=== PATIENT | female | born 1945 | race Caucasian/White ===

== ENCOUNTER → 2017-01-07 | Outpatient (CLI) | payer MEDICARE ==
[2017-01-07 14:35] LABS: CH 31.9; CHCM 32.1; HDW 2.76; HGB 14.3 gm/dL (11.4-16.0); MCH 32.5 pg (25.0-35.0); MCHC 32.5 g/dL (31.0-37.0); Macrocytosis Slight; RDW 14.8 % (11.5-15.5); WBC 11.4 k/uL (3.8-10.6)
[2017-01-07 14:43] LABS: Anion Gap 16 mmol/L; Blood Urea Nitrogen 11 mg/dL (7-17); Carbon Dioxide 22 mmol/L (22-30); Chloride 103 mmol/L (98-107); Glucose 106 mg/dL (74-99); Non-African American GFR(MDRD) 58 (>60 ml/min/1.73 sqM); Potassium 4.6 mmol/L (3.5-5.1); Sodium 141 mmol/L (137-145)
== END | disposition home or self-care (01) ==
LOC: LABWHC1 13:44
PROVIDERS: ATTEND Internal Medicine Interventional Cardiology
DX: I25.10 Atherosclerotic heart disease of native coronary artery without angina pectoris (principal); I10 Essential (primary) hypertension
CPT/HCPCS: 36415; 80048; 85027

== ENCOUNTER → 2017-01-07 | Outpatient (CLI) | payer MEDICARE ==
--- NOTE | 2017-01-07 14:18 | BD ---
EXAMINATION TYPE: MG DEXA axial skeleton. DATE OF EXAM: 01/07/2017 1:42 PM COMPARISON: Prior DEXA bone scan September 14, 2014. CLINICAL HISTORY: Postmenopausal female Height: 5'7 Weight: 182 FRAX RISK QUESTIONS: Alcohol (3 or more units per day): no Family History (Parent hip fracture): no Glucocorticoids (More than 3mos): yes (Ex: prednisone, prednisolone, methylprednisolone, dexamethasone, and hydrocortisone). History of Fracture in Adulthood: no Secondary Osteoporosis: 1. Type 1 Diabetes: no 2. Hyperthyroidism: no 3. Menopause before 45: no 4. Malnutrition: no 5. Chronic liver disease: no Rheumatoid Arthritis: no Current Tobacco Use: no RISK FACTORS HISTORY OF: History of Wrist Fracture: left When: 1962 Active: Diet low in dairy products/other sources of calcium: Postmenopausal woman: MEDICATIONS: Prednisone or other steroids: How Lon year Osteoporosis Medications: Which medication: Fosamax How Lon year Additional Medications: heart, see list Additional History: breast cancer [facility] 2016 EXAM MEASUREMENTS: Bone mineral densitometry was performed using the [employer] System. Bone mineral density as measured about the Lumbar spine is: ----- L1-L4(G/cm2): 1.277 T Score Values are as follows: ----- L2: 0.1 ----- L3: 1.1 ----- L4: 0.7 ----- L1-L4:0.5 Bone mineral density has: Increased 3.3% since study of: 09/14/2014 Bone mineral density about the R hip (g/cm2): 0.842 Bone mineral density about the L hip (g/cm2): 0.814 T Score values are as follows: -----R Neck: -1.4 -----L Neck: -1.6 -----R Intertrochanter: -0.7 -----L Intertrochanter: -0.7 Bone mineral density has: Increased 4.1% since study of: 09/14/2014 IMPRESSION: Osteopenia (T Score between -2.5 and -1 as noted by T score values: Persistent bilateral hips though bone density is increased from prior. There remains slightly increased risk of fracture and the patie nt may be considered for treatment. Re-Screen 1-2 years. NOTE: T-SCORE=SD OF THE YOUNG ADULT MEAN.
== END | disposition home or self-care (01) ==
LOC: RADBDWWP 13:07
PROVIDERS: ATTEND Internal Medicine Hematology & Oncology
DX: M85.852 Other specified disorders of bone density and structure, left thigh (principal); M85.851 Other specified disorders of bone density and structure, right thigh; C50.919 Malignant neoplasm of unspecified site of unspecified female breast; N95.1 Menopausal and female climacteric states; Z79.890 Hormone replacement therapy
CPT/HCPCS: 77080

== ENCOUNTER 2017-04-03 11:30 | Emergency (ER) | payer MEDICARE ==
[2017-04-03 12:05] VITALS: RESP 18
[2017-04-03] MEDS ORDERED: MORPHINE SULFATE 4 MG/ML SYRINGE IV STA (12:18)
[2017-04-03] MEDS ORDERED: SODIUM CHLORIDE 0.9% 500 ML IV STA (12:18)
[2017-04-03] MEDS ORDERED: SODIUM CHLORIDE 0.9% 1,000 ML IV STA (12:18)
[2017-04-03] MEDS ORDERED: ONDANSETRON 4 MG/2 ML VIAL IVP STA ×2 (12:18→14:21)
[2017-04-03] MEDS ORDERED: FAMOTIDINE 20 MG/2 ML VIAL IV STA (12:19)
--- NOTE | 2017-04-03 12:21 | ED ---
General Adult HPI - General Chief complaint: Nausea/Vomiting/Diarrhea Stated complaint: NAUSEA, VOMITING Time Seen by Provider: 04/03/17 12:02 Source: patient, RN notes reviewed Mode of arrival: ambulatory Limitations: no limitations - History of Present Illness Initial comments: Patient is a pleasant 71-year-old female presenting to the emergency department with nausea vomiting. Patient has had recurrent problems similar to this for years. Patient has been hospitalized a few times the past for this. Patient has epigastric discomfort. Patient has nausea with several episodes of vomiting. Patient has a known hiatal hernia. Patient states she usually gets Zofran and pain medicine for this and does request this. Patient did try Compazine tablet at home however vomited. - Related Data Home Medications Medication Instructions Recorded Confirmed Acetaminophen Tab [Tylenol] 500 mg PO HS 10/04/14 04/03/17 DULoxetine HCL [Cymbalta] 60 mg PO DAILY 10/04/14 04/03/17 Fluticasone Propionate [Flovent 1 puff INHALATION RT-QID 10/04/14 04/03/17 Hfa 110mcg] Gabapentin [Neurontin] 600 mg PO BID 10/04/14 04/03/17 Ipratropium/Albuterol Sulfate 1 puff INHALATION RT-QID 10/04/14 04/03/17 [Combivent Respimat Inhaler] Multivitamins, Thera [Multivitamin] 1 tab PO DAILY@1200 10/04/14 04/03/17 OLANZapine [ZyPREXA] 5 mg PO HS 10/04/14 04/03/17 traZODone HCL [Desyrel] 150 mg PO HS 10/04/14 04/03/17 Aspirin 81 mg PO DAILY@1200 10/31/15 04/03/17 Carvedilol [Coreg] 6.25 mg PO BID 10/31/15 04/03/17 Cholecalciferol [Vitamin D3] 1,000 unit PO BID@1200,2100 10/31/15 04/03/17 Furosemide [Lasix] 40 mg PO DAILY 10/31/15 04/03/17 Lansoprazole [Prevacid] 30 mg PO DAILY 10/31/15 04/03/17 Latanoprost Ophth [Xalatan 0.005%] 1 drops BOTH EYES HS 10/31/15 04/03/17 Lisinopril [Zestril] 2.5 mg PO DAILY@1200 10/31/15 04/03/17 Risedronate Sodium [Risedronate 35 mg PO MARS 10/31/15 04/03/[address]] Spironolactone [Aldactone] 12.5 mg PO DAILY@1200 10/31/15 04/03/17 metFORMIN HCL [Glucophage] 500 mg PO DAILY 10/31/15 04/03/17 Atorvastatin Calcium [Lipitor] 40 mg PO HS 04/03/17 04/03/17 clonazePAM [KlonoPIN] 2.5 mg PO TID 04/03/17 04/03/17 Previous Rx's Medication Instructions Recorded Ondansetron Odt [Zofran Odt] 4 mg PO Q8HR PRN #10 tab 04/03/17 Allergies Allergy/AdvReac Type Severity Reaction Status Date / Time bupropion HCl Allergy Unknown Verified 04/03/17 13:31 [From Wellbutrin] codeine Allergy Unknown Verified 04/03/17 13:31 erythromycin base Allergy Unknown Verified 04/03/17 13:31 [Erythromycin Base] Penicillins Allergy Unknown Verified 04/03/17 13:31 sertraline HCl [From Zoloft] Allergy Unknown Verified 04/03/17 13:31 Review of Systems ROS Statement: Those systems with pertinent positive or pertinent negative responses have been documented in the HPI. ROS Other: All systems not noted in ROS Statement are negative. Constitutional: Denies: fever Eyes: Denies: eye pain ENT: Denies: ear pain Respiratory: Denies: cough, dyspnea Cardiovascular: Denies: chest pain Endocrine: Denies: fatigue Gastrointestinal: Reports: abdominal pain, nausea, vomiting. Denies: diarrhea, constipation Genitourinary: Denies: dysuria Musculoskeletal: Denies: back pain Skin: Denies: rash Neurological: Denies: weakness Past Medical History Past Medical History: Asthma, Coronary Artery Disease (CAD), COPD, Diabetes Mellitus, Hyperlipidemia, Hypertension, Myocardial Infarction (LA) Additional Past Medical History / Comment(s): bipolar disorder, emphysema, incont of urine wears a pad, hiatal hernia, uti Last Myocardial Infarction Date:: 10-04-14 History of Any Multi-Drug Resistant Organisms: None Reported Past Surgical History: Cholecystectomy, Heart Catheterization With Stent, Orthopedic Surgery, Tonsillectomy Past Anesthesia/Blood Transfusion Reactions: No Reported Reaction Date of Last Stent Placement:: 10/04/14 Past Psychological History: Bipolar Smoking Status: Former smoker Past Alcohol Use History: None Reported Additional Past Alcohol Use History / Comment(s): quit smoked 3/4 ppd since she was a teenager. Past Drug Use History: None Reported - Past Family History Father Family Medical History: Cancer Additional Family Medical History / Comment(s): non hodgkins lymphoma Sister(s) Family Medical History: Cancer Additional Family Medical History / Comment(s): bipolar Mother Additional Family Medical History / Comment(s): alzheimers, bipolar, dementia General Exam Limitations: no limitations General appearance: alert, in no apparent distress Head exam: Present: atraumatic Eye exam: Present: normal appearance, PERRL ENT exam: Present: normal oropharynx Neck exam: Present: normal inspection Respiratory exam: Present: normal lung sounds bilaterally Cardiovascular Exam: Present: regular rate, normal rhythm Expanded Peripheral pulses: 2+: Dorsalis Pedis (R), Dorsalis Pedis (L) GI/Abdominal exam: Present: soft, tenderness (Mild epigastric), normal bowel sounds. Absent: distended, guarding, rebound, rigid, pulsatile mass Extremities exam: Present: normal inspection. Absent: pedal edema, calf tenderness Neurological exam: Present: alert Psychiatric exam: Present: normal affect, normal mood Skin exam: Absent: rash Course Vital Signs 04/03/17 04/03/17 04/03/17 11:34 12:03 13:53 Temperature 98.7 F 98.4 F 98.1 F Pulse Rate 87 77 96 Respiratory 22 18 18 Rate Blood Pressure 180/93 164/86 168/97 O2 Sat by Pulse 95 96 95 Oximetry Medical Decision Making - Medical Decision Making Patient reevaluated and improved. Patient still has some nausea and is receptive to repeat Zofran. Abdomen is soft and nontender. Patient requests discharge. Patient updated on results and need for follow-up. - Lab Data Result diagrams: 04/03/17 13:05 04/03/17 13:05 Lab Results 04/03/17 04/03/17 04/03/17 Range/Units 13:05 13:05 13:35 WBC 16.8 H (3.8-10.6) k/uL RBC 4.68 (3.80-5.40) m/uL Hgb 14.9 (11.4-16.0) gm/dL Hct 44.2 (34.0-46.0) % MCV 94.5 (80.0-100.0) fL MCH 31.8 (25.0-35.0) pg MCHC 33.6 (31.0-37.0) g/dL RDW 14.9 (11.5-15.5) % Plt Count 335 (150-450) k/uL Neutrophils % 84 % Lymphocytes % 13 % Monocytes % 2 % Eosinophils % 1 % Basophils % 0 % Neutrophils # 14.1 H (1.3-7.7) k/uL Lymphocytes # 2.2 (1.0-4.8) k/uL Monocytes # 0.3 (0-1.0) k/uL Eosinophils # 0.1 (0-0.7) k/uL Basophils # 0.0 (0-0.2) k/uL Sodium 141 (137-145) mmol/L Potassium 4.3 (3.5-5.1) mmol/L Chloride 103 (98-107) mmol/L Carbon Dioxide 22 (22-30) mmol/L Anion Gap 16 mmol/L BUN 10 (7-17) mg/dL Creatinine 0.77 (0.52-1.04) mg/dL Est GFR (MDRD) Af Amer >60 (>60 ml/min/1.73 sqM) Est GFR (MDRD) Non-Af >60 (>60 ml/min/1.73 sqM) Glucose 143 H (74-99) mg/dL Calcium 10.3 H (8.4-10.2) mg/dL Total Bilirubin 1.1 (0.2-1.3) mg/dL AST 24 (14-36) U/L ALT 27 (9-52) U/L Alkaline Phosphatase 135 H (38-126) U/L Total Protein 9.0 H (6.3-8.2) g/dL Albumin 5.0 (3.5-5.0) g/dL Amylase 62 (30-110) U/L Lipase 82 (23-300) U/L Urine Color Yellow Urine Appearance Clear (Clear) Urine pH 8.0 (5.0-8.0) Ur Specific [place] 1.018 (1.001-1.035) Urine Protein 1+ H (Negative) Urine Glucose (UA) Negative (Negative) Urine Ketones Negative (Negative) Urine Blood Negative (Negative) Urine Nitrite Negative (Negative) Urine Bilirubin Negative (Negative) Urine Urobilinogen <2.0 (<2.0) mg/dL Ur Leukocyte Esterase Small H (Negative) Urine RBC 1 (0-5) /hpf Urine WBC 9 H (0-5) /hpf Ur Squamous Epith Cells <1 (0-4) /hpf Urine Mucus Rare H (None) /hpf - Radiology Data Radiology results: image reviewed (Abdominal x-ray shows no acute process) Disposition Clinical Impression: Vomiting Disposition: HOME SELF-CARE Condition: Stable Instructions: Acute Nausea and Vomiting (ED) Additional Instructions: Please follow-up with your doctor in the next day or 2 for recheck. Return for abdominal pain, fevers, not tolerating fluids, worsening symptoms or other concerns. Prescriptions: Ondansetron Odt [Zofran Odt] 4 mg PO Q8HR PRN #10 tab PRN Reason: Nausea Referrals: James Sesay MD [Primary Care Provider] - 1-2 days
[2017-04-03 13:16] LABS: Basophils % (A) 0 %; CH 32.3; CHCM 34.3; Eosinophils # (A) 0.1 k/uL (0-0.7); Eosinophils % (A) 1 %; HCT 44.2 % (34.0-46.0); HDW 2.67; HGB 14.9 gm/dL (11.4-16.0); Luc # (Auto) 0.08; Luc % (Auto) 1; Lymphocytes # (A) 2.2 k/uL (1.0-4.8); Lymphocytes % (A) 13 %; MCH 31.8 pg (25.0-35.0); MCHC 33.6 g/dL (31.0-37.0); MCV 94.5 fL (80.0-100.0); Mean Platelet Volume 8.2; Monocytes # (A) 0.3 k/uL (0-1.0); Monocytes % (A) 2 %; Neutrophils # (A) 14.1 k/uL (1.3-7.7); Neutrophils % (A) 84 %; RBC 4.68 m/uL (3.80-5.40); RDW 14.9 % (11.5-15.5); WBC 16.8 k/uL (3.8-10.6); WBC (Perox) 17.03
[2017-04-03 13:26] LABS: ALT 27 U/L (9-52); AST 24 U/L (14-36); Alkaline Phosphatase 135 U/L (38-126); Amylase 62 U/L (30-110); Anion Gap 16 mmol/L; Blood Urea Nitrogen 10 mg/dL (7-17); Calcium 10.3 mg/dL (8.4-10.2); Carbon Dioxide 22 mmol/L (22-30); Chloride 103 mmol/L (98-107); Glucose 143 mg/dL (74-99); Non-African American GFR(MDRD) >60 (>60 ml/min/1.73 sqM); Potassium 4.3 mmol/L (3.5-5.1); Sodium 141 mmol/L (137-145); Total Bilirubin 1.1 mg/dL (0.2-1.3)
--- NOTE | 2017-04-03 14:09 | XR ---
EXAMINATION TYPE: XR KUB DATE OF EXAM: 04/03/2017 2:04 PM COMPARISON: NONE HISTORY: Pain TECHNIQUE: Single supine KUB image of the abdomen is obtained FINDINGS: Small bowel demonstrates no evidence for dilatation or air fluid levels. Gas and fecal material is seen in non-distended colon. No convincing evidence for pneumoperitoneum. No unusual calcifications. The lung bases are clear. Cholecystectomy clips. Degenerative changes lumbar spine. The osseous structures are intact. IMPRESSION: 1. Overall nonobstructive bowel gas pattern.
[2017-04-03 14:11] LABS: Appearance,Urine Clear (Clear); Bilirubin,Urine Negative (Negative); Glucose,Urine (UA) Negative (Negative); Ketones,Urine Negative (Negative); Leukocyte Esterase,Urine Small (Negative); Mucus,Urine Rare /hpf; Nitrite,Urine Negative (Negative); Particle Count 3206; Protein,Urine 1+ (Negative); RBC,Urine 1 /hpf (0-5); Specific Gravity,Urine 1.018 (1.001-1.035); Squamous Epithelial Cell,Urine <1 /hpf (0-4); UA Billing (MACRO vs. MICRO) MICRO; Urobilinogen,Urine <2.0 mg/dL (<2.0); WBC,Urine 9 /hpf (0-5)
[2017-04-03 15:09] VITALS: BP 142/67; PULSE 92; TEMP 98.5
== END 2017-04-03 15:29 | disposition home or self-care (01) ==
LOC: EC 11:30
DX: R11.2 Nausea with vomiting, unspecified (principal); E11.9 Type 2 diabetes mellitus without complications; E78.5 Hyperlipidemia, unspecified; I10 Essential (primary) hypertension; I25.10 Atherosclerotic heart disease of native coronary artery without angina pectoris; J45.909 Unspecified asthma, uncomplicated; J44.9 Chronic obstructive pulmonary disease, unspecified; F31.9 Bipolar disorder, unspecified; I25.2 Old myocardial infarction; Z87.891 Personal history of nicotine dependence; Z79.51 Long term (current) use of inhaled steroids; Z79.82 Long term (current) use of aspirin; Z79.84 Long term (current) use of oral hypoglycemic drugs; Z79.899 Other long term (current) drug therapy; Z88.0 Allergy status to penicillin; Z88.1 Allergy status to other antibiotic agents; Z88.5 Allergy status to narcotic agent; Z88.8 Allergy status to other drugs, medicaments and biological substances
CPT/HCPCS: 36415; 80053; 82150; 83690; 85025; 81001; 74000; 99284; 96374; 96375 ×2; 96376; 96361 ×2; J2270; J2405

== ENCOUNTER → 2017-04-09 | Outpatient (CLI) | payer MEDICARE ==
--- NOTE | 2017-04-09 17:38 | US ---
EXAMINATION TYPE: US abdomen complete DATE OF EXAM: 04/09/2017 4:05 PM COMPARISON: Prior CT abdomen pelvis 12 June 2016, prior abdomen ultrasound December CLINICAL HISTORY: R94.5 Abn Liver Function Test, R11.2 Nausea/Vomiti. N/V, history of cholecystectomy EXAM MEASUREMENTS: Liver Length: 13.1 cm Gallbladder Wall: surgically absent CBD: 0.5 cm Spleen: 11.1 cm Right Kidney: 9.3 x 5.0 x 5.4 cm Left Kidney: 10.1 x 5.4 x 4.6 cm Pancreas: visualized portions wnl, tail limited by overlying midline bowel gas Liver: slightly heterogeneous without any definite lesions seen at this time Gallbladder: surgically absent Evidence for sonographic Nunez's sign: no CBD: visualized portions wnl, limited by overlying bowel gas Spleen: wnl Right Kidney: visualized portions wnl, limited by rib shadowing Left Kidney: visualized portions wnl, limited by rib shadowing Upper IVC: wnl Abd Aorta: visualized portions wnl, limited by overlying midline bowel gas There is no ascites. Kidneys are morphologically normal without hydronephrosis or evident mass, calci fication.. IMPRESSION: Somewhat limited exam. Status post cholecystectomy. Possible degree of fatty infiltration of the liver.
== END | disposition home or self-care (01) ==
LOC: RADUSWWP 15:37
PROVIDERS: ATTEND Internal Medicine
DX: R94.5 Abnormal results of liver function studies (principal); R11.2 Nausea with vomiting, unspecified; Z90.49 Acquired absence of other specified parts of digestive tract
CPT/HCPCS: 76700

== ENCOUNTER 2017-04-25 09:23 | Day surgery (SDC) | payer MEDICARE ==
[2017-04-23 16:24] VITALS: BMI 27.1
[~2017-04-25 09:23] MED LIST: LACTATED RINGERS 1,000 ML IV SCH
[2017-04-25 10:12] VITALS: PULSE 66; TEMP 98.1
[2017-04-25] MEDS ORDERED: LIDOCAINE 1% 20 ML VIAL (10MG/ML) FOR IV START INTRADERMA ONE (10:18)
[2017-04-25 10:24] LABS: Glucose,Whole Blood 107 mg/dL (75-99)
[2017-04-25] MEDS ORDERED: PROPOFOL 10 MG/ML 20 ML VIAL IV ONE (10:36)
--- NOTE | 2017-04-25 10:58 | P.PCN ---
Date of Procedure: 04/25/17 Preoperative Diagnosis: Postoperative Diagnosis: Procedure(s) Performed: BRIEF HISTORY: Patient is a 71-year-old, pleasant, white female, scheduled for an upper endoscopy as a part of evaluation of from intermittent nausea vomiting for the last 10 years duration. She is having these episodes once every 2-3 months and sometimes the last for few days. She has been on Prevacid 30 mg daily for 2 years now still remains symptomatic. She was diagnosed with GERD in the past. Presently takes Zofran as needed. PROCEDURE PERFORMED: Esophagogastroduodenoscopy with biopsy. PREOPERATIVE DIAGNOSIS: Intermittent nausea and vomiting of 10 years duration. IV sedation per anesthesia. PROCEDURE: After informed consent was obtained, the patient was brought into the endoscopy unit. IV sedation was administered by Anesthesia under continuous monitoring. Initially the Olympus GIF-140 video endoscope was inserted into the mouth. Esophagus intubated without any difficulty. It was gradually advanced into the stomach and duodenum and carefully examined. The bulb and the second part of the duodenum appeared normal. Biopsies were done from this area to rule out celiac disease. The scope at this time was withdrawn to the stomach, adequately insufflated with air, and upon careful examination, mucosa of the antrum had mild mottling of the mucosa and biopsies were done from this area. The body, cardia and the fundus appeared normal. The scope was then withdrawn into the esophagus. The GE junction was located at 39 cm from the incisors. The esophagus appeared normal. There were no erosions or ulcerations seen and the patient tolerated the procedure well. IMPRESSION: 1. Mild antral gastritis. 2. No evidence of esophagitis or peptic ulcer disease. RECOMMENDATIONS: The findings of this examination were discussed with the patient as well as her family. She was advised to follow with the biopsy results. She will continue with Zofran as needed for the nausea and continue with Prevacid for reflux symptoms. She'll be seen in the office in 3-4 weeks. Implants: Indications for Procedure: Operative Findings: Description of Procedure:
[2017-04-25 11:03] VITALS: RESP 18
[2017-04-25 11:23] VITALS: BP 110/68
== END 2017-04-25 11:33 | disposition home or self-care (01) ==
LOC: ORWHC2ENDO 09:23
PROVIDERS: ATTEND Internal Medicine Gastroenterology
DX: K29.50 Unspecified chronic gastritis without bleeding (principal); K21.0 Gastro-esophageal reflux disease with esophagitis; J44.9 Chronic obstructive pulmonary disease, unspecified; J45.909 Unspecified asthma, uncomplicated; I25.10 Atherosclerotic heart disease of native coronary artery without angina pectoris; I10 Essential (primary) hypertension; E78.5 Hyperlipidemia, unspecified; E11.9 Type 2 diabetes mellitus without complications; Z95.5 Presence of coronary angioplasty implant and graft; I25.2 Old myocardial infarction; Z87.891 Personal history of nicotine dependence; Z79.82 Long term (current) use of aspirin; Z79.51 Long term (current) use of inhaled steroids; Z79.899 Other long term (current) drug therapy; Z88.1 Allergy status to other antibiotic agents; Z88.0 Allergy status to penicillin; Z88.8 Allergy status to other drugs, medicaments and biological substances
CPT/HCPCS: 88305; 88342; 43239; J2704

== ENCOUNTER → 2017-10-07 | Outpatient (CLI) | payer MEDICARE ==
[2017-10-07 14:10] LABS: CH 32.3; CHCM 32.7; HCT 44.1 % (34.0-46.0); HDW 2.57; HGB 14.1 gm/dL (11.4-16.0); MCH 31.8 pg (25.0-35.0); MCV 99.6 fL (80.0-100.0); Macrocytosis Slight; Mean Platelet Volume 9.3; RBC 4.43 m/uL (3.80-5.40); RDW 14.8 % (11.5-15.5); WBC 13.1 k/uL (3.8-10.6)
[2017-10-07 14:30] LABS: ALT 25 U/L (9-52); AST 17 U/L (14-36); Alkaline Phosphatase 115 U/L (38-126); Anion Gap 11 mmol/L; Blood Urea Nitrogen 11 mg/dL (7-17); Calcium 9.8 mg/dL (8.4-10.2); Carbon Dioxide 24 mmol/L (22-30); Chloride 104 mmol/L (98-107); Cholesterol 166 mg/dL (<200); Glucose 96 mg/dL (74-99); HDL Cholesterol 36 mg/dL (40-60); Non-African American GFR(MDRD) >60 (>60 ml/min/1.73 sqM); Potassium 4.6 mmol/L (3.5-5.1); Sodium 139 mmol/L (137-145); Total Bilirubin 0.9 mg/dL (0.2-1.3); Total Protein 7.4 g/dL (6.3-8.2)
== END | disposition home or self-care (01) ==
LOC: LABWHC1 12:26
PROVIDERS: ATTEND Internal Medicine
DX: I11.9 Hypertensive heart disease without heart failure (principal); E78.2 Mixed hyperlipidemia; M19.90 Unspecified osteoarthritis, unspecified site; M81.8 Other osteoporosis without current pathological fracture
CPT/HCPCS: 36415; 80053; 80061; 82306; 84439; 84443; 85027

== ENCOUNTER → 2017-10-15 | Outpatient (CLI) | payer MEDICARE ==
--- NOTE | 2017-10-15 15:29 | XR ---
EXAMINATION TYPE: XR chest 2V DATE OF EXAM: 10/15/2017 COMPARISON: Chest x-ray May 02, 2016 HISTORY: COPD with cough. TECHNIQUE: Frontal and lateral views of the chest are obtained. FINDINGS: There is no focal air space opacity, pleural effusion, or pneumothorax seen. The cardiac silhouette size is within normal limits. Underlying mild emphysematous change is felt present. The o sseous structures are demineralized. There is degenerative change right glenohumeral joint seen. Curv ilinear calcification at this level is noted. On lateral view there are anterior surgical clips not c learly seen on frontal view IMPRESSION: Mild chronic emphysematous change without suspicious acute pulmonary process. Right shou lder is partially imaged with suspicious new findings. Advise dedicated right shoulder x-ray based on clinical correlation. Healing fracture is in differential at this level.
== END | disposition home or self-care (01) ==
LOC: RADXRMAIN 15:05
PROVIDERS: ATTEND Internal Medicine
DX: J43.9 Emphysema, unspecified (principal)
CPT/HCPCS: 71020

== ENCOUNTER → 2017-12-05 | Outpatient (CLI) | payer MEDICARE ==
--- NOTE | 2017-12-05 14:47 | MM ---
Reason for exam: additional evaluation requested from prior study. Last mammogram was performed 1 year and 2 months ago. History: Patient is postmenopausal and has history of breast cancer at age 71. Family history of premenopausal breast cancer in sister at age 45. Lumpectomy of the left breast, 2017. Taking estrogen for 2 months. Taking antineoplastic beginning at age 71. Physical Findings: Nurse did not find any significant physical abnormalities on exam. MG 3D Diag Mammo W/Cad TIERNEY Bilateral CC and MLO view(s) were taken. Prior study comparison: September 25, 2016, left breast MG 3d work up w/cad LT. September 16, 2016, bilateral MG screening mammo w CAD. The breast tissue is heterogeneously dense. This may lower the sensitivity of mammography. No suspicious calcifications are seen. Stable post operative changes in the left breast. These results were verbally communicated with the patient and result sheet given to the patient on 12/05/17. ASSESSMENT: Benign, BI-RAD 2 RECOMMENDATION: Follow-up diagnostic mammogram of both breasts in 1 year.
== END | disposition home or self-care (01) ==
LOC: RADMAMWWP 13:44
PROVIDERS: ATTEND Internal Medicine Hematology & Oncology
DX: Z08 Encounter for follow-up examination after completed treatment for malignant neoplasm (principal); Z85.3 Personal history of malignant neoplasm of breast
CPT/HCPCS: 77066; G0279

== ENCOUNTER → 2018-01-13 | Outpatient (CLI) | payer MEDICARE ==
--- NOTE | 2018-01-13 14:49 | US ---
EXAMINATION TYPE: US pelvis complete transvag DATE OF EXAM: 01/13/2018 COMPARISON: Pelvic ultrasound September 14, 2014 CLINICAL HISTORY: N93.9 Abnormal Vaginal Bleeding. No bleeding now, episode recently and 1 year ago, patient also did UA that was clean of hematuria TECHNIQUE: TA and TV Date of LMP: 20 yrs. ago EXAM MEASUREMENTS: Uterus: 6.2 x 4.1 x 2.6 cm Endometrial Stripe: 0.4 cm Right Ovary: not seen Left Ovary: not seen 1. Uterus: Anteverted atrophic but appears wnl 2. Endometrium: wnl 3. Right Ovary: not seen due to atrophy and bowel gas 4. Left Ovary: not seen due to atrophy and bowel gas 5. Bilateral Adnexa: wnl 6. Posterior cul-de-sac: wnl No suspicious thickening of endometrium identified. No free fluid in pelvic cul-de-sac. Neither ovary is seen. No suspicious adnexal masses are noted. IMPRESSION: No suspicious endometrial thickening. Unremarkable study for postmenopausal female.
== END | disposition home or self-care (01) ==
LOC: RADUSWWP 12:54
PROVIDERS: ATTEND Obstetrics & Gynecology Gynecology
DX: N93.9 Abnormal uterine and vaginal bleeding, unspecified (principal); Z78.0 Asymptomatic menopausal state
CPT/HCPCS: 76830; 76856

== ENCOUNTER 2018-07-09 17:23 | Emergency (ER) | payer MEDICARE ==
[2018-07-09] MEDS ORDERED: MORPHINE SULFATE 4 MG/ML SYRINGE IV STA (19:47)
[2018-07-09] MEDS ORDERED: SODIUM CHLORIDE 0.9% 1,000 ML IV STA (19:47)
[2018-07-09] MEDS ORDERED: FAMOTIDINE 20 MG/2 ML VIAL IV STA (19:47)
[2018-07-09] MEDS ORDERED: ONDANSETRON 4 MG/2 ML VIAL IVP STA (19:47)
--- NOTE | 2018-07-09 20:06 | ED ---
Nausea/Vomiting/Diarrhea HPI - General Chief complaint: Nausea/Vomiting/Diarrhea Stated complaint: VOMITING, ABDOOMINAL PAIN Time Seen by Provider: 07/09/18 19:21 Source: patient Mode of arrival: ambulatory Limitations: no limitations - History of Present Illness Initial comments: 73-year-old female patient presents to the emergency department today for complaints of nausea and vomiting. Patient states that symptoms started at 1 PM this afternoon. States that she has vomited 22 times since onset of symptoms. States that she has been chilled with this. States that she is having midepigastric burning with this. Patient states that she has had symptoms similar to this in the past and she sees a GI specialist for this. Patient states that for the last couple of weeks she has also been experiencing chest pain that radiates into her back. She reports she is also experiencing left flank pain in her kidney area. States that she has been having some shortness of breath as well. Patient states she does have emphysema but her shortness breath has been worse. Denies any cough or congestion. Denies any fever. Patient denies any recent rash, abdominal pain, numbness, tingling, dizziness, weakness, hematuria, dysuria, urinary urgency, urinary frequency, headache, visual changes, or any other complaints. - Related Data Home Medications Medication Instructions Recorded Confirmed Acetaminophen Tab [Tylenol] 500 mg PO HS 10/04/14 07/09/18 DULoxetine HCL [Cymbalta] 60 mg PO DAILY 10/04/14 07/09/18 Fluticasone Propionate [Flovent 1 puff INHALATION RT-QID 10/04/14 07/09/18 Hfa 110mcg] Gabapentin [Neurontin] 600 mg PO BID 10/04/14 07/09/18 Ipratropium/Albuterol Sulfate 1 puff INHALATION RT-QID 10/04/14 07/09/18 [Combivent Respimat Inhaler] Multivitamins, Thera [Multivitamin] 1 tab PO DAILY@1200 10/04/14 07/09/18 OLANZapine [ZyPREXA] 5 mg PO HS 10/04/14 07/09/18 traZODone HCL [Desyrel] 150 mg PO HS 10/04/14 07/09/18 Aspirin 81 mg PO DAILY@1200 10/31/15 07/09/18 Carvedilol [Coreg] 6.25 mg PO BID 10/31/15 07/09/18 Cholecalciferol [Vitamin D3] 1,000 unit PO BID@1200,2100 10/31/15 07/09/18 Furosemide [Lasix] 40 mg PO DAILY 10/31/15 07/09/18 Lansoprazole [Prevacid] 30 mg PO DAILY 10/31/15 07/09/18 Latanoprost Ophth [Xalatan 0.005%] 1 drops BOTH EYES HS 10/31/15 07/09/18 Lisinopril [Zestril] 2.5 mg PO DAILY@1200 10/31/15 07/09/18 Risedronate Sodium [Risedronate 35 mg PO MARS 10/31/15 07/09/[address]] Spironolactone [Aldactone] 12.5 mg PO DAILY@1200 10/31/15 07/09/18 metFORMIN HCL [Glucophage] 500 mg PO DAILY 10/31/15 07/09/18 Atorvastatin Calcium [Lipitor] 40 mg PO HS 04/03/17 07/09/18 clonazePAM [KlonoPIN] 3 mg PO BID 04/03/17 07/09/18 Charcoal Caps 2 cap PO ONCE PRN 07/09/18 07/09/18 Magnesium/Potassium/Bromelain 1 tab PO DAILY@1200 07/09/18 07/09/18 Previous Rx's Medication Instructions Recorded Metoclopramide [Reglan] 10 mg PO Q8H PRN #10 tab 07/09/18 Allergies Allergy/AdvReac Type Severity Reaction Status Date / Time bupropion HCl Allergy Rash/Hives Verified 07/09/18 19:26 [From Wellbutrin] erythromycin base Allergy SWELLING Verified 07/09/18 19:26 [Erythromycin Base] OF TONGUE Penicillins Allergy SWELLING Verified 07/09/18 19:26 OF TONGUE sertraline HCl [From Zoloft] Allergy Diarrhea Verified 07/09/18 19:26 Review of Systems ROS Statement: Those systems with pertinent positive or pertinent negative responses have been documented in the HPI. ROS Other: All systems not noted in ROS Statement are negative. Past Medical History Past Medical History: Asthma, Cancer, COPD, Diabetes Mellitus, GERD/Reflux, Hyperlipidemia, Hypertension, Myocardial Infarction (NH), Osteoarthritis (OA) Additional Past Medical History / Comment(s): BREAST CANCER Last Myocardial Infarction Date:: 10-04-14 History of Any Multi-Drug Resistant Organisms: None Reported Past Surgical History: Breast Surgery, Cholecystectomy, Heart Catheterization With Stent, Orthopedic Surgery, Tonsillectomy Additional Past Surgical History / Comment(s): CYST REMOVED FROM CYST , COLONOSCOPY AND EGD, LEFT BREAST Past Anesthesia/Blood Transfusion Reactions: No Reported Reaction Date of Last Stent Placement:: 10/04/14 Past Psychological History: Bipolar Smoking Status: Former smoker - Past Family History Father Family Medical History: Cancer Additional Family Medical History / Comment(s): non hodgkins lymphoma Sister(s) Family Medical History: Cancer Additional Family Medical History / Comment(s): bipolar Mother Family Medical History: No Reported History Additional Family Medical History / Comment(s): alzheimers, bipolar, dementia General Exam Limitations: no limitations General appearance: alert, in no apparent distress, other (This is a well- developed, well-nourished elderly female patient in no acute distress. Vital signs upon presentation are temperature 97.9F, pulse 66, respirations 18, blood pressure 155/84, pulse ox 97% on room air.) Eye exam: Present: normal appearance, PERRL, EOMI. Absent: scleral icterus, conjunctival injection, periorbital swelling ENT exam: Present: normal exam, normal oropharynx, mucous membranes moist Respiratory exam: Present: normal lung sounds bilaterally. Absent: respiratory distress, wheezes, rales, rhonchi, stridor, chest wall tenderness Cardiovascular Exam: Present: regular rate, normal rhythm, normal heart sounds. Absent: systolic murmur, diastolic murmur, rubs, gallop, clicks GI/Abdominal exam: Present: soft, normal bowel sounds. Absent: distended, tenderness, guarding, rebound, rigid Neurological exam: Present: alert, oriented X3, CN II-XII intact Psychiatric exam: Present: normal affect, normal mood Skin exam: Present: warm, dry, intact, normal color. Absent: rash Course Vital Signs 07/09/18 07/09/18 07/09/18 17:51 20:13 21:23 Temperature 97.9 F Pulse Rate 66 87 72 Respiratory 18 18 18 Rate Blood Pressure 155/84 180/67 171/79 O2 Sat by Pulse 97 96 95 Oximetry 07/09/18 07/09/18 22:20 23:07 Temperature 97.8 F Pulse Rate 87 85 Respiratory 18 17 Rate Blood Pressure 129/60 131/60 O2 Sat by Pulse 93 L 93 L Oximetry Medical Decision Making - Medical Decision Making 73-year-old female patient presents the emergency department today for complaints of midepigastric burning and vomiting. Physical examination did reveal some mild midepigastric tenderness. Labs reviewed and showed an elevated white blood cell count at 13.7 which is felt to be reactive from vomiting. Urinalysis was negative for any acute abnormalities. Patient did receive medications here in the emergency department. She is feeling better. She did tolerate by mouth challenge. Patient does have control being discharged home to follow-up with her primary care physician and her digital account manager. She'll be given a prescription for Reglan. Return parameters discussed in detail. She verbalizes understanding and agrees with this plan. - Lab Data Result diagrams: 07/09/18 19:56 07/09/18 19:56 Lab Results 07/09/18 07/09/18 07/09/18 Range/Units 19:56 19:56 19:56 WBC 13.7 H (3.8-10.6) k/uL RBC 4.55 (3.80-5.40) m/uL Hgb 14.7 (11.4-16.0) gm/dL Hct 42.8 (34.0-46.0) % MCV 94.0 (80.0-100.0) fL MCH 32.2 (25.0-35.0) pg MCHC 34.3 (31.0-37.0) g/dL RDW 13.4 (11.5-15.5) % Plt Count 299 (150-450) k/uL Neutrophils % 82 % Lymphocytes % 13 % Monocytes % 2 % Eosinophils % 1 % Basophils % 1 % Neutrophils # 11.3 H (1.3-7.7) k/uL Lymphocytes # 1.8 (1.0-4.8) k/uL Monocytes # 0.3 (0-1.0) k/uL Eosinophils # 0.1 (0-0.7) k/uL Basophils # 0.1 (0-0.2) k/uL PT (9.0-12.0) sec INR (<1.2) APTT (22.0-30.0) sec D-Dimer (<0.60) mg/L FEU Sodium 139 (137-145) mmol/L Potassium 4.3 (3.5-5.1) mmol/L Chloride 106 (98-107) mmol/L Carbon Dioxide 21 L (22-30) mmol/L Anion Gap 12 mmol/L BUN 14 (7-17) mg/dL Creatinine 0.83 (0.52-1.04) mg/dL Est GFR (CKD-EPI)AfAm 83 (>60 ml/min/1.73 sqM) Est GFR (CKD-EPI)NonAf 72 (>60 ml/min/1.73 sqM) Glucose 140 H (74-99) mg/dL Calcium 10.0 (8.4-10.2) mg/dL Total Bilirubin 1.2 (0.2-1.3) mg/dL AST 29 (14-36) U/L ALT 30 (9-52) U/L Alkaline Phosphatase 112 (38-126) U/L Total Creatine Kinase 122 (30-135) U/L CK-MB (CK-2) 1.0 (0.0-2.4) ng/mL CK-MB (CK-2) Rel Index 0.8 Troponin I <0.012 (0.000-0.034) ng/mL Total Protein 7.9 (6.3-8.2) g/dL Albumin 4.8 (3.5-5.0) g/dL Amylase 60 (30-110) U/L Lipase 65 (23-300) U/L Urine Color Urine Appearance (Clear) Urine pH (5.0-8.0) Ur Specific [place] (1.001-1.035) Urine Protein (Negative) Urine Glucose (UA) (Negative) Urine Ketones (Negative) Urine Blood (Negative) Urine Nitrite (Negative) Urine Bilirubin (Negative) Urine Urobilinogen (<2.0) mg/dL Ur Leukocyte Esterase (Negative) Urine RBC (0-5) /hpf Urine WBC (0-5) /hpf Ur Squamous Epith Cells (0-4) /hpf Urine Mucus (None) /hpf 07/09/18 07/09/18 Range/Units 19:56 Unknown WBC (3.8-10.6) k/uL RBC (3.80-5.40) m/uL Hgb (11.4-16.0) gm/dL Hct (34.0-46.0) % MCV (80.0-100.0) fL MCH (25.0-35.0) pg MCHC (31.0-37.0) g/dL RDW (11.5-15.5) % Plt Count (150-450) k/uL Neutrophils % % Lymphocytes % % Monocytes % % Eosinophils % % Basophils % % Neutrophils # (1.3-7.7) k/uL Lymphocytes # (1.0-4.8) k/uL Monocytes # (0-1.0) k/uL Eosinophils # (0-0.7) k/uL Basophils # (0-0.2) k/uL PT 10.2 (9.0-12.0) sec INR 1.0 (<1.2) APTT 22.0 (22.0-30.0) sec D-Dimer 0.25 (<0.60) mg/L FEU Sodium (137-145) mmol/L Potassium (3.5-5.1) mmol/L Chloride (98-107) mmol/L Carbon Dioxide (22-30) mmol/L Anion Gap mmol/L BUN (7-17) mg/dL Creatinine (0.52-1.04) mg/dL Est GFR (CKD-EPI)AfAm (>60 ml/min/1.73 sqM) Est GFR (CKD-EPI)NonAf (>60 ml/min/1.73 sqM) Glucose (74-99) mg/dL Calcium (8.4-10.2) mg/dL Total Bilirubin (0.2-1.3) mg/dL AST (14-36) U/L ALT (9-52) U/L Alkaline Phosphatase (38-126) U/L Total Creatine Kinase (30-135) U/L CK-MB (CK-2) (0.0-2.4) ng/mL CK-MB (CK-2) Rel Index Troponin I (0.000-0.034) ng/mL Total Protein (6.3-8.2) g/dL Albumin (3.5-5.0) g/dL Amylase (30-110) U/L Lipase (23-300) U/L Urine Color Yellow Urine Appearance Cloudy H (Clear) Urine pH 8.5 H (5.0-8.0) Ur Specific [place] 1.016 (1.001-1.035) Urine Protein 1+ H (Negative) Urine Glucose (UA) Negative (Negative) Urine Ketones 2+ H (Negative) Urine Blood Negative (Negative) Urine Nitrite Negative (Negative) Urine Bilirubin Negative (Negative) Urine Urobilinogen <2.0 (<2.0) mg/dL Ur Leukocyte Esterase Negative (Negative) Urine RBC 1 (0-5) /hpf Urine WBC 2 (0-5) /hpf Ur Squamous Epith Cells <1 (0-4) /hpf Urine Mucus Rare H (None) /hpf - EKG Data -: EKG Interpreted by Me EKG Comments: EKG obtained at 2014 shows sinus rhythm with premature supraventricular complexes. Ventricular rate is 82, KS interval 140, QR scientologist 84, QT 422, QTc 493. No evidence of ST elevation or depression. - Radiology Data Radiology results: report reviewed, image reviewed Two-view x-ray of the chest is obtained. Heart mediastinum are normal. Lungs are clear consolidation. Costophrenic angles are clear. There are chest leads. Impression by Dr. Boyer shows no active cardiopulmonary disease. No change. Disposition Clinical Impression: Gastritis, Nausea & vomiting Disposition: HOME SELF-CARE Condition: Good Instructions: Gastritis (ED), Acute Nausea and Vomiting (ED) Additional Instructions: Take medications as directed. Start with clear liquid diet and advance as tolerated. Follow-up with your primary care physician as well as her digital account manager for recheck as soon as possible. Return here immediately for any new, worsening, or concerning symptoms. Prescriptions: Metoclopramide [Reglan] 10 mg PO Q8H PRN #10 tab PRN Reason: Vomiting Is patient prescribed a controlled substance at d/c from ED?: No Referrals: James Sesay MD [Primary Care Provider] - 1-2 days Pamela Jesus MD [STAFF PHYSICIAN] - 1-2 days Time of Disposition: 23:29
[2018-07-09 20:10] LABS: Basophils # (A) 0.1 k/uL (0-0.2); Basophils % (A) 1 %; Eosinophils # (A) 0.1 k/uL (0-0.7); Eosinophils % (A) 1 %; HCT 42.8 % (34.0-46.0); HGB 14.7 gm/dL (11.4-16.0); Lymphocytes # (A) 1.8 k/uL (1.0-4.8); Lymphocytes % (A) 13 %; MCH 32.2 pg (25.0-35.0); MCHC 34.3 g/dL (31.0-37.0); Mean Platelet Volume 8.7; Monocytes # (A) 0.3 k/uL (0-1.0); Monocytes % (A) 2 %; Neutrophils # (A) 11.3 k/uL (1.3-7.7); Neutrophils % (A) 82 %; Platelet Count 299 k/uL (150-450); RBC 4.55 m/uL (3.80-5.40); RDW 13.4 % (11.5-15.5); WBC 13.7 k/uL (3.8-10.6)
[2018-07-09 20:20] LABS: Albumin 4.8 g/dL (3.5-5.0); Potassium 4.3 mmol/L (3.5-5.1); Total Bilirubin 1.2 mg/dL (0.2-1.3); Total Protein 7.9 g/dL (6.3-8.2)
[2018-07-09 20:23] LABS: Creatine Kinase 122 U/L (30-135)
[2018-07-09 20:30] LABS: D-Dimer 0.25 mg/L FEU (<0.60); Prothrombin Time 10.2 sec (9.0-12.0)
[2018-07-09 20:36] LABS: Troponin I <0.012 ng/mL (0.000-0.034)
--- NOTE | 2018-07-09 20:53 | XR ---
EXAMINATION TYPE: XR chest 2V DATE OF EXAM: 07/09/2018 COMPARISON: 10/15/2017 HISTORY: Nausea and vomiting TECHNIQUE: Frontal and lateral views of the chest are obtained. FINDINGS: Heart and mediastinum are normal. Lungs are clear of consolidation. Costophrenic angles ar e clear. There are chest leads. IMPRESSION: No active cardiopulmonary disease. No change.
[2018-07-09] MEDS ORDERED: MORPHINE SULFATE 2 MG/ML SYRINGE IVP STA (21:09)
[2018-07-09] MEDS ORDERED: diphenhydrAMINE 50 MG/ML 1 ML VIAL IVP STA (21:09)
[2018-07-09] MEDS ORDERED: METOCLOPRAMIDE 5 MG/ML 2 ML VIAL IVP STA (21:09)
[2018-07-09 21:52] LABS: Appearance,Urine Cloudy (Clear); Bilirubin,Urine Negative (Negative); Blood,Urine Negative (Negative); Color,Urine Yellow; Glucose,Urine (UA) Negative (Negative); Ketones,Urine 2+ (Negative); Leukocyte Esterase,Urine Negative (Negative); Mucus,Urine Rare /hpf; Nitrite,Urine Negative (Negative); PH, Urine 8.5 (5.0-8.0); Protein,Urine 1+ (Negative); RBC,Urine 1 /hpf (0-5); Specific Gravity,Urine 1.016 (1.001-1.035); Squamous Epithelial Cell,Urine <1 /hpf (0-4); Urobilinogen,Urine <2.0 mg/dL (<2.0); WBC,Urine 2 /hpf (0-5)
[2018-07-09 23:09] VITALS: BP 131/60; PULSE 85; RESP 17; TEMP 97.8
== END 2018-07-09 23:44 | disposition home or self-care (01) ==
LOC: EC 17:23
DX: K29.70 Gastritis, unspecified, without bleeding (principal); D72.829 Elevated white blood cell count, unspecified; R06.02 Shortness of breath; J44.9 Chronic obstructive pulmonary disease, unspecified; K21.9 Gastro-esophageal reflux disease without esophagitis; E78.5 Hyperlipidemia, unspecified; I10 Essential (primary) hypertension; I25.2 Old myocardial infarction; E11.9 Type 2 diabetes mellitus without complications; M19.90 Unspecified osteoarthritis, unspecified site; F31.9 Bipolar disorder, unspecified; Z85.3 Personal history of malignant neoplasm of breast; Z87.891 Personal history of nicotine dependence; Z79.51 Long term (current) use of inhaled steroids; Z79.82 Long term (current) use of aspirin; Z79.84 Long term (current) use of oral hypoglycemic drugs; Z79.899 Other long term (current) drug therapy; Z88.1 Allergy status to other antibiotic agents; Z88.0 Allergy status to penicillin; Z88.8 Allergy status to other drugs, medicaments and biological substances; Z95.5 Presence of coronary angioplasty implant and graft
CPT/HCPCS: 36415; 93005; 85379; 80053; 82150; 82550; 82553; 83690; 84484; 85025; 85610; 85730; 81001; 71046; 99284; 96374; 96375 ×4; 96376; 96361; J2270 ×2; J1200; J2765; J2405

== ENCOUNTER 2018-09-16 08:20 | Day surgery (SDC) | payer MEDICARE ==
[2018-09-15 09:44] VITALS: BMI 28.0
[~2018-09-16 08:20] MED LIST changes: +LIDOCAINE 1% 20 ML VIAL (10MG/ML) FOR IV START INTRADERMA PRN
[2018-09-16 09:05] VITALS: TEMP 98.1
[2018-09-16 09:09] LABS: Glucose,Whole Blood 112 mg/dL (75-99)
[2018-09-16] MEDS ORDERED: PROPOFOL 10 MG/ML 20 ML VIAL IV ONE (09:21)
[2018-09-16] MEDS ORDERED: LIDOCAINE 1% INJ 10MG/ML (20 ML MDV) ONE (09:21)
--- NOTE | 2018-09-16 09:46 | P.PCN ---
Date of Procedure: 09/16/18 Procedure(s) Performed: BRIEF HISTORY: Patient is a 73-year-old pleasant white female scheduled for an elective colonoscopy as a part of screening for colon neoplasia. PROCEDURE PERFORMED: Colonoscopy with snare polypectomy. PREOPERATIVE DIAGNOSIS: Screening for colon cancer. IV sedation per Anesthesia. PROCEDURE: After informed consent was obtained, the patient, was brought into the endoscopy unit. IV sedation was administered by Anesthesia under continuous monitoring. Digital rectal examination was normal. Initially the Olympus CF- 160 flexible video colonoscope was then inserted in the rectum, gradually advanced into the cecum without any difficulty. Careful examination was performed as the scope was gradually being withdrawn. Ileocecal valve and the appendiceal orifice were visualized and appeared normal. Prep was excellent. Mucosa of the cecum, ascending colon, transverse colon, descending colon, sigmoid colon, and rectum appeared normal. In the rectal sigmoid colon at 20 cm from the anal verge there was a 1 cm pedunculated polyp removed by snare polypectomy. Scattered sigmoid diverticulosis seen. Retroflexion was performed in the rectum and no lesions were seen. The patient tolerated the procedure well. IMPRESSION: 1 cm rectosigmoid polyp status post polypectomy Scattered sigmoid diverticulosis RECOMMENDATIONS: Findings of this examination were discussed with the patient as well as a family.. She was advised to follow with the biopsy results. If the biopsy shows adenoma, she can have a repeat colonoscopy in 3 years.
[2018-09-16 10:07] VITALS: BP 127/66; PULSE 59; RESP 16
== END 2018-09-16 10:26 | disposition home or self-care (01) ==
LOC: ORWHC2ENDO 08:20
PROVIDERS: ATTEND Internal Medicine Gastroenterology
DX: Z12.11 Encounter for screening for malignant neoplasm of colon (principal); D12.7 Benign neoplasm of rectosigmoid junction; K57.30 Diverticulosis of large intestine without perforation or abscess without bleeding; E11.9 Type 2 diabetes mellitus without complications; Z79.84 Long term (current) use of oral hypoglycemic drugs; I10 Essential (primary) hypertension; E78.5 Hyperlipidemia, unspecified; I25.2 Old myocardial infarction; J44.9 Chronic obstructive pulmonary disease, unspecified; Z87.891 Personal history of nicotine dependence; Z85.3 Personal history of malignant neoplasm of breast; F31.9 Bipolar disorder, unspecified; Z95.5 Presence of coronary angioplasty implant and graft; Z79.82 Long term (current) use of aspirin; Z79.890 Hormone replacement therapy; Z79.899 Other long term (current) drug therapy; Z79.51 Long term (current) use of inhaled steroids; Z88.1 Allergy status to other antibiotic agents; Z88.0 Allergy status to penicillin; Z88.8 Allergy status to other drugs, medicaments and biological substances
CPT/HCPCS: 88305; 45385; J2001; J2704

== ENCOUNTER → 2018-12-14 | Outpatient (CLI) | payer MEDICARE ==
--- NOTE | 2018-12-18 13:23 | MM ---
Reason for exam: additional evaluation requested from prior study. Last mammogram was performed 1 year ago. History: Patient is postmenopausal, has history of breast cancer at age 71, and history of other cancer. Family history of premenopausal breast cancer in sister at age 45. Lumpectomy of the left breast, 2017. Took estrogen for 2 months. Taking antineoplastic beginning at age 71. Physical Findings: Nurse did not find any significant physical abnormalities on exam. MG 3D Diag Mammo W/Cad TIERNEY Bilateral CC and MLO view(s) were taken. Prior study comparison: December 05, 2017, bilateral MG 3d diag mammo w/cad TIERNEY. September 25, 2016, left breast MG 3d work up w/cad LT. The breast tissue is heterogeneously dense. This may lower the sensitivity of mammography. There are benign-appearing bilateral breast calcifications. No suspicious abnormality. Left breast lumpectomy and post therapy changes. These results were verbally communicated with the patient and result sheet given to the patient on 12/14/18. ASSESSMENT: Benign, BI-RAD 2 RECOMMENDATION: Follow-up diagnostic mammogram of both breasts in 1 year.
== END ==
LOC: RADMAMWWP 14:20
PROVIDERS: ATTEND Internal Medicine Hematology & Oncology
DX: Z12.31 Encounter for screening mammogram for malignant neoplasm of breast (principal); Z85.3 Personal history of malignant neoplasm of breast
CPT/HCPCS: 77066; G0279; 77062

== ENCOUNTER → 2019-01-11 | Outpatient (CLI) | payer MEDICARE ==
--- NOTE | 2019-01-11 16:08 | BD ---
EXAMINATION TYPE: Axial Bone Density DATE OF EXAM: 01/11/2019 COMPARISON: 2017 CLINICAL HISTORY: disorder of bone Height: 5'6 02/01 Weight: 177 FRAX RISK QUESTIONS: History of Fracture in Adulthood: y Secondary Osteoporosis: RISK FACTORS HISTORY OF: Surgery to Wrist (left): left When: 1966 Active: no Postmenopausal woman: y MEDICATIONS: Osteoporosis Medications: Which medication: fosamax How Lon-5 years Additional Medications: femora breast cancer, 2016 ,heart, bipolar , inhaler emphysema Additional History: no radiation, or chemo EXAM MEASUREMENTS: Bone mineral densitometry was performed using the Ellevation System. Bone mineral density as measured about the Lumbar spine is: ----- L1-L4(G/cm2): 1.280 T Score Values are as follows: ----- L2: 0.1 ----- L3: 2.2 ----- L4: 1.0 ----- L1-L4: 0.8 Bone mineral density has: increased 4.3% since study of: 01/07/2017 Bone mineral density about the R hip (g/cm2): 0.909 Bone mineral density about the L hip (g/cm2): 0.848 T Score values are as follows: -----R Neck: -0.9 -----L Neck: -1.4 -----R Total: -0.4 -----L Total: -0.4 Bone mineral density has: increased 0.8% since study of: 01/07/2017 IMPRESSION: Osteopenia (T Score between -2.5 and -1). There is slightly increased risk of fracture and the patient may be considered for treatment. Re-Screen 2-5 years. NOTE: T-SCORE=SD OF THE YOUNG ADULT MEAN.
== END | disposition home or self-care (01) ==
LOC: RADBDWWP 14:18
PROVIDERS: ATTEND Internal Medicine Hematology & Oncology
DX: M85.80 Other specified disorders of bone density and structure, unspecified site (principal); C50.511 Malignant neoplasm of lower-outer quadrant of right female breast
CPT/HCPCS: 77080

== ENCOUNTER → 2019-02-05 | Outpatient (CLI) | payer MEDICARE ==
[2019-02-05 13:27] LABS: HCT 42.9 % (34.0-46.0); HGB 13.7 gm/dL (11.4-16.0); MCH 31.6 pg (25.0-35.0); MCHC 31.8 g/dL (31.0-37.0); MCV 99.3 fL (80.0-100.0); Mean Platelet Volume 8.6; Platelet Count 261 k/uL (150-450); RBC 4.32 m/uL (3.80-5.40); RDW 13.9 % (11.5-15.5); WBC 10.1 k/uL (3.8-10.6)
[2019-02-05 13:48] LABS: Appearance,Urine Clear (Clear); Bilirubin,Urine Negative (Negative); Blood,Urine Negative (Negative); Color,Urine Yellow; Glucose,Urine (UA) Negative (Negative); Ketones,Urine Negative (Negative); Leukocyte Esterase,Urine Small (Negative); Mucus,Urine Rare /hpf; Nitrite,Urine Negative (Negative); PH, Urine 7.5 (5.0-8.0); Protein,Urine Trace (Negative); Specific Gravity,Urine 1.015 (1.001-1.035); Squamous Epithelial Cell,Urine <1 /hpf (0-4); WBC,Urine 8 /hpf (0-5)
[2019-02-05 20:24] LABS: Albumin 4.2 g/dL (3.80-4.90); Albumin/Globulin Ratio 1.91 (1.60-3.17); Anion Gap 10.5 mmol/L (4.00-12.00); Calcium 9.4 mg/dL (8.7-10.3); Carbon Dioxide 26.5 mmol/L (21.6-31.8); Globulin 2.2 g/dL (1.6-3.3); LDL Cholesterol,Calculated 77.4 mg/dL (0.0-131.0); Potassium 4.5 mmol/L (3.5-5.5); Total Bilirubin 0.7 mg/dL (0.2-1.2); Total Protein 6.4 g/dL (6.2-8.2); VLDL Calculation 35.6 mg/dL (5.00-40.00)
[2019-02-05 20:33] LABS: T4, Free (Free Thyroxine) 0.9 ng/dL (0.80-1.80)
[2019-02-05 23:34] LABS: Hemoglobin A1C 6.4 % (4.0-6.0)
== END | disposition home or self-care (01) ==
LOC: LABWHC1 12:04
PROVIDERS: ATTEND Internal Medicine
DX: Z00.00 Encounter for general adult medical examination without abnormal findings (principal); E11.9 Type 2 diabetes mellitus without complications; E78.2 Mixed hyperlipidemia; I25.10 Atherosclerotic heart disease of native coronary artery without angina pectoris; C50.912 Malignant neoplasm of unspecified site of left female breast
CPT/HCPCS: 36415; 80053; 80061; 81001; 82043; 82570; 83036; 84439; 84443; 85027

== ENCOUNTER → 2019-07-28 | Outpatient (CLI) | payer MEDICARE ==
[2019-07-28 12:48] LABS: Basophils # (A) 0.1 k/uL (0-0.2); Basophils % (A) 1 %; Eosinophils # (A) 0.1 k/uL (0-0.7); Eosinophils % (A) 1 %; HCT 42.7 % (34.0-46.0); HGB 13.8 gm/dL (11.4-16.0); Lymphocytes # (A) 2.2 k/uL (1.0-4.8); Lymphocytes % (A) 16 %; MCHC 32.4 g/dL (31.0-37.0); Mean Platelet Volume 8.4; Monocytes # (A) 0.7 k/uL (0-1.0); Monocytes % (A) 5 %; Neutrophils # (A) 10.7 k/uL (1.3-7.7); Neutrophils % (A) 76 %; Platelet Count 296 k/uL (150-450); RBC 4.31 m/uL (3.80-5.40); RDW 14.1 % (11.5-15.5); WBC 14.1 k/uL (3.8-10.6)
[2019-07-28 18:44] LABS: Albumin 4.5 g/dL (3.80-4.90); Albumin/Globulin Ratio 1.96 (1.60-3.17); BUN/Creat Ratio 8.89 Ratio (12.00-20.00); Calcium 9.5 mg/dL (8.7-10.3); Chol/HDL Ratio 3.78; Globulin 2.3 g/dL (1.6-3.3); LDL Cholesterol,Calculated 86.8 mg/dL (0.0-131.0); Potassium 4.7 mmol/L (3.5-5.5); Total Bilirubin 0.8 mg/dL (0.2-1.2); Total Protein 6.8 g/dL (6.2-8.2); VLDL Calculation 38.2 mg/dL (5.00-40.00)
[2019-07-28 18:54] LABS: T4, Free (Free Thyroxine) 0.9 ng/dL (0.80-1.80)
[2019-07-28 20:15] LABS: Hemoglobin A1C 6.4 % (4.0-6.0)
== END | disposition home or self-care (01) ==
LOC: LABWHC1 11:52
PROVIDERS: ATTEND Internal Medicine Geriatric Medicine
DX: I25.10 Atherosclerotic heart disease of native coronary artery without angina pectoris (principal); E11.42 Type 2 diabetes mellitus with diabetic polyneuropathy
CPT/HCPCS: 36415; 80053; 80061; 83036; 84439; 84443; 85025

== ENCOUNTER → 2019-08-11 | Outpatient (CLI) | payer MEDICARE ==
--- NOTE | 2019-08-12 09:44 | CT ---
EXAMINATION TYPE: CT chest wo con DATE OF EXAM: 08/11/2019 COMPARISON: Radiographs 07/09/2018 HISTORY: 74-year-old female moderate persistent asthma with acute exacerbation TECHNIQUE: Contiguous axial scanning of the chest without IV contrast. Coronal and sagittal reconstru ctions performed. CT DLP: 418.6 mGycm Automated exposure control for dose reduction was used. FINDINGS: There is some focal skin thickening with underlying fat stranding of the subcutaneous adipose layer a long the medial aspect of the anterior right upper chest, refer to axial image 9. Heart normal size without pericardial effusion. Scattered coronary vessel calcifications are present. Aorta normal caliber with mild atherosclerotic arch calcifications and conventional arch vessel branc lashon anatomy. No thoracic lymphadenopathy by CT size criteria. 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 Evaluation of the lungs shows scattered mild to moderate centrilobular emphysema. There is some stran dy scarring or atelectasis in the inferior lingula with a more nodular 1.8 cm density which warrants follow-up. No consolidation or pleural effusion. Visualized upper abdomen shows an indeterminate nodule above the left kidney measuring 2.2 cm, suspec jeff to arise from the lateral limb of the adrenal gland. Attenuation is 23 Hounsfield units. Cholecys tectomy clips. Bones: Moderate degenerative disc disease lower thoracic spine. No osseous destructive process. IMPRESSION: 1. COPD WITH SCATTERED [id number] EMPHYSEMA. 2. FOCAL ATELECTASIS OR SCARRING IN THE INFERIOR LINGULA BUT WITH A MORE NODULAR 1.8 CM DENSITY. NODU LAR ATELECTASIS VERSUS NEOPLASM ARE IN THE DIFFERENTIAL. 3 MONTH FOLLOW-UP EXAM RECOMMENDED. IF HIGH CLINICAL SUSPICION FOR NEOPLASM, PET/CT CAN BE CONSIDERED AN ALTERNATIVE. 3. 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 ADRENAL MASS PROTOCOL CT CAN BE PERFORMED IN 3-6 MONTHS. 4. FOCAL SKIN THICKENING WITH UNDERLYING FAT STRANDING ALONG THE MEDIAL ANTERIOR RIGHT UPPER CHEST. C ORRELATE WITH DIRECT INSPECTION, POSSIBLE CELLULITIS.
== END | disposition home or self-care (01) ==
LOC: RADCTMAIN 14:11
PROVIDERS: ATTEND Internal Medicine Pulmonary Disease
DX: J43.9 Emphysema, unspecified (principal); R91.1 Solitary pulmonary nodule; L98.9 Disorder of the skin and subcutaneous tissue, unspecified; I25.10 Atherosclerotic heart disease of native coronary artery without angina pectoris; R07.9 Chest pain, unspecified
CPT/HCPCS: 71250

== ENCOUNTER 2019-08-28 05:18 | Observation (INO) | payer MEDICARE ==
[2019-08-28] MEDS ORDERED: ACETAMINOPHEN TAB 325 MG TAB PO STA (05:59)
[2019-08-28] MEDS ORDERED: ASPIRIN 81 MG PO STA (06:00)
--- NOTE | 2019-08-28 06:20 | XR ---
EXAMINATION TYPE: XR chest 2V DATE OF EXAM: 08/28/2019 COMPARISON: 07/09/2018 HISTORY: Chest pain TECHNIQUE: Frontal and lateral views of the chest are obtained. FINDINGS: Heart is normal. Lungs are clear. Costophrenic angles are clear. Bony thorax is intact. Th ere are chest leads. IMPRESSION: No active cardiopulmonary disease. Normal heart. No change.
[2019-08-28 06:24] LABS: Basophils # (A) 0.1 k/uL (0-0.2); Basophils % (A) 1 %; Eosinophils # (A) 0.2 k/uL (0-0.7); Eosinophils % (A) 3 %; Lymphocytes # (A) 2.6 k/uL (1.0-4.8); Lymphocytes % (A) 27 %; MCH 32.2 pg (25.0-35.0); MCHC 34.2 g/dL (31.0-37.0); MCV 94.2 fL (80.0-100.0); Mean Platelet Volume 8.4; Monocytes # (A) 0.5 k/uL (0-1.0); Monocytes % (A) 5 %; Neutrophils # (A) 6.2 k/uL (1.3-7.7); Neutrophils % (A) 63 %; Platelet Count 251 k/uL (150-450); RBC 4.03 m/uL (3.80-5.40); RDW 14.1 % (11.5-15.5); WBC 9.8 k/uL (3.8-10.6)
[2019-08-28 06:31] LABS: INR 0.9 (<1.2); Partial Thromboplastin Time 24.3 sec (22.0-30.0); Prothrombin Time 9.8 sec (9.0-12.0)
[2019-08-28 06:37] LABS: Albumin 3.8 g/dL (3.5-5.0); Calcium 9.4 mg/dL (8.4-10.2); Magnesium 2.2 mg/dL (1.6-2.3); Potassium 4.3 mmol/L (3.5-5.1); Total Bilirubin 0.6 mg/dL (0.2-1.3); Total Protein 6.8 g/dL (6.3-8.2)
--- NOTE | 2019-08-28 07:42 | ED ---
Chest Pain HPI - General Chief Complaint: Chest Pain Stated Complaint: chest pain Time Seen by Provider: 08/28/19 05:36 Source: patient Mode of arrival: ambulatory Limitations: no limitations - History of Present Illness Initial Comments: This patient is a 74-year-old woman with history of coronary disease status post a stent placement approximate 5 years ago. The patient states for the past few months she has been having some intermittent chest pains. Tonight she had onset of one of these episodes around 3 AM. Patient is not sure if this woke her from sleep or it developed when she went to use the bathroom. Patient states she also is having a little bit of dyspnea. She describes an aching or heavy feeling substernal that did radiate towards her back. She took 2 nitroglycerin tablets which did nearly resolve the pain. She states that it is now just mild. She had not noted other worsening or relieving factors. MD Complaint: chest pain Onset/Timin -: hour(s) Onset: during rest Pain Location: substernal Pain Radiation: back Severity: severe Quality: aching, heaviness Consistency: now resolved (Partially) Improves With: nitroglycerin Worsens With: nothing Treatments Prior to Arrival: nitroglycerin - Related Data Home Medications Medication Instructions Recorded Confirmed Acetaminophen Tab [Tylenol] 500 mg PO HS 10/04/14 09/16/18 DULoxetine HCL [Cymbalta] 60 mg PO DAILY 10/04/14 09/16/18 Fluticasone Propionate [Flovent 1 puff INHALATION RT-QID 10/04/14 09/16/18 Hfa 110mcg] Gabapentin [Neurontin] 600 mg PO BID 10/04/14 09/16/18 Ipratropium/Albuterol Sulfate 1 puff INHALATION RT-QID 10/04/14 09/16/18 [Combivent Respimat Inhaler] Multivitamins, Thera [Multivitamin] 1 tab PO DAILY@1200 10/04/14 09/16/18 OLANZapine [ZyPREXA] 5 mg PO HS 10/04/14 09/16/18 traZODone HCL [Desyrel] 150 mg PO HS 10/04/14 09/16/18 Aspirin 81 mg PO DAILY@1200 10/31/15 09/16/18 Carvedilol [Coreg] 6.25 mg PO BID 10/31/15 09/16/18 Cholecalciferol [Vitamin D3] 1,000 unit PO BID@1200,2100 10/31/15 09/16/18 Furosemide [Lasix] 40 mg PO DAILY 10/31/15 09/16/18 Lansoprazole [Prevacid] 30 mg PO DAILY 10/31/15 09/16/18 Latanoprost Ophth [Xalatan 0.005%] 1 drops BOTH EYES HS 10/31/15 09/16/18 Lisinopril [Zestril] 2.5 mg PO DAILY@1200 10/31/15 09/16/18 Spironolactone [Aldactone] 12.5 mg PO DAILY@1200 10/31/15 09/16/18 metFORMIN HCL [Glucophage] 500 mg PO DAILY 10/31/15 09/16/18 Atorvastatin Calcium [Lipitor] 40 mg PO HS 04/03/17 09/16/18 clonazePAM [KlonoPIN] 3 mg PO BID 04/03/17 09/16/18 Magnesium/Potassium/Bromelain 1 tab PO DAILY@1200 07/09/18 09/16/18 Alendronate Sodium [Fosamax] 10 mg PO DAILY 09/15/18 09/16/18 Letrozole [Femara] 2.5 mg PO DAILY 09/15/18 09/16/18 Previous Rx's Medication Instructions Recorded Metoclopramide [Reglan] 10 mg PO Q8H PRN #10 tab 07/09/18 Allergies Allergy/AdvReac Type Severity Reaction Status Date / Time bupropion HCl Allergy Rash/Hives Verified 08/28/19 05:26 [From Wellbutrin] erythromycin base Allergy SWELLING Verified 08/28/19 05:26 [Erythromycin Base] OF TONGUE Penicillins Allergy SWELLING Verified 08/28/19 05:26 OF TONGUE sertraline HCl [From Zoloft] Allergy Diarrhea Verified 08/28/19 05:26 Review of Systems ROS Statement: Those systems with pertinent positive or pertinent negative responses have been documented in the HPI. ROS Other: All systems not noted in ROS Statement are negative. Constitutional: Denies: fever, chills Respiratory: Reports: dyspnea. Denies: cough Cardiovascular: Reports: as per HPI, chest pain. Denies: palpitations, orthopnea, edema, syncope Gastrointestinal: Denies: abdominal pain, nausea, vomiting Genitourinary: Denies: dysuria Musculoskeletal: Denies: back pain Skin: Denies: rash Neurological: Denies: headache, weakness, numbness Hematological/Lymphatic: Denies: easy bleeding EKG Findings - EKG Results: EKG: interpreted by CHARAND, sinus rhythm (With PAC, rate 63 bpm), normal axis, normal QRS, normal ST/T, no acute changes - TN, Pacemaker, Normal: Normal tracing: normal tracing Past Medical History Past Medical History: Asthma, Cancer, COPD, Diabetes Mellitus, GERD/Reflux, Hyperlipidemia, Hypertension, Myocardial Infarction ([place]), Osteoarthritis (OA) Additional Past Medical History / Comment(s): BREAST CANCER Last Myocardial Infarction Date:: 10-04-14 History of Any Multi-Drug Resistant Organisms: None Reported Past Surgical History: Breast Surgery, Cholecystectomy, Heart Catheterization With Stent, Orthopedic Surgery, Tonsillectomy Additional Past Surgical History / Comment(s): GanglionCyst; COLONOSCOPY AND EGD, LEFT BREAST LUMPECTOMY Past Anesthesia/Blood Transfusion Reactions: No Reported Reaction Date of Last Stent Placement:: 10/04/14 Past Psychological History: Bipolar Smoking Status: Former smoker Past Alcohol Use History: None Reported Past Drug Use History: None Reported - Past Family History Father Family Medical History: Cancer Additional Family Medical History / Comment(s): non hodgkins lymphoma Sister(s) Family Medical History: Cancer Additional Family Medical History / Comment(s): bipolar Mother Family Medical History: No Reported History Additional Family Medical History / Comment(s): alzheimers, bipolar, dementia General Exam Limitations: no limitations General appearance: alert, in no apparent distress Head exam: Present: atraumatic, normocephalic Eye exam: Present: normal appearance. Absent: scleral icterus, conjunctival injection ENT exam: Present: normal oropharynx Neck exam: Present: normal inspection Respiratory exam: Present: normal lung sounds bilaterally. Absent: respiratory distress, wheezes, rales, rhonchi, stridor, chest wall tenderness Cardiovascular Exam: Present: regular rate, normal rhythm, normal heart sounds. Absent: systolic murmur, diastolic murmur, rubs, gallop GI/Abdominal exam: Present: soft. Absent: distended, tenderness, guarding, rebound, mass Extremities exam: Present: normal inspection, normal capillary refill. Absent: pedal edema, calf tenderness Back exam: Present: normal inspection. Absent: CVA tenderness (R), CVA tenderness (L) Neurological exam: Present: alert Skin exam: Present: warm, dry, intact, normal color. Absent: rash Course Vital Signs 08/28/19 08/28/19 08/28/19 05:22 06:26 07:29 Temperature 97.7 F 97.3 F L Pulse Rate 62 56 L 60 Respiratory 20 20 18 Rate Blood Pressure 131/72 127/70 120/64 O2 Sat by Pulse 94 L 97 95 Oximetry Disposition Clinical Impression: Chest pain Disposition: ADMITTED IP TO THIS HOSP Condition: Good Instructions (If sedation given, give patient instructions): Chest Pain (ED) Referrals: Lázaro Gagnon MD [Primary Care Provider] - 1-2 days
[2019-08-28] MEDS ORDERED: NITROGLYCERIN SL TABS 0.4 MG TAB SUBLINGUAL PRN (07:55)
[2019-08-28] MEDS ORDERED: HEPARIN SODIUM,PORCINE 5,000 UNIT/ML 1 ML VIAL IV ONE (07:55)
[2019-08-28] MEDS ORDERED: HEPARIN SOD,PORK IN 0.45% NACL 25,000 UNIT in 0.45% NACL 1 250ML.BAG IV SCH (08:00)
[2019-08-28] MEDS ORDERED: METOCLOPRAMIDE 10 MG TAB PO PRN (08:00)
[2019-08-28] MEDS ORDERED: clonazePAM 1 MG TAB PO SCH (09:00)
[2019-08-28] MEDS ORDERED: metFORMIN 500 MG TAB PO SCH (09:00)
[2019-08-28] MEDS: IPRATROPIUM-ALBUTEROL 3 ML NEB INHALATION SCH ×4 (09:10→18:41)
[2019-08-28] MEDS: DULoxetine HCL 60 MG CAPSULE.DR PO SCH (10:05)
[2019-08-28] MEDS: GABAPENTIN 300 MG CAP PO SCH ×2 (10:06→20:22)
[2019-08-28] MEDS: FUROSEMIDE 40 MG TAB PO SCH (10:06)
[2019-08-28] MEDS: PANTOPRAZOLE 40 MG TABLET PO SCH (10:06)
[2019-08-28] MEDS: CARVEDILOL 6.25 MG TAB PO SCH ×2 (10:07→17:20)
[2019-08-28 10:25] LABS: Glucose,Whole Blood 170 mg/dL (75-99)
[2019-08-28 11:59] LABS: Glucose,Whole Blood 111 mg/dL (75-99)
[2019-08-28] MEDS: FLUTICASONE 110 MCG INHALER INHALATION SCH ×2 (11:59→18:41)
[2019-08-28] MEDS: ISOSORBIDE MONONITRATE ER 30 MG TAB.ER.24H PO SCH (12:25)
[2019-08-28] MEDS: LISINOPRIL 2.5 MG TAB PO SCH (12:25)
[2019-08-28] MEDS: SPIRONOLACTONE 25 MG TAB PO SCH (12:25)
[2019-08-28] MEDS: LETROZOLE 2.5 MG TAB PO SCH (12:25)
--- NOTE | 2019-08-28 12:49 | P.HPIM ---
History of Present Illness H&P Date: 08/28/19 (This document was also service discharge summary) Mrs. Pollard is a 74 years old female with past medical history of coronary artery disease status post stenting in October 2014, history of COPD, asthma, diabetes, GERD, hyperlipidemia, hypertension, history of breast cancer in remission presents in with acute on chronic chest pain associated with shortness of breath that has been going on for more than [address] Wisdom pulmonary as outpatient and was noted to have a mass of 1.8 cm in the inferior lingula with mild to moderate emphysema and 2.2 cm adrenal adenoma. Yesterday patient started having significant shortness of breath on going up and down the stairs. She woke up from sleep with shortness of breath and heaviness in her chest. Patient took 2 nitroglycerin token tablet with improvement in pain. Patient denies any cough but does endorse pain when she takes a deep breath intermittently. Chest x-ray was negative for any acute abnormality. Review of Systems Constitutional: Denies chills, Denies fever, Denies lethargy, Denies malaise, Denies poor appetite, Denies weakness, Denies weight loss Eyes: denies decreased vision, denies diplopia, denies discharge, denies pain Ears: deny: decreased hearing Ears, nose, mouth and throat: Denies dental pain, Denies headache, Denies nasal discharge, Denies nose pain Cardiovascular: Endorses chest pain, endorses decreased exercise tolerance, Denies edema, Denies high blood pressure, Denies irregular heart beat, Denies palpitations, Denies paroxysmal nocturnal dyspnea, Denies rapid heart beat, endorses shortness of breath Respiratory: Denies congestion, Denies cough, Denies cough with sputum, endorses dyspnea, Denies home oxygen, Denies wheezing Gastrointestinal: Denies abdominal pain, Denies change in bowel habits, Denies coffee ground emesis, Denies early satiety, Denies excessive gas, Denies heartburn, Denies hematemesis, Denies hematochezia, Denies loss of appetite, Denies nausea, Denies vomiting Genitourinary: Denies dysuria, Denies flank pain, Denies kidney stones, Denies menorrhagia, Denies urgency, Denies urinary frequency Musculoskeletal: Denies gait dysfunction, Denies limitation of motion, Denies morning stiffness, Denies muscle cramps Integumentary: Denies rash, Denies wounds, Denies brittle nails, Denies change in hair/nails, Denies darkening of skin Neurological: Denies balance difficulties, Denies change in speech, Denies double vision, Denies gait dysfunction, Denies loss of vision, Denies motor disturbance, Denies numbness, Denies paralysis, Denies paresthesias, Denies seizures Psychiatric: Denies anxiety, Denies depression Endocrine: Denies excessive sweating, Denies excessive thirst, Denies high blood sugars, Denies palpitations Hematologic/Lymphatic: Denies easy bruising, Denies lymphadenopathy Past Medical History Past Medical History: Asthma, Cancer, COPD, Diabetes Mellitus, GERD/Reflux, Hyperlipidemia, Hypertension, Myocardial Infarction ([place]), Osteoarthritis (OA) Additional Past Medical History / Comment(s): BREAST CANCER Last Myocardial Infarction Date:: 10-04-14 History of Any Multi-Drug Resistant Organisms: None Reported Past Surgical History: Breast Surgery, Cholecystectomy, Heart Catheterization With Stent, Orthopedic Surgery, Tonsillectomy Additional Past Surgical History / Comment(s): GanglionCyst; COLONOSCOPY AND EGD, LEFT BREAST LUMPECTOMY. Plans for cataract removal first week of August this year Past Anesthesia/Blood Transfusion Reactions: No Reported Reaction Date of Last Stent Placement:: 10/04/14 Past Psychological History: Bipolar Smoking Status: Former smoker Past Alcohol Use History: None Reported Additional Past Alcohol Use History / Comment(s): quit smoked 3/4 ppd STARTED SMOKING AT AGE 17 Past Drug Use History: None Reported - Past Family History Father Family Medical History: Cancer Additional Family Medical History / Comment(s): non hodgkins lymphoma Sister(s) Family Medical History: Cancer Additional Family Medical History / Comment(s): bipolar Mother Family Medical History: No Reported History Additional Family Medical History / Comment(s): alzheimers, bipolar, dementia Medications and Allergies Home Medications Medication Instructions Recorded Confirmed Type Acetaminophen Tab [Tylenol] 500 mg PO HS 10/04/14 08/28/19 History DULoxetine HCL [Cymbalta] 60 mg PO DAILY 10/04/14 08/28/19 History Fluticasone Propionate [Flovent 2 puff INHALATION RT-BID 10/04/14 08/28/19 History Hfa 110mcg] Gabapentin [Neurontin] 600 mg PO BID 10/04/14 08/28/19 History Ipratropium/Albuterol Sulfate 1 puff INHALATION RT-QID 10/04/14 08/28/19 History [Combivent Respimat Inhaler] Multivitamins, Thera [Multivitamin] 1 tab PO DAILY@1200 10/04/14 08/28/19 History OLANZapine [ZyPREXA] 2.5 mg PO HS 10/04/14 08/28/19 History traZODone HCL [Desyrel] 150 mg PO HS 10/04/14 08/28/19 History Aspirin 81 mg PO DAILY@1200 10/31/15 08/28/19 History Carvedilol [Coreg] 6.25 mg PO BID 10/31/15 08/28/19 History Cholecalciferol [Vitamin D3] 1,000 unit PO BID@1200,2100 10/31/15 08/28/19 History Furosemide [Lasix] 40 mg PO DAILY 10/31/15 08/28/19 History Lansoprazole [Prevacid] 30 mg PO DAILY 10/31/15 08/28/19 History Latanoprost Ophth [Xalatan 0.005%] 1 drops BOTH EYES HS 10/31/15 08/28/19 History Lisinopril [Zestril] 2.5 mg PO DAILY@1200 10/31/15 08/28/19 History Spironolactone [Aldactone] 12.5 mg PO DAILY@1200 10/31/15 08/28/19 History metFORMIN HCL [Glucophage] 500 mg PO DAILY 10/31/15 08/28/19 History Atorvastatin Calcium [Lipitor] 40 mg PO HS 04/03/17 08/28/19 History clonazePAM [KlonoPIN] 2 mg PO HS 04/03/17 08/28/19 History Magnesium/Potassium/Bromelain 1 tab PO DAILY@1200 07/09/18 08/28/19 History Letrozole [Femara] 2.5 mg PO DAILY 09/15/18 08/28/19 History Montelukast Sodium [Singulair] 10 mg PO DAILY 08/28/19 08/28/19 History Nitroglycerin Sl Tabs [Nitrostat] 0.4 mg SUBLINGUAL Q5M PRN 08/28/19 08/28/19 History Allergies Allergy/AdvReac Type Severity Reaction Status Date / Time bupropion HCl Allergy Rash/Hives Verified 08/28/19 08:55 [From Wellbutrin] erythromycin base Allergy SWELLING Verified 08/28/19 08:55 [Erythromycin Base] OF TONGUE Penicillins Allergy SWELLING Verified 08/28/19 08:55 OF TONGUE sertraline HCl [From Zoloft] Allergy Diarrhea Verified 08/28/19 08:55 Physical Exam Vitals: Vital Signs Temp Pulse Pulse Resp BP BP Pulse Ox 08/28/19 12:03 72 08/28/19 11:56 67 08/28/19 11:55 67 16 105/56 97 08/28/19 09:30 97.8 F 70 16 143/52 96 08/28/19 09:22 80 08/28/19 09:14 80 08/28/19 08:42 58 L 18 130/71 95 08/28/19 07:29 97.3 F L 60 18 120/64 95 08/28/19 06:26 56 L 20 127/70 97 08/28/19 05:22 97.7 F 62 20 131/72 94 L Intake and Output 08/27/19 08/28/19 08/28/19 22:59 06:59 14:59 Other: Weight 81.647 kg - Constitutional General appearance: cooperative, no acute distress, obese - EENT Eyes: anicteric sclerae, PERRLA, normal appearance ENT: hearing grossly normal - Neck Neck: no lymphadenopathy, normal ROM, no other, no rigidity, no stridor, no thyromegaly - Respiratory Respiratory: bilateral: CTA, negative: diminished, dullness, rales, rhonchi - Cardiovascular Rhythm: regular Heart sounds: normal: S1, S2 Abnormal Heart Sounds: no systolic murmur, no diastolic murmur, no rub, no S3 Gallop, no S4 Gallop, no click, no other - Gastrointestinal General gastrointestinal: normal bowel sounds, soft - Integumentary Integumentary: no rash - Neurologic Neurologic: CNII-XII intact - Musculoskeletal Musculoskeletal: gait normal, strength equal bilaterally - Psychiatric Psychiatric: A&O x's 3, appropriate affect Results CBC & Chem 7: 08/28/19 05:53 08/28/19 05:53 Labs: Abnormal Lab Results - Last 24 Hours (Table) 08/28/19 08/28/19 08/28/19 Range/Units 05:53 10:04 11:58 Glucose 110 H (74-99) mg/dL POC Glucose (mg/dL) 170 H 111 H (75-99) mg/dL Thrombosis Risk Factor Assmnt - DVT/VTE Prophylaxis DVT/VTE Prophylaxis: Pharmacologic Prophylaxis ordered - Choose All That Apply Each Risk Factor Represents 2 Points: Age 61-74 years Thrombosis Risk Factor Assessment Total Risk Factor Score: 2 Thrombosis Risk Factor Assessment Level: Low Risk Assessment and Plan Plan: #1 chest pain with history of coronary artery disease. Cardiology consult troponin 1 negative EKG and his rhythm with PAC. Continue aspirin, Lipitor, Coreg. Initiated on imdur by mouth daily # COPD not in exacerbation. Lungs appear clear to auscultate. DuoNeb as needed for shortness of breath Flovent twice a day #3 history of asthmaCOPD continue Flovent twice a day #4 history of diabetes with neuropathy continue metformin continue gabapentin 600 twice a day #5 hypertension continue Coreg 6.25 mg twice a day Lasix 40 mg by mouth daily lisinopril 2.5 mg by mouth daily and Aldactone 12.5 mg by mouth daily #6 Breast cancer on letrozole #7 history of anxiety/depression continue olanzapine. Decrease Klonopin from 3 mg to 1 mg twice daily due to Cymbalta 60 mg by mouth daily #8 history of coronary artery disease status post stent in 2013. Patient of Dr. KENIA wisdom with recent stres caitlyn was neg #9 GERD with hiatal hernia continue pantoprazole 40 mg asymptomatic at breakfast #10 insomnia continue trazodone 150 daily at bedtime #11 disposition pending cardiology evalaution
[2019-08-28] MEDS ORDERED: MENTHOL (NICE) LOZENGE MUCOUS MEM PRN (15:47)
--- NOTE | 2019-08-28 15:56 | ECHOF ---
Referral Reason:CHF MEASUREMENTS -------- HEIGHT: 170.2 cm WEIGHT: 84.8 kg BP: RVIDd: 2.8 cm (< 3.3) IVSd: 1.4 cm (0.6 - 1.1) LVIDd: 3.7 cm (3.9 - 5.3) LVPWd: 1.5 cm (0.6 - 1.1) IVSs: 1.6 cm LVIDs: 3.0 cm LVPWs: 1.6 cm LA Diam: 3.0 cm (2.7 - 3.8) LAESV Index (A-L): 20.72 ml/m Ao Diam: 3.1 cm (2.0 - 3.7) LA Diam: 3.4 cm (2.7 - 3.8) MV EXCURSION: 16.226 mm (> 18.000) MV EF SLOPE: 72 mm/s (70 - 150) EPSS: 0.4 cm MV E Carson: 0.51 m/s MV DecT: 281 ms MV A Carson: 0.72 m/s MV E/A Ratio: 0.71 RAP: 5.00 mmHg RVSP: 14.41 mmHg FINDINGS -------- Sinus rhythm. This was a technically adequate study. The left ventricular size is normal. There is moderate concentric left ventricular hypertrophy. O verall left ventricular systolic function is normal with, an EF between 55 - 60 %. The diastolic fi lling pattern is normal for the age of the patient 9.17. The right ventricle is normal in size. Normal LA size by volume 22+/-6 ml/m2. The right atrial size is normal. The aortic valve is trileaflet, and appears structurally normal. No aortic stenosis or regurgitation. The mitral valve is normal. Mild mitral regurgitation is present. There is mild pulmonary hypertension. The right ventricular systolic pressure, as measured by Doppl er, is 14.41mmHg. There is no pulmonic regurgitation present. The aortic root size is normal. There is no pericardial effusion. CONCLUSIONS -------- 1. Sinus rhythm. 2. This was a technically adequate study. 3. The left ventricular size is normal. 4. There is moderate concentric left ventricular hypertrophy. 5. Overall left ventricular systolic function is normal with, an EF between 55 - 60 %. 6. The diastolic filling pattern is normal for the age of the patient 9.17 7. Normal LA size by volume 22+/-6 ml/m2. 8. The aortic valve is trileaflet, and appears structurally normal. No aortic stenosis or regurgitati on. 9. The mitral valve is normal. 10. Mild mitral regurgitation is present. 11. There is mild pulmonary hypertension. 12. The right ventricular systolic pressure, as measured by Doppler, is 14.41mmHg. 13. There is no pulmonic regurgitation present. 14. The aortic root size is normal. 15. There is no pericardial effusion. BINGO CASHIER: Tania Fltecher RDCS
[2019-08-28 16:36] LABS: Glucose,Whole Blood 118 mg/dL (75-99)
--- NOTE | 2019-08-28 16:52 | CONS ---
CONSULTATION Mrs. Pollard is a 74-year-old female who is followed by Dr. Bere Pereira. She presented with symptoms of chest discomfort. The patient has a known history of coronary artery disease and underwent cardiac catheterization and subsequent stenting of her right coronary artery in October 2014 following an acute inferior wall myocardial infarction. At that time she had moderate disease in the obtuse marginal branch and 80% stenosis in the ostium of diagonal branch. She was seen subsequently in March of 2015 at the [facility] and underwent repeat cardiac catheterization and had no progression of disease, according to her. She underwent stress test in October of last year that showed no evidence of ischemia. The patient has chronic dyspnea on exertion and has is being followed by Dr. Olivia Pereira and underwent a CT scan of the chest recently that showed a 1.8 nodular density noted and workup was in progress. She presented with symptoms of chest discomfort. She has been having the discomfort on and off for a while, but she feels the discomfort is more frequent. The discomfort in the chest radiates to the back. She is not quite sure if it is cardiac-related or lung- related. The discomfort is not activity-related and not associated with any other symptoms. She has a history of chronic dyspnea on exertion. She has no dizziness or palpitation. She has no syncope. She has some peripheral edema. Her coronary risk factors are positive for prior history of smoking, which she stopped in 2013. She has history of hypertension, diabetes and hyperlipidemia. MEDICATIONS: Her medications include: 1. Singulair 10 mg daily. 2. Femara. 3. Xalatan. 4. Lasix 40 mg daily. 5. Vitamin D. 6. Spironolactone 12.5 mg daily. 7. Zestril 2.5 mg daily. 8. Coreg 6.25 mg twice a day. 9. Lipitor 40 mg daily. 10.Aspirin. 11.Trazodone. 12.Metformin 500 mg daily. 13.Klonopin. 14.Zyprexa. 15.Prevacid. 16.Neurontin. 17.Cymbalta. 18.Tylenol. REVIEW OF SYSTEMS: RESPIRATORY SYSTEM: She has dyspnea on exertion. She has cough. No recent wheezing. No fever. GI SYSTEM: No recent GI bleeding. No peptic ulcer disease. SYSTEM: No dysuria or hematuria. NERVOUS SYSTEM: No history of stroke or seizure. PHYSICAL EXAMINATION: She is a 74-year-old female, alert, oriented, in no apparent distress. Blood pressure 143/50 with a heart rate in the 70s. HEAD: Normocephalic. Eyes: Sclerae anicteric. NECK: Good carotid upstroke. No bruit. No jugular venous distention. LUNGS: Clear to auscultation. HEART: Regular rate and rhythm. S1, S2. No S3, with systolic murmur heard at the base. No diastolic murmur. No rub. ABDOMEN: Soft, nontender. Positive bowel sounds. No organomegaly. EXTREMITIES: Trace edema. LAB DATA/IMAGING: BUN and creatinine of 8 and 0.86. Potassium 4.3. Hemoglobin of 13. Troponin less than 0.012 for one sample. EKG revealed a sinus mechanism, normal axis and intervals, rare PACs. Her chest x-ray shows no acute changes. IMPRESSION: 1. Chest discomfort of unclear etiology, probably noncardiac in etiology in a patient with known history of coronary artery disease. 2. History of stenting of the right coronary artery in 2013. 3. History of chronic obstructive lung disease with a history of lung nodule. 4. Hypertension. 5. Hyperlipidemia. 6. Diabetes mellitus. RECOMMENDATIONS: Will obtain serial enzymes. If there is no evidence of inducible ischemia, then I will stop the heparin. I will obtain echocardiogram with Doppler. I will review the results of her Lexiscan that was obtained recently. I will add isosorbide mononitrate to her regimen, increase her level of activity. If she has no further symptoms, then no further cardiac workup will be needed at this time. Otherwise, if she has recurrent pain, then she will undergo repeat coronary angiography. Those findings and recommendation were discussed with the patient, and she is in full understanding and agreement. Thank you for this consult. Will follow with you. MMODL / IJN: [id number] /
[2019-08-28] MEDS: clonazePAM 1 MG TAB PO SCH (20:21)
[2019-08-28 20:50] LABS: Glucose,Whole Blood 135 mg/dL (75-99)
[2019-08-28] MEDS ORDERED: ATORVASTATIN 80 MG TAB PO SCH (21:00)
[2019-08-28] MEDS ORDERED: OLANZapine 5 MG TAB PO SCH (21:00)
[2019-08-28] MEDS ORDERED: traZODone HCL 50 MG TAB PO SCH (21:00)
[2019-08-28] MEDS ORDERED: LATANOPROST 0.005% OPHTH DROPS 2.5 ML BTL BOTH EYES SCH (21:00)
[2019-08-28 21:03] LABS: Hemoglobin A1C 6.5 % (4.0-6.0)
[2019-08-29] MEDS ORDERED: ACETAMINOPHEN TAB 500 MG TAB PO PRN (06:34)
[2019-08-29] MEDS: CARVEDILOL 6.25 MG TAB PO SCH (06:35)
[2019-08-29] MEDS: PANTOPRAZOLE 40 MG TABLET PO SCH (06:35)
[2019-08-29 06:44] LABS: Glucose,Whole Blood 106 mg/dL (75-99)
[2019-08-29] MEDS: FLUTICASONE 110 MCG INHALER INHALATION SCH (07:41)
[2019-08-29] MEDS: IPRATROPIUM-ALBUTEROL 3 ML NEB INHALATION SCH ×3 (07:41→15:37)
[2019-08-29] MEDS: DULoxetine HCL 60 MG CAPSULE.DR PO SCH (08:11)
[2019-08-29] MEDS: FUROSEMIDE 40 MG TAB PO SCH (08:11)
[2019-08-29] MEDS: ISOSORBIDE MONONITRATE ER 30 MG TAB.ER.24H PO SCH (08:11)
[2019-08-29] MEDS: LETROZOLE 2.5 MG TAB PO SCH (08:11)
[2019-08-29] MEDS: clonazePAM 1 MG TAB PO SCH (08:11)
[2019-08-29] MEDS: GABAPENTIN 300 MG CAP PO SCH (08:11)
[2019-08-29 08:16] VITALS: TEMP 97.7
[2019-08-29] MEDS ORDERED: ASPIRIN 325 MG TAB PO SCH (09:00)
[2019-08-29] MEDS: LISINOPRIL 2.5 MG TAB PO SCH (11:24)
[2019-08-29] MEDS: SPIRONOLACTONE 25 MG TAB PO SCH (11:24)
[2019-08-29 11:31] VITALS: BP 93/55; PULSE 62; RESP 18
[2019-08-29 11:47] LABS: Glucose,Whole Blood 108 mg/dL (75-99)
[2019-08-29] MEDS ORDERED: ASPIRIN 81 MG PO SCH (12:00)
[2019-08-29] MEDS ORDERED: KETOROLAC 30 MG/ML 1 ML VIAL IVP SCH (12:00)
--- NOTE | 2019-08-29 12:17 | PN ---
PROGRESS NOTE Mrs. Pollard is a 74-year-old female with a history of coronary artery disease who presented with symptoms of chest discomfort. She has no further symptoms of discomfort at this time. She is complaining of a headache. She denies any dizziness. No palpitation. She has been ambulating. She had an echocardiogram yesterday that revealed a preserved left ventricular size and systolic function with mild mitral regurgitation. She continues to be on aspirin 81 mg daily, Lipitor 40 mg daily, Coreg 6.25 mg twice a day, Duloxetine, furosemide 40 mg daily, isosorbide mononitrate 30 mg daily, lisinopril 2.5 mg daily, spironolactone 12.5 mg daily. PHYSICAL EXAMINATION: Blood pressure in the 130-140s with a heart rate in 60s. LUNGS: Clear. HEART: Regular rate and rhythm S1, S2. No S3. No rub. Systolic murmur. ABDOMEN: Soft, nontender. EXTREMITIES: No edema. IMPRESSION: 1. Symptoms of chest discomfort with no evidence of acute coronary syndrome. 2. History of coronary artery disease, stable. 3. Hyperlipidemia. RECOMMENDATION: From the cardiac standpoint, the patient should be able to be discharged home today. Follow up as an outpatient with Dr. Pereira. MMODL / IJN: [id number] /
--- NOTE | 2019-08-29 13:07 | P.DS ---
Providers Date of admission: 08/28/19 07:55 Attending physician: Yessi Porter MD Consults: 08/28/19 07:55 Consult Physician Routine Consulting Provider: Augie Pereira Consult Reason/Comments: chest pain Do you want consulting provider notified?: Yes Primary care physician: [place] Hospital Course: Mrs. Pollard is a 74 years old female with past medical history of coronary artery disease status post stenting in October 2014, history of COPD, asthma, diabetes, GERD, hyperlipidemia, hypertension, history of breast cancer in remission presents in with acute on chronic chest pain associated with shortness of breath that has been going on for more than [address] Pereira pulmonary as outpatient and was noted to have a mass of 1.8 cm in the inferior lingula with mild to moderate emphysema and 2.2 cm adrenal adenoma. Yesterday patient started having significant shortness of breath on going up and down the stairs. She woke up from sleep with shortness of breath and heaviness in her chest. Patient took 2 nitroglycerin token tablet with improvement in pain. Patient denies any cough but does endorse pain when she takes a deep breath intermittently. Chest x-ray was negative for any acute abnormality. 08/29 patient examined bedside complaining of no chest pain did have one episode of headache, that occurred after patient took a dose of Imdur improved with Toradol. Patient will be discharged on a prescription of Imdur if not able to tolerate can discontinue and follow with Dr. Pereira as outpatient Discharge diagnoses #1 atypical chest pain #3 history of asthmaCOPD #4 history of diabetes with neuropathy #5 hypertension #6 Breast cancer on letrozole #7 history of anxiety/depression #8 history of coronary artery disease status post stent in 2013. #9 GERD with hiatal hernia #10 insomnia #11 inferior lingula mass of 1.8 cm follow up with Dr. Pereira Home with self-care Patient Condition at Discharge: Good Plan - Discharge Summary Discharge Rx Participant: No New Discharge Prescriptions: New Isosorbide Mononitrate ER [Imdur] 30 mg PO DAILY #30 tab.er.24h Continue Fluticasone Propionate [Flovent Hfa 110 mcg] 2 puff INHALATION RT-BID Ipratropium/Albuterol Sulfate [Combivent Respimat Inhaler] 1 puff INHALATION RT-QID DULoxetine HCL [Cymbalta] 60 mg PO DAILY Acetaminophen Tab [Tylenol] 500 mg PO HS traZODone HCL [Desyrel] 150 mg PO HS OLANZapine [ZyPREXA] 2.5 mg PO HS Gabapentin [Neurontin] 600 mg PO BID Multivitamins, Thera [Multivitamin (formulary)] 1 tab PO DAILY@1200 metFORMIN HCL [Glucophage] 500 mg PO DAILY Aspirin 81 mg PO DAILY@1200 Lisinopril [Zestril] 2.5 mg PO DAILY@1200 Furosemide [Lasix] 40 mg PO DAILY Carvedilol [Coreg] 6.25 mg PO BID Spironolactone [Aldactone] 12.5 mg PO DAILY@1200 Lansoprazole [Prevacid] 30 mg PO DAILY Latanoprost Ophth [Xalatan 0.005%] 1 drops BOTH EYES HS Cholecalciferol [Vitamin D3 (25 Mcg = 1000 Iu)] 1,000 unit PO BID@1200,2100 clonazePAM [KlonoPIN] 2 mg PO HS Atorvastatin Calcium [Lipitor] 40 mg PO HS Magnesium/Potassium/Bromelain 1 tab PO DAILY@1200 Letrozole [Femara] 2.5 mg PO DAILY Nitroglycerin Sl Tabs [Nitrostat] 0.4 mg SUBLINGUAL Q5M PRN PRN Reason: Chest Pain Montelukast Sodium [Singulair] 10 mg PO DAILY Discharge Medication List Acetaminophen Tab [Tylenol] 500 mg PO HS 10/04/14 [History] DULoxetine HCL [Cymbalta] 60 mg PO DAILY 10/04/14 [History] Fluticasone Propionate [Flovent Hfa 110 mcg] 2 puff INHALATION RT-BID 10/04/14 [History] Gabapentin [Neurontin] 600 mg PO BID 10/04/14 [History] Ipratropium/Albuterol Sulfate [Combivent Respimat Inhaler] 1 puff INHALATION RT- QID 10/04/14 [History] Multivitamins, Thera [Multivitamin (formulary)] 1 tab PO DAILY@1200 10/04/14 [History] OLANZapine [ZyPREXA] 2.5 mg PO HS 10/04/14 [History] traZODone HCL [Desyrel] 150 mg PO HS 10/04/14 [History] Aspirin 81 mg PO DAILY@1200 10/31/15 [History] Carvedilol [Coreg] 6.25 mg PO BID 10/31/15 [History] Cholecalciferol [Vitamin D3 (25 Mcg = 1000 Iu)] 1,000 unit PO BID@1200,2100 10/31/15 [History] Furosemide [Lasix] 40 mg PO DAILY 10/31/15 [History] Lansoprazole [Prevacid] 30 mg PO DAILY 10/31/15 [History] Latanoprost Ophth [Xalatan 0.005%] 1 drops BOTH EYES HS 10/31/15 [History] Lisinopril [Zestril] 2.5 mg PO DAILY@1200 10/31/15 [History] Spironolactone [Aldactone] 12.5 mg PO DAILY@1200 10/31/15 [History] metFORMIN HCL [Glucophage] 500 mg PO DAILY 10/31/15 [History] Atorvastatin Calcium [Lipitor] 40 mg PO HS 04/03/17 [History] clonazePAM [KlonoPIN] 2 mg PO HS 04/03/17 [History] Magnesium/Potassium/Bromelain 1 tab PO DAILY@1200 07/09/18 [History] Letrozole [Femara] 2.5 mg PO DAILY 09/15/18 [History] Montelukast Sodium [Singulair] 10 mg PO DAILY 08/28/19 [History] Nitroglycerin Sl Tabs [Nitrostat] 0.4 mg SUBLINGUAL Q5M PRN 08/28/19 [History] Isosorbide Mononitrate ER [Imdur] 30 mg PO DAILY #30 tab.er.24h 08/29/19 [Rx] Follow up Appointment(s)/Referral(s): Lázaro Gagnon MD [Primary Care Provider] - 1-2 days Patient Instructions/Handouts: Chest Pain (ED) Discharge Disposition: HOME SELF-CARE
== END 2019-08-29 15:44 | disposition home or self-care (01) ==
LOC: EC 05:18 → 3SCARD 07:55
PROVIDERS: ADMIT Internal Medicine; ATTEND Internal Medicine
DX: R07.89 Other chest pain (principal); R51 Headache; J43.9 Emphysema, unspecified; E11.40 Type 2 diabetes mellitus with diabetic neuropathy, unspecified; R91.8 Other nonspecific abnormal finding of lung field; I25.10 Atherosclerotic heart disease of native coronary artery without angina pectoris; I34.0 Nonrheumatic mitral (valve) insufficiency; E78.5 Hyperlipidemia, unspecified; K21.9 Gastro-esophageal reflux disease without esophagitis; K44.9 Diaphragmatic hernia without obstruction or gangrene; I10 Essential (primary) hypertension; F41.9 Anxiety disorder, unspecified; F31.9 Bipolar disorder, unspecified; I25.2 Old myocardial infarction; R60.0 Localized edema; R91.1 Solitary pulmonary nodule; C50.919 Malignant neoplasm of unspecified site of unspecified female breast; M19.90 Unspecified osteoarthritis, unspecified site; G89.29 Other chronic pain; G47.00 Insomnia, unspecified; E66.9 Obesity, unspecified; Z68.30 Body mass index [BMI] 30.0-30.9, adult; D35.00 Benign neoplasm of unspecified adrenal gland; Z95.5 Presence of coronary angioplasty implant and graft; Z88.8 Allergy status to other drugs, medicaments and biological substances; Z88.0 Allergy status to penicillin; Z88.1 Allergy status to other antibiotic agents; Z79.811 Long term (current) use of aromatase inhibitors; Z79.82 Long term (current) use of aspirin; Z79.51 Long term (current) use of inhaled steroids; Z79.84 Long term (current) use of oral hypoglycemic drugs; Z79.83 Long term (current) use of bisphosphonates; Z79.899 Other long term (current) drug therapy; Z90.49 Acquired absence of other specified parts of digestive tract; Z87.891 Personal history of nicotine dependence; Z80.7 Family history of other malignant neoplasms of lymphoid, hematopoietic and related tissues; Z82.0 Family history of epilepsy and other diseases of the nervous system; Z81.8 Family history of other mental and behavioral disorders
CPT/HCPCS: 96374; 96375; 99285; 36415; 94640 ×4; 94760; 93005; 93306; 80053; 83735; 84484; 85025; 85610; 85730; 83036; 71046; G0378 ×2; J1644 ×2; J1885

== ENCOUNTER 2019-11-28 16:01 | Emergency (ER) | payer MEDICARE ==
[2019-11-28] MEDS ORDERED: ONDANSETRON 4 MG/2 ML VIAL IVP STA ×2 (16:48→19:00)
[2019-11-28] MEDS ORDERED: DIAZEPAM 5 MG/ML 2 ML INJ IVP STA (16:48)
[2019-11-28] MEDS ORDERED: SODIUM CHLORIDE 0.9% 1,000 ML IV STA ×2 (16:48)
[2019-11-28] MEDS ORDERED: MORPHINE SULFATE 4 MG/ML SYRINGE IV STA (16:48)
[2019-11-28] MEDS ORDERED: PANTOPRAZOLE 40 MG/10 ML VIAL IVP STA (16:48)
[2019-11-28] MEDS ORDERED: SODIUM CHLORIDE 0.9% 500 ML 500 ML IV STA (16:48)
[2019-11-28 17:37] LABS: Amorphous Sediment,Urine Rare /hpf; Appearance,Urine Turbid (Clear); Bilirubin,Urine Negative (Negative); Blood,Urine Negative (Negative); Color,Urine Yellow; Glucose,Urine (UA) Negative (Negative); Ketones,Urine Negative (Negative); Leukocyte Esterase,Urine Negative (Negative); Nitrite,Urine Negative (Negative); PH, Urine 8.5 (5.0-8.0); Protein,Urine Trace (Negative); RBC,Urine 1 /hpf (0-5); Specific Gravity,Urine 1.019 (1.001-1.035); Squamous Epithelial Cell,Urine <1 /hpf (0-4); Urobilinogen,Urine <2.0 mg/dL (<2.0); WBC,Urine 4 /hpf (0-5)
[2019-11-28 17:38] LABS: Basophils # (A) 0.1 k/uL (0-0.2); Basophils % (A) 0 %; Eosinophils # (A) 0.2 k/uL (0-0.7); Eosinophils % (A) 1 %; HCT 43.1 % (34.0-46.0); HGB 14.9 gm/dL (11.4-16.0); Lymphocytes # (A) 2.3 k/uL (1.0-4.8); Lymphocytes % (A) 11 %; MCHC 34.5 g/dL (31.0-37.0); MCV 95.6 fL (80.0-100.0); Mean Platelet Volume 9.3; Monocytes # (A) 0.5 k/uL (0-1.0); Monocytes % (A) 3 %; Neutrophils # (A) 16.6 k/uL (1.3-7.7); Neutrophils % (A) 84 %; Platelet Count 330 k/uL (150-450); RBC 4.51 m/uL (3.80-5.40); RDW 14.1 % (11.5-15.5); WBC 19.8 k/uL (3.8-10.6)
--- NOTE | 2019-11-28 17:40 | ED ---
Nausea/Vomiting/Diarrhea HPI - General Chief complaint: Nausea/Vomiting/Diarrhea Stated complaint: vomiting Time Seen by Provider: 11/28/19 16:47 Source: patient, RN notes reviewed, old records reviewed Mode of arrival: wheelchair Limitations: no limitations - History of Present Illness Initial comments: This is a 74-year-old female DF for evaluation persistent nausea and vomited. Patient suffered from recurrent episodes of gastritis she states which has allowed her to follow-up with GI for upper GI as lower GI which have been inconclusive. She bleeds all symptoms started after her gallbladder removed about 10 years ago. In the symptoms are pretty consistent with her normal nausea vomiting episodes. Patient doesn't multiple ER visits for this complaint. No fevers no current abdominal pain except maybe some pain from the retching MD complaint: nausea, vomiting -: days(s) Description of Vomiting: food contents Associated Abdominal Pain: No Radiation: none Severity: severe Severity scale (1-10): 9 (Patient currently dry heaving in the ER) Consistency: constant Improves with: none Worsens with: eating, vomiting Context: history of abdominal surgery Associated Symptoms: myalgias, loss of appetite, malaise, nausea/vomiting, weakness - Related Data Home Medications Medication Instructions Recorded Confirmed Acetaminophen Tab [Tylenol] 500 mg PO HS 10/04/14 08/28/19 DULoxetine HCL [Cymbalta] 60 mg PO DAILY 10/04/14 08/28/19 Fluticasone Propionate [Flovent 2 puff INHALATION RT-BID 10/04/14 08/28/19 Hfa 110 mcg] Gabapentin [Neurontin] 600 mg PO BID 10/04/14 08/28/19 Ipratropium/Albuterol Sulfate 1 puff INHALATION RT-QID 10/04/14 08/28/19 [Combivent Respimat Inhaler] Multivitamins, Thera [Multivitamin 1 tab PO DAILY@1200 10/04/14 08/28/19 (formulary)] OLANZapine [ZyPREXA] 2.5 mg PO HS 10/04/14 08/28/19 traZODone HCL [Desyrel] 150 mg PO HS 10/04/14 08/28/19 Aspirin 81 mg PO DAILY@1200 10/31/15 08/28/19 Carvedilol [Coreg] 6.25 mg PO BID 10/31/15 08/28/19 Cholecalciferol [Vitamin D3 (25 1,000 unit PO BID@1200,2100 10/31/15 08/28/19 Mcg = 1000 Iu)] Furosemide [Lasix] 40 mg PO DAILY 10/31/15 08/28/19 Lansoprazole [Prevacid] 30 mg PO DAILY 10/31/15 08/28/19 Latanoprost Ophth [Xalatan 0.005%] 1 drops BOTH EYES HS 10/31/15 08/28/19 Lisinopril [Zestril] 2.5 mg PO DAILY@1200 10/31/15 08/28/19 Spironolactone [Aldactone] 12.5 mg PO DAILY@1200 10/31/15 08/28/19 metFORMIN HCL [Glucophage] 500 mg PO DAILY 10/31/15 08/28/19 Atorvastatin Calcium [Lipitor] 40 mg PO HS 04/03/17 08/28/19 clonazePAM [KlonoPIN] 2 mg PO HS 04/03/17 08/28/19 Magnesium/Potassium/Bromelain 1 tab PO DAILY@1200 07/09/18 08/28/19 Letrozole [Femara] 2.5 mg PO DAILY 09/15/18 08/28/19 Montelukast Sodium [Singulair] 10 mg PO DAILY 08/28/19 08/28/19 Nitroglycerin Sl Tabs [Nitrostat] 0.4 mg SUBLINGUAL Q5M PRN 08/28/19 08/28/19 Previous Rx's Medication Instructions Recorded Isosorbide Mononitrate ER [Imdur] 30 mg PO DAILY #30 tab.er.24h 08/29/19 Allergies Allergy/AdvReac Type Severity Reaction Status Date / Time bupropion HCl Allergy Rash/Hives Verified 11/28/19 16:34 [From Wellbutrin] erythromycin base Allergy SWELLING Verified 11/28/19 16:34 [Erythromycin Base] OF TONGUE Penicillins Allergy SWELLING Verified 11/28/19 16:34 OF TONGUE sertraline HCl [From Zoloft] Allergy Diarrhea Verified 11/28/19 16:34 Review of Systems ROS Statement: Those systems with pertinent positive or pertinent negative responses have been documented in the HPI. ROS Other: All systems not noted in ROS Statement are negative. Past Medical History Past Medical History: Asthma, Cancer, COPD, Diabetes Mellitus, GERD/Reflux, Hyperlipidemia, Hypertension, Myocardial Infarction ([place]), Osteoarthritis ([place]) Additional Past Medical History / Comment(s): BREAST CANCER Last Myocardial Infarction Date:: 10-04-14 History of Any Multi-Drug Resistant Organisms: None Reported Past Surgical History: Breast Surgery, Cholecystectomy, Heart Catheterization With Stent, Orthopedic Surgery, Tonsillectomy Additional Past Surgical History / Comment(s): GanglionCyst; COLONOSCOPY AND EGD, LEFT BREAST LUMPECTOMY. Plans for cataract removal first week of August this year Past Anesthesia/Blood Transfusion Reactions: No Reported Reaction Date of Last Stent Placement:: 10/04/14 Past Psychological History: Bipolar Smoking Status: Former smoker Past Alcohol Use History: None Reported Past Drug Use History: None Reported - Past Family History Father Family Medical History: Cancer Additional Family Medical History / Comment(s): non hodgkins lymphoma Sister(s) Family Medical History: Cancer Additional Family Medical History / Comment(s): bipolar Mother Family Medical History: No Reported History Additional Family Medical History / Comment(s): alzheimers, bipolar, dementia General Exam Limitations: no limitations General appearance: alert, in no apparent distress Head exam: Present: atraumatic, normocephalic, normal inspection Eye exam: Present: normal appearance, PERRL, EOMI. Absent: scleral icterus, conjunctival injection, periorbital swelling ENT exam: Present: normal exam, mucous membranes moist Neck exam: Present: normal inspection. Absent: tenderness, meningismus, lymphadenopathy Respiratory exam: Present: normal lung sounds bilaterally. Absent: respiratory distress, wheezes, rales, rhonchi, stridor Cardiovascular Exam: Present: regular rate, normal rhythm, normal heart sounds. Absent: systolic murmur, diastolic murmur, rubs, gallop, clicks GI/Abdominal exam: Present: soft, normal bowel sounds. Absent: distended, tenderness, guarding, rebound, rigid Extremities exam: Present: normal inspection, full ROM, normal capillary refill. Absent: tenderness, pedal edema, joint swelling, calf tenderness Back exam: Present: normal inspection Neurological exam: Present: alert, oriented X3, CN II-XII intact Psychiatric exam: Present: normal affect, normal mood Skin exam: Present: warm, dry, intact, normal color. Absent: rash Course Vital Signs 11/28/19 11/28/19 16:31 19:23 Temperature 97.4 F L 98.4 F Pulse Rate 69 77 Respiratory 20 16 Rate Blood Pressure 155/103 147/88 O2 Sat by Pulse 95 95 Oximetry - Reevaluation(s) Reevaluation #1: 11/28/19 18:33 Medical record is reviewed Reevaluation #2: 11/28/19 18:33 Patient still complaining of persistent nausea vomiting despite treatment here in the ER Medical Decision Making - Medical Decision Making 74 female to the ER for episodes of nausea and vomiting symptoms are much improved here in the ER patient will be discharged home - Lab Data Result diagrams: 11/28/19 17:15 11/28/19 17:15 Lab Results 11/28/19 11/28/19 11/28/19 Range/Units 17:15 17:15 17:15 WBC 19.8 H (3.8-10.6) k/uL RBC 4.51 (3.80-5.40) m/uL Hgb 14.9 (11.4-16.0) gm/dL Hct 43.1 (34.0-46.0) % MCV 95.6 (80.0-100.0) fL MCH 33.0 (25.0-35.0) pg MCHC 34.5 (31.0-37.0) g/dL RDW 14.1 (11.5-15.5) % Plt Count 330 (150-450) k/uL Neutrophils % 84 % Lymphocytes % 11 % Monocytes % 3 % Eosinophils % 1 % Basophils % 0 % Neutrophils # 16.6 H (1.3-7.7) k/uL Lymphocytes # 2.3 (1.0-4.8) k/uL Monocytes # 0.5 (0-1.0) k/uL Eosinophils # 0.2 (0-0.7) k/uL Basophils # 0.1 (0-0.2) k/uL Sodium 138 (137-145) mmol/L Potassium 4.3 (3.5-5.1) mmol/L Chloride 100 (98-107) mmol/L Carbon Dioxide 23 (22-30) mmol/L Anion Gap 15 mmol/L BUN 11 (7-17) mg/dL Creatinine 0.90 (0.52-1.04) mg/dL Est GFR (CKD-EPI)AfAm 74 (>60 ml/min/1.73 sqM) Est GFR (CKD-EPI)NonAf 64 (>60 ml/min/1.73 sqM) Glucose 138 H (74-99) mg/dL Lactic Ac Sepsis Rflx Plasma Lactic Acid Henri 3.1 H* (0.7-2.0) mmol/L Calcium 10.3 H (8.4-10.2) mg/dL Phosphorus 2.8 (2.5-4.5) mg/dL Magnesium 2.3 (1.6-2.3) mg/dL Total Bilirubin 1.1 (0.2-1.3) mg/dL AST 29 (14-36) U/L ALT 21 (4-34) U/L Alkaline Phosphatase 141 H (38-126) U/L Troponin I (0.000-0.034) ng/mL Total Protein 8.0 (6.3-8.2) g/dL Albumin 4.8 (3.5-5.0) g/dL Urine Color Urine Appearance (Clear) Urine pH (5.0-8.0) Ur Specific [place] (1.001-1.035) Urine Protein (Negative) Urine Glucose (UA) (Negative) Urine Ketones (Negative) Urine Blood (Negative) Urine Nitrite (Negative) Urine Bilirubin (Negative) Urine Urobilinogen (<2.0) mg/dL Ur Leukocyte Esterase (Negative) Urine RBC (0-5) /hpf Urine WBC (0-5) /hpf Ur Squamous Epith Cells (0-4) /hpf Amorphous Sediment (None) /hpf 11/28/19 11/28/19 11/28/19 Range/Units 17:15 17:15 17:57 WBC (3.8-10.6) k/uL RBC (3.80-5.40) m/uL Hgb (11.4-16.0) gm/dL Hct (34.0-46.0) % MCV (80.0-100.0) fL MCH (25.0-35.0) pg MCHC (31.0-37.0) g/dL RDW (11.5-15.5) % Plt Count (150-450) k/uL Neutrophils % % Lymphocytes % % Monocytes % % Eosinophils % % Basophils % % Neutrophils # (1.3-7.7) k/uL Lymphocytes # (1.0-4.8) k/uL Monocytes # (0-1.0) k/uL Eosinophils # (0-0.7) k/uL Basophils # (0-0.2) k/uL Sodium (137-145) mmol/L Potassium (3.5-5.1) mmol/L Chloride (98-107) mmol/L Carbon Dioxide (22-30) mmol/L Anion Gap mmol/L BUN (7-17) mg/dL Creatinine (0.52-1.04) mg/dL Est GFR (CKD-EPI)AfAm (>60 ml/min/1.73 sqM) Est GFR (CKD-EPI)NonAf (>60 ml/min/1.73 sqM) Glucose (74-99) mg/dL Lactic Ac Sepsis Rflx Y Plasma Lactic Acid Henri (0.7-2.0) mmol/L Calcium (8.4-10.2) mg/dL Phosphorus (2.5-4.5) mg/dL Magnesium (1.6-2.3) mg/dL Total Bilirubin (0.2-1.3) mg/dL AST (14-36) U/L ALT (4-34) U/L Alkaline Phosphatase (38-126) U/L Troponin I <0.012 (0.000-0.034) ng/mL Total Protein (6.3-8.2) g/dL Albumin (3.5-5.0) g/dL Urine Color Yellow Urine Appearance Turbid H (Clear) Urine pH 8.5 H (5.0-8.0) Ur Specific [place] 1.019 (1.001-1.035) Urine Protein Trace H (Negative) Urine Glucose (UA) Negative (Negative) Urine Ketones Negative (Negative) Urine Blood Negative (Negative) Urine Nitrite Negative (Negative) Urine Bilirubin Negative (Negative) Urine Urobilinogen <2.0 (<2.0) mg/dL Ur Leukocyte Esterase Negative (Negative) Urine RBC 1 (0-5) /hpf Urine WBC 4 (0-5) /hpf Ur Squamous Epith Cells <1 (0-4) /hpf Amorphous Sediment Rare H (None) /hpf - EKG Data -: EKG Interpreted by Me (EKG shows sinus rhythm of 60, NE 134,QRS 86, QTC 446) - Radiology Data Radiology results: report reviewed (X-ray abdominal series and chest shows poss ible ileus type reaction no significant obstruction), image reviewed Disposition Clinical Impression: Dehydration, Gastroenteritis, Ileus Disposition: HOME SELF-CARE Condition: Fair Instructions (If sedation given, give patient instructions): Acute Nausea and Vomiting (ED), Ileus (ED) Is patient prescribed a controlled substance at d/c from ED?: No Referrals: Lázaro Gagnon MD [Primary Care Provider] - 1-2 days
[2019-11-28 17:54] LABS: Albumin 4.8 g/dL (3.5-5.0); Calcium 10.3 mg/dL (8.4-10.2); Magnesium 2.3 mg/dL (1.6-2.3); Phosphorus 2.8 mg/dL (2.5-4.5); Potassium 4.3 mmol/L (3.5-5.1); Total Bilirubin 1.1 mg/dL (0.2-1.3)
[2019-11-28] MEDS ORDERED: MORPHINE SULFATE 4 MG/ML SYRINGE IVP STA (19:00)
--- NOTE | 2019-11-28 20:51 | XR ---
EXAMINATION TYPE: XR abdomen acute w cxr DATE OF EXAM: 11/28/2019 COMPARISON: Chest x-ray 08/28/2019 HISTORY: Abdominal pain. Vomiting. TECHNIQUE: 4 views FINDINGS: There is some mild linear density at the lung bases. There are some air-filled loops of sm all bowel in the mid abdomen. There are clips from cholecystectomy. There is no sign of a mass. IMPRESSION: Distended small bowel could relate to ileus or partial mechanical obstruction. Mild atele ctasis at the lung bases. No heart failure. Atelectasis is new compared to old exam. Distended small bowel is new compared to 04/03/2017 exam.
[2019-11-28] MEDS ORDERED: ACET/COD 300 MG/30 MG STARTER PACK 6 TAB BTL PO STA (21:25)
[2019-11-28] MEDS ORDERED: ONDANSETRON 4 MG ODT STARTER PACK 2 TAB BTL PO STA (21:25)
[2019-11-28 21:41] VITALS: BP 120/57; PULSE 82; RESP 18; TEMP 99.8
== END 2019-11-28 21:40 | disposition home or self-care (01) ==
LOC: EC 16:01
DX: K56.7 Ileus, unspecified (principal); K52.9 Noninfective gastroenteritis and colitis, unspecified; E86.0 Dehydration; J44.9 Chronic obstructive pulmonary disease, unspecified; E11.9 Type 2 diabetes mellitus without complications; K21.9 Gastro-esophageal reflux disease without esophagitis; E78.5 Hyperlipidemia, unspecified; I10 Essential (primary) hypertension; I25.2 Old myocardial infarction; M19.90 Unspecified osteoarthritis, unspecified site; F31.9 Bipolar disorder, unspecified; Z87.891 Personal history of nicotine dependence; Z88.0 Allergy status to penicillin; Z88.1 Allergy status to other antibiotic agents; Z88.8 Allergy status to other drugs, medicaments and biological substances; Z79.51 Long term (current) use of inhaled steroids; Z79.82 Long term (current) use of aspirin; Z79.84 Long term (current) use of oral hypoglycemic drugs; Z79.891 Long term (current) use of opiate analgesic; Z79.899 Other long term (current) drug therapy; Z92.21 Personal history of antineoplastic chemotherapy; Z85.3 Personal history of malignant neoplasm of breast; Z90.49 Acquired absence of other specified parts of digestive tract; Z95.5 Presence of coronary angioplasty implant and graft; Z98.890 Other specified postprocedural states
CPT/HCPCS: 36415; 93005; 80053; 83605; 83735; 84100; 84484; 85025; 81001; 74022; 99285; 96374; 96375 ×3; 96376 ×2; 96361 ×4; J2270; J3360; J2405; S0119; C9113

== ENCOUNTER → 2019-12-09 | Outpatient (CLI) | payer MEDICARE ==
--- NOTE | 2019-12-10 10:46 | CT ---
EXAMINATION TYPE: CT abdomen wo/w con DATE OF EXAM: 12/09/2019 HISTORY: ABDOMINAL PAIN, POSSIBLE ILEUS CT DLP: 1665mGycm Automated Exposure Control for Dose Reduction was Utilized. CONTRAST: CT scan of the abdomen is performed with oral and without and with IV Contrast, patient injected with 100 mL of Isovue 300. COMPARISON: CT abdomen and pelvis June 12, [address] 2010 FINDINGS: LUNG BASES: Partial visualization of coronary artery calcification and/or stent in the RCA distributi on similar to prior with trace anterior inferior right pericardial effusion. Asymmetric visualization of right breast and central fibroglandular tissue. Patchy bibasilar linear scarring and/or atelectas is redemonstrated. LIVER/GB: Cholecystectomy clips are redemonstrated. PANCREAS: No significant abnormality is seen. SPLEEN: No significant abnormality is seen. ADRENALS: Persistent left adrenal mass measuring 1.8 x 1.4 cm axial image 23 is not enlarged from 201 0 study and thus presumed benign. KIDNEYS: Cortical thinning in both kidneys. No renal calculi bilaterally. Postcontrast images show sy mmetric uptake and excretion without concerning solid or cystic renal mass or hydronephrosis seen kandy aterally. BOWEL: Normal-appearing appendix from cecum in the right lower quadrant is identified. And contrast d oes not reach colonic level making evaluation slightly suboptimal. No small or large bowel dilatation . LYMPH NODES: No greater than 1cm abdominal lymph nodes are appreciated. OSSEOUS STRUCTURES: Mild to moderate multilevel spurring in the visualized thoracolumbar spine. There is disc desiccation with moderate disc space narrowing at L5-S1 level. Facet arthropathy lower lumba r spine. There is additional disc desiccation in the lower thoracic spine. OTHER: Mild/moderate calcified plaque of the aorta extends into branch vessels. IMPRESSION: Overall nonobstructive bowel gas pattern. Source of abdominal pain not identified. No sig nificant new or acute findings present.
== END | disposition home or self-care (01) ==
LOC: RADCTMAIN 14:50
PROVIDERS: ATTEND Internal Medicine Geriatric Medicine
DX: R10.9 Unspecified abdominal pain (principal)
CPT/HCPCS: 74170; Q9967

== ENCOUNTER → 2019-12-15 | Outpatient (CLI) | payer MEDICARE ==
--- NOTE | 2019-12-16 11:29 | MM ---
Reason for exam: additional evaluation requested from prior study. Last mammogram was performed 1 year ago. History: Patient is postmenopausal, has history of breast cancer at age 71, and history of other cancer. Family history of premenopausal breast cancer in sister at age 45. Lumpectomy of the left breast, 2017. Took estrogen for 2 months. Taking antineoplastic for 2 years beginning at age 71. Physical Findings: Nurse did not find any significant physical abnormalities on exam. MG 3D Diag Mammo W/Cad TIERNEY Bilateral CC and MLO view(s) were taken. Prior study comparison: December 14, 2018, bilateral MG 3d diag mammo w/cad TIERNEY. December 05, 2017, bilateral MG 3d diag mammo w/cad TIERNEY. The breast tissue is heterogeneously dense. This may lower the sensitivity of mammography. Finding #1: There is stable architectural distortion in the slight lower outer quadrant, posterior position of the left breast consistent with known excision changes. Finding #2: There are typically benign round, linear calcifications in both breasts. There is no discrete abnormality. Left axillary clips redemonstrated. These results were verbally communicated with the patient and result sheet given to the patient on 12/15/19. ASSESSMENT: Benign, BI-RAD 2 RECOMMENDATION: Follow-up diagnostic mammogram of both breasts in 1 year.
== END | disposition home or self-care (01) ==
LOC: RADMAMWWP 15:09
PROVIDERS: ATTEND Internal Medicine Hematology & Oncology
DX: Z08 Encounter for follow-up examination after completed treatment for malignant neoplasm (principal); Z85.3 Personal history of malignant neoplasm of breast
CPT/HCPCS: 77066; G0279; 77062

== ENCOUNTER → 2019-12-16 | Outpatient (CLI) | payer MEDICARE ==
--- NOTE | 2019-12-17 11:27 | CT ---
EXAMINATION TYPE: CT chest wo con DATE OF EXAM: 12/16/2019 COMPARISON: 08/11/[address] abdomen and pelvis 11/20/2010 HISTORY: 74-year-old female Lung nodule. TECHNIQUE: Contiguous axial scanning of the chest without IV contrast. Coronal and sagittal reconstru ctions performed. CT DLP: 446.9 mGycm Automated exposure control for dose reduction was used. FINDINGS: Previous focal skin thickening along the right. Median anterior upper chest has resolved in the inter grace. Heart normal size without pericardial effusion. Three-vessel coronary artery calcifications are prese nt. Mild atherosclerotic arch calcifications with conventional arch vessel branching anatomy. 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 No thoracic lymphadenopathy by CT size criteria. Subcarinal lymph node measures 9 mm. Redemonstrated scattered mild to moderate centrilobular emphysema. Stable subsegmental atelectasis me dial right middle lobe. There is some residual atelectasis at the inferior lingula but resolution of the previous nodular perry earance. No consolidation or pleural effusion. Small hiatal hernia. Visualized upper abdomen otherwise shows stable 2.2 cm indeterminate nodule abov e the left kidney. Again, suspected to arise from the lateral limb of the left adrenal gland. This is unchanged for 4 months. Cholecystectomy clips. Bones: Moderate degenerative disc disease redemonstrated lower thoracic spine. No osseous destructive process. Degenerative changes at the right shoulder. IMPRESSION: 1. COPD WITH MILD TO MODERATE EMPHYSEMA. 2. THE PREVIOUS NODULAR OPACITY AT THE INFERIOR LINGULA HAS RESOLVED. SOME AREAS OF SUBSEGMENTAL ATEL ECTASIS REMAIN AT THE MEDIAL RIGHT MIDDLE LOBE AND INFERIOR LINGULA. NO SUSPICIOUS PULMONARY NODULES. 3. STABLE AND BENIGN 2.2 CM LEFT ADRENAL NODULE, PROBABLE ADRENAL ADENOMA. 4. 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
== END | disposition home or self-care (01) ==
LOC: RADCTMAIN 13:41
PROVIDERS: ATTEND Thoracic Surgery (Cardiothoracic Vascular Surgery)
DX: J43.9 Emphysema, unspecified (principal); J98.11 Atelectasis
CPT/HCPCS: 71250

== ENCOUNTER 2020-05-12 19:22 | Observation (INO) | payer MEDICARE ==
[2020-05-12] MEDS ORDERED: SODIUM CHLORIDE 0.9% 500 ML 500 ML IV ONE (20:51)
[2020-05-12 21:11] LABS: Basophils # (A) 0.1 k/uL (0-0.2); Basophils % (A) 0 %; Eosinophils # (A) 0.2 k/uL (0-0.7); Eosinophils % (A) 2 %; HCT 39.5 % (34.0-46.0); HGB 13.3 gm/dL (11.4-16.0); Lymphocytes # (A) 2.8 k/uL (1.0-4.8); Lymphocytes % (A) 21 %; MCH 32.5 pg (25.0-35.0); MCHC 33.8 g/dL (31.0-37.0); MCV 96.3 fL (80.0-100.0); Mean Platelet Volume 9.3; Monocytes # (A) 0.6 k/uL (0-1.0); Monocytes % (A) 4 %; Neutrophils # (A) 9.7 k/uL (1.3-7.7); Neutrophils % (A) 72 %; Platelet Count 234 k/uL (150-450); RDW 13.8 % (11.5-15.5); WBC 13.5 k/uL (3.8-10.6)
[2020-05-12 21:13] LABS: Calcium 9.6 mg/dL (8.4-10.2); Magnesium 2.3 mg/dL (1.6-2.3); Phosphorus 3.7 mg/dL (2.5-4.5); Potassium 4.2 mmol/L (3.5-5.1); Total Bilirubin 0.4 mg/dL (0.2-1.3); Total Protein 7.1 g/dL (6.3-8.2)
--- NOTE | 2020-05-12 21:48 | CT ---
EXAMINATION TYPE: CT angio thor/abd pel aorta DATE OF EXAM: 05/12/2020 COMPARISON: None HISTORY: Chest pain CT DLP: 1503.3 mGycm Automated exposure control for dose reduction was used. CONTRAST: Performed with IV Contrast, patient injected with 100 mL of Isovue 370. There are 3-D post processed images. Thoracic aorta is intact. There is no aneurysm or dissection. I see no filling defects in the pulmona ry arteries. There is no pericardial effusion. There is normal branching pattern of the great vessels on the aortic arch. There is mild scarring and subsegmental atelectasis at the lung bases. There is no pleural effusion. There is no pericardial effusion. There is no mediastinal adenopathy. Liver spleen stomach pancreas appear normal. Bile ducts are not dilated. Gallbladder is absent. There are clips from cholecystectomy. There is normal contrast opacification of the kidneys. There is some cortical thinning lateral left kidney. There is no hydronephrosis. There is no retroperitoneal adeno yeny. Bladder distends smoothly. There is no inguinal hernia. There are sigmoid diverticula. There i s no evidence of diverticulitis. There is normal contrast opacification of the celiac artery and superior mesenteric artery. There is bilateral patency of the renal arteries. There is plaque formation in the lower abdominal aorta with stenosis at the 25%. There is bilateral arterial flow in the iliac and femoral arteries. IMPRESSION: Atherosclerotic plaque in the lower abdominal aorta with narrowing up to 25%. No evidence of thoracic or abdominal aortic aneurysm or dissection. No evidence of pulmonary embolism.
[2020-05-12 21:55] LABS: Appearance,Urine Clear (Clear); Bilirubin,Urine Negative (Negative); Blood,Urine Negative (Negative); Color,Urine Light Yellow; Glucose,Urine (UA) Negative (Negative); Ketones,Urine Negative (Negative); Leukocyte Esterase,Urine Negative (Negative); Nitrite,Urine Negative (Negative); PH, Urine 7.5 (5.0-8.0); Protein,Urine Negative (Negative); Specific Gravity,Urine 1.017 (1.001-1.035); Urobilinogen,Urine <2.0 mg/dL (<2.0)
[2020-05-12] MEDS ORDERED: HEPARIN SOD,PORK IN 0.45% NACL 25,000 UNIT in 0.45% NACL 1 250ML.BAG IV SCH (22:45)
[2020-05-12] MEDS ORDERED: HEPARIN SODIUM,PORCINE 5,000 UNIT/ML 1 ML VIAL IV PRN (22:45)
[2020-05-12] MEDS ORDERED: HEPARIN SODIUM,PORCINE 5,000 UNIT/ML 1 ML VIAL IV ONE (22:45)
[2020-05-12] MEDS ORDERED: NITROGLYCERIN SL TABS 0.4 MG TAB SUBLINGUAL PRN (22:49)
--- NOTE | 2020-05-12 22:52 | ED ---
General Adult HPI - General Source: patient, RN notes reviewed, old records reviewed Mode of arrival: ambulatory Limitations: no limitations <Eloy Santoyo - Last Filed: 05/12/20 23:00> <Kai Singh - Last Filed: 05/12/20 23:29> - General Chief complaint: Chest Pain Stated complaint: Chest Pain, Dizziness Time Seen by Provider: 05/12/20 20:21 - History of Present Illness Initial comments: 75-year-old female patient past medical history significant for COPD, diabetes, coronary artery disease with stent placement presents to ED for chief complaint of chest pain. Patient reports that approximately 4 PM she was sitting when she began to have substernal chest pain which radiates to the back. Patient also r eports that she felt nauseous at that time. Patient states that she took 3 nitros and those relieved her pain. Patient reports that she has some minimal discomfort at this time but it is significantly improved. Patient did take a 325 mg aspirin prior to arrival to Hospital. Systemic: Pt denies fatigue, fever/chills, rash. Pt denies weakness, night sweats, weight loss. Neuro: Pt denies headache, visual disturbances, syncope or pre-syncope. HEENT: Pt denies ocular discharge or irritation, otalgia, rhinorrhea, pharyngitis or notable lymphadenopathy. Cardiopulmonary: Pt denies SOB, heart palpitations, dyspnea on exertion. Abdominal/GI: Pt denies abdominal pain, n/v/d. : Pt denies dysuria, burning w/ urination, frequency/urgency. Denies new onset urinary or bowel incontinence. MSK: Pt denies myalgia, loss of strength or function in extremities. Neuro: Pt denies new onset weakness, paresthesias. (Eloy Santoyo) - Related Data Home Medications Medication Instructions Recorded Confirmed Acetaminophen Tab [Tylenol] 500 mg PO HS 10/04/14 08/28/19 DULoxetine HCL [Cymbalta] 60 mg PO DAILY 10/04/14 08/28/19 Fluticasone Propionate [Flovent 2 puff INHALATION RT-BID 10/04/14 08/28/19 Hfa 110 mcg] Gabapentin [Neurontin] 600 mg PO BID 10/04/14 08/28/19 Ipratropium/Albuterol Sulfate 1 puff INHALATION RT-QID 10/04/14 08/28/19 [Combivent Respimat Inhaler] Multivitamins, Thera [Multivitamin 1 tab PO DAILY@1200 10/04/14 08/28/19 (formulary)] OLANZapine [ZyPREXA] 2.5 mg PO HS 10/04/14 08/28/19 traZODone HCL [Desyrel] 150 mg PO HS 10/04/14 08/28/19 Aspirin 81 mg PO DAILY@1200 10/31/15 08/28/19 Carvedilol [Coreg] 6.25 mg PO BID 10/31/15 08/28/19 Cholecalciferol [Vitamin D3 (25 1,000 unit PO BID@1200,2100 10/31/15 08/28/19 Mcg = 1000 Iu)] Furosemide [Lasix] 40 mg PO DAILY 10/31/15 08/28/19 Lansoprazole [Prevacid] 30 mg PO DAILY 10/31/15 08/28/19 Latanoprost Ophth [Xalatan 0.005%] 1 drops BOTH EYES HS 10/31/15 08/28/19 Lisinopril [Zestril] 2.5 mg PO DAILY@1200 10/31/15 08/28/19 Spironolactone [Aldactone] 12.5 mg PO DAILY@1200 10/31/15 08/28/19 metFORMIN HCL [Glucophage] 500 mg PO DAILY 10/31/15 08/28/19 Atorvastatin Calcium [Lipitor] 40 mg PO HS 04/03/17 08/28/19 clonazePAM [KlonoPIN] 2 mg PO HS 04/03/17 08/28/19 Magnesium/Potassium/Bromelain 1 tab PO DAILY@1200 07/09/18 08/28/19 Letrozole [Femara] 2.5 mg PO DAILY 09/15/18 08/28/19 Montelukast Sodium [Singulair] 10 mg PO DAILY 08/28/19 08/28/19 Nitroglycerin Sl Tabs [Nitrostat] 0.4 mg SUBLINGUAL Q5M PRN 08/28/19 08/28/19 Previous Rx's Medication Instructions Recorded Isosorbide Mononitrate ER [Imdur] 30 mg PO DAILY #30 tab.er.24h 08/29/19 Allergies Allergy/AdvReac Type Severity Reaction Status Date / Time bupropion HCl Allergy Rash/Hives Verified 05/12/20 19:29 [From Wellbutrin] erythromycin base Allergy SWELLING Verified 05/12/20 19:29 [Erythromycin Base] OF TONGUE Penicillins Allergy SWELLING Verified 05/12/20 19:29 OF TONGUE sertraline HCl [From Zoloft] Allergy Diarrhea Verified 05/12/20 19:29 Review of Systems ROS Other: All systems not noted in ROS Statement are negative. <Eloy Santoyo - Last Filed: 05/12/20 23:00> ROS Other: All systems not noted in ROS Statement are negative. <Kai Singh - Last Filed: 05/12/20 23:29> ROS Statement: Those systems with pertinent positive or pertinent negative responses have been documented in the HPI. Past Medical History Past Medical History: Asthma, Cancer, COPD, Diabetes Mellitus, GERD/Reflux, Hyperlipidemia, Hypertension, Myocardial Infarction (CT), Osteoarthritis (OA) Additional Past Medical History / Comment(s): BREAST CANCER Last Myocardial Infarction Date:: 10-04-14 History of Any Multi-Drug Resistant Organisms: None Reported Past Surgical History: Breast Surgery, Cholecystectomy, Heart Catheterization With Stent, Orthopedic Surgery, Tonsillectomy Additional Past Surgical History / Comment(s): GanglionCyst; COLONOSCOPY AND EGD, LEFT BREAST LUMPECTOMY Past Anesthesia/Blood Transfusion Reactions: No Reported Reaction Date of Last Stent Placement:: 10/04/14 Past Psychological History: Bipolar Smoking Status: Former smoker Past Alcohol Use History: None Reported Past Drug Use History: None Reported - Past Family History Father Family Medical History: Cancer Additional Family Medical History / Comment(s): non hodgkins lymphoma Sister(s) Family Medical History: Cancer Additional Family Medical History / Comment(s): bipolar Mother Family Medical History: No Reported History Additional Family Medical History / Comment(s): alzheimers, bipolar, dementia <Eloy Santoyo - Last Filed: 05/12/20 23:00> General Exam Limitations: no limitations <Eloy Santoyo - Last Filed: 05/12/20 23:00> - General Exam Comments Initial Comments: Constitutional: NAD, AOX3, Pt has pleasant affect. HEENT: NC/AT, trachea midline. External ears appear normal, without discharge. Mucous membranes moist. EOM intact. There is no scleral icterus. No pallor noted. Cardiopulmonary: RRR, no murmurs, rubs or gallops, no JVD noted. Lungs CTAB in anterior and posterior jolley. No peripheral edema. Abdominal exam: Abdomen soft and non-distended. Abdomen non-tender to palpation in all 4 quadrants. Bowel sounds active in LLQ. No hepatosplenomegaly. No ecchymosis Neuro: CN II-XII grossly intact. No nuchal rigidity. No raccon eyes, no laird sign, no hemotympanum. No cervical spinal tenderness. MSK: No posterior calf tenderness bilaterally, homans sign negative bilaterally. Posterior tibialis and radial pulse +2 bilaterally. Full active ROM in upper and lower extremities, 5/5 stregnth. (Eloy Santoyo) Course <Kai Singh - Last Filed: 05/12/20 23:29> Vital Signs 05/12/20 05/12/20 05/12/20 19:24 21:00 22:00 Temperature 98.2 F Pulse Rate 60 54 L Respiratory 18 16 16 Rate Blood Pressure 115/59 129/61 135/67 O2 Sat by Pulse 95 98 98 Oximetry 05/12/20 23:00 Temperature Pulse Rate 62 Respiratory 16 Rate Blood Pressure 134/59 O2 Sat by Pulse 95 Oximetry - Reevaluation(s) Reevaluation #1: 05/12/20 23:28 PA supervision: I personally evaluate this case patient present with complaints chest pain. Initial workup shows no acute processes however the presentation is consistent with coronary syndrome. Patient will be admitted case was discussed with Dr. Porter (Kai Singh) Medical Decision Making - Lab Data Result diagrams: 05/12/20 20:20 05/12/20 20:20 - EKG Data -: EKG Interpreted by Me (and Dr. Singh ) <Eloy Santoyo - Last Filed: 05/12/20 23:00> - Lab Data Result diagrams: 05/12/20 20:20 05/12/20 20:20 <Kai Singh - Last Filed: 05/12/20 23:29> - Medical Decision Making 75-year-old female patient past medical history significant for COPD, diabetes, coronary artery disease with stent placement presents to ED for chief complaint of chest pain. Patient reports that approximately 4 PM she was sitting when she began to have substernal chest pain which radiates to the back. Patient also reports that she felt nauseous at that time. Patient states that she took 3 nitros and those relieved her pain. Patient reports that she has some minimal discomfort at this time but it is significantly improved. Patient did take a 325 mg aspirin prior to arrival to Hospital. Patient notes under stable, afebrile. Physical exam did not display acute pathology. Laboratory investigations are obtained, troponin is negative. BNP is within normal limits. CT of aorta was obtained. This displayed atherosclerotic plaque in the lower abdominal aortic narrowing up to 25%, no evidence of thoracic abdominal aortic aneurysm or dissection. No evidence of pulmonary embolism. Initial EKG repeat EKG did not display any significant signs for ischemia. Patient is pain free. Discussed case with Dr. Porter who recommends heparinization. Patient denies any contraindications to heparinization. Patient be admitted for she'll troponins and cardiac evaluation. Case discussed with Dr. Singh. (Eloy Santoyo) - Lab Data Lab Results 05/12/20 05/12/20 05/12/20 Range/Units 20:20 20:20 20:20 WBC 13.5 H (3.8-10.6) k/uL RBC 4.10 (3.80-5.40) m/uL Hgb 13.3 (11.4-16.0) gm/dL Hct 39.5 (34.0-46.0) % MCV 96.3 (80.0-100.0) fL MCH 32.5 (25.0-35.0) pg MCHC 33.8 (31.0-37.0) g/dL RDW 13.8 (11.5-15.5) % Plt Count 234 (150-450) k/uL Neutrophils % 72 % Lymphocytes % 21 % Monocytes % 4 % Eosinophils % 2 % Basophils % 0 % Neutrophils # 9.7 H (1.3-7.7) k/uL Lymphocytes # 2.8 (1.0-4.8) k/uL Monocytes # 0.6 (0-1.0) k/uL Eosinophils # 0.2 (0-0.7) k/uL Basophils # 0.1 (0-0.2) k/uL PT (9.0-12.0) sec INR (<1.2) APTT (22.0-30.0) sec Sodium 136 L (137-145) mmol/L Potassium 4.2 (3.5-5.1) mmol/L Chloride 102 (98-107) mmol/L Carbon Dioxide 27 (22-30) mmol/L Anion Gap 7 mmol/L BUN 11 (7-17) mg/dL Creatinine 0.84 (0.52-1.04) mg/dL Est GFR (CKD-EPI)AfAm 80 (>60 ml/min/1.73 sqM) Est GFR (CKD-EPI)NonAf 69 (>60 ml/min/1.73 sqM) Glucose 96 (74-99) mg/dL Calcium 9.6 (8.4-10.2) mg/dL Phosphorus 3.7 (2.5-4.5) mg/dL Magnesium 2.3 (1.6-2.3) mg/dL Total Bilirubin 0.4 (0.2-1.3) mg/dL AST 20 (14-36) U/L ALT 17 (4-34) U/L Alkaline Phosphatase 121 (38-126) U/L Troponin I <0.012 (0.000-0.034) ng/mL NT-Pro-B Natriuret Pep pg/mL Total Protein 7.1 (6.3-8.2) g/dL Albumin 4.0 (3.5-5.0) g/dL Urine Color Urine Appearance (Clear) Urine pH (5.0-8.0) Ur Specific [place] (1.001-1.035) Urine Protein (Negative) Urine Glucose (UA) (Negative) Urine Ketones (Negative) Urine Blood (Negative) Urine Nitrite (Negative) Urine Bilirubin (Negative) Urine Urobilinogen (<2.0) mg/dL Ur Leukocyte Esterase (Negative) 05/12/20 05/12/20 05/12/20 Range/Units 20:20 20:20 21:37 WBC (3.8-10.6) k/uL RBC (3.80-5.40) m/uL Hgb (11.4-16.0) gm/dL Hct (34.0-46.0) % MCV (80.0-100.0) fL MCH (25.0-35.0) pg MCHC (31.0-37.0) g/dL RDW (11.5-15.5) % Plt Count (150-450) k/uL Neutrophils % % Lymphocytes % % Monocytes % % Eosinophils % % Basophils % % Neutrophils # (1.3-7.7) k/uL Lymphocytes # (1.0-4.8) k/uL Monocytes # (0-1.0) k/uL Eosinophils # (0-0.7) k/uL Basophils # (0-0.2) k/uL PT 9.6 (9.0-12.0) sec INR 0.9 (<1.2) APTT 24.6 (22.0-30.0) sec Sodium (137-145) mmol/L Potassium (3.5-5.1) mmol/L Chloride (98-107) mmol/L Carbon Dioxide (22-30) mmol/L Anion Gap mmol/L BUN (7-17) mg/dL Creatinine (0.52-1.04) mg/dL Est GFR (CKD-EPI)AfAm (>60 ml/min/1.73 sqM) Est GFR (CKD-EPI)NonAf (>60 ml/min/1.73 sqM) Glucose (74-99) mg/dL Calcium (8.4-10.2) mg/dL Phosphorus (2.5-4.5) mg/dL Magnesium (1.6-2.3) mg/dL Total Bilirubin (0.2-1.3) mg/dL AST (14-36) U/L ALT (4-34) U/L Alkaline Phosphatase (38-126) U/L Troponin I (0.000-0.034) ng/mL NT-Pro-B Natriuret Pep 68 pg/mL Total Protein (6.3-8.2) g/dL Albumin (3.5-5.0) g/dL Urine Color Light Yellow Urine Appearance Clear (Clear) Urine pH 7.5 (5.0-8.0) Ur Specific [place] 1.017 (1.001-1.035) Urine Protein Negative (Negative) Urine Glucose (UA) Negative (Negative) Urine Ketones Negative (Negative) Urine Blood Negative (Negative) Urine Nitrite Negative (Negative) Urine Bilirubin Negative (Negative) Urine Urobilinogen <2.0 (<2.0) mg/dL Ur Leukocyte Esterase Negative (Negative) - EKG Data EKG Comments: 1) ventricular rate 62, NE interval 142, QRS 78, QT/QTc 426/432. Normal sensation, normal EKG. No concern for acute ischemia at this time. 2) ventricular rate 55, when necessary for 144, QRS 76, QT/QTc 436 is 417. Sinus bradycardia. No significant change from prior. No concern for acute ischemia at this time. (Eloy Santoyo) Disposition Is patient prescribed a controlled substance at d/c from ED?: No <Eloy Santoyo - Last Filed: 05/12/20 23:00> <Kai Singh - Last Filed: 05/12/20 23:29> Clinical Impression: Chest pain Disposition: ADMITTED IP TO THIS HOSP Condition: Serious Referrals: Lázaro Gagnon MD [Primary Care Provider] - 1-2 days
[2020-05-12 23:11] LABS: INR 0.9 (<1.2); Partial Thromboplastin Time 24.6 sec (22.0-30.0); Prothrombin Time 9.6 sec (9.0-12.0)
[2020-05-13 00:36] LABS: Basophils # (A) 0.1 k/uL (0-0.2); Basophils % (A) 1 %; Eosinophils # (A) 0.2 k/uL (0-0.7); Eosinophils % (A) 1 %; HCT 40.6 % (34.0-46.0); Lymphocytes # (A) 3.5 k/uL (1.0-4.8); Lymphocytes % (A) 25 %; MCH 31.1 pg (25.0-35.0); MCV 96.9 fL (80.0-100.0); Monocytes # (A) 0.6 k/uL (0-1.0); Monocytes % (A) 4 %; Neutrophils # (A) 9.7 k/uL (1.3-7.7); Neutrophils % (A) 68 %; Platelet Count 234 k/uL (150-450); RBC 4.19 m/uL (3.80-5.40); RDW 13.9 % (11.5-15.5); WBC 14.2 k/uL (3.8-10.6)
[2020-05-13] MEDS ORDERED: ACETAMINOPHEN TAB 500 MG TAB PO PRN (02:22)
[2020-05-13] MEDS ORDERED: clonazePAM 1 MG TAB PO PRN (02:23)
[2020-05-13] MEDS ORDERED: FLUTICASONE 110 MCG INHALER INHALATION SCH (02:25)
[2020-05-13] MEDS ORDERED: GABAPENTIN 300 MG CAP PO SCH ×2 (02:25→09:00)
[2020-05-13] MEDS ORDERED: OLANZapine 2.5 MG TAB PO SCH (02:27)
[2020-05-13] MEDS ORDERED: traZODone HCL 50 MG TAB PO SCH (02:28)
[2020-05-13 06:11] LABS: Basophils # (A) 0.1 k/uL (0-0.2); Basophils % (A) 1 %; Eosinophils # (A) 0.2 k/uL (0-0.7); Eosinophils % (A) 2 %; HCT 39.5 % (34.0-46.0); HGB 12.6 gm/dL (11.4-16.0); Lymphocytes # (A) 3.5 k/uL (1.0-4.8); Lymphocytes % (A) 29 %; MCHC 31.8 g/dL (31.0-37.0); MCV 97.3 fL (80.0-100.0); Mean Platelet Volume 9.1; Monocytes # (A) 0.5 k/uL (0-1.0); Monocytes % (A) 4 %; Neutrophils # (A) 7.6 k/uL (1.3-7.7); Neutrophils % (A) 63 %; Platelet Count 219 k/uL (150-450); RBC 4.06 m/uL (3.80-5.40); RDW 13.8 % (11.5-15.5); WBC 12.1 k/uL (3.8-10.6)
[2020-05-13 06:42] LABS: Cholesterol 154 mg/dL (<200); HDL Cholesterol 43 mg/dL (40-60); Triglycerides 425 mg/dL (<150)
[2020-05-13] MEDS ORDERED: CARVEDILOL 3.125 MG TAB PO SCH (07:30)
[2020-05-13] MEDS ORDERED: PANTOPRAZOLE 40 MG TABLET PO SCH (07:30)
[2020-05-13 07:48] VITALS: BP 128/79; PULSE 63; RESP 16; TEMP 97.9
[2020-05-13] MEDS ORDERED: IPRATROPIUM-ALBUTEROL 3 ML NEB INHALATION SCH (08:00)
[2020-05-13] MEDS ORDERED: FLUTICASONE PROPIONATE 110 MCG INHALATION SCH (08:00)
[2020-05-13] MEDS ORDERED: LETROZOLE 2.5 MG TAB PO SCH (09:00)
[2020-05-13] MEDS ORDERED: ASPIRIN 325 MG TAB PO SCH (09:00)
[2020-05-13] MEDS ORDERED: DULoxetine HCL 60 MG CAPSULE.DR PO SCH (09:00)
[2020-05-13] MEDS ORDERED: MONTELUKAST 10 MG TAB PO SCH (09:00)
[2020-05-13] MEDS ORDERED: FUROSEMIDE 40 MG TAB PO SCH (09:00)
[2020-05-13] MEDS ORDERED: clonazePAM 0.5 MG TAB PO PRN (09:08)
--- NOTE | 2020-05-13 09:36 | P.HPIM ---
History of Present Illness H&P Date: 05/13/20 75 years old female with past medical history of asthma/COPD, diabetes mellitus type 2, coronary artery disease with stent placement in October, hypertension and hypertensive cardiovascular disease, hyperlipidemia, history of breast cancer status post breast surgery 2014 comes in with the chest pain that started while patient was sitting after she had her lunch at 4 PM radiating to her back. Patient also felt nauseous associated with sweating with shortness of breath. Patient took 3 baby aspirin with nitro that relieved her pain. Patient states that the pain was similar to her previous cardiac chest pain. She saw Dr. Pereira in December and was planning to get either a Lexiscan which was postponed for some reason. Patient was also in [place] and just returned on April 07. She denies any similar episodes in the past. Patient was last seen in August 2019 for similar complaints and was initiated on Imdur. Patient could not tolerate Imdur and discontinued it after discussion with Dr. Pereira . Patient is currently chest pain-free. She got in a dose of 325 mg aspirin on arrival in the ER and was started on heparin drip this time patient's risk factor. I discussed this morning suggests a temp of 98.1 pulse 58 respiratory rate 17 the pressure 148/76 oxygen saturation 96% on 2 L. Lab assessment suggest a WBC count of 14.2, PT INR was 0.9 sodium 136 potassium 4.2 creatinine 0.84 view UN 11 normal LFTs magnesium and phosphorus . Triglyceride 425 LDL could not be calculated, UA was negative for infection. EKG suggested normal sinus rhythm . CT angiogram suggest atherosclerotic plaque in the lower abdominal area. Any 5% narrowing but no evidence of thoracic or aortic aneurysmal dissection no evidence of PE noted. Cardiology consult placed Review of Systems Constitutional: Denies chills, Denies fever, Denies lethargy, Denies malaise, Denies poor appetite, Denies weakness, Denies weight loss Eyes: denies decreased vision, denies diplopia, denies discharge, denies pain Ears: deny: decreased hearing Ears, nose, mouth and throat: Denies dental pain, Denies headache, Denies nasal discharge, Denies nose pain Cardiovascular: Positive for chest pain, Denies decreased exercise tolerance, Denies edema, Denies high blood pressure, Denies irregular heart beat, Denies palpitations, Denies paroxysmal nocturnal dyspnea, Denies rapid heart beat, Denies shortness of breath Respiratory: Denies congestion, Denies cough, Denies cough with sputum, Denies dyspnea, Denies home oxygen, Denies wheezing Gastrointestinal: Denies abdominal pain, Denies change in bowel habits, Denies coffee ground emesis, Denies early satiety, Denies excessive gas, Denies heartburn, Denies hematemesis, Denies hematochezia, Denies loss of appetite, Denies nausea, Denies vomiting Genitourinary: Denies dysuria, Denies flank pain, Denies kidney stones, Denies menorrhagia, Denies urgency, Denies urinary frequency Musculoskeletal: Denies gait dysfunction, Denies limitation of motion, Denies morning stiffness, Denies muscle cramps Integumentary: Denies rash, Denies wounds, Denies brittle nails, Denies change in hair/nails, Denies darkening of skin Neurological: Denies balance difficulties, Denies change in speech, Denies double vision, Denies gait dysfunction, Denies loss of vision, Denies motor disturbance, Denies numbness, Denies paralysis, Denies paresthesias, Denies seizures Psychiatric: Denies anxiety, Denies depression Endocrine: Denies excessive sweating, Denies excessive thirst, Denies high blood sugars, Denies palpitations Hematologic/Lymphatic: Denies easy bruising, Denies lymphadenopathy Past Medical History Past Medical History: Asthma, Cancer, COPD, Diabetes Mellitus, GERD/Reflux, Hyperlipidemia, Hypertension, Myocardial Infarction ([place]), Osteoarthritis (OA) Additional Past Medical History / Comment(s): BREAST CANCER Last Myocardial Infarction Date:: 10-04-14 History of Any Multi-Drug Resistant Organisms: None Reported Past Surgical History: Breast Surgery, Cholecystectomy, Heart Catheterization With Stent, Orthopedic Surgery, Tonsillectomy Additional Past Surgical History / Comment(s): GanglionCyst; COLONOSCOPY AND EGD, LEFT BREAST LUMPECTOMY ,skin CA removal right arm/left shoulder 2019 Past Anesthesia/Blood Transfusion Reactions: No Reported Reaction Date of Last Stent Placement:: 10/04/14 Past Psychological History: Bipolar Smoking Status: Former smoker Past Alcohol Use History: None Reported Additional Past Alcohol Use History / Comment(s): quit smoked 3/4 ppd STARTED SMOKING AT AGE 17 Past Drug Use History: None Reported - Past Family History Father Family Medical History: Cancer Additional Family Medical History / Comment(s): non hodgkins lymphoma Sister(s) Family Medical History: Cancer Additional Family Medical History / Comment(s): bipolar Mother Family Medical History: No Reported History Additional Family Medical History / Comment(s): alzheimers, bipolar, dementia Medications and Allergies Home Medications Medication Instructions Recorded Confirmed Type Acetaminophen Tab [Tylenol] 500 mg PO HS PRN 10/04/14 05/13/20 History DULoxetine HCL [Cymbalta] 60 mg PO DAILY 10/04/14 05/13/20 History Fluticasone Propionate [Flovent 2 puff INHALATION RT-BID 10/04/14 05/13/20 History Hfa 110 mcg] Gabapentin [Neurontin] 300 mg PO BID 10/04/14 05/13/20 History Ipratropium/Albuterol Sulfate 1 puff INHALATION RT-QID 10/04/14 05/13/20 History [Combivent Respimat Inhaler] Multivitamins, Thera [Multivitamin 1 tab PO DAILY@1200 10/04/14 05/13/20 History (formulary)] OLANZapine [ZyPREXA] 2.5 mg PO HS 10/04/14 05/13/20 History traZODone HCL [Desyrel] 150 mg PO HS 10/04/14 05/13/20 History Aspirin 81 mg PO DAILY@1200 10/31/15 05/13/20 History Carvedilol [Coreg] 3.125 mg PO BID 10/31/15 05/13/20 History Cholecalciferol [Vitamin D3 (25 1,000 unit PO BID@1200,2100 10/31/15 05/13/20 History Mcg = 1000 Iu)] Furosemide [Lasix] 40 mg PO DAILY 10/31/15 05/13/20 History Lansoprazole [Prevacid] 30 mg PO DAILY 10/31/15 05/13/20 History Latanoprost Ophth [Xalatan 0.005%] 1 drops BOTH EYES HS 10/31/15 05/13/20 History Lisinopril [Zestril] 2.5 mg PO DAILY@1200 10/31/15 05/13/20 History Spironolactone [Aldactone] 12.5 mg PO DAILY@1200 10/31/15 05/13/20 History metFORMIN HCL [Glucophage] 500 mg PO DAILY 10/31/15 05/13/20 History Atorvastatin Calcium [Lipitor] 40 mg PO HS 04/03/17 05/13/20 History clonazePAM [KlonoPIN] 1 mg PO BID 04/03/17 05/13/20 History Magnesium/Potassium/Bromelain 1 tab PO DAILY@1200 07/09/18 05/13/20 History Letrozole [Femara] 2.5 mg PO DAILY 09/15/18 05/13/20 History Montelukast Sodium [Singulair] 10 mg PO DAILY 08/28/19 05/13/20 History Nitroglycerin Sl Tabs [Nitrostat] 0.4 mg SUBLINGUAL Q5M PRN 08/28/19 05/13/20 History Fluticasone Propionate 110 Mcg 2 puff INHALATION RT-BID 05/13/20 05/13/20 His tory [Flovent 110 Mcg Inhaler (Mhu)] Allergies Allergy/AdvReac Type Severity Reaction Status Date / Time bupropion HCl Allergy Rash/Hives Verified 05/12/20 19:29 [From Wellbutrin] erythromycin base Allergy SWELLING Verified 05/12/20 19:29 [Erythromycin Base] OF TONGUE Penicillins Allergy SWELLING Verified 05/12/20 19:29 OF TONGUE sertraline HCl [From Zoloft] Allergy Diarrhea Verified 05/12/20 19:29 Physical Exam Vitals: Vital Signs Temp Pulse Pulse Resp BP BP Pulse Ox 05/13/20 04:00 98.1 F 58 L 17 148/76 96 05/13/20 02:00 58 L 18 05/12/20 23:47 97.7 F 17 116/70 96 05/12/20 23:40 97.2 F L 64 16 116/55 97 05/12/20 23:00 62 16 134/59 95 05/12/20 22:00 54 L 16 135/67 98 05/12/20 21:00 16 129/61 98 05/12/20 19:24 98.2 F 60 18 115/59 95 Intake and Output 05/12/20 05/13/20 05/13/20 22:59 06:59 14:59 Intake Total 500 Balance 500 Intake: Intake, IV Titration 500 Amount Sodium Chloride 0.9% 500 500 ml 500 ml @ 999 mls/hr IV .Q31M ONE Rx#:[id number] Other: # Voids 1 Weight 80.739 kg 85.5 kg - Constitutional General appearance: cooperative, no acute distress, obese - EENT Eyes: anicteric sclerae, PERRLA, normal appearance ENT: hearing grossly normal - Neck Neck: no lymphadenopathy, normal ROM, no other, no rigidity, no stridor, no thyromegaly - Respiratory Respiratory: bilateral: CTA, negative: diminished, dullness, rales, rhonchi - Cardiovascular Rhythm: regular Heart sounds: normal: S1, S2 Abnormal Heart Sounds: no systolic murmur, no diastolic murmur, no rub, no S3 Gallop, no S4 Gallop, no click - Gastrointestinal General gastrointestinal: normal bowel sounds, soft - Integumentary Integumentary: no rash. varicose veins in the extremities - Neurologic Neurologic: CNII-XII intact - Musculoskeletal Musculoskeletal: gait normal, strength equal bilaterally - Psychiatric Psychiatric: A&O x's 3, appropriate affect Results CBC & Chem 7: 05/13/20 05:27 05/12/20 20:20 Labs: Abnormal Lab Results - Last 24 Hours (Table) 05/12/20 05/12/20 05/12/20 Range/Units 20:20 20:20 23:55 WBC 13.5 H 14.2 H (3.8-10.6) k/uL Neutrophils # 9.7 H 9.7 H (1.3-7.7) k/uL APTT (22.0-30.0) sec Sodium 136 L (137-145) mmol/L Triglycerides (<150) mg/dL 05/13/20 05/13/20 05/13/20 Range/Units 05:27 05:27 05:27 WBC 12.1 H (3.8-10.6) k/uL Neutrophils # (1.3-7.7) k/uL APTT 52.1 H (22.0-30.0) sec Sodium (137-145) mmol/L Triglycerides 425 H (<150) mg/dL Thrombosis Risk Factor Assmnt - DVT/VTE Prophylaxis DVT/VTE Prophylaxis: Pharmacologic Prophylaxis ordered - Choose All That Apply Any of the Below Risk Factors Present?: Yes Each Factor Represents 1 point: Obesity (BMI >25) Other Risk Factors: Yes Each Risk Factor Represents 2 Points: Age 61-74 years Other congenital or acquired thrombophilia - If yes, enter type in comment: No Thrombosis Risk Factor Assessment Total Risk Factor Score: 3 Thrombosis Risk Factor Assessment Level: Moderate Risk Assessment and Plan Plan: #1 acute substernal chest pain. Patient does have risk factor includes age female hypertension, hyperlipidemia with previous history of coronary artery disease. EKG negative troponins 2 negative. Cardiology consult placed. Continuation on heparin drip. Continue daily aspirin and Lipitor 40 mg by mouth daily. Coreg 3.125 twice a day plan to perform intercardiac breath or stress test. #2 asthma/COPD not in COPD exacerbation continue DuoNeb as needed for shortness of breath fluticasone twice a day #3 breast cancer continue letrozole 2.5 mg by mouth daily #4diabetes with neuropathy hold metformin for possible This morning continue gabapentin at 600 twice a day #5Anxiety/depression continue olanzapine continue Cymbalta 60 mg by mouth daily. Klonopin continued 1 mg 3 times a day for anxiety #6coronary artery disease status post stenting in 2013 recent stress test was negative with Dr. Pereira #7 GERD with hiatal hernia continue pantoprazole 40 mg #8 insomnia continue trazodone at 150 at bedtime #9 hypertension continue Coreg 63.125 twice a day lisinopril and Aldactone #10 disposition pending cardiology workup #11 DVT prophylaxis is currently on heparin drip
--- NOTE | 2020-05-13 10:06 | P.CRDCN ---
History of Present Illness Consult date: 05/13/20 Requesting physician: Yessi Porter Reason for Consult (text): chest pain Chief complaint: Chest Pain History of present illness: This is a pleasant 75-year-old female patient who follows with Dr. KENIA Pereira in the office. She has a history of COPD, diabetes, hypertension, hyperlipidemia, CAD with prior acute IA in 2014 and PCI to the RCA, GERD, prior cholecystectomy and hiatal hernia. She presented to the emergency department after developing some chest pain at home. She was apparently resting at the time. Developed chest discomfort that radiated to her back, neck and under both arms as well as her left groin. She developed some sweating, nausea and belching. She took 3 nitroglycerin as well as four 81 mg aspirins with some relief. She continues to complain of some chest discomfort that seems to be worsened with breathing. She feels that some features of her symptoms this admission are somewhat similar to what she experienced in 2014 however some symptoms are very different. In 2014 she experienced chest discomfort that radiated to the back and under one arm but no nausea, sweating, belching or neck pain. EKG on admission showed sinus rhythm with no evidence of acute ischemia. Thoracic CTA showed atherosclerotic plaque in the lower abdominal aorta with narrowing up to 25%, no evidence of thoracic or abdominal aortic aneurysm or dissection, no evidence of PE. Vital signs have been stable. Laboratory values show white blood cell count of 13,500, 14,000 212,100 as well as potassium of 4.2, BUN 11, creatinine 0.84 and troponins negative 3 with a normal and T proBNP. Lipids showed total cholesterol 154, HDL 43, triglycerides 425, LDL not calculated due to elevated triglycerides. She does verbalize that she is noticed slight worsening in her breathing over the last several days. She was scheduled to undergo a Lexiscan Cardiolite as well as an echocardiogram in our office over the past week however was unable to make those appointments. She is apparently had conversations in the past with Dr. Pereira regarding possible cardiac catheterization but this was dependent on the results of the Lexiscan which was not done. She has been prescribed isosorbide in the past and could not tolerate this due to significant headaches. She also follows with Dr. LANI Pereira and underwent a computed tomography scan in December for follow-up of the nodule seen in August 2019. The computed tomography scan showed COPD with mild to moderate emphysema, previous nodular opacity at the inferior lingula has resolved, stable and benign 2.2 cm left adrenal nodule, probable adrenal adenoma and incidental stable mild fusiform aneurysm lower descending thoracic aorta at 3.1 cm and small hiatal hernia. Past Medical History Past Medical History: Asthma, Cancer, COPD, Diabetes Mellitus, GERD/Reflux, Hyperlipidemia, Hypertension, Myocardial Infarction (IA), Osteoarthritis (OA) Additional Past Medical History / Comment(s): BREAST CANCER Last Myocardial Infarction Date:: 10-04-14 History of Any Multi-Drug Resistant Organisms: None Reported Past Surgical History: Breast Surgery, Cholecystectomy, Heart Catheterization With Stent, Orthopedic Surgery, Tonsillectomy Additional Past Surgical History / Comment(s): GanglionCyst; COLONOSCOPY AND EGD, LEFT BREAST LUMPECTOMY ,skin CA removal right arm/left shoulder 2018 Past Anesthesia/Blood Transfusion Reactions: No Reported Reaction Date of Last Stent Placement:: 10/04/14 Past Psychological History: Bipolar Smoking Status: Former smoker Past Alcohol Use History: None Reported Additional Past Alcohol Use History / Comment(s): quit smoked 3/4 ppd STARTED SMOKING AT AGE 17 Past Drug Use History: None Reported - Past Family History Father Family Medical History: Cancer Additional Family Medical History / Comment(s): non hodgkins lymphoma Sister(s) Family Medical History: Cancer Additional Family Medical History / Comment(s): bipolar Mother Family Medical History: No Reported History Additional Family Medical History / Comment(s): alzheimers, bipolar, dementia Medications and Allergies Home Medications Medication Instructions Recorded Confirmed Type Acetaminophen Tab [Tylenol] 500 mg PO HS PRN 10/04/14 05/13/20 History DULoxetine HCL [Cymbalta] 60 mg PO DAILY 10/04/14 05/13/20 History Fluticasone Propionate [Flovent 2 puff INHALATION RT-BID 10/04/14 05/13/20 History Hfa 110 mcg] Gabapentin [Neurontin] 300 mg PO BID 10/04/14 05/13/20 History Ipratropium/Albuterol Sulfate 1 puff INHALATION RT-QID 10/04/14 05/13/20 History [Combivent Respimat Inhaler] Multivitamins, Thera [Multivitamin 1 tab PO DAILY@1200 10/04/14 05/13/20 History (formulary)] OLANZapine [ZyPREXA] 2.5 mg PO HS 10/04/14 05/13/20 History traZODone HCL [Desyrel] 150 mg PO HS 10/04/14 05/13/20 History Aspirin 81 mg PO DAILY@1200 10/31/15 05/13/20 History Carvedilol [Coreg] 3.125 mg PO BID 10/31/15 05/13/20 History Cholecalciferol [Vitamin D3 (25 1,000 unit PO BID@1200,2100 10/31/15 05/13/20 History Mcg = 1000 Iu)] Furosemide [Lasix] 40 mg PO DAILY 10/31/15 05/13/20 History Lansoprazole [Prevacid] 30 mg PO DAILY 10/31/15 05/13/20 History Latanoprost Ophth [Xalatan 0.005%] 1 drops BOTH EYES HS 10/31/15 05/13/20 History Lisinopril [Zestril] 2.5 mg PO DAILY@1200 10/31/15 05/13/20 History Spironolactone [Aldactone] 12.5 mg PO DAILY@1200 10/31/15 05/13/20 History metFORMIN HCL [Glucophage] 500 mg PO DAILY 10/31/15 05/13/20 History Atorvastatin Calcium [Lipitor] 40 mg PO HS 04/03/17 05/13/20 History clonazePAM [KlonoPIN] 1 mg PO BID 04/03/17 05/13/20 History Magnesium/Potassium/Bromelain 1 tab PO DAILY@1200 07/09/18 05/13/20 History Letrozole [Femara] 2.5 mg PO DAILY 09/15/18 05/13/20 History Montelukast Sodium [Singulair] 10 mg PO DAILY 08/28/19 05/13/20 History Nitroglycerin Sl Tabs [Nitrostat] 0.4 mg SUBLINGUAL Q5M PRN 08/28/19 05/13/20 History Fluticasone Propionate 110 Mcg 2 puff INHALATION RT-BID 05/13/20 05/13/20 History [Flovent 110 Mcg Inhaler (Mhu)] Allergies Allergy/AdvReac Type Severity Reaction Status Date / Time bupropion HCl Allergy Rash/Hives Verified 05/12/20 19:29 [From Wellbutrin] erythromycin base Allergy SWELLING Verified 05/12/20 19:29 [Erythromycin Base] OF TONGUE Penicillins Allergy SWELLING Verified 05/12/20 19:29 OF TONGUE sertraline HCl [From Zoloft] Allergy Diarrhea Verified 05/12/20 19:29 Physical Exam Vitals: Vital Signs Temp Pulse Pulse Resp BP BP Pulse Ox 05/13/20 07:47 97.9 F 63 16 128/79 94 L 05/13/20 04:00 98.1 F 58 L 17 148/76 96 05/13/20 02:00 58 L 18 05/12/20 23:47 97.7 F 17 116/70 96 05/12/20 23:40 97.2 F L 64 16 116/55 97 05/12/20 23:00 62 16 134/59 95 05/12/20 22:00 54 L 16 135/67 98 05/12/20 21:00 16 129/61 98 05/12/20 19:24 98.2 F 60 18 115/59 95 Intake and Output 05/12/20 05/13/20 05/13/20 22:59 06:59 14:59 Intake Total 500 Balance 500 Intake: Intake, IV Titration 500 Amount Sodium Chloride 0.9% 500 500 ml 500 ml @ 999 mls/hr IV .Q31M ONE Rx#:[id number] Other: # Voids 1 Weight 80.739 kg 85.5 kg PHYSICAL EXAMINATION: HEENT: Head is atraumatic, normocephalic. Pupils equal, round. Neck is supple. There is no elevated jugular venous pressure. No carotid bruit. HEART EXAMINATION: Heart sounds regular, S1 and S2 with a systolic murmur. CHEST EXAMINATION: Lungs reveal diminished air entry bilaterally with no rhonchi, wheezing or crackles. Patient verbalizes worsening chest symptoms with breathing. ABDOMEN: Soft, nontender. Bowel sounds are heard. No organomegaly noted. EXTREMITIES: 1+ lower extremity peripheral pulses, 2+ upper extremity pulses with no evidence of peripheral edema and no calf tenderness noted. NEUROLOGIC patient is awake, alert and oriented x3. . Results 05/13/20 05:27 05/12/20 20:20 Cardiac Enzymes 05/12/20 05/12/20 05/12/20 Range/Units 20:20 20:20 23:55 AST 20 (14-36) U/L Troponin I <0.012 <0.012 (0.000-0.034) ng/mL 05/13/20 Range/Units 05:27 AST (14-36) U/L Troponin I <0.012 (0.000-0.034) ng/mL Coagulation 05/12/20 05/13/20 Range/Units 20:20 05:27 PT 9.6 (9.0-12.0) sec APTT 24.6 52.1 H (22.0-30.0) sec Lipids 05/13/20 Range/Units 05:27 Triglycerides 425 H (<150) mg/dL Cholesterol 154 (<200) mg/dL HDL Cholesterol 43 (40-60) mg/dL CBC 05/12/20 05/12/20 05/13/20 Range/Units 20:20 23:55 05:27 WBC 13.5 H 14.2 H 12.1 H (3.8-10.6) k/uL RBC 4.10 4.19 4.06 (3.80-5.40) m/uL Hgb 13.3 13.0 12.6 (11.4-16.0) gm/dL Hct 39.5 40.6 39.5 (34.0-46.0) % Plt Count 234 234 219 (150-450) k/uL Comprehensive Metabolic Panel 05/12/20 Range/Units 20:20 Sodium 136 L (137-145) mmol/L Potassium 4.2 (3.5-5.1) mmol/L Chloride 102 (98-107) mmol/L Carbon Dioxide 27 (22-30) mmol/L BUN 11 (7-17) mg/dL Creatinine 0.84 (0.52-1.04) mg/dL Glucose 96 (74-99) mg/dL Calcium 9.6 (8.4-10.2) mg/dL AST 20 (14-36) U/L ALT 17 (4-34) U/L Alkaline Phosphatase 121 (38-126) U/L Total Protein 7.1 (6.3-8.2) g/dL Albumin 4.0 (3.5-5.0) g/dL Current Medications Generic Name Dose Route Start Last Admin Trade Name Freq PRN Reason Stop Dose Admin Acetaminophen 500 mg 05/13/20 02:22 Tylenol Tab PO HS PRN Pain Albuterol/Ipratropium 3 ml 05/13/20 08:00 Duoneb 0.5 Mg-3 Mg/3 Ml Soln INHALATION RT-QID [facility] Aspirin 325 mg 05/13/20 09:00 Aspirin PO DAILY [facility] Atorvastatin Calcium 40 mg 05/13/20 21:00 Lipitor PO HS [facility] Carvedilol 3.125 mg 05/13/20 07:30 Coreg PO BID-W/MEALS [facility] Cholecalciferol 1,000 unit 05/13/20 12:00 Vitamin D3 (25 Mcg = 1000 Iu) PO BID@1200,2100 [facility] Clonazepam 1 mg 05/13/20 02:23 Klonopin PO BID PRN Anxiety Duloxetine HCl 60 mg 05/13/20 09:00 Cymbalta PO DAILY [facility] Fluticasone Propionate 2 puff 05/13/20 02:25 Flovent 110 Mcg Inhaler INHALATION RT-BID [facility] Furosemide 40 mg 05/13/20 09:00 Lasix PO DAILY [facility] Gabapentin 300 mg 05/13/20 09:00 Neurontin PO BID [facility] Heparin Sodium (Porcine) 0 unit 05/12/20 22:45 Heparin IV PER PROTOCOL PRN Low PTT Protocol Heparin Sodium/Sodium Chloride 250 mls @ 9.689 mls/hr 05/12/20 22:45 05/12/20 23:53 25,000 unit/ Sodium Chloride IV 12 units/kg/hr .Q24H [facility] 9.689 mls/hr Administration Protocol 12 UNITS/KG/HR Latanoprost 1 drops 05/13/20 21:00 Xalatan 0.005% BOTH EYES HS [facility] Letrozole 2.5 mg 05/13/20 09:00 Femara PO DAILY [facility] Lisinopril 2.5 mg 05/13/20 12:00 Zestril PO DAILY@1200 [facility] Montelukast Sodium 10 mg 05/13/20 09:00 Singulair PO DAILY [facility] Multivitamins 1 each 05/13/20 12:00 Theragran PO DAILY@1200 [facility] Nitroglycerin 0.4 mg 05/12/20 22:49 Nitrostat SUBLINGUAL Q5M PRN Chest Pain Olanzapine 2.5 mg 05/13/20 02:27 05/13/20 03:12 Zyprexa PO 2.5 mg HS [facility] Administration Pantoprazole Sodium 40 mg 05/13/20 07:30 Protonix PO AC-BRKFST [facility] Spironolactone 12.5 mg 05/13/20 12:00 Aldactone PO DAILY@1200 [facility] Trazodone HCl 150 mg 05/13/20 02:28 05/13/20 03:11 Desyrel PO 150 mg HS [facility] Administration Intake and Output 05/12/20 05/13/20 05/13/20 22:59 06:59 14:59 Intake Total 500 Balance 500 Intake: Intake, IV Titration 500 Amount Sodium Chloride 0.9% 500 500 ml 500 ml @ 999 mls/hr IV .Q31M ONE Rx#:[id number] Other: # Voids 1 Weight 80.739 kg 85.5 kg 05/13/20 05:27 05/12/20 20:20 EKG Interpretations (text) Sinus rhythm Assessment and Plan Assessment: #1 symptoms of chest pain with some typical features as well as atypical features, troponins negative 3, no ischemia evident on EKG #2 history of CAD with prior IA and stenting of the RCA and known moderate disease in the obtuse marginal branch and the ostium of the diagonal branch #3 COPD #4 hypertension #5 hyperlipidemia with elevated triglycerides #6 diabetes mellitus Plan: From cardiology's perspective, we'll obtain a 2-D echo with Doppler. We will schedule to patient for Lexiscan MPI in the office next week and she will follow-up with Dr. KENIA dang. 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 Patient was seen and examined.
--- NOTE | 2020-05-13 10:14 | P.DS ---
Providers Date of admission: 05/12/20 23:25 Attending physician: Yessi Porter MD Consults: 05/12/20 22:49 Consult Physician Urgent Consulting Provider: Vasile Jesus Consult Reason/Comments: chest pain Do you want consulting provider notified?: Yes Primary care physician: [facility] Course: 75 years old female with past medical history of asthma/COPD, diabetes mellitus type 2, coronary artery disease with stent placement in October, hypertension and hypertensive cardiovascular disease, hyperlipidemia, history of breast cancer status post breast surgery 2013 comes in with the chest pain that started while patient was sitting after she had her lunch at 4 PM radiating to her back. Patient also felt nauseous associated with sweating with shortness of breath. Patient took 3 baby aspirin with nitro that relieved her pain. Patient states that the pain was similar to her previous cardiac chest pain. She saw Dr. Pereira in December and was planning to get either a Lexiscan which was postponed for some reason. Patient was also in [place] and just returned on April 07. She denies any similar episodes in the past. Patient was last seen in August 2019 for similar complaints and was initiated on Imdur. Patient could not tolerate Imdur and discontinued it after discussion with Dr. Pereira . Patient is currently chest pain-free. She got in a dose of 325 mg aspirin on arrival in the ER and was started on heparin drip this time patient's risk factor. I discussed this morning suggests a temp of 98.1 pulse 58 respiratory rate 17 the pressure 148/76 oxygen saturation 96% on 2 L. Lab assessment suggest a WBC count of 14.2, PT INR was 0.9 sodium 136 potassium 4.2 creatinine 0.84 view UN 11 normal LFTs magnesium and phosphorus . Triglyceride 425 LDL could not be ca lculated, UA was negative for infection. EKG suggested normal sinus rhythm . CT angiogram suggest atherosclerotic plaque in the lower abdominal area. Any 5% narrowing but no evidence of thoracic or aortic aneurysmal dissection no evidence of PE noted. Cardiology recommended echo with Lexscan as outpatient Discharge Diagnosis #1 acute substernal chest pain. #2 asthma/COPD #3 breast cancer #4diabetes with neuropathy #5Anxiety/depression #6coronary artery disease status post stenting in 2013 #7 GERD with hiatal hernia #8 insomnia #9 hypertension Disposition home Patient Condition at Discharge: Fair Plan - Discharge Summary Discharge Rx Participant: No New Discharge Prescriptions: Continue Fluticasone Propionate [Flovent Hfa 110 mcg] 2 puff INHALATION RT-BID Ipratropium/Albuterol Sulfate [Combivent Respimat Inhaler] 1 puff INHALATION RT-QID DULoxetine HCL [Cymbalta] 60 mg PO DAILY Acetaminophen Tab [Tylenol] 500 mg PO HS PRN PRN Reason: Pain traZODone HCL [Desyrel] 150 mg PO HS OLANZapine [ZyPREXA] 2.5 mg PO HS Gabapentin [Neurontin] 300 mg PO BID Multivitamins, Thera [Multivitamin (formulary)] 1 tab PO DAILY@1200 metFORMIN HCL [Glucophage] 500 mg PO DAILY Aspirin 81 mg PO DAILY@1200 Lisinopril [Zestril] 2.5 mg PO DAILY@1200 Furosemide [Lasix] 40 mg PO DAILY Carvedilol [Coreg] 3.125 mg PO BID Spironolactone [Aldactone] 12.5 mg PO DAILY@1200 Lansoprazole [Prevacid] 30 mg PO DAILY Latanoprost Ophth [Xalatan 0.005%] 1 drops BOTH EYES HS Cholecalciferol [Vitamin D3 (25 Mcg = 1000 Iu)] 1,000 unit PO BID@1200,2100 clonazePAM [KlonoPIN] 1 mg PO BID Atorvastatin Calcium [Lipitor] 40 mg PO HS Magnesium/Potassium/Bromelain 1 tab PO DAILY@1200 Letrozole [Femara] 2.5 mg PO DAILY Nitroglycerin Sl Tabs [Nitrostat] 0.4 mg SUBLINGUAL Q5M PRN PRN Reason: Chest Pain Montelukast Sodium [Singulair] 10 mg PO DAILY Fluticasone Propionate 110 Mcg [Flovent 110 Mcg Inhaler (Mhu)] 2 puff INHALATION RT-BID Discharge Medication List Acetaminophen Tab [Tylenol] 500 mg PO HS PRN 10/04/14 [History] DULoxetine HCL [Cymbalta] 60 mg PO DAILY 10/04/14 [History] Fluticasone Propionate [Flovent Hfa 110 mcg] 2 puff INHALATION RT-BID 10/04/14 [History] Gabapentin [Neurontin] 300 mg PO BID 10/04/14 [History] Ipratropium/Albuterol Sulfate [Combivent Respimat Inhaler] 1 puff INHALATION RT- QID 10/04/14 [History] Multivitamins, Thera [Multivitamin (formulary)] 1 tab PO DAILY@1200 10/04/14 [History] OLANZapine [ZyPREXA] 2.5 mg PO HS 10/04/14 [History] traZODone HCL [Desyrel] 150 mg PO HS 10/04/14 [History] Aspirin 81 mg PO DAILY@1200 10/31/15 [History] Carvedilol [Coreg] 3.125 mg PO BID 10/31/15 [History] Cholecalciferol [Vitamin D3 (25 Mcg = 1000 Iu)] 1,000 unit PO BID@1200,2100 10/31/15 [History] Furosemide [Lasix] 40 mg PO DAILY 10/31/15 [History] Lansoprazole [Prevacid] 30 mg PO DAILY 10/31/15 [History] Latanoprost Ophth [Xalatan 0.005%] 1 drops BOTH EYES HS 10/31/15 [History] Lisinopril [Zestril] 2.5 mg PO DAILY@1200 10/31/15 [History] Spironolactone [Aldactone] 12.5 mg PO DAILY@1200 10/31/15 [History] metFORMIN HCL [Glucophage] 500 mg PO DAILY 10/31/15 [History] Atorvastatin Calcium [Lipitor] 40 mg PO HS 04/03/17 [History] clonazePAM [KlonoPIN] 1 mg PO BID 04/03/17 [History] Magnesium/Potassium/Bromelain 1 tab PO DAILY@1200 07/09/18 [History] Letrozole [Femara] 2.5 mg PO DAILY 09/15/18 [History] Montelukast Sodium [Singulair] 10 mg PO DAILY 08/28/19 [History] Nitroglycerin Sl Tabs [Nitrostat] 0.4 mg SUBLINGUAL Q5M PRN 08/28/19 [History] Fluticasone Propionate 110 Mcg [Flovent 110 Mcg Inhaler (Mhu)] 2 puff INHALATION RT-BID 05/13/20 [History] Follow up Appointment(s)/Referral(s): Lázaro Gagnon MD [Primary Care Provider] - 1-2 days Discharge Disposition: HOME SELF-CARE
[2020-05-13] MEDS ORDERED: MAGNESIUM PO SCH (12:00)
[2020-05-13] MEDS ORDERED: POTASSIUM PO SCH (12:00)
[2020-05-13] MEDS ORDERED: SPIRONOLACTONE 25 MG TAB PO SCH (12:00)
[2020-05-13] MEDS ORDERED: MULTIVITAMINS, THERA 1 EACH TAB PO SCH (12:00)
[2020-05-13] MEDS ORDERED: BROMELAIN PO SCH (12:00)
[2020-05-13] MEDS ORDERED: CHOLECALCIFEROL 1,000 UNIT TAB PO SCH (12:00)
[2020-05-13] MEDS ORDERED: LISINOPRIL 2.5 MG TAB PO SCH (12:00)
--- NOTE | 2020-05-13 14:32 | ECHOF ---
Referral Reason:chest pain MEASUREMENTS -------- HEIGHT: 167.6 cm WEIGHT: 85.3 kg BP: 128/79 IVSd: 1.3 cm (0.6 - 1.1) LVIDd: 4.5 cm (3.9 - 5.3) LVPWd: 1.2 cm (0.6 - 1.1) IVSs: 1.7 cm LVIDs: 2.7 cm LVPWs: 1.9 cm RVIDd: 3.3 cm (< 3.3) LAESV Index (A-L): 17.75 ml/m Ao Diam: 2.6 cm (2.0 - 3.7) AV Cusp: 2.2 cm (1.5 - 2.6) EPSS: 0.4 cm MV E Carson: 0.93 m/s MV DecT: 190 ms MV A Carson: 0.80 m/s MV E/A Ratio: 1.17 RAP: 5.00 mmHg RVSP: 23.87 mmHg MV EF SLOPE: 38.75 mm/s (70 - 150) MV EXCURSION: 14.23 mm (> 18.000) FINDINGS -------- Sinus rhythm. This was a technically adequate study. The left ventricular size is normal. There is mild concentric left ventricular hypertrophy. Overa ll left ventricular systolic function is normal with, an EF between 55 - 60 %. The diastolic fillin g pattern is normal for the age of the patient 12.64. The right ventricle is mildly enlarged. Normal LA size by volume 22+/-6 ml/m2. The right atrial size is normal. Interatrial and interventricular septum intact. There is mild aortic valve sclerosis without stenosis. There is no evidence of aortic regurgitation . There is no evidence of aortic stenosis. Mild mitral annular calcification present. There is trace mitral regurgitation. Mild tricuspid regurgitation present. There is no evidence of pulmonary hypertension. The right v entricular systolic pressure, as measured by Doppler, is 23.87mmHg. There is no pulmonic regurgitation present. The aortic root size is normal. Normal inferior vena cava with normal inspiratory collapse consistent with estimated right atrial pre ssure of 5 mmHg. There is no pericardial effusion. CONCLUSIONS -------- 1. Sinus rhythm. 2. There is mild concentric left ventricular hypertrophy. 3. Overall left ventricular systolic function is normal with, an EF between 55 - 60 %. 4. The diastolic filling pattern is normal for the age of the patient 12.64 5. The right ventricle is mildly enlarged. 6. Normal LA size by volume 22+/-6 ml/m2. 7. There is mild aortic valve sclerosis without stenosis. 8. Mild mitral annular calcification present. 9. There is trace mitral regurgitation. 10. Mild tricuspid regurgitation present. 11. There is no pericardial effusion. DIMENSION WAREHOUSE SUPERVISOR: Precious Lopez RDCS
[2020-05-13] MEDS ORDERED: LATANOPROST 0.005% OPHTH DROPS 2.5 ML BTL BOTH EYES SCH (21:00)
[2020-05-13] MEDS ORDERED: ATORVASTATIN 40 MG TAB PO SCH (21:00)
== END 2020-05-13 13:18 | disposition home or self-care (01) ==
LOC: EC 19:22 → 1SOBS 23:25
PROVIDERS: ADMIT Internal Medicine; ATTEND Internal Medicine
DX: R07.89 Other chest pain (principal); J43.9 Emphysema, unspecified; C50.919 Malignant neoplasm of unspecified site of unspecified female breast; I70.0 Atherosclerosis of aorta; R00.1 Bradycardia, unspecified; E11.40 Type 2 diabetes mellitus with diabetic neuropathy, unspecified; F41.9 Anxiety disorder, unspecified; F31.9 Bipolar disorder, unspecified; I25.10 Atherosclerotic heart disease of native coronary artery without angina pectoris; K21.9 Gastro-esophageal reflux disease without esophagitis; K44.9 Diaphragmatic hernia without obstruction or gangrene; G47.00 Insomnia, unspecified; I11.9 Hypertensive heart disease without heart failure; E78.5 Hyperlipidemia, unspecified; I25.2 Old myocardial infarction; M19.90 Unspecified osteoarthritis, unspecified site; E27.9 Disorder of adrenal gland, unspecified; I71.2 Thoracic aortic aneurysm, without rupture; E78.1 Pure hyperglyceridemia; I08.1 Rheumatic disorders of both mitral and tricuspid valves; E66.9 Obesity, unspecified; Z68.30 Body mass index [BMI] 30.0-30.9, adult; Z03.818 Encounter for observation for suspected exposure to other biological agents ruled out; Z95.5 Presence of coronary angioplasty implant and graft; Z79.899 Other long term (current) drug therapy; Z79.51 Long term (current) use of inhaled steroids; Z79.82 Long term (current) use of aspirin; Z88.8 Allergy status to other drugs, medicaments and biological substances; Z88.1 Allergy status to other antibiotic agents; Z88.0 Allergy status to penicillin; Z98.890 Other specified postprocedural states; Z90.49 Acquired absence of other specified parts of digestive tract; Z90.89 Acquired absence of other organs; Z87.891 Personal history of nicotine dependence; Z85.828 Personal history of other malignant neoplasm of skin; Z80.7 Family history of other malignant neoplasms of lymphoid, hematopoietic and related tissues; Z80.9 Family history of malignant neoplasm, unspecified; Z81.8 Family history of other mental and behavioral disorders
CPT/HCPCS: 93005 ×2; 96374; 99285; 36415; 93306; 83880; 80061; 80053; 83735; 84100; 84484 ×2; 85025 ×2; 85610; 85730 ×2; 81003; 71275; 74174; G0378 ×2; U0003; J1644 ×2

== ENCOUNTER → 2020-05-31 | Outpatient (CLI) | payer MEDICARE ==
[2020-05-31 15:08] LABS: Basophils # (A) 0.1 k/uL (0-0.2); Basophils % (A) 1 %; Eosinophils # (A) 0.3 k/uL (0-0.7); Eosinophils % (A) 2 %; HCT 42.7 % (34.0-46.0); Lymphocytes # (A) 2.9 k/uL (1.0-4.8); Lymphocytes % (A) 21 %; MCHC 32.8 g/dL (31.0-37.0); MCV 97.5 fL (80.0-100.0); Mean Platelet Volume 8.9; Monocytes # (A) 0.7 k/uL (0-1.0); Monocytes % (A) 5 %; Neutrophils # (A) 9.6 k/uL (1.3-7.7); Neutrophils % (A) 69 %; Platelet Count 272 k/uL (150-450); RBC 4.38 m/uL (3.80-5.40); RDW 14.1 % (11.5-15.5); WBC 13.9 k/uL (3.8-10.6)
[2020-05-31 15:21] LABS: Magnesium 2.1 mg/dL (1.6-2.3); Potassium 4.3 mmol/L (3.5-5.1)
== END | disposition home or self-care (01) ==
LOC: LABPAT 14:24
PROVIDERS: ATTEND Internal Medicine Interventional Cardiology
DX: Z01.818 Encounter for other preprocedural examination (principal); I25.10 Atherosclerotic heart disease of native coronary artery without angina pectoris; E78.00 Pure hypercholesterolemia, unspecified
CPT/HCPCS: 36415; 80051; 82565; 82947; 83735; 84520; 85025

== ENCOUNTER 2020-06-12 09:24 | Day surgery (SDC) | payer MEDICARE ==
[2020-06-09 10:04] VITALS: BMI 28.9
[~2020-06-12 09:24] MED LIST changes: +ALPRAZolam 0.25 MG TAB PO PRN; +ALPRAZolam 0.5 MG TAB PO PRN; +ASPIRIN 325 MG TAB PO ONE; +ATORVASTATIN 80 MG TAB PO ONE; -LACTATED RINGERS 1,000 ML IV SCH; -LIDOCAINE 1% 20 ML VIAL (10MG/ML) FOR IV START INTRADERMA PRN; +NITROGLYCERIN SL TABS 0.4 MG TAB SUBLINGUAL PRN; +SODIUM CHLORIDE 0.9% 1,000 ML in EMPTY BAG 1 BAG IV ONE
[2020-06-12 10:03] VITALS: TEMP 98.1
[2020-06-12] MEDS ORDERED: SODIUM CHLORIDE 0.9% 1,000 ML IV ONE (10:05)
[2020-06-12 10:15] LABS: Basophils # (A) 0.1 k/uL (0-0.2); Basophils % (A) 1 %; Eosinophils # (A) 0.4 k/uL (0-0.7); Eosinophils % (A) 3 %; HCT 42.4 % (34.0-46.0); HGB 13.6 gm/dL (11.4-16.0); Lymphocytes # (A) 2.3 k/uL (1.0-4.8); Lymphocytes % (A) 18 %; MCH 30.8 pg (25.0-35.0); MCHC 32.2 g/dL (31.0-37.0); MCV 95.8 fL (80.0-100.0); Monocytes # (A) 0.6 k/uL (0-1.0); Monocytes % (A) 5 %; Neutrophils # (A) 9.4 k/uL (1.3-7.7); Neutrophils % (A) 72 %; Platelet Count 278 k/uL (150-450); RBC 4.43 m/uL (3.80-5.40); RDW 14.3 % (11.5-15.5)
[2020-06-12 10:18] LABS: Glucose,Whole Blood 136 mg/dL (75-99)
[2020-06-12] MEDS ORDERED: LIDOCAINE 1% INJ 10MG/ML (20 ML MDV) ONE (10:39)
[2020-06-12] MEDS ORDERED: VERAPAMIL 2.5 MG/ML 2 ML AMP ONE (10:39)
[2020-06-12] MEDS ORDERED: MIDAZOLAM 2 MG/2 ML VIAL IVP ONE (10:59)
[2020-06-12] MEDS ORDERED: LIDOCAINE 1% INJ 10MG/ML (20 ML MDV) SQ ONE (11:02)
[2020-06-12] MEDS: VERAPAMIL SYRINGE (5 MG/10 ML) INTRAARTER ONE ×2 (11:05→11:19)
[2020-06-12] MEDS ORDERED: HEPARIN SODIUM 1,000 UN/ML (10ML VL) IV ONE (11:06)
[2020-06-12] MEDS ORDERED: HEPARIN SODIUM 1,000 UN/ML (10ML VL) ONE (11:06)
[2020-06-12] MEDS ORDERED: IOPAMIDOL-370 100ML BTL INJ ONE (11:20)
--- NOTE | 2020-06-12 12:25 | CC ---
CARDIAC CATHETERIZATION REPORT DATE OF SERVICE: 06/12/2020 PROCEDURE: Left heart catheterization and coronary angiography. PERFORMED BY: Dr. Bere Pereira. CLINICAL INFORMATION: Mrs. Maame Pollard is a 75-year-old lady with a history of previous inferior MT with stenting of RCA performed in 2013, was recently hospitalized with chest pain, negative troponins, had recurrent chest pain and therefore she was advised cardiac cath. She had a 60% also circumflex lesion at that time in 2013. Risks, benefits, options, rationale were explained. PROCEDURE NOTE: Under local anesthesia and strict aseptic precautions, a 6-Azerbaijani introducer was placed in the right radial artery. Using a Glidewire, I was able to get all the way up to the ascending aorta. A 3.5 left and a 4.0 right Dominic catheters were used to perform coronary angiography and the same right catheter was used to check LV pressures. LV gram was not performed. The sheath was taken out and TR band applied as per protocol. The saturation the fingers of the right hand are more than 93%. Patient tolerated the procedure well without complication. Results were discussed with the patient and her son. CARDIAC CATH FINDINGS: The left end-diastolic pressure was about 8 mmHg without any gradient across the aortic valve. CORONARY ANGIOGRAPHY FINDINGS: RIGHT CORONARY ARTERY: Large dominant vessel had a for 30% to 40% proximal lesion distally where the vessel was totally occluded. The vessel is widely patent with good flow. It bifurcates into PDA and PLV has minor irregularities, no significant disease. RCA which was stented before is widely patent. LEFT MAIN CORONARY ARTERY: Short, patent vessel, free of significant disease. Bifurcates into LAD and circumflex. LEFT ANTERIOR DESCENDING CORONARY ARTERY: Good caliber vessel extends along the anterior wall, gives off septal and diagonal branches. The diagonal branch gives off a decent sized diagonal branch, but the origin of the diagonal branch has what seems to be a 40% lesion which is unchanged from before and the flow in the diagonal and LAD is excellent. LAD has minor irregularities. It runs all the way to the apex supplying a sizable amount of myocardium. LEFT POSTERIOR CIRCUMFLEX CORONARY: This vessel had probably some spasm during the last angiogram in 2013, now the vessel is nondominant of fairly decent caliber, gives off a good-sized obtuse marginal that is no more than 30% to 40% narrowing and a groove branch which is also free of significant disease and left atrial circumflex branch that also has minor irregularities. FINAL IMPRESSION: This patient has a right dominant system. Widely patent RCA that was stented in 2013. The LAD has minor irregularities. Diagonal has a 40% to 50% ostial disease as it comes off from the LAD. Circumflex has no significant disease. Filling pressures are normal. There was no gradient across the aortic valve. RECOMMENDATIONS: I am recommending continued medical therapy with risk factor modification. Results were discussed with the patient and son and I expect that she will be discharged later on today and I will see her in the office in one week. MMODL / IJN: [id number] /
[2020-06-12] MEDS ORDERED: SODIUM CHLORIDE 0.9% 1,000 ML IV SCH (16:15)
[2020-06-12] MEDS ORDERED: ACETAMINOPHEN TAB 325 MG TAB ONE (17:03)
[2020-06-12 18:38] VITALS: RESP 16
[2020-06-12 18:44] VITALS: BP 105/63; PULSE 67
== END 2020-06-12 18:17 | disposition home or self-care (01) ==
LOC: CATHCVL 09:24
PROVIDERS: ATTEND Internal Medicine Interventional Cardiology
DX: I25.110 Atherosclerotic heart disease of native coronary artery with unstable angina pectoris (principal); R61 Generalized hyperhidrosis; R11.0 Nausea; R53.83 Other fatigue; R06.02 Shortness of breath; I25.2 Old myocardial infarction; J44.9 Chronic obstructive pulmonary disease, unspecified; E11.9 Type 2 diabetes mellitus without complications; I10 Essential (primary) hypertension; E78.5 Hyperlipidemia, unspecified; E78.00 Pure hypercholesterolemia, unspecified; I47.2 Ventricular tachycardia; M19.90 Unspecified osteoarthritis, unspecified site; E66.3 Overweight; Z68.28 Body mass index [BMI] 28.0-28.9, adult; Z95.5 Presence of coronary angioplasty implant and graft; Z87.891 Personal history of nicotine dependence; Z79.899 Other long term (current) drug therapy; Z79.82 Long term (current) use of aspirin; Z79.84 Long term (current) use of oral hypoglycemic drugs; Z79.51 Long term (current) use of inhaled steroids; Z79.811 Long term (current) use of aromatase inhibitors; Z88.1 Allergy status to other antibiotic agents; Z88.0 Allergy status to penicillin; Z85.3 Personal history of malignant neoplasm of breast
CPT/HCPCS: 93458; 85025; C1769 ×2; C1894; J2250; J2001; J1644; Q9967

== ENCOUNTER 2021-02-25 22:41 | Inpatient (IN) | payer MEDICARE ==
--- NOTE | 2021-02-25 23:20 | ED ---
Altered Mental Status HPI - General Chief Complaint: Altered Mental Status Stated Complaint: Altered Mental Status Time Seen by Provider: 02/25/21 22:50 Source: patient, RN notes reviewed, old records reviewed Mode of arrival: wheelchair Limitations: no limitations - History of Present Illness Initial Comments: This is a 75-year-old female DF for evaluation. Patient is shortness of breath, weakness fatigue. Patient is COPD heart disease and diabetes. Patient has been sick for 3 weeks symptoms, ago would've significantly gotten worse and as of lat e. Patient unable to catch her breath currently. No known coronavirus contacts. No travel history MD Complaint: altered mental status, decreased responsiveness, weakness -: unknown Severity: severe Consistency of Symptoms: waxing and waning, getting worse Context: history of similar presentation, recent fever Associated Symptoms: cough, fever/chills, shortness of breath, weakness - Related Data Home Medications Medication Instructions Recorded Confirmed DULoxetine HCL [Cymbalta] 60 mg PO DAILY 10/04/14 02/26/21 Gabapentin [Neurontin] 300 mg PO BID 10/04/14 02/26/21 Ipratropium/Albuterol Sulfate 1 puff INHALATION RT-QID 10/04/14 02/26/21 [Combivent Respimat Inhaler] Furosemide [Lasix] 40 mg PO DAILY 10/31/15 02/26/21 Lansoprazole [Prevacid] 30 mg PO DAILY 10/31/15 02/26/21 Latanoprost Ophth [Xalatan 0.005%] 1 drops BOTH EYES HS 10/31/15 02/26/21 Spironolactone [Aldactone] 12.5 mg PO DAILY 10/31/15 02/26/21 carvediloL [Coreg] 3.125 mg PO BID 10/31/15 02/26/21 lisinopriL [Zestril] 2.5 mg PO DAILY 10/31/15 02/26/21 metFORMIN HCL [Glucophage] 500 mg PO DAILY 10/31/15 02/26/21 Atorvastatin Calcium [Lipitor] 40 mg PO HS 04/03/17 02/26/21 clonazePAM [KlonoPIN] 1 mg PO BID PRN 04/03/17 02/26/21 Letrozole [Femara] 2.5 mg PO DAILY 09/15/18 02/26/21 Montelukast Sodium [Singulair] 10 mg PO HS 08/28/19 02/26/21 Nitroglycerin Sl Tabs [Nitrostat] 0.4 mg SUBLINGUAL Q5M PRN 08/28/19 02/26/21 Fluticasone Propionate 110 Mcg 1 puff INHALATION RT-QID 06/08/20 02/26/21 [Flovent 110 Mcg Inhaler (Mhu)] OLANZapine [ZyPREXA] 2.5 mg PO HS 02/26/21 02/26/21 Ofloxacin 0.3% Otic Soln [Floxin 1 drop OPHTHALMIC QID 02/26/21 02/26/21 0.3% Otic Soln] prednisoLONE ACETATE 1% OPHTH 1 drop OPHTHALMIC QID 02/26/21 02/26/21 [Pred Forte 1%] traZODone HCL 150 mg PO HS 02/26/21 02/26/21 Previous Rx's Medication Instructions Recorded Apixaban [Eliquis] 5 mg PO BID #60 tab 02/27/21 Allergies Allergy/AdvReac Type Severity Reaction Status Date / Time bupropion HCl Allergy Rash/Hives Verified 02/26/21 09:47 [From Wellbutrin] erythromycin base Allergy SWELLING Verified 02/26/21 09:47 [Erythromycin Base] OF TONGUE Penicillins Allergy SWELLING Verified 02/26/21 09:47 OF TONGUE sertraline HCl [From Zoloft] Allergy Diarrhea Verified 02/26/21 09:47 Review of Systems ROS Statement: Those systems with pertinent positive or pertinent negative responses have been documented in the HPI. ROS Other: All systems not noted in ROS Statement are negative. Past Medical History Past Medical History: Asthma, Cancer, COPD, Diabetes Mellitus, GERD/Reflux, Hyperlipidemia, Hypertension, Myocardial Infarction ([place]), Osteoarthritis (OA) Additional Past Medical History / Comment(s): BREAST CANCER, recent increase of shortness of breath Last Myocardial Infarction Date:: 10-04-14 History of Any Multi-Drug Resistant Organisms: None Reported Past Surgical History: Breast Surgery, Cholecystectomy, Heart Catheterization With Stent, Orthopedic Surgery, Tonsillectomy Additional Past Surgical History / Comment(s): Ganglion Cyst; COLONOSCOPY AND EGD, LEFT BREAST LUMPECTOMY ,skin CA removal right arm/left shoulder 2018 Past Anesthesia/Blood Transfusion Reactions: No Reported Reaction Date of Last Stent Placement:: 10/04/14 Past Psychological History: Bipolar Smoking Status: Former smoker Past Alcohol Use History: None Reported Past Drug Use History: None Reported - Past Family History Father Family Medical History: Cancer Additional Family Medical History / Comment(s): non hodgkins lymphoma Sister(s) Family Medical History: Cancer Additional Family Medical History / Comment(s): bipolar Mother Family Medical History: No Reported History Additional Family Medical History / Comment(s): alzheimers, bipolar, dementia General Exam Limitations: no limitations General appearance: alert, anxious, obtunded Head exam: Present: atraumatic, normocephalic, normal inspection Eye exam: Present: normal appearance, PERRL, EOMI. Absent: scleral icterus, conjunctival injection, periorbital swelling ENT exam: Present: normal exam, mucous membranes moist Neck exam: Present: normal inspection. Absent: tenderness, meningismus, lymphadenopathy Respiratory exam: Present: respiratory distress, wheezes, decreased breath sound s, prolonged expiratory. Absent: rales, rhonchi, stridor Cardiovascular Exam: Present: regular rate, normal rhythm, normal heart sounds. Absent: systolic murmur, diastolic murmur, rubs, gallop, clicks GI/Abdominal exam: Present: soft, normal bowel sounds. Absent: distended, tenderness, guarding, rebound, rigid Extremities exam: Present: normal inspection, full ROM, normal capillary refill. Absent: tenderness, pedal edema, joint swelling, calf tenderness Back exam: Present: normal inspection Neurological exam: Present: alert, oriented X3, CN II-XII intact Psychiatric exam: Present: normal affect, normal mood Skin exam: Present: warm, dry, intact, normal color. Absent: rash Course Vital Signs 02/25/21 02/25/21 02/25/21 22:43 23:11 23:39 Temperature 101.4 F H Pulse Rate 84 89 Respiratory 16 20 Rate Blood Pressure 130/73 112/60 O2 Sat by Pulse 92 L 88 L Oximetry 02/26/21 00:44 Temperature 98.4 F Pulse Rate 82 Respiratory 18 Rate Blood Pressure 110/67 O2 Sat by Pulse 92 L Oximetry - Reevaluation(s) Reevaluation #1: Medical record is reviewed Patient placed on nonrebreather on arrival to emergency department Patient symptoms and oxygen have improved but she still feels terrible Patient informed results and questions have been answered Patient will be admitted for continued supportive care Medical Decision Making - Medical Decision Making 75 female severe COVID, patient has coronavirus with hypoxia acting care currently on nonrebreather - Lab Data Result diagrams: 03/01/21 04:51 03/03/21 04:34 Lab Results 02/25/21 02/25/21 02/25/21 Range/Units 23:05 23:10 23:10 WBC 8.6 (3.8-10.6) k/uL RBC 4.21 (3.80-5.40) m/uL Hgb 13.7 (11.4-16.0) gm/dL Hct 38.8 (34.0-46.0) % MCV 92.1 (80.0-100.0) fL MCH 32.5 (25.0-35.0) pg MCHC 35.2 (31.0-37.0) g/dL RDW 14.1 (11.5-15.5) % Plt Count 198 (150-450) k/uL MPV 9.2 Neutrophils % 76 % Lymphocytes % 18 % Monocytes % 5 % Eosinophils % 1 % Basophils % 0 % Neutrophils # 6.5 (1.3-7.7) k/uL Lymphocytes # 1.5 (1.0-4.8) k/uL Monocytes # 0.4 (0-1.0) k/uL Eosinophils # 0.1 (0-0.7) k/uL Basophils # 0.0 (0-0.2) k/uL PT 10.1 (9.0-12.0) sec INR 0.9 (<1.2) APTT 26.3 (22.0-30.0) sec Sodium (137-145) mmol/L Potassium (3.5-5.1) mmol/L Chloride (98-107) mmol/L Carbon Dioxide (22-30) mmol/L Anion Gap mmol/L BUN (7-17) mg/dL Creatinine (0.52-1.04) mg/dL Est GFR (CKD-EPI)AfAm (>60 ml/min/1.73 sqM) Est GFR (CKD-EPI)NonAf (>60 ml/min/1.73 sqM) Glucose (74-99) mg/dL POC Glucose (mg/dL) (75-99) mg/dL POC Glu Carrot Grader Inspector ID Plasma Lactic Acid Henri (0.7-2.0) mmol/L Calcium (8.4-10.2) mg/dL Magnesium (1.6-2.3) mg/dL Total Bilirubin (0.2-1.3) mg/dL AST (14-36) U/L ALT (4-34) U/L Alkaline Phosphatase (38-126) U/L Lactate Dehydrogenase (313-618) U/L C-Reactive Protein (<10.0) mg/L Total Protein (6.3-8.2) g/dL Albumin (3.5-5.0) g/dL Coronavirus (PCR) Detected A (Not Detectd) 02/25/21 02/25/21 02/25/21 Range/Units 23:10 23:10 23:36 WBC (3.8-10.6) k/uL RBC (3.80-5.40) m/uL Hgb (11.4-16.0) gm/dL Hct (34.0-46.0) % MCV (80.0-100.0) fL MCH (25.0-35.0) pg MCHC (31.0-37.0) g/dL RDW (11.5-15.5) % Plt Count (150-450) k/uL MPV Neutrophils % % Lymphocytes % % Monocytes % % Eosinophils % % Basophils % % Neutrophils # (1.3-7.7) k/uL Lymphocytes # (1.0-4.8) k/uL Monocytes # (0-1.0) k/uL Eosinophils # (0-0.7) k/uL Basophils # (0-0.2) k/uL PT (9.0-12.0) sec INR (<1.2) APTT (22.0-30.0) sec Sodium 127 L (137-145) mmol/L Potassium 3.9 (3.5-5.1) mmol/L Chloride 89 L (98-107) mmol/L Carbon Dioxide 28 (22-30) mmol/L Anion Gap 10 mmol/L BUN 14 (7-17) mg/dL Creatinine 0.82 (0.52-1.04) mg/dL Est GFR (CKD-EPI)AfAm 82 (>60 ml/min/1.73 sqM) Est GFR (CKD-EPI)NonAf 71 (>60 ml/min/1.73 sqM) Glucose 107 H (74-99) mg/dL POC Glucose (mg/dL) 119 H (75-99) mg/dL POC Glu Carrot Grader Inspector ID Frannie Allen Plasma Lactic Acid Henri 2.0 (0.7-2.0) mmol/L Calcium 8.4 (8.4-10.2) mg/dL Magnesium 2.2 (1.6-2.3) mg/dL Total Bilirubin 0.8 (0.2-1.3) mg/dL AST 92 H (14-36) U/L ALT 37 H (4-34) U/L Alkaline Phosphatase 83 (38-126) U/L Lactate Dehydrogenase 970 H (313-618) U/L C-Reactive Protein 159.8 H (<10.0) mg/L Total Protein 6.9 (6.3-8.2) g/dL Albumin 3.8 (3.5-5.0) g/dL Coronavirus (PCR) (Not Detectd) - EKG Data -: EKG Interpreted by Me (EKG shows sinus 73 OH 1:30 QRS 80 QTC 4:30) - Radiology Data Radiology results: report reviewed (Chest x-rays positive for coronavirus pneumonia), image reviewed Critical Care Time Critical Care Time: Yes Total Critical Care Time: 31 Disposition Clinical Impression: Altered mental status, COPD (chronic obstructive pulmonary disease), Coronavirus infection, Pneumonia due to COVID-19 virus, Hypoxia Disposition: ADMITTED IP TO THIS HOSP Condition: Serious Is patient prescribed a controlled substance at d/c from ED?: No
[2021-02-25] MEDS ORDERED: SODIUM CHLORIDE 0.9% 1,000 ML IV STA (23:27)
[2021-02-25] MEDS ORDERED: SODIUM CHLORIDE 0.9% 500 ML 500 ML IV STA (23:27)
[2021-02-25] MEDS ORDERED: IBUPROFEN IV 800 MG in SODIUM CHLORIDE 0.9% 250 ML IV ONE (23:27)
[2021-02-25] MEDS ORDERED: ACETAMINOPHEN IV (For NPO) 1,000 MG in EMPTY BAG 1 BAG IVPB STA (23:27)
[2021-02-25 23:37] LABS: Basophils % (A) 0 %; Eosinophils # (A) 0.1 k/uL (0-0.7); Eosinophils % (A) 1 %; HCT 38.8 % (34.0-46.0); HGB 13.7 gm/dL (11.4-16.0); Lymphocytes # (A) 1.5 k/uL (1.0-4.8); Lymphocytes % (A) 18 %; MCH 32.5 pg (25.0-35.0); MCHC 35.2 g/dL (31.0-37.0); MCV 92.1 fL (80.0-100.0); Mean Platelet Volume 9.2; Monocytes # (A) 0.4 k/uL (0-1.0); Monocytes % (A) 5 %; Neutrophils # (A) 6.5 k/uL (1.3-7.7); Neutrophils % (A) 76 %; Platelet Count 198 k/uL (150-450); RBC 4.21 m/uL (3.80-5.40); RDW 14.1 % (11.5-15.5); WBC 8.6 k/uL (3.8-10.6)
--- NOTE | 2021-02-25 23:42 | XR ---
EXAMINATION TYPE: XR chest 1V portable DATE OF EXAM: 02/25/2021 COMPARISON: 11/28/2019 HISTORY: Short of breath. Pneumonia. TECHNIQUE: Single view FINDINGS: There is diffuse moderate pulmonary interstitial infiltrates. There is reduced inspiration. There are chest leads. Thoracic aorta shows mild atheromatous change. IMPRESSION: Moderate pulmonary interstitial pneumonia is new compared to old exam. I do not suspect h eart failure. No definite pleural effusion.
[2021-02-25 23:45] LABS: INR 0.9 (<1.2); Partial Thromboplastin Time 26.3 sec (22.0-30.0); Prothrombin Time 10.1 sec (9.0-12.0)
[2021-02-25 23:47] LABS: Glucose,Whole Blood 119 mg/dL (75-99)
[2021-02-26 00:18] LABS: Albumin 3.8 g/dL (3.5-5.0); Calcium 8.4 mg/dL (8.4-10.2); Magnesium 2.2 mg/dL (1.6-2.3); Potassium 3.9 mmol/L (3.5-5.1); Total Bilirubin 0.8 mg/dL (0.2-1.3); Total Protein 6.9 g/dL (6.3-8.2)
[2021-02-26] MEDS ORDERED: ONDANSETRON 4 MG/2 ML VIAL IVP PRN (00:24)
[2021-02-26] MEDS ORDERED: NALOXONE 0.4 MG/ML 1 ML VIAL IV PRN (00:24)
[2021-02-26] MEDS ORDERED: IBUPROFEN 400 MG TAB PO PRN (00:24)
[2021-02-26] MEDS ORDERED: MORPHINE SULFATE 4 MG/ML SYRINGE IV PRN (00:24)
[2021-02-26] MEDS ORDERED: ACETAMINOPHEN TAB 325 MG TAB PO PRN (00:24)
[2021-02-26] MEDS ORDERED: ALBUTEROL HFA INHALER INHALATION STA (00:26)
[2021-02-26 00:29] LABS: C Reactive Protein 159.8 mg/L (<10.0)
[2021-02-26] MEDS: SODIUM CHLORIDE 0.9% 1,000 ML IV SCH ×2 (07:09→21:01)
[2021-02-26] MEDS ORDERED: ENOXAPARIN 40 MG/0.4 ML SYRINGE SQ SCH (09:00)
[2021-02-26 10:23] LABS: Albumin 3.3 g/dL (3.5-5.0); Calcium 8.1 mg/dL (8.4-10.2); Potassium 3.7 mmol/L (3.5-5.1); Total Bilirubin 0.7 mg/dL (0.2-1.3); Total Protein 6.3 g/dL (6.3-8.2)
[2021-02-26] MEDS ORDERED: NITROGLYCERIN SL TABS 0.4 MG TAB SUBLINGUAL PRN (11:45)
--- NOTE | 2021-02-26 11:53 | P.HPIM ---
History of Present Illness H&P Date: 02/26/21 Chief Complaint: BOGDAN HISTORY OF PRESENT ILLNESS This is a 75-year-old female patient of Dr. Gagnon and Dr. KENIA Pereira with past medical history of COPD, diabetes mellitus type 2, hypertension and hypertensive cardiovascular disease, hyperlipidemia, coronary artery disease with prior IA in 2013 with PCI to the RCA, gastroesophageal reflux disease, hiatal hernia, left breast cancer status post lumpectomy, bipolar disorder, remote history of tobacco use. Echocardiogram in May 2020 revealed EF of 55- 60%, mild concentric left ventricular hypertrophy, trace mitral regurgitation, mild tricuspid regurgitation. She had a heart catheterization in May [address] Pereira which revealed widely patent RCA. LAD with minor irregularities. Tootie gonal is 40-50% ostial disease as it comes off the LAD. Circumflex with no significant disease. Recommendations at that time was for medical management. Patient has history of feeling sick for about 3 weeks with shortness of breath and cough. She does not have home oxygen. She apparently was brought into the emergency center due to altered mental status. She was found to be febrile with a temperature 101.4, heart rate 84, blood pressure 130/73 and pulse ox 88%. CBC was unremarkable. INR 0.9. Lactic acid 2.0. Blood sugar 119. Sodium 127, potassium 3.9, chloride 89, CO2 28, BUN 14 and creatinine 0.82. Magnesium 2.4. Total bilirubin 0.8, AST 92, ALT 37. C-reactive protein 970. ProBNP 752. Coronavirus PCR detected. EKG was a sinus rhythm with no acute changes with heart rate of 73. Chest x-ray revealed moderate pulmonary interstitial pneumonia new compared to old exam. No suspected heart failure. No definite pleural effusion. Patient is status post 1/2 L of IV fluid and admitted to the cardiac stepdown unit, pulmonary medicine and infectious disease consult in place REVIEW OF SYSTEMS Constitutional: No fever, no chills, no night sweats. No weight change. Reports weakness, Reports fatigue Reports lethargy. Reports daytime sleepiness. EENT: No headache. No blurred vision or double vision, no loss of vision. No loss of Hearing, no ringing in the ears, no dizziness. No nasal drainage or congestion. No epistaxis. No sore throat. Lungs: Reports shortness of breath, Reports cough, no sputum production. No wheezing. Cardiovascular: No chest pain, no lower extremity edema. No palpitations. No paroxysmal nocturnal dyspnea. No orthopnea. No lightheadedness or dizziness. No syncopal episodes. Abdominal: No abdominal pain. No nausea, vomiting. No diarrhea. No constipation. No bloody or tarry stools. . No loss of appetite. Genitourinary: No dysuria, increased frequency, urgency. No urinary retention. Musculoskeletal: No myalgias. Reports muscle weakness, Reports gait dysfunction, no frequent falls. No back pain. No neck pain. Integumentary: No wounds, no lesions. No rash or pruritus. Neurologic: No aphasia. No facial droop. No change in mentation. No head injury. No headache. No paralysis. No paresthesia. Psychiatric: No depression. No anxiety. Endocrine: No abnormal blood sugars. N SOCIAL HISTORY Patient was smoker three-quarter pack per day starting at age 17 and quit in 2 014. No alcohol use, no illicit drug use. Patient's son lives with her. She is normally very independent. FAMILY HISTORY Father had history of non-conscience lymphoma. Mother had history of bipolar disorder, Alzheimer's dementia. Patient has a sister with bipolar disorder. PHYSICAL EXAMINATION Gen: This is a 75-year-old female. She is resting in bed and appears comfortable at rest. HEENT: Head is atraumatic, normocephalic. Pupils equal, round. Sclerae is anicteric. NECK: Supple. No JVD. No lymphadenopathy. No thyromegaly. LUNGS: Diminished bilaterally. No intercostal retractions. HEART: Regular rate and rhythm. Systolic murmur. manager monitoring is sinus rhythm. ABDOMEN: Soft. Bowel sounds are present. No masses. No tenderness. EXTREMITIES: No pedal edema. No calf tenderness. Dorsalis pedis +2 bilaterally. NEUROLOGICAL: Patient is awake, alert and oriented x3. Cranial nerves 2 through 12 are grossly intact. ASSESSMENT AND PLAN 1. Metabolic encephalopathy secondary to sepsis and COVID19 pneumonia, hyponatremia. 2. Acute hypoxic respiratory failure secondary to combination of COPD exacerbation, Covid 19 pneumonia. Patient is currently on oxygen nonrebreather. Consult with pulmonary medicine and infectious disease. Patient started on Symbicort twice daily, albuterol inhaler 4 times daily as needed, Lovenox 40 mg subcu daily, Solu-Medrol 60 mg IV every 6 hours, zinc, vitamin C, vitamin D. 3. Diabetes mellitus type 2. Hold metformin. Patient started on NovoLog scale before meals and at bedtime. 4. Hyponatremia, improved. Patient is status post IV fluids, continue to monitor. Hold Lasix 40 mg daily. 5. Mild elevation in liver function tests, monitor. 6. Elevated inflammatory markers secondary to Covid. 7. Hypertension, hypertensive cardiovascular disease. Continue Coreg 3.125 mg twice daily. Hold lisinopril 2.5 mg daily and hold Aldactone 12.5 mg daily. 8. Hyperlipidemia. Continue atorvastatin 40 mg at bedtime. 9. Coronary artery disease. Continue Nitrostat, atorvastatin, Coreg. 10. Gastroesophageal reflux disease, GI prophylaxis. Continue Prevacid. 11. History of left breast cancer status post lumpectomy. Continue Femara 2.5 mg daily. 12. Bipolar disorder. Continue Cymbalta 60 mg daily, Neurontin 300 mg twice daily, Zyprexa 2.5 mg at bedtime, clonazepam 1 mg twice daily as needed. 13. DVT prophylaxis. Lovenox. Patient will be admitted to the hospital for a minimum of 2 night stay. DISCHARGE PLAN To be determined. PT and OT consults. Impression and plan of care have been directed as dictated by the signing physician. Teresa Rios nurse practitioner acting as scribe for signing physician. Past Medical History Past Medical History: Asthma, Cancer, COPD, Diabetes Mellitus, GERD/Reflux, Hyperlipidemia, Hypertension, Myocardial Infarction ([place]), Osteoarthritis (OA) Additional Past Medical History / Comment(s): BREAST CANCER, recent increase of shortness of breath Last Myocardial Infarction Date:: 10-04-14 History of Any Multi-Drug Resistant Organisms: None Reported Past Surgical History: Breast Surgery, Cholecystectomy, Heart Catheterization With Stent, Orthopedic Surgery, Tonsillectomy Additional Past Surgical History / Comment(s): Ganglion Cyst; COLONOSCOPY AND EGD, LEFT BREAST LUMPECTOMY ,skin CA removal right arm/left shoulder 2018 Past Anesthesia/Blood Transfusion Reactions: No Reported Reaction Date of Last Stent Placement:: 10/04/14 Past Psychological History: Bipolar Smoking Status: Former smoker Past Alcohol Use History: None Reported Additional Past Alcohol Use History / Comment(s): quit smoked 3/4 ppd STARTED SMOKING AT AGE 17 Past Drug Use History: None Reported - Past Family History Father Family Medical History: Cancer Additional Family Medical History / Comment(s): non hodgkins lymphoma Sister(s) Family Medical History: Cancer Additional Family Medical History / Comment(s): bipolar Mother Family Medical History: No Reported History Additional Family Medical History / Comment(s): alzheimers, bipolar, dementia Medications and Allergies Home Medications Medication Instructions Recorded Confirmed Type DULoxetine HCL [Cymbalta] 60 mg PO DAILY 10/04/14 02/26/21 History Gabapentin [Neurontin] 300 mg PO BID 10/04/14 02/26/21 History Ipratropium/Albuterol Sulfate 1 puff INHALATION RT-QID 10/04/14 02/26/21 History [Combivent Respimat Inhaler] Furosemide [Lasix] 40 mg PO DAILY 10/31/15 02/26/21 History Lansoprazole [Prevacid] 30 mg PO DAILY 10/31/15 02/26/21 History Latanoprost Ophth [Xalatan 0.005%] 1 drops BOTH EYES HS 10/31/15 02/26/21 Histo ry Spironolactone [Aldactone] 12.5 mg PO DAILY 10/31/15 02/26/21 History carvediloL [Coreg] 3.125 mg PO BID 10/31/15 02/26/21 History lisinopriL [Zestril] 2.5 mg PO DAILY 10/31/15 02/26/21 History metFORMIN HCL [Glucophage] 500 mg PO DAILY 10/31/15 02/26/21 History Atorvastatin Calcium [Lipitor] 40 mg PO HS 04/03/17 02/26/21 History clonazePAM [KlonoPIN] 1 mg PO BID PRN 04/03/17 02/26/21 History Letrozole [Femara] 2.5 mg PO DAILY 09/15/18 02/26/21 History Montelukast Sodium [Singulair] 10 mg PO HS 08/28/19 02/26/21 History Nitroglycerin Sl Tabs [Nitrostat] 0.4 mg SUBLINGUAL Q5M PRN 08/28/19 02/26/21 History Fluticasone Propionate 110 Mcg 1 puff INHALATION RT-QID 06/08/20 02/26/21 History [Flovent 110 Mcg Inhaler (Mhu)] OLANZapine [ZyPREXA] 2.5 mg PO HS 02/26/21 02/26/21 History Ofloxacin 0.3% Otic Soln [Floxin 1 drop OPHTHALMIC QID 02/26/21 02/26/21 History 0.3% Otic Soln] prednisoLONE ACETATE 1% OPHTH 1 drop OPHTHALMIC QID 02/26/21 02/26/21 History [Pred Forte 1%] traZODone HCL 150 mg PO HS 02/26/21 02/26/21 History Allergies Allergy/AdvReac Type Severity Reaction Status Date / Time bupropion HCl Allergy Rash/Hives Verified 02/26/21 09:47 [From Wellbutrin] erythromycin base Allergy SWELLING Verified 02/26/21 09:47 [Erythromycin Base] OF TONGUE Penicillins Allergy SWELLING Verified 02/26/21 09:47 OF TONGUE sertraline HCl [From Zoloft] Allergy Diarrhea Verified 02/26/21 09:47 Physical Exam Vitals: Vital Signs Temp Pulse Pulse Resp BP BP Pulse Ox 02/26/21 04:00 98.4 F 71 16 125/79 96 02/26/21 02:00 18 02/26/21 01:45 98.4 F 77 18 134/79 92 L 02/26/21 00:44 98.4 F 82 18 110/67 92 L 02/25/21 23:39 89 20 112/60 88 L 02/25/21 23:11 101.4 F H 02/25/21 22:43 84 16 130/73 92 L Intake and Output 02/25/21 02/26/21 02/26/21 22:59 06:59 14:59 Output Total 0 Balance 0 Output: Urine 0 Other: Voiding Method Bedpan Weight 83.915 kg 84.2 kg Results CBC & Chem 7: 02/25/21 23:10 02/26/21 09:35 Labs: Abnormal Lab Results - Last 24 Hours (Table) 02/25/21 02/25/21 02/25/21 Range/Units 23:05 23:10 23:36 Sodium 127 L (137-145) mmol/L Chloride 89 L (98-107) mmol/L Glucose 107 H (74-99) mg/dL POC Glucose (mg/dL) 119 H (75-99) mg/dL AST 92 H (14-36) U/L ALT 37 H (4-34) U/L Lactate Dehydrogenase 970 H (313-618) U/L C-Reactive Protein 159.8 H (<10.0) mg/L Coronavirus (PCR) Detected A (Not Detectd) Thrombosis Risk Factor Assmnt - Choose All That Apply Each Factor Represents 1 point: Medical pt on bed rest, Obesity (BMI >25) Each Risk Factor Represents 2 Points: Age 61-74 years Thrombosis Risk Factor Assessment Total Risk Factor Score: 4 Thrombosis Risk Factor Assessment Level: Moderate Risk
[2021-02-26 11:58] LABS: Glucose,Whole Blood 128 mg/dL (75-99)
[2021-02-26] MEDS: ALBUTEROL HFA INHALER INHALATION PRN ×3 (12:24→21:06)
[2021-02-26] MEDS: OFLOXACIN 0.3% OPHTH DROPS 5 ML BOTTLE BOTH EYES SCH ×3 (12:58→22:59)
[2021-02-26] MEDS: methylPREDNISolone SOD SUCCI 125 MG/2 ML VIAL IV SCH ×2 (12:59→19:59)
[2021-02-26] MEDS: DULoxetine HCL 60 MG CAPSULE.DR PO SCH (13:01)
[2021-02-26] MEDS: INSULIN ASPART (NovoLOG) 100 UNIT/ML VIAL SQ SCH ×3 (13:01→22:58)
[2021-02-26] MEDS: carvediloL 3.125 MG TAB PO SCH ×2 (13:01→22:16)
[2021-02-26] MEDS: ASCORBIC ACID 500 MG TAB PO SCH (13:01)
[2021-02-26] MEDS: clonazePAM 1 MG TAB PO PRN (13:06)
[2021-02-26] MEDS ORDERED: IPRATROPIUM 0.5 MG/2.5 ML NEBU INHALATION PRN (13:49)
[2021-02-26 16:52] LABS: Glucose,Whole Blood 170 mg/dL (75-99)
--- NOTE | 2021-02-26 17:00 | P.CNPUL ---
History of Present Illness Consult date: 02/26/21 Requesting physician: Lázaro Gagnon Reason for consult: pneumonia Chief complaint: Cough and shortness of breath History of present illness: This is a 75-year-old female with history of multiple medical problems including COPD, type 2 diabetes, hypertension, coronary artery disease and previous LA in 2013, previous stenting to RCA, history of left breast cancer and previous lumpectomy, bipolar disorder, patient presented to the ER with 3 weeks history of not feeling well. Patient stated that she felt sick for the last 3 weeks, complaining of generalized weakness, cough, cough is nonproductive, and shortness of breath. Patient was also having intermittent episodes of mental status change and confusion, in the ER she was noted to be febrile with a temp of 101.4, chest x-ray showed bilateral interstitial infiltrates, her sodium was noted to be a bit low at 127, her C-reactive protein was high, LDH was high, and her treating for granados virus/PCR was positive patient was admitted, placed on 15 L high flow via a nonrebreather mask, and I was asked to see her on consultation. Patient was seen on the regular medical floor, and she was noted to have extremely low saturations in the high 70s and low 80s hence I recommended placing the patient on BiPAP. Patient is out of the window for remdesivir, however considering her O2 requirement, we will likely recommend starting the patient on actemra, and on the coated 19 cocktail. If the patient does not improve with BiPAP, May have to seriously consider transfer the patient to the ICU. Review of Systems Constitutional: Weakness fatigue malaise and fever. EENT: Negative. Lungs: Shortness of breath and nonproductive cough. Cardiovascular: Negative. Abdominal: Negative. Except she had occasional diarrhea. Genitourinary: Negative. Musculoskeletal: Generalized aches and pains and weakness. Integumentary: Negative. Neurologic: Negative except for intermittent confusions on presentation. Psychiatric: Negative. Endocrine: Negative. Past Medical History Past Medical History: Asthma, Cancer, COPD, Diabetes Mellitus, GERD/Reflux, Hyperlipidemia, Hypertension, Myocardial Infarction (LA), Osteoarthritis (OA) Additional Past Medical History / Comment(s): BREAST CANCER, recent increase of shortness of breath Last Myocardial Infarction Date:: 10-04-14 History of Any Multi-Drug Resistant Organisms: None Reported Past Surgical History: Breast Surgery, Cholecystectomy, Heart Catheterization With Stent, Orthopedic Surgery, Tonsillectomy Additional Past Surgical History / Comment(s): Ganglion Cyst; COLONOSCOPY AND EGD, LEFT BREAST LUMPECTOMY ,skin CA removal right arm/left shoulder 2018 Past Anesthesia/Blood Transfusion Reactions: No Reported Reaction Date of Last Stent Placement:: 10/04/14 Past Psychological History: Bipolar Smoking Status: Former smoker Past Alcohol Use History: None Reported Additional Past Alcohol Use History / Comment(s): quit smoked 3/4 ppd STARTED SMOKING AT AGE 17 Past Drug Use History: None Reported - Past Family History Father Family Medical History: Cancer Additional Family Medical History / Comment(s): non hodgkins lymphoma Sister(s) Family Medical History: Cancer Additional Family Medical History / Comment(s): bipolar Mother Family Medical History: No Reported History Additional Family Medical History / Comment(s): alzheimers, bipolar, dementia Medications and Allergies Home Medications Medication Instructions Recorded Confirmed Type DULoxetine HCL [Cymbalta] 60 mg PO DAILY 10/04/14 02/26/21 History Gabapentin [Neurontin] 300 mg PO BID 10/04/14 02/26/21 History Ipratropium/Albuterol Sulfate 1 puff INHALATION RT-QID 10/04/14 02/26/21 History [Combivent Respimat Inhaler] Furosemide [Lasix] 40 mg PO DAILY 10/31/15 02/26/21 History Lansoprazole [Prevacid] 30 mg PO DAILY 10/31/15 02/26/21 History Latanoprost Ophth [Xalatan 0.005%] 1 drops BOTH EYES HS 10/31/15 02/26/21 History Spironolactone [Aldactone] 12.5 mg PO DAILY 10/31/15 02/26/21 History carvediloL [Coreg] 3.125 mg PO BID 10/31/15 02/26/21 History lisinopriL [Zestril] 2.5 mg PO DAILY 10/31/15 02/26/21 History metFORMIN HCL [Glucophage] 500 mg PO DAILY 10/31/15 02/26/21 History Atorvastatin Calcium [Lipitor] 40 mg PO HS 04/03/17 02/26/21 History clonazePAM [KlonoPIN] 1 mg PO BID PRN 04/03/17 02/26/21 History Letrozole [Femara] 2.5 mg PO DAILY 09/15/18 02/26/21 History Montelukast Sodium [Singulair] 10 mg PO HS 08/28/19 02/26/21 History Nitroglycerin Sl Tabs [Nitrostat] 0.4 mg SUBLINGUAL Q5M PRN 08/28/19 02/26/21 History Fluticasone Propionate 110 Mcg 1 puff INHALATION RT-QID 06/08/20 02/26/21 History [Flovent 110 Mcg Inhaler (Mhu)] OLANZapine [ZyPREXA] 2.5 mg PO HS 02/26/21 02/26/21 History Ofloxacin 0.3% Otic Soln [Floxin 1 drop OPHTHALMIC QID 02/26/21 02/26/21 History 0.3% Otic Soln] prednisoLONE ACETATE 1% OPHTH 1 drop OPHTHALMIC QID 02/26/21 02/26/21 History [Pred Forte 1%] traZODone HCL 150 mg PO HS 02/26/21 02/26/21 History Allergies Allergy/AdvReac Type Severity Reaction Status Date / Time bupropion HCl Allergy Rash/Hives Verified 02/26/21 09:47 [From Wellbutrin] erythromycin base Allergy SWELLING Verified 02/26/21 09:47 [Erythromycin Base] OF TONGUE Penicillins Allergy SWELLING Verified 02/26/21 09:47 OF TONGUE sertraline HCl [From Zoloft] Allergy Diarrhea Verified 02/26/21 09:47 Physical Exam Vitals: Vital Signs Temp Pulse Pulse Resp BP BP Pulse Ox 02/26/21 12:00 73 20 147/68 86 L 02/26/21 08:00 97.7 F 83 20 155/69 87 L 02/26/21 04:00 98.4 F 71 16 125/79 96 02/26/21 02:00 18 02/26/21 01:45 98.4 F 77 18 134/79 92 L 02/26/21 00:44 98.4 F 82 18 110/67 92 L 02/25/21 23:39 89 20 112/60 88 L 02/25/21 23:11 101.4 F H 02/25/21 22:43 84 16 130/73 92 L Intake and Output 02/26/21 02/26/21 02/26/21 06:59 14:59 22:59 Intake Total 240 Output Total 0 Balance 0 240 Intake: Oral 240 Output: Urine 0 Other: Voiding Method Bedpan # Voids 1 Weight 84.2 kg Gen: Revealed 74-year-old female on a nonrebreather mask, unable to finish one sentence without significant shortness of breath. Head: Atraumatic, normocephalic. HEENT: PERRLA, EOMI, nonicteric. Moist mucous membranes. NECK: No neck masses no JVD no stridor. LUNGS: Symmetrical chest expansion crackles at the bases bilaterally. HEART: Normal S1 and S2, no S3 gallop, no murmur. ABDOMEN: Soft nontender no megaly no rebound no guarding. EXTREMITIES: No clubbing edema or cyanosis. NEUROLOGICAL: Alert and oriented 3 focal neurologic deficits. Psychiatric: Normal mood, blunt affect, normal mental status examination. Skin: No rashes. Results - Laboratory Findings CBC and BMP: 02/25/21 23:10 02/26/21 09:35 PT/INR, D-dimer PT 10.1 sec (9.0-12.0) 02/25/21 23:10 INR 0.9 (<1.2) 02/25/21 23:10 D-Dimer 0.92 mg/L FEU (<0.60) H 02/26/21 15:38 Abnormal lab findings: Abnormal Labs 02/25/21 02/25/21 02/25/21 23:05 23:10 23:36 D-Dimer Sodium 127 L Chloride 89 L Glucose 107 H POC Glucose (mg/dL) 119 H Calcium AST 92 H ALT 37 H Lactate Dehydrogenase 970 H C-Reactive Protein 159.8 H Albumin Coronavirus (PCR) Detected A 02/26/21 02/26/21 02/26/21 09:35 11:56 15:38 D-Dimer 0.92 H Sodium 131 L Chloride 95 L Glucose 127 H POC Glucose (mg/dL) 128 H Calcium 8.1 L AST 101 H ALT 38 H Lactate Dehydrogenase C-Reactive Protein Albumin 3.3 L Coronavirus (PCR) - Diagnostic Findings Chest x-ray: image reviewed (As noted in HPI.) Assessment and Plan Assessment: Impression: Acute hypoxic respiratory failure secondary to acute covid 19 pneumonitis. History of underlying COPD, presently inactive. Hypovolemic hyponatremia with hydration. Elevated liver enzymes secondary to Covid 19 infection. Benign essential hypertension. History of underlying coronary artery disease. History of breast cancer and previous lumpectomy History of GERD. History of bipolar disorder. Recommendation: Placed patient on BiPAP. Continue bronchodilators. Covid 19 cocktail however the patient is out of the window for remdesivir, not to mention that the patient's O2 requirement is high and does not qualify for this. Start the patient on actimra Continue the Coreg 19 cocktail. Continue GI and DVT prophylaxis, patient is on Lovenox. Prognosis is extremely poor and guarded. Her chest x-ray and her FiO2 requirement is quite concerning to me, may even consider transferring the patient to the ICU if her oxygenation does not improve with BiPAP. We'll continue to follow. Time with Patient: Greater than 30
[2021-02-26] MEDS ORDERED: HEPARIN SODIUM,PORCINE 5,000 UNIT/ML 1 ML VIAL IV PRN (17:46)
[2021-02-26] MEDS ORDERED: HEPARIN SODIUM,PORCINE 5,000 UNIT/ML 1 ML VIAL IV ONE (17:46)
[2021-02-26] MEDS ORDERED: DILTIAZEM DRIP BOLUS FROM BAG 1 MG SOLN IV ONE (17:58)
[2021-02-26] MEDS ORDERED: HEPARIN SOD,PORK IN 0.45% NACL 25,000 UNIT in 0.45% NACL 1 250ML.BAG IV SCH (18:00)
[2021-02-26] MEDS: DILTIAZEM 125 MG in SODIUM CHLORIDE 0.9% 100 ML IV SCH (18:54)
[2021-02-26 19:00] LABS: Basophils % (A) 0 %; Eosinophils % (A) 0 %; HCT 41.2 % (34.0-46.0); HGB 14.7 gm/dL (11.4-16.0); Lymphocytes # (A) 0.5 k/uL (1.0-4.8); Lymphocytes % (A) 6 %; MCH 33.5 pg (25.0-35.0); MCHC 35.6 g/dL (31.0-37.0); MCV 94.1 fL (80.0-100.0); Mean Platelet Volume 9.5; Monocytes # (A) 0.2 k/uL (0-1.0); Monocytes % (A) 2 %; Neutrophils # (A) 8.5 k/uL (1.3-7.7); Neutrophils % (A) 92 %; Platelet Count 190 k/uL (150-450); RBC 4.38 m/uL (3.80-5.40); RDW 14.1 % (11.5-15.5); WBC 9.2 k/uL (3.8-10.6)
[2021-02-26 19:11] LABS: INR 0.9 (<1.2); Prothrombin Time 10.2 sec (9.0-12.0)
[2021-02-26] MEDS ORDERED: FUROSEMIDE 10 MG/ML 4 ML VIAL IV STA (19:44)
[2021-02-26] MEDS: TOCILIZUMAB 400 MG in SODIUM CHLORIDE 0.9% 80 ML IV SCH (20:04)
[2021-02-26 20:35] LABS: Glucose,Whole Blood 159 mg/dL (75-99)
[2021-02-26] MEDS ORDERED: DEXTROSE 5% IN WATER 100 ML with AMIODARONE 150 MG IV ONE (20:58)
[2021-02-26] MEDS ORDERED: AMIODARONE 360 MG in DEXTROSE 5% IN WATER 200 ML IV ONE ×2 (20:58)
[2021-02-26] MEDS: prednisoLONE ACETATE 1% OPHTH DROPS 5 ML BTL BOTH EYES SCH ×2 (21:01→22:59)
[2021-02-26] MEDS: SYMBICORT 160-4.5 MCG INHALER INHALATION SCH (21:06)
[2021-02-26 21:30] LABS: Allen Test Performed? Yes
[2021-02-26 21:32] LABS: ABG PCO2 35 mmHg (35-45); ABG PH 7.51 (7.35-7.45)
[2021-02-26 21:33] LABS: ABG Base Excess 4.7 mmol/L; ABG HCO3 28 mmol/L (21-25); ABG PO2 45 mmHg (83-108); ABG TCO2 29 mmol/L (19-24)
[2021-02-26] MEDS: traZODone HCL 50 MG TAB PO SCH (22:16)
[2021-02-26] MEDS: MONTELUKAST 10 MG TAB PO SCH (22:16)
[2021-02-26] MEDS: OLANZapine 2.5 MG TAB PO SCH (22:16)
[2021-02-26] MEDS: ATORVASTATIN 40 MG TAB PO SCH (22:16)
[2021-02-26] MEDS: GABAPENTIN 300 MG CAP PO SCH (22:16)
[2021-02-26] MEDS: MELATONIN 5 MG TABLET PO SCH (22:58)
[2021-02-26] MEDS: LATANOPROST 0.005% OPHTH DROPS 2.5 ML BTL BOTH EYES SCH (22:59)
[2021-02-27] MEDS: methylPREDNISolone SOD SUCCI 125 MG/2 ML VIAL IV SCH ×4 (01:17→19:06)
[2021-02-27] MEDS: SODIUM CHLORIDE 0.9% 1,000 ML IV SCH ×2 (02:18→19:08)
[2021-02-27] MEDS: DILTIAZEM 125 MG in SODIUM CHLORIDE 0.9% 100 ML IV SCH ×3 (04:00→18:59)
[2021-02-27 04:56] LABS: Basophils % (A) 0 %; Eosinophils % (A) 0 %; HCT 43.4 % (34.0-46.0); HGB 14.3 gm/dL (11.4-16.0); Lymphocytes # (A) 0.8 k/uL (1.0-4.8); Lymphocytes % (A) 14 %; MCH 31.4 pg (25.0-35.0); MCV 95.4 fL (80.0-100.0); Mean Platelet Volume 9.3; Monocytes # (A) 0.1 k/uL (0-1.0); Monocytes % (A) 2 %; Neutrophils # (A) 4.9 k/uL (1.3-7.7); Neutrophils % (A) 82 %; Platelet Count 202 k/uL (150-450); RBC 4.55 m/uL (3.80-5.40); RDW 14.7 % (11.5-15.5)
[2021-02-27 05:07] LABS: D-Dimer 1.11 mg/L FEU (<0.60)
[2021-02-27] MEDS: TOCILIZUMAB 400 MG in SODIUM CHLORIDE 0.9% 80 ML IV SCH (05:18)
[2021-02-27] MEDS: AMIODARONE 450 MG in DEXTROSE 5% IN WATER 250 ML IV SCH ×4 (05:18→18:50)
[2021-02-27 05:47] LABS: ALT 35 U/L (4-34); AST 95 U/L (14-36); African American GFR (CKD) >90 (>60 ml/min/1.73 sqM); Albumin 3.2 g/dL (3.5-5.0); Alkaline Phosphatase 83 U/L (38-126); Anion Gap 13 mmol/L; Blood Urea Nitrogen 16 mg/dL (7-17); Calcium 8.1 mg/dL (8.4-10.2); Carbon Dioxide 22 mmol/L (22-30); Chloride 94 mmol/L (98-107); Glucose 222 mg/dL (74-99); LDH 1426 U/L (313-618); Non-African American GFR(CKD) 88 (>60 ml/min/1.73 sqM); Potassium 3.9 mmol/L (3.5-5.1); Sodium 129 mmol/L (137-145); Total Bilirubin 0.7 mg/dL (0.2-1.3); Total Protein 6.3 g/dL (6.3-8.2)
[2021-02-27 06:02] LABS: C Reactive Protein 201.5 mg/L (<10.0)
[2021-02-27] MEDS: PANTOPRAZOLE 40 MG/10 ML VIAL IVP SCH (06:40)
[2021-02-27] MEDS: INSULIN ASPART (NovoLOG) 100 UNIT/ML VIAL SQ SCH ×3 (06:40→19:07)
--- NOTE | 2021-02-27 06:50 | CONS ---
CONSULTATION DATE OF SERVICE: 02/26/2021 REASON FOR CONSULTATION: COVID-19 pneumonia. HISTORY OF PRESENT ILLNESS: The patient is a 75-year-old female with multiple comorbidities including COPD, diabetes, hypertensive heart disease, arthritis, coronary artery disease in this patient who presented to the ER for evaluation of mental status changes in this patient whose symptoms have been going on for a day or two before presentation to the hospital. The patient denies having any headache or URI symptoms except some sore throat. The patient has been complaining of shortness of breath on minimal exertion. Also has a cough with moderate intensity with occasional sputum. The patient did mention it is hard to take a deep breath and did have some lower ribcage pain, chest pain. The patient did have nausea but no vomiting. No abdominal pain. She did have diarrhea. With these symptoms, the patient has been evaluated by the ER physician. On arrival to the ER, the patient did have fever of 101.4 degrees Fahrenheit. The patient was tachycardic and also hypoxic requiring a BiPAP. The patient did have a normal white count with lymphopenia. D-dimer was 0.92, creatinine was normal. Liver enzymes are elevated. CRP was 159. Procalcitonin mildly elevated. Charles PCR came back positive. The patient did have a chest x-ray with evidence of moderate pulmonary interstitial pneumonia on new compared to old exam. The patient was initially admitted to the floor. Subsequently transferred to the ICU. Infectious Disease was consulted for further management. REVIEW OF SYSTEMS: Positive points have been mentioned in HPI. Rest of systems are negative. PAST MEDICAL HISTORY: COPD, asthma, diabetes mellitus, gastroesophageal reflux disease, hyperlipidemia, hypertension, MD, osteoarthritis, breast cancer. PAST SURGICAL HISTORY: Cholecystectomy, PTCA with stent, tonsillectomy, colonoscopy, EGD. SOCIAL HISTORY: Remote history of smoking. No drinking or drug use. FAMILY HISTORY: Father with history of non-Hodgkin's lymphoma. Sister with history of bipolar. Mother with history of dementia. ALLERGIES: , ERYTHROMYCIN, PENICILLIN, . MEDICATIONS: The patient is currently on Tylenol, amiodarone, vitamin C, Lipitor, Coreg, Klonopin, Cymbalta, Neurontin, heparin per weight based protocol, NovoLog, Claritin, Solu-Medrol, Narcan, Zyprexa, Desyrel, mag sulfate. PHYSICAL EXAMINATION: VITAL SIGNS: Blood pressure 142/82 with a pulse of 173, temperature 98.6, T-max 101, she is 82% on BiPAP. GENERAL DESCRIPTION: Patient is an elderly female lying in bed in mild respiratory distress. HEENT: No pallor or scleral icterus. Oral mucous membrane is dry. NECK: Trachea central, no thyromegaly. LUNGS: Unlabored breathing, coarse breath sounds bilaterally. No wheeze. HEART: S1-S2, tachycardic. ABDOMEN: Soft, no tenderness. No guarding or rigidity. EXTREMITIES: No edema of the feet. SKIN: No rash or mass palpable. NEUROLOGICAL: Patient is awake, alert, oriented times two. Mood and affect normal. LABS: Hemoglobin is 14., white count 9.2. D-dimer was 0.92. BUN of 15, creatinine 0.78. Liver enzymes are elevated. Procalcitonin 0.15. Charles PCR is positive. DIAGNOSTIC IMPRESSION: Patient admitted to the hospital with acute respiratory failure secondary to acute COVID-19 pneumonia. No evidence of secondary bacterial pneumonia. Patient is in acute respiratory distress requiring high-flow oxygen and concern for possible . PLAN: 1. The patient was started on Actemra and to continue along with Solu-Medrol, heparin, zinc and ascorbic acid. 2. No need for systemic antibiotic therapy. 3. Droplet isolation and respiratory support. 4. We will follow on clinical condition and further adjust medication if needed. Thank you for this consultation. Will follow this patient along with you. MMODL / IJN: [id number] /
[2021-02-27] MEDS: SYMBICORT 160-4.5 MCG INHALER INHALATION SCH ×2 (07:18→20:25)
[2021-02-27] MEDS: ALBUTEROL HFA INHALER INHALATION PRN ×4 (07:18→20:26)
[2021-02-27] MEDS ORDERED: PANTOPRAZOLE 40 MG TABLET PO SCH (07:30)
--- NOTE | 2021-02-27 08:52 | XR ---
EXAMINATION TYPE: XR chest 1V portable DATE OF EXAM: 02/27/2021 Comparison: 02/25/2021 Clinical History: 75-year-old female COVID PNA Findings: Heart upper limits of normal in size. Diffuse interstitial density persists. Confluent airspace opaci ty throughout the right lung and periphery of the left mid and lower lung, slightly increased from pr ior exam. Impression: Slight worsening in bilateral airspace disease, right greater than left.
[2021-02-27] MEDS ORDERED: FUROSEMIDE 10 MG/ML 2 ML VIAL IV ONE (10:00)
[2021-02-27] MEDS: ZINC SULFATE 220 MG CAP PO SCH (10:15)
[2021-02-27] MEDS: ASCORBIC ACID 500 MG TAB PO SCH (10:15)
[2021-02-27] MEDS: CHOLECALCIFEROL 25 MCG (1000 IU) TABLET PO SCH (10:15)
[2021-02-27] MEDS: GABAPENTIN 300 MG CAP PO SCH ×2 (10:15→22:10)
[2021-02-27] MEDS: LETROZOLE 2.5 MG TAB PO SCH (10:16)
[2021-02-27] MEDS: DULoxetine HCL 60 MG CAPSULE.DR PO SCH (10:16)
[2021-02-27] MEDS: carvediloL 3.125 MG TAB PO SCH ×2 (10:17→22:10)
[2021-02-27] MEDS: clonazePAM 1 MG TAB PO PRN ×2 (10:21→22:12)
--- NOTE | 2021-02-27 10:47 | P.CRDCN ---
History of Present Illness Consult date: 02/27/21 History of present illness: CHIEF COMPLAINT: A. hipolito with RVR HISTORY OF PRESENT ILLNESS: This is a 75 year old female with a past medical history significant for COPD, hypertension, hyperlipidemia, diabetes mellitus, and coronary artery disease with previous PCI to the RCA in 2013. Patient follows in the office with Dr. Pereira. We have been asked to see the patient in consultation for Flavio. hipolito with RVR. The patient is currently admitted to the hospital with Covid. She is in the intensive care unit. She is on a BiPAP with oxygen saturations greater than 88%. Patient was started on IV amiodarone, IV Cardizem, and IV heparin. This morning the patient has converted to sinus mechanism on telemetry. DIAGNOSTICS: EKG reveals sinus mechanism without signs of acute ischemia Chest xray slight worsening bilateral airspace disease, right greater than left Laboratory data: WBC 6.0. Hemoglobin 14.3. Platelet count 202. D-dimer 1.11. Sodium 129. Potassium 3.9. BUN 16. Creatinine 0.66. BNP 752. Current home cardiac medications include lisinopril 2.5 mg daily, Coreg 3.125 mg twice a day, spironolactone 12.5 mg daily, Lasix 40 mg daily, and Lipitor 40 mg daily Echocardiogram completed in May 2020 reveal ejection fraction 55-60%, trace mitral regurgitation, and mild tricuspid regurgitation Patient underwent cardiac catheterization in May 2020 revealing a right dominant system. Widely patent RCA that was stented in 2013. LAD has minor irregularities. Diagonal has a 40-50% ostial disease as it comes off the LAD. Circumflex has no significant disease. REVIEW OF SYSTEMS: Thorough review of systems not completed secondary to limited evaluation/examination and due to Covid19 PHYSICAL EXAM: Thorough physical exam not completed secondary to limited evaluation/examination and due to Covid19 ASSESSMENT: Acute Covid 19 Acute hypoxic respiratory failure New-onset atrial fibrillation with RVR Coronary artery disease with. His PCI to RCA, 2013 Hypertension Hyperlipidemia COPD Diabetes mellitus PLAN: Obtain 2-D echo to assess cardiac structure and function Discontinue IV Cardizem Continue IV amiodarone per protocol Continue IV heparin Prescription sent to pharmacy for Eliquis. Case management consulted for co-pay coverage Further recommendations pending patient's course Nurse practitioner note has been reviewed by physician. Signing provider agrees with the documented findings, assessment, and plan of care. Past Medical History Past Medical History: Asthma, Cancer, COPD, Diabetes Mellitus, GERD/Reflux, Hyperlipidemia, Hypertension, Myocardial Infarction (VA), Osteoarthritis (OA) Additional Past Medical History / Comment(s): BREAST CANCER, recent increase of shortness of breath Last Myocardial Infarction Date:: 10-04-14 History of Any Multi-Drug Resistant Organisms: None Reported Past Surgical History: Breast Surgery, Cholecystectomy, Heart Catheterization With Stent, Orthopedic Surgery, Tonsillectomy Additional Past Surgical History / Comment(s): Ganglion Cyst; COLONOSCOPY AND E GD, LEFT BREAST LUMPECTOMY ,skin CA removal right arm/left shoulder 2018 Past Anesthesia/Blood Transfusion Reactions: No Reported Reaction Date of Last Stent Placement:: 10/04/14 Past Psychological History: Bipolar Smoking Status: Former smoker Past Alcohol Use History: None Reported Additional Past Alcohol Use History / Comment(s): quit smoked 3/4 ppd STARTED SMOKING AT AGE 17 Past Drug Use History: None Reported - Past Family History Father Family Medical History: Cancer Additional Family Medical History / Comment(s): non hodgkins lymphoma Sister(s) Family Medical History: Cancer Additional Family Medical History / Comment(s): bipolar Mother Family Medical History: No Reported History Additional Family Medical History / Comment(s): alzheimers, bipolar, dementia Medications and Allergies Home Medications Medication Instructions Recorded Confirmed Type DULoxetine HCL [Cymbalta] 60 mg PO DAILY 10/04/14 02/26/21 History Gabapentin [Neurontin] 300 mg PO BID 10/04/14 02/26/21 History Ipratropium/Albuterol Sulfate 1 puff INHALATION RT-QID 10/04/14 02/26/21 History [Combivent Respimat Inhaler] Furosemide [Lasix] 40 mg PO DAILY 10/31/15 02/26/21 History Lansoprazole [Prevacid] 30 mg PO DAILY 10/31/15 02/26/21 History Latanoprost Ophth [Xalatan 0.005%] 1 drops BOTH EYES HS 10/31/15 02/26/21 History Spironolactone [Aldactone] 12.5 mg PO DAILY 10/31/15 02/26/21 History carvediloL [Coreg] 3.125 mg PO BID 10/31/15 02/26/21 History lisinopriL [Zestril] 2.5 mg PO DAILY 10/31/15 02/26/21 History metFORMIN HCL [Glucophage] 500 mg PO DAILY 10/31/15 02/26/21 History Atorvastatin Calcium [Lipitor] 40 mg PO HS 04/03/17 02/26/21 History clonazePAM [KlonoPIN] 1 mg PO BID PRN 04/03/17 02/26/21 History Letrozole [Femara] 2.5 mg PO DAILY 09/15/18 02/26/21 History Montelukast Sodium [Singulair] 10 mg PO HS 08/28/19 02/26/21 History Nitroglycerin Sl Tabs [Nitrostat] 0.4 mg SUBLINGUAL Q5M PRN 08/28/19 02/26/21 History Fluticasone Propionate 110 Mcg 1 puff INHALATION RT-QID 06/08/20 02/26/21 History [Flovent 110 Mcg Inhaler (Mhu)] OLANZapine [ZyPREXA] 2.5 mg PO HS 02/26/21 02/26/21 History Ofloxacin 0.3% Otic Soln [Floxin 1 drop OPHTHALMIC QID 02/26/21 02/26/21 History 0.3% Otic Soln] prednisoLONE ACETATE 1% OPHTH 1 drop OPHTHALMIC QID 02/26/21 02/26/21 History [Pred Forte 1%] traZODone HCL 150 mg PO HS 02/26/21 02/26/21 History Apixaban [Eliquis] 5 mg PO BID #60 tab 02/27/21 Rx Allergies Allergy/AdvReac Type Severity Reaction Status Date / Time bupropion HCl Allergy Rash/Hives Verified 02/26/21 09:47 [From Wellbutrin] erythromycin base Allergy SWELLING Verified 02/26/21 09:47 [Erythromycin Base] OF TONGUE Penicillins Allergy SWELLING Verified 02/26/21 09:47 OF TONGUE sertraline HCl [From Zoloft] Allergy Diarrhea Verified 02/26/21 09:47 Physical Exam Vitals: Vital Signs Temp Pulse Pulse Resp BP BP Pulse Ox 02/27/21 09:00 64 20 111/65 88 L 02/27/21 08:00 97.7 F 64 20 119/62 89 L 02/27/21 07:00 97.0 F L 70 20 95/56 88 L 02/27/21 06:30 59 L 18 99/55 86 L 02/27/21 06:00 61 17 86/50 87 L 02/27/21 05:30 61 17 90/54 86 L 02/27/21 05:00 61 18 87/55 86 L 02/27/21 04:30 62 18 91/55 86 L 02/27/21 04:00 97.3 F L 62 125 H 18 108/68 85 L 02/27/21 03:30 65 18 87/54 87 L 02/27/21 03:00 66 17 83/51 86 L 02/27/21 02:30 67 20 82/47 86 L 02/27/21 02:00 71 22 90/55 88 L 02/27/21 01:30 72 20 99/60 86 L 02/27/21 01:10 75 23 96/59 87 L 02/27/21 01:09 88 L 02/27/21 01:00 78 21 94/65 87 L 02/27/21 00:50 77 28 H 94/65 85 L 02/27/21 00:40 78 24 91/48 86 L 02/27/21 00:30 76 23 85/70 85 L 02/27/21 00:20 80 21 85/70 87 L 02/27/21 00:10 82 23 92/56 88 L 02/27/21 00:00 80 125 H 24 109/64 86 L 02/26/21 23:50 83 26 H 109/64 86 L 02/26/21 23:40 83 23 110/72 85 L 02/26/21 23:30 82 23 124/89 83 L 02/26/21 23:20 147 H 21 124/89 81 L 02/26/21 23:10 113 H 27 H 84/61 83 L 02/26/21 23:00 163 H 28 H 114/61 84 L 02/26/21 22:50 123 H 29 H 114/61 84 L 02/26/21 22:40 128 H 27 H 111/84 83 L 02/26/21 22:30 163 H 29 H 119/75 83 L 02/26/21 22:20 163 H 29 H 119/75 83 L 02/26/21 22:10 161 H 18 105/57 85 L 02/26/21 22:00 163 H 26 H 105/57 85 L 02/26/21 21:50 176 H 29 H 120/77 84 L 02/26/21 21:40 174 H 29 H 105/79 84 L 02/26/21 21:30 174 H 34 H 115/63 84 L 02/26/21 21:20 176 H 25 H 115/63 83 L 02/26/21 21:10 125 H 30 H 107/69 83 L 02/26/21 21:00 140 H 33 H 115/92 83 L 02/26/21 20:50 147 H 36 H 115/92 83 L 02/26/21 20:40 176 H 37 H 106/79 85 L 02/26/21 20:30 100.4 F H 46 H 02/26/21 20:00 173 H 02/26/21 19:45 99.6 F 173 H 36 H 142/82 82 L 02/26/21 16:00 175 H 24 144/76 86 L 02/26/21 14:00 24 02/26/21 12:00 73 20 147/68 86 L Intake and Output 02/26/21 02/27/21 02/27/21 22:59 06:59 14:59 Intake Total 90 714.381 240 Output Total 1325 4250 200 Balance -1235 -3535.619 40 Intake: IV 40 520 240 Sodium Chloride 0.9% 1, 40 520 240 000 ml @ 80 mls/hr IV . [id number] [facility] Rx#:[id number] Intake, IV Titration 194.381 0 Amount Diltiazem 125 mg In 125 Sodium Chloride 0.9% 100 ml @ 15 MG/HR 15 mls/hr IV .Q8H20M [facility] Rx#: [id number] Heparin Sod,Pork in 0.45% 69.381 0 NaCl 25,000 unit In 0.45 % NaCl 1 250ml.bag @ 12 UNITS/KG/HR 10.104 mls/hr IV .Q24H [facility] Rx#: [id number] Oral 50 Output: Urine 1325 4250 200 Straight 1325 2650 Other: Voiding Method Indwelling Catheter # Voids 0 0 Weight 85.5 kg Results 02/27/21 03:34 02/27/21 03:34 Cardiac Enzymes 02/27/21 Range/Units 03:34 AST 95 H (14-36) U/L Lactate Dehydrogenase 1426 H (313-618) U/L Coagulation 02/26/21 02/26/21 02/27/21 Range/Units 18:17 23:52 03:34 PT 10.2 (9.0-12.0) sec APTT 28.0 94.0 H 80.0 H (22.0-30.0) sec CBC 02/26/21 02/27/21 Range/Units 18:17 03:34 WBC 9.2 6.0 (3.8-10.6) k/uL RBC 4.38 4.55 (3.80-5.40) m/uL Hgb 14.7 14.3 (11.4-16.0) gm/dL Hct 41.2 43.4 (34.0-46.0) % Plt Count 190 202 (150-450) k/uL Comprehensive Metabolic Panel 02/27/21 Range/Units 03:34 Sodium 129 L (137-145) mmol/L Potassium 3.9 (3.5-5.1) mmol/L Chloride 94 L (98-107) mmol/L Carbon Dioxide 22 (22-30) mmol/L BUN 16 (7-17) mg/dL Creatinine 0.66 (0.52-1.04) mg/dL Glucose 222 H (74-99) mg/dL Calcium 8.1 L (8.4-10.2) mg/dL AST 95 H (14-36) U/L ALT 35 H (4-34) U/L Alkaline Phosphatase 83 (38-126) U/L Total Protein 6.3 (6.3-8.2) g/dL Albumin 3.2 L (3.5-5.0) g/dL Current Medications Generic Name Dose Route Start Last Admin Trade Name Freq PRN Reason Stop Dose Admin Acetaminophen 650 mg 02/26/21 00:24 02/26/21 22:57 Acetaminophen Tab 325 Mg Tab PO 650 mg Q6HR PRN Administration Mild Pain or Fever > 100.5 Albuterol Sulfate 2 puff 02/26/21 00:26 02/27/21 07:18 Albuterol Hfa Inhaler INHALATION 2 puff RT-QID PRN Administration Shortness Of Breath Or Wheezing Ascorbic Acid 1,000 mg 02/26/21 09:30 02/27/21 10:15 Ascorbic Acid 500 Mg Tab PO 1,000 mg DAILY [facility] Administration Atorvastatin Calcium 40 mg 02/26/21 21:00 02/26/21 22:16 Atorvastatin 40 Mg Tab PO Not Given HS [facility] Budesonide/Formoterol Fumarate 2 puff 02/26/21 20:00 02/27/21 07:18 Symbicort 160-4.5 Mcg Inhaler INHALATION 2 puff RT-BID [facility] Administration Carvedilol 3.125 mg 02/26/21 11:45 02/27/21 10:17 Carvedilol 3.125 Mg Tab PO 3.125 mg BID [facility] Administration Cholecalciferol 50 mcg 02/27/21 09:00 02/27/21 10:15 Cholecalciferol 25 Mcg (1000 Iu) Tablet PO 50 mcg DAILY [facility] Administration Clonazepam 1 mg 02/26/21 11:45 02/27/21 10:21 Clonazepam 1 Mg Tab PO 1 mg BID PRN Administration Anxiety Duloxetine HCl 60 mg 02/26/21 12:00 02/27/21 10:16 Duloxetine Hcl 60 Mg Capsule.Dr PO 60 mg DAILY [facility] Administration Gabapentin 300 mg 02/26/21 21:00 02/27/21 10:15 Gabapentin 300 Mg Cap PO 300 mg BID [facility] Administration Heparin Sodium (Porcine) 0 unit 02/26/21 17:46 Heparin Sodium,Porcine 5,000 Unit/Ml 1 Ml Vial IV PER PROTOCOL PRN Low PTT Protocol Sodium Chloride 1,000 mls @ 20 mls/hr 02/26/21 00:30 02/27/21 02:18 Saline 0.9% IV Not Given .Q24H [facility] Heparin Sodium/Sodium Chloride 250 mls @ 10.104 mls/hr 02/26/21 18:00 02/27/21 07:16 25,000 unit/ Sodium Chloride IV 10 units/kg/hr .Q24H [facility] 8.42 mls/hr Titration Protocol 12 UNITS/KG/HR Diltiazem HCl 125 mg/ Sodium 125 mls @ 15 mls/hr 02/26/21 18:00 02/27/21 04:00 Chloride IV 15 mg/hr .Q8H20M [facility] 15 mls/hr Administration 15 MG/HR Amiodarone HCl 450 mg/ 250 mls @ 16.667 mls/hr 02/27/21 03:00 02/27/21 05:18 Dextrose/Water IV 02/27/21 20:59 0.5 mg/min .Q15H [facility] 16.667 mls/hr Administration Protocol 0.5 MG/MIN Ibuprofen 400 mg 02/26/21 00:24 Ibuprofen 400 Mg Tab PO Q6HR PRN Mild Pain or Fever > 100.5 Insulin Aspart 0 unit 02/27/21 06:00 02/27/21 06:40 Insulin Aspart (Novolog) 100 Unit/Ml Vial SQ 7 unit Q6HR [facility] Administration Protocol Insulin Detemir 10 unit 02/28/21 07:00 Insulin Detemir (Levemir) 100 Unit/Ml Syr SQ DAILY@0700 [facility] Latanoprost 1 drops 02/26/21 21:00 02/26/21 22:59 Latanoprost 0.005% Ophth Drops 2.5 Ml Btl BOTH EYES Not Given HS [facility] Letrozole 2.5 mg 02/27/21 09:00 02/27/21 10:16 Letrozole 2.5 Mg Tab PO 2.5 mg DAILY [facility] Administration Melatonin 5 mg 02/26/21 22:45 02/26/21 22:58 Melatonin 5 Mg Tablet PO 5 mg HS [facility] Administration Methylprednisolone Sodium Succinate 60 mg 02/26/21 12:00 02/27/21 06:41 Methylprednisolone Sod Succi 125 Mg/2 Ml Vial IV 60 mg Q6HR [facility] Administration Montelukast Sodium 10 mg 02/26/21 21:00 02/26/21 22:16 Montelukast 10 Mg Tab PO Not Given HS [facility] Morphine Sulfate 4 mg 02/26/21 00:24 Morphine Sulfate 4 Mg/Ml Syringe IV Q4HR PRN Severe Pain Naloxone HCl 0.2 mg 02/26/21 00:24 Naloxone 0.4 Mg/Ml 1 Ml Vial IV Q2M PRN Opioid Reversal Nitroglycerin 0.4 mg 02/26/21 11:45 Nitroglycerin Sl Tabs 0.4 Mg Tab SUBLINGUAL Q5M PRN Chest Pain Ofloxacin 1 drops 02/26/21 13:00 02/26/21 22:59 Ofloxacin 0.3% Ophth Drops 5 Ml Bottle BOTH EYES Not Given QID [facility] Olanzapine 2.5 mg 02/26/21 21:00 02/26/21 22:16 Olanzapine 2.5 Mg Tab PO Not Given HS [facility] Ondansetron HCl 4 mg 02/26/21 00:24 02/26/21 22:57 Ondansetron 4 Mg/2 Ml Vial IVP 4 mg Q8HR PRN Administration Nausea And Vomiting Pantoprazole Sodium 40 mg 02/27/21 07:30 02/27/21 06:40 Pantoprazole 40 Mg/10 Ml Vial IVP 40 mg DAILY@0730 [facility] Administration Prednisolone Acetate 1 drops 02/26/21 18:00 02/26/21 22:59 Prednisolone Acetate 1% Ophth Drops 5 Ml Btl BOTH EYES Not Given QID [facility] Trazodone HCl 150 mg 02/26/21 21:00 02/26/21 22:16 Trazodone Hcl 50 Mg Tab PO Not Given HS [facility] Zinc Sulfate 220 mg 02/27/21 09:00 02/27/21 10:15 Zinc Sulfate 220 Mg Cap PO 220 mg DAILY [facility] Administration Intake and Output 02/26/21 02/27/21 02/27/21 22:59 06:59 14:59 Intake Total 90 714.381 240 Output Total 1325 4250 200 Balance -1235 -3535.619 40 Intake: IV 40 520 240 Sodium Chloride 0.9% 1, 40 520 240 000 ml @ 80 mls/hr IV . [id number] [facility] Rx#:[id number] Intake, IV Titration 194.381 0 Amount Diltiazem 125 mg In 125 Sodium Chloride 0.9% 100 ml @ 15 MG/HR 15 mls/hr IV .Q8H20M [facility] Rx#: [id number] Heparin Sod,Pork in 0.45% 69.381 0 NaCl 25,000 unit In 0.45 % NaCl 1 250ml.bag @ 12 UNITS/KG/HR 10.104 mls/hr IV .Q24H [facility] Rx#: [id number] Oral 50 Output: Urine 1325 4250 200 Straight 1325 2650 Other: Voiding Method Indwelling Catheter # Voids 0 0 Weight 85.5 kg 02/27/21 03:34 02/27/21 03:34
[2021-02-27] MEDS: OFLOXACIN 0.3% OPHTH DROPS 5 ML BOTTLE BOTH EYES SCH ×4 (10:55→22:12)
--- NOTE | 2021-02-27 11:00 | ECHOF ---
Referral Reason:new a fib, converted to SR MEASUREMENTS -------- HEIGHT: 170.2 cm WEIGHT: 85.3 kg BP: 121/66 RVIDd: 2.7 cm (< 3.3) IVSd: 1.5 cm (0.6 - 1.1) LVIDd: 4.3 cm (3.9 - 5.3) LVPWd: 1.2 cm (0.6 - 1.1) IVSs: 1.7 cm LVIDs: 2.8 cm LVPWs: 1.7 cm LA Diam: 3.9 cm (2.7 - 3.8) LAESV Index (A-L): 25.08 ml/m Ao Diam: 3.7 cm (2.0 - 3.7) AV Cusp: 2.0 cm (1.5 - 2.6) MV EXCURSION: 15.119 mm (> 18.000) MV EF SLOPE: 71 mm/s (70 - 150) EPSS: 0.7 cm MV E Carson: 1.01 m/s MV DecT: 212 ms MV A Carson: 0.67 m/s MV E/A Ratio: 1.50 RAP: 5.00 mmHg RVSP: 25.57 mmHg FINDINGS -------- Sinus rhythm. This was a technically adequate study. The left ventricular size is normal. There is moderate concentric left ventricular hypertrophy. O verall left ventricular systolic function is normal with, an EF between 60 - 65 %. The right ventricle is normal in size. Normal LA size by volume 22+/-6 ml/m2. The right atrium is normal in size. Interatrial and interventricular septum intact. The aortic valve is trileaflet, and appears structurally normal. No aortic stenosis or regurgitation. The mitral valve is normal. Mild tricuspid regurgitation present. Right ventricular systolic pressure is normal at < 35 mmHg. Trace/mild (physiologic) pulmonic regurgitation. The aortic root size is normal. Normal inferior vena cava with normal inspiratory collapse consistent with estimated right atrial pre ssure of 5 mmHg. There is no pericardial effusion. CONCLUSIONS -------- 1. The left ventricular size is normal. 2. There is moderate concentric left ventricular hypertrophy. 3. Overall left ventricular systolic function is normal with, an EF between 60 - 65 %. 4. Mild tricuspid regurgitation present. 5. Trace/mild (physiologic) pulmonic regurgitation. 6. There is no pericardial effusion. RELIEF OPERATOR: Aspen Mclain RDCS
--- NOTE | 2021-02-27 11:00 | P.PN ---
Subjective Progress Note Date: 02/27/21 HISTORY OF PRESENT ILLNESS This is a 75-year-old female patient of Dr. Gagnon and Dr. KENIA Pereira with past medical history of COPD, diabetes mellitus type 2, hypertension and hypertensive cardiovascular disease, hyperlipidemia, coronary artery disease with prior [place] in 2013 with PCI to the RCA, gastroesophageal reflux disease, hiatal hernia, left breast cancer status post lumpectomy, bipolar disorder, remote history of tobacco use. Echocardiogram in May 2020 revealed EF of 55- 60%, mild concentric left ventricular hypertrophy, trace mitral regurgitation, mild tricuspid regurgitation. She had a heart catheterization in May [address] Pereira which revealed widely patent RCA. LAD with minor irregularities. Diagonal is 40-50% ostial disease as it comes off the LAD. Circumflex with no significant disease. Recommendations at that time was for medical management. Patient has history of feeling sick for about 3 weeks with shortness of breath and cough. She does not have home oxygen. She apparently was brought into the emergency center due to altered mental status. She was found to be febrile with a temperature 101.4, heart rate 84, blood pressure 130/73 and pulse ox 88%. CBC was unremarkable. INR 0.9. Lactic acid 2.0. Blood sugar 119. Sodium 127, potassium 3.9, chloride 89, CO2 28, BUN 14 and creatinine 0.82. Magnesium 2.4. Total bilirubin 0.8, AST 92, ALT 37. C-reactive protein 970. ProBNP 752. Coronavirus PCR detected. EKG was a sinus rhythm with no acute changes with heart rate of 73. Chest x-ray revealed moderate pulmonary interstitial pneumonia new compared to old exam. No suspected heart failure. No definite pleural effusion. Patient is status post 1/2 L of IV fluid and admitted to the cardiac stepdown unit, pulmonary medicine and infectious disease consult in place 02/27: Patient developed A. fib with RVR overnight and was started on heparin drip, Cardizem drip and amiodarone drip, cardiology consult and transferred to the intensive care unit. She is currently on BiPAP. Echocardiogram has been obtained and report is pending. She is now rhythm with controlled rate. Patient's CODE STATUS has been changed to full code with no intubation. The patient has been afebrile, heart rate 64, blood pressure 111/65, pulse ox is 88% on BiPAP. CBC is unremarkable except for leukocytosis at 0.8. INR is 1.11. Sodium 129, potassium 3.9, chloride 94, CO2 22, BUN 60 and creatinine 0.66. Blood sugar 222 Levemir 10 units daily has been added. Calcium is 8.1, total bilirubin 0.7, AST 95, ALT 35, phosphatase 83. LDH 1426. C-reactive protein 201.5. Blood cultures no growth at 24 hours. Chest x-ray reveals slight wor sening of bilateral airspace disease, right greater than left. Patient has been seen by cardiology and Cardizem drip has been discontinued. Continue amiodarone drip and IV heparin. Prescription has been sent to pharmacy for a request to check coverage. Patient has received 2 doses of Tocilizumab. She is status post IV Lasix 20 mg as morning. REVIEW OF SYSTEMS Constitutional: No fever, no chills, no night sweats. No weight change. Reports weakness, Reports fatigue Reports lethargy. Reports daytime sleepiness. EENT: No headache. No blurred vision or double vision, no loss of vision. No dizziness. No nasal drainage or congestion. No epistaxis. No sore throat. Lungs: Reports shortness of breath, Reports cough, no sputum production. No wheezing. Cardiovascular: No chest pain, no lower extremity edema. No palpitations. No paroxysmal nocturnal dyspnea. No orthopnea. No lightheadedness or dizziness. No syncopal episodes. Abdominal: No abdominal pain. No nausea, vomiting. No diarrhea. No constipation. No bloody or tarry stools. . No loss of appetite. Genitourinary: No dysuria, increased frequency, urgency. No urinary retention. Musculoskeletal: No myalgias. Reports muscle weakness, Reports gait dysfunction, no frequent falls. No back pain. No neck pain. Integumentary: No wounds, no lesions. No rash or pruritus. Neurologic: No aphasia. No facial droop. No change in mentation. No head injury. No headache. No paralysis. No paresthesia. Psychiatric: No depression. No anxiety. Endocrine: No abnormal blood sugars. N PHYSICAL EXAMINATION Gen: This is a 75-year-old female. She is resting in ICU bed and appears comfortable at rest while on nonrebreather. HEENT: Head is atraumatic, normocephalic. Pupils equal, round. Sclerae is anicteric. NECK: Supple. No JVD. No lymphadenopathy. No thyromegaly. LUNGS: Diminished bilaterally. No intercostal retractions. HEART: Regular rate and rhythm. Systolic murmur. cardiac monitor is sinus rhythm. ABDOMEN: Soft. Bowel sounds are present. No masses. No tenderness. EXTREMITIES: No pedal edema. No calf tenderness. Dorsalis pedis +2 bilateral ly. NEUROLOGICAL: Patient is awake, alert and oriented x3. Cranial nerves 2 through 12 are grossly intact. ASSESSMENT AND PLAN 1. Metabolic encephalopathy secondary to sepsis and COVID19 pneumonia, hyponatremia. 2. Acute hypoxic respiratory failure secondary to combination of COPD exacerbation, Covid 19 pneumonia. Patient is currently on oxygen nonrebreather. Consult with pulmonary medicine and infectious disease. Patient started on Symbicort twice daily, albuterol inhaler 4 times daily as needed, Lovenox 40 mg subcu daily, Solu-Medrol 60 mg IV every 6 hours, zinc, vitamin C, vitamin D. Patient is status post 2 doses of Tocilizumab and status post IV Lasix for fluid overload secondary to fluid resuscitation. 3. Diabetes mellitus type 2. Hold metformin. Patient started on NovoLog scale before meals and at bedtime. Levemir 10 units daily added. 4. Hyponatremia, improved. Patient is status post IV fluids, continue to monitor. Hold Lasix 40 mg daily. 5. Mild elevation in liver function tests, monitor. 6. Elevated inflammatory markers secondary to Covid. 7. Hypertension, hypertensive cardiovascular disease. Continue Coreg 3.125 mg twice daily. Hold lisinopril 2.5 mg daily and hold Aldactone 12.5 mg daily. 8. Hyperlipidemia. Continue atorvastatin 40 mg at bedtime. 9. Coronary artery disease. Continue Nitrostat, atorvastatin, Coreg. 10. Gastroesophageal reflux disease, GI prophylaxis. Continue Prevacid. 11. History of left breast cancer status post lumpectomy. Continue Femara 2.5 mg daily. 12. Bipolar disorder. Continue Cymbalta 60 mg daily, Neurontin 300 mg twice daily, Zyprexa 2.5 mg at bedtime, clonazepam 1 mg twice daily as needed. 13. DVT prophylaxis. Lovenox. DISCHARGE PLAN To be determined. PT and OT consults. Impression and plan of care have been directed as dictated by the signing physician. Teresa Rios nurse practitioner acting as scribe for signing physician. Objective - Vital Signs Vital signs: Vital Signs Temp 97.7 F 02/27/21 08:00 Pulse 64 02/27/21 09:00 Resp 20 02/27/21 09:00 BP 111/65 02/27/21 09:00 Pulse Ox 88 L 02/27/21 09:00 Intake & Output 02/26/21 02/27/21 02/27/21 18:59 06:59 18:59 Intake Total 240 804.381 240 Output Total 1325 4250 200 Balance -1085 -3445.619 40 Weight 85.5 kg Intake: IV 560 240 Sodium Chloride 0.9% 1, 560 240 000 ml @ 80 mls/hr IV . [id number] [facility] Rx#:[id number] Intake, IV Titration 194.381 0 Amount Diltiazem 125 mg In 125 Sodium Chloride 0.9% 100 ml @ 15 MG/HR 15 mls/hr IV .Q8H20M [facility] Rx#: [id number] Heparin Sod,Pork in 0.45% 69.381 0 NaCl 25,000 unit In 0.45 % NaCl 1 250ml.bag @ 12 UNITS/KG/HR 10.104 mls/hr IV .Q24H [facility] Rx#: [id number] Oral 240 50 Output: Urine 1325 4250 200 Straight 1325 2650 Other: Voiding Method Indwelling Catheter # Voids 1 0 - Labs CBC & Chem 7: 02/27/21 03:34 02/27/21 03:34 Labs: Abnormal Lab Results - Last 24 Hours (Table) 02/26/21 02/26/21 02/26/21 Range/Units 09:35 09:35 11:56 Neutrophils # (1.3-7.7) k/uL Lymphocytes # (1.0-4.8) k/uL APTT (22.0-30.0) sec D-Dimer (<0.60) mg/L FEU ABG pH (7.35-7.45) ABG pO2 (83-108) mmHg ABG HCO3 (21-25) mmol/L ABG Total CO2 (19-24) mmol/L ABG O2 Saturation (94-97) % Sodium 131 L (137-145) mmol/L Chloride 95 L (98-107) mmol/L Glucose 127 H (74-99) mg/dL POC Glucose (mg/dL) 128 H (75-99) mg/dL Calcium 8.1 L (8.4-10.2) mg/dL AST 101 H (14-36) U/L ALT 38 H (4-34) U/L Lactate Dehydrogenase (313-618) U/L C-Reactive Protein (<10.0) mg/L Albumin 3.3 L (3.5-5.0) g/dL Procalcitonin 0.15 H (0.02-0.09) ng/mL 02/26/21 02/26/21 02/26/21 Range/Units 15:38 16:44 18:17 Neutrophils # 8.5 H (1.3-7.7) k/uL Lymphocytes # 0.5 L (1.0-4.8) k/uL APTT (22.0-30.0) sec D-Dimer 0.92 H (<0.60) mg/L FEU ABG pH (7.35-7.45) ABG pO2 (83-108) mmHg ABG HCO3 (21-25) mmol/L ABG Total CO2 (19-24) mmol/L ABG O2 Saturation (94-97) % Sodium (137-145) mmol/L Chloride (98-107) mmol/L Glucose (74-99) mg/dL POC Glucose (mg/dL) 170 H (75-99) mg/dL Calcium (8.4-10.2) mg/dL AST (14-36) U/L ALT (4-34) U/L Lactate Dehydrogenase (313-618) U/L C-Reactive Protein (<10.0) mg/L Albumin (3.5-5.0) g/dL Procalcitonin (0.02-0.09) ng/mL 02/26/21 02/26/21 02/26/21 Range/Units 20:33 21:20 23:52 Neutrophils # (1.3-7.7) k/uL Lymphocytes # (1.0-4.8) k/uL APTT 94.0 H (22.0-30.0) sec D-Dimer (<0.60) mg/L FEU ABG pH 7.51 H (7.35-7.45) ABG pO2 45 L* (83-108) mmHg ABG HCO3 28 H (21-25) mmol/L ABG Total CO2 29 H (19-24) mmol/L ABG O2 Saturation 84.0 L (94-97) % Sodium (137-145) mmol/L Chloride (98-107) mmol/L Glucose (74-99) mg/dL POC Glucose (mg/dL) 159 H (75-99) mg/dL Calcium (8.4-10.2) mg/dL AST (14-36) U/L ALT (4-34) U/L Lactate Dehydrogenase (313-618) U/L C-Reactive Protein (<10.0) mg/L Albumin (3.5-5.0) g/dL Procalcitonin (0.02-0.09) ng/mL 02/27/21 02/27/21 02/27/21 Range/Units 03:34 03:34 03:34 Neutrophils # (1.3-7.7) k/uL Lymphocytes # 0.8 L (1.0-4.8) k/uL APTT 80.0 H (22.0-30.0) sec D-Dimer 1.11 H (<0.60) mg/L FEU ABG pH (7.35-7.45) ABG pO2 (83-108) mmHg ABG HCO3 (21-25) mmol/L ABG Total CO2 (19-24) mmol/L ABG O2 Saturation (94-97) % Sodium 129 L (137-145) mmol/L Chloride 94 L (98-107) mmol/L Glucose 222 H (74-99) mg/dL POC Glucose (mg/dL) (75-99) mg/dL Calcium 8.1 L (8.4-10.2) mg/dL AST 95 H (14-36) U/L ALT 35 H (4-34) U/L Lactate Dehydrogenase 1426 H (313-618) U/L C-Reactive Protein 201.5 H (<10.0) mg/L Albumin 3.2 L (3.5-5.0) g/dL Procalcitonin (0.02-0.09) ng/mL Microbiology - Last 24 Hours (Table) 02/25/21 23:10 Blood Culture - Preliminary Blood No Growth after 24 hours
[2021-02-27 11:32] LABS: Glucose,Whole Blood 243 mg/dL (75-99)
[2021-02-27] MEDS: APIXABAN 5 MG TAB PO SCH ×2 (11:48→22:10)
--- NOTE | 2021-02-27 11:49 | P.PN ---
Subjective Progress Note Date: 02/27/21 Principal diagnosis: CoVID 19 pneumonia This is a 75-year-old female with history of multiple medical problems including COPD, type 2 diabetes, hypertension, coronary artery disease and previous [place] in 2013, previous stenting to RCA, history of left breast cancer and previous lum pectomy, bipolar disorder, patient presented to the ER with 3 weeks history of not feeling well. Patient stated that she felt sick for the last 3 weeks, complaining of generalized weakness, cough, cough is nonproductive, and shortness of breath. Patient was also having intermittent episodes of mental status change and confusion, in the ER she was noted to be febrile with a temp of 101.4, chest x-ray showed bilateral interstitial infiltrates, her sodium was noted to be a bit low at 127, her C-reactive protein was high, LDH was high, and her treating for granados virus/PCR was positive patient was admitted, placed on 15 L high flow via a nonrebreather mask, and I was asked to see her on consul tation. Patient was seen on the regular medical floor, and she was noted to have extremely low saturations in the high 70s and low 80s hence I recommended placing the patient on BiPAP. Patient is out of the window for remdesivir, however considering her O2 requirement, we will likely recommend starting the patient on actemra, and on the coated 19 cocktail. If the patient does not improve with BiPAP, May have to seriously consider transfer the patient to the ICU. The patient is seen today 02/27/2021 in follow-up in the intensive care unit. She did undergo being transferred down here yesterday. Blood gases on 100% FiO2 had revealed a PaO2 of 45, pCO2 35, pH 7.51. Continue with low saturations. She is currently on BiPAP 14/7 and 100% FiO2. She had also developed atrial fibrillation with a rapid ventricular response. She is on amiodarone at 0.5 mg/m. Heparin drip. 0.9 normal saline at 80 MLS per hour. She did receive Actemra. White count 6.0. Hemoglobin 14.3. Lymphocytes 0.8. D-dimer 1.11. Sodium 129. Potassium 3.9. Creatinine 0.66. LDH 1426. C-reactive protein 201. He remains on Symbicort, albuterol, IV Solu-Medrol. Vitamin supplements. Objective - Vital Signs Vital signs: Vital Signs Temp 97.7 F 02/27/21 08:00 Pulse 69 02/27/21 11:00 Resp 21 02/27/21 11:00 BP 118/68 02/27/21 11:00 Pulse Ox 85 L 02/27/21 11:00 Intake & Output 02/26/21 02/27/21 02/27/21 18:59 06:59 18:59 Intake Total 240 804.381 320 Output Total 1325 4250 260 Balance -1085 -3445.619 60 Weight 85.5 kg Intake: IV 560 320 Sodium Chloride 0.9% 1, 560 320 000 ml @ 20 mls/hr IV . Q24H [facility] Rx#:[id number] Intake, IV Titration 194.381 0 Amount Diltiazem 125 mg In 125 Sodium Chloride 0.9% 100 ml @ 15 MG/HR 15 mls/hr IV .Q8H20M [facility] Rx#: [id number] Heparin Sod,Pork in 0.45% 69.381 0 NaCl 25,000 unit In 0.45 % NaCl 1 250ml.bag @ 12 UNITS/KG/HR 10.104 mls/hr IV .Q24H [facility] Rx#: [id number] Oral 240 50 Output: Urine 1325 4250 260 Straight 1325 2650 Other: Voiding Method Indwelling Catheter # Voids 1 0 - Exam GENERAL EXAM: Alert, pleasant 75-year-old female patient, on BiPAP 14/7 and 100% FiO2, and mild john distress. HEAD: Normocephalic. EYES: Normal reaction of pupils, equal size. NOSE: Clear with pink turbinates. THROAT: No erythema or exudates. NECK: No masses, no JVD. CHEST: No chest wall deformity. LUNGS: Equal air entry with crackles in the bilateral posterior bases. CVS: S1 and S2 normal with no audible murmur, regular rhythm. ABDOMEN: No hepatosplenomegaly, normal bowel sounds, no guarding or rigidity. SPINE: No scoliosis or deformity SKIN: No rashes CENTRAL NERVOUS SYSTEM: No focal deficits, tone is normal in all 4 extremities. EXTREMITIES: There is no peripheral edema. No clubbing, no cyanosis. Peripheral pulses are intact. - Labs CBC & Chem 7: 02/27/21 03:34 02/27/21 03:34 Labs: Abnormal Lab Results - Last 24 Hours (Table) 02/26/21 02/26/21 02/26/21 Range/Units 09:35 11:56 15:38 Neutrophils # (1.3-7.7) k/uL Lymphocytes # (1.0-4.8) k/uL APTT (22.0-30.0) sec D-Dimer 0.92 H (<0.60) mg/L FEU ABG pH (7.35-7.45) ABG pO2 (83-108) mmHg ABG HCO3 (21-25) mmol/L ABG Total CO2 (19-24) mmol/L ABG O2 Saturation (94-97) % Sodium (137-145) mmol/L Chloride (98-107) mmol/L Glucose (74-99) mg/dL POC Glucose (mg/dL) 128 H (75-99) mg/dL Calcium (8.4-10.2) mg/dL AST (14-36) U/L ALT (4-34) U/L Lactate Dehydrogenase (313-618) U/L C-Reactive Protein (<10.0) mg/L Albumin (3.5-5.0) g/dL Procalcitonin 0.15 H (0.02-0.09) ng/mL TSH (0.465-4.680) mIU/L 02/26/21 02/26/21 02/26/21 Range/Units 16:44 18:17 20:33 Neutrophils # 8.5 H (1.3-7.7) k/uL Lymphocytes # 0.5 L (1.0-4.8) k/uL APTT (22.0-30.0) sec D-Dimer (<0.60) mg/L FEU ABG pH (7.35-7.45) ABG pO2 (83-108) mmHg ABG HCO3 (21-25) mmol/L ABG Total CO2 (19-24) mmol/L ABG O2 Saturation (94-97) % Sodium (137-145) mmol/L Chloride (98-107) mmol/L Glucose (74-99) mg/dL POC Glucose (mg/dL) 170 H 159 H (75-99) mg/dL Calcium (8.4-10.2) mg/dL AST (14-36) U/L ALT (4-34) U/L Lactate Dehydrogenase (313-618) U/L C-Reactive Protein (<10.0) mg/L Albumin (3.5-5.0) g/dL Procalcitonin (0.02-0.09) ng/mL TSH (0.465-4.680) mIU/L 02/26/21 02/26/21 02/27/21 Range/Units 21:20 23:52 03:34 Neutrophils # (1.3-7.7) k/uL Lymphocytes # 0.8 L (1.0-4.8) k/uL APTT 94.0 H (22.0-30.0) sec D-Dimer (<0.60) mg/L FEU ABG pH 7.51 H (7.35-7.45) ABG pO2 45 L* (83-108) mmHg ABG HCO3 28 H (21-25) mmol/L ABG Total CO2 29 H (19-24) mmol/L ABG O2 Saturation 84.0 L (94-97) % Sodium (137-145) mmol/L Chloride (98-107) mmol/L Glucose (74-99) mg/dL POC Glucose (mg/dL) (75-99) mg/dL Calcium (8.4-10.2) mg/dL AST (14-36) U/L ALT (4-34) U/L Lactate Dehydrogenase (313-618) U/L C-Reactive Protein (<10.0) mg/L Albumin (3.5-5.0) g/dL Procalcitonin (0.02-0.09) ng/mL TSH (0.465-4.680) mIU/L 02/27/21 02/27/21 02/27/21 Range/Units 03:34 03:34 03:34 Neutrophils # (1.3-7.7) k/uL Lymphocytes # (1.0-4.8) k/uL APTT 80.0 H (22.0-30.0) sec D-Dimer 1.11 H (<0.60) mg/L FEU ABG pH (7.35-7.45) ABG pO2 (83-108) mmHg ABG HCO3 (21-25) mmol/L ABG Total CO2 (19-24) mmol/L ABG O2 Saturation (94-97) % Sodium 129 L (137-145) mmol/L Chloride 94 L (98-107) mmol/L Glucose 222 H (74-99) mg/dL POC Glucose (mg/dL) (75-99) mg/dL Calcium 8.1 L (8.4-10.2) mg/dL AST 95 H (14-36) U/L ALT 35 H (4-34) U/L Lactate Dehydrogenase 1426 H (313-618) U/L C-Reactive Protein 201.5 H (<10.0) mg/L Albumin 3.2 L (3.5-5.0) g/dL Procalcitonin (0.02-0.09) ng/mL TSH 0.160 L (0.465-4.680) mIU/L 02/27/21 Range/Units 11:31 Neutrophils # (1.3-7.7) k/uL Lymphocytes # (1.0-4.8) k/uL APTT (22.0-30.0) sec D-Dimer (<0.60) mg/L FEU ABG pH (7.35-7.45) ABG pO2 (83-108) mmHg ABG HCO3 (21-25) mmol/L ABG Total CO2 (19-24) mmol/L ABG O2 Saturation (94-97) % Sodium (137-145) mmol/L Chloride (98-107) mmol/L Glucose (74-99) mg/dL POC Glucose (mg/dL) 243 H (75-99) mg/dL Calcium (8.4-10.2) mg/dL AST (14-36) U/L ALT (4-34) U/L Lactate Dehydrogenase (313-618) U/L C-Reactive Protein (<10.0) mg/L Albumin (3.5-5.0) g/dL Procalcitonin (0.02-0.09) ng/mL TSH (0.465-4.680) mIU/L Microbiology - Last 24 Hours (Table) 02/25/21 23:10 Blood Culture - Preliminary Blood No Growth after 24 hours Assessment and Plan Assessment: 1 Acute hypoxic respiratory failure secondary to acute CoVID 19 pneumonitis. Received tocilizumab 2 Mild transaminitis secondary to CoVID 19 3 Elevated inflammatory markers secondary to above 4 Atrial fibrillation with rapid ventricular response. Currently on amiodarone and heparin drips. 5 History of COPD 6 Coronary artery disease 7 History of breast cancer with previous lumpectomy 8 Gastroesophageal reflux disease 9 History of bipolar disorder 10 History of hypertension Plan: The patient was seen and evaluated by Dr. Chiang She did receive tocilizumab Add convalescent plasma Decrease IV fluids to KVO Lasix 20 mg IVP 1 Continue Solu-Medrol, vitamin supplements On a heparin drip, to be transitioned to Eliquis We'll continue to follow and make further recommendations based on her clinical status I, the cosigning physician, performed a history & physical examination of the patient. Lungs sounds with crackles in the bilateral posterior bases. Maintaining good O2 saturations in the 90s on 100% FiO2 with BiPAP 14/7. I discussed the assessment and plan of care with my nurse practitioner, Kelsey Simon. I attest to the above note as dictated by her.
[2021-02-27 11:54] LABS: T4, Free (Free Thyroxine) 1.75 ng/dL (0.78-2.19)
[2021-02-27] MEDS: prednisoLONE ACETATE 1% OPHTH DROPS 5 ML BTL BOTH EYES SCH ×4 (12:35→22:12)
[2021-02-27 18:49] LABS: Glucose,Whole Blood 185 mg/dL (75-99)
[2021-02-27] MEDS: MONTELUKAST 10 MG TAB PO SCH (22:10)
[2021-02-27] MEDS: ATORVASTATIN 40 MG TAB PO SCH (22:10)
[2021-02-27] MEDS: OLANZapine 2.5 MG TAB PO SCH (22:10)
[2021-02-27] MEDS: AMIODARONE 200 MG TAB PO SCH (22:10)
[2021-02-27] MEDS: MELATONIN 5 MG TABLET PO SCH (22:10)
[2021-02-27] MEDS: LATANOPROST 0.005% OPHTH DROPS 2.5 ML BTL BOTH EYES SCH (22:11)
[2021-02-27] MEDS: traZODone HCL 50 MG TAB PO SCH (22:32)
[2021-02-28] MEDS ORDERED: LORazepam 2 MG/ML INJ IV PRN (00:16)
[2021-02-28 01:14] LABS: Glucose,Whole Blood 149 mg/dL (75-99)
[2021-02-28] MEDS: methylPREDNISolone SOD SUCCI 125 MG/2 ML VIAL IV SCH ×5 (01:16→23:08)
[2021-02-28] MEDS: INSULIN ASPART (NovoLOG) 100 UNIT/ML VIAL SQ SCH ×5 (01:17→23:05)
--- NOTE | 2021-02-28 01:31 | PN ---
PROGRESS NOTE DATE OF SERVICE: 02/27/2021 REASON FOR FOLLOWUP: COVID-19 pneumonia. INTERVAL HISTORY: Patient is currently afebrile in ICU. Currently on BiPAP. She is awake, alert. Denies any chest pain. Complaining of shortness of breath, cough, not bringing up sputum. No abdominal pain and diarrhea has been reported. PHYSICAL EXAMINATION: Her blood pressure is 107/61, pulse of 51, temperature 97.9. She is 85% on 100% BiPAP. GENERAL description is an elderly female lying in bed in no distress. Respiratory system: Unlabored breathing, decreased intensity in breath sounds. No wheeze. Heart S1, S2. Regular rate and rhythm. Abdomen soft, no tenderness. LAB: Hemoglobin 14.1, white count is 6.0, d. dimer 1.11, creatinine 0.66, LDH and CRP is elevated. DIAGNOSTIC IMPRESSION AND PLAN: Patient with acute respiratory failure which is multifactorial in this patient who did have COVID-19 pneumonia. The patient currently covered with Eliquis, Solu-Medrol and zinc and ascorbic acid. Might benefit from Actemra. Continue supportive care. MMODL / IJN: [id number] /
[2021-02-28] MEDS: DILTIAZEM 125 MG in SODIUM CHLORIDE 0.9% 100 ML IV SCH (03:55)
[2021-02-28 04:22] LABS: Basophils % (A) 0 %; Eosinophils % (A) 0 %; HCT 38.3 % (34.0-46.0); HGB 13.2 gm/dL (11.4-16.0); Lymphocytes % (A) 9 %; MCH 32.3 pg (25.0-35.0); MCHC 34.4 g/dL (31.0-37.0); MCV 94.1 fL (80.0-100.0); Mean Platelet Volume 9.1; Monocytes # (A) 0.5 k/uL (0-1.0); Monocytes % (A) 4 %; Neutrophils # (A) 9.5 k/uL (1.3-7.7); Neutrophils % (A) 86 %; Platelet Count 268 k/uL (150-450); RBC 4.07 m/uL (3.80-5.40); WBC 11.1 k/uL (3.8-10.6)
[2021-02-28 04:40] LABS: ALT 33 U/L (4-34); AST 70 U/L (14-36); African American GFR (CKD) >90 (>60 ml/min/1.73 sqM); Albumin 3.2 g/dL (3.5-5.0); Alkaline Phosphatase 78 U/L (38-126); Anion Gap 7 mmol/L; Blood Urea Nitrogen 23 mg/dL (7-17); C Reactive Protein 74.7 mg/L (<10.0); Calcium 8.7 mg/dL (8.4-10.2); Carbon Dioxide 30 mmol/L (22-30); Chloride 95 mmol/L (98-107); Glucose 150 mg/dL (74-99); Non-African American GFR(CKD) 81 (>60 ml/min/1.73 sqM); Potassium 3.8 mmol/L (3.5-5.1); Sodium 132 mmol/L (137-145); Total Bilirubin 0.8 mg/dL (0.2-1.3); Total Protein 6.1 g/dL (6.3-8.2)
[2021-02-28] MEDS: PANTOPRAZOLE 40 MG/10 ML VIAL IVP SCH (06:35)
[2021-02-28] MEDS: INSULIN DETEMIR (LEVEMIR) 100 UNIT/ML SYR SQ SCH (06:41)
[2021-02-28] MEDS: POTASSIUM CHLORIDE 10 MEQ in WATER FOR INJECTION 1 100ML.BAG IVPB SCH ×2 (07:00→08:53)
[2021-02-28] MEDS: ALBUTEROL HFA INHALER INHALATION PRN ×3 (07:31→15:39)
[2021-02-28] MEDS: SYMBICORT 160-4.5 MCG INHALER INHALATION SCH ×2 (07:31→19:50)
[2021-02-28] MEDS: CHOLECALCIFEROL 25 MCG (1000 IU) TABLET PO SCH (08:54)
[2021-02-28] MEDS: APIXABAN 5 MG TAB PO SCH ×2 (08:54→20:32)
[2021-02-28] MEDS: DULoxetine HCL 60 MG CAPSULE.DR PO SCH ×2 (08:54→20:33)
[2021-02-28] MEDS: ASCORBIC ACID 500 MG TAB PO SCH (08:55)
[2021-02-28] MEDS: ZINC SULFATE 220 MG CAP PO SCH (08:55)
[2021-02-28] MEDS: GABAPENTIN 300 MG CAP PO SCH ×2 (08:55→20:33)
[2021-02-28] MEDS: AMIODARONE 200 MG TAB PO SCH ×2 (08:55→20:33)
[2021-02-28] MEDS: LETROZOLE 2.5 MG TAB PO SCH (08:57)
--- NOTE | 2021-02-28 10:42 | XR ---
EXAMINATION TYPE: XR chest 1V portable DATE OF EXAM: 02/28/2021 COMPARISON: 02/27/2021 INDICATION: Covid TECHNIQUE: Single frontal view of the chest is obtained. FINDINGS: The heart size is normal. The pulmonary vasculature is prominent. Diffuse increased lung markings are within the mid to lower lung jolley bilaterally. Findings could b e compatible with atypical pneumonia. IMPRESSION: 1. Stable diffuse increased lung markings present predominantly within the mid to lower lung jolley b ilaterally can be compatible with atypical pneumonia.
--- NOTE | 2021-02-28 10:45 | P.PN ---
Subjective CHIEF COMPLAINT: A. fib with RVR HISTORY OF PRESENT ILLNESS: 02/27/2021 This is a 75 year old female with a past medical history significant for COPD, hypertension, hyperlipidemia, diabetes mellitus, and coronary artery disease with previous PCI to the RCA in 2013. Patient follows in the office with Dr. Pereira. We have been asked to see the patient in consultation for A. fib with RVR. The patient is currently admitted to the hospital with Covid. She is in the intensive care unit. She is on a BiPAP with oxygen saturations greater than 88%. Patient was started on IV amiodarone, IV Cardizem, and IV heparin. This morning the patient has converted to sinus mechanism on telemetry. EKG reveals sinus mechanism without signs of acute ischemia Chest xray slight worsening bilateral airspace disease, right greater than left Laboratory data: WBC 6.0. Hemoglobin 14.3. Platelet count 202. D-dimer 1.11. Sodium 129. Potassium 3.9. BUN 16. Creatinine 0.66. BNP 752. Current home cardiac medications include lisinopril 2.5 mg daily, Coreg 3.125 mg twice a day, spironolactone 12.5 mg daily, Lasix 40 mg daily, and Lipitor 40 mg daily Echocardiogram completed in May 2020 reveal ejection fraction 55-60%, trace mitral regurgitation, and mild tricuspid regurgitation Patient underwent cardiac catheterization in May 2020 revealing a right dominant system. Widely patent RCA that was stented in 2013. LAD has minor irregularities. Diagonal has a 40-50% ostial disease as it comes off the LAD. Circumflex has no significant disease. 02/28/2021 Patient remains in the intensive care unit. she is currently on BiPAP with oxygen saturations greater than 88%. Blood pressure this morning 130/79. She's maintaining sinus mechanism on telemetry. Heart rate currently in the 60s. Patient barely was bradycardic overnight with a heart rate in the 40s and 50s. Patient was started on Eliquis yesterday. Amiodarone drip was completed yesterday and patient was transitioned to oral amiodarone. echocardiogram completed revealing ejection fraction 60-65% with mild tricuspid regurgitation. PHYSICAL EXAM: Thorough physical exam not completed secondary to limited evaluation/examination and due to Covid19 ASSESSMENT: Acute Covid 19 Acute hypoxic respiratory failure New-onset paroxysmal atrial fibrillation with RVR, currently maintaining sinus mechanism Coronary artery disease with PCI to RCA, 2013 Hypertension Hyperlipidemia COPD Diabetes mellitus PLAN: Continue Eliquis Continue oral amiodarone Discontinue Coreg secondary to bradycardia Continue telemetry monitoring Further recommendations pending patient's course Nurse practitioner note has been reviewed by physician. Signing provider agrees with the documented findings, assessment, and plan of care. Objective - Vital Signs Vital signs: Vital Signs Temp 97.5 F L 02/28/21 08:00 Pulse 66 02/28/21 08:00 Resp 20 02/28/21 08:00 BP 130/79 02/28/21 08:00 Pulse Ox 88 L 02/28/21 08:00 Intake & Output 02/27/21 02/28/21 02/28/21 18:59 06:59 18:59 Intake Total 880 553 20 Output Total 1020 440 40 Balance -140 113 -20 Intake: IV 480 240 20 Sodium Chloride 0.9% 1, 480 240 20 000 ml @ 20 mls/hr IV . Q24H [facility] Rx#:[id number] Intake, IV Titration 0 Amount Heparin Sod,Pork in 0.45% 0 NaCl 25,000 unit In 0.45 % NaCl 1 250ml.bag @ 12 UNITS/KG/HR 10.104 mls/hr IV .Q24H [facility] Rx#: [id number] Oral 400 Blood Product 313 Ffp Convalescent Plasma 313 Cpd Unit [id number] Output: Urine 1020 440 40 Other: Voiding Method Indwelling Catheter Indwelling Catheter - Labs CBC & Chem 7: 02/28/21 03:17 02/28/21 03:17 Labs: Abnormal Lab Results - Last 24 Hours (Table) 02/27/21 02/27/21 02/27/21 Range/Units 03:34 03:34 11:31 WBC (3.8-10.6) k/uL Neutrophils # (1.3-7.7) k/uL APTT (22.0-30.0) sec D-Dimer (<0.60) mg/L FEU Sodium (137-145) mmol/L Chloride (98-107) mmol/L BUN (7-17) mg/dL Glucose (74-99) mg/dL POC Glucose (mg/dL) 243 H (75-99) mg/dL Hemoglobin A1c 7.0 H (4.0-6.0) % AST (14-36) U/L C-Reactive Protein (<10.0) mg/L Total Protein (6.3-8.2) g/dL Albumin (3.5-5.0) g/dL TSH 0.160 L (0.465-4.680) mIU/L 02/27/21 02/27/21 02/28/21 Range/Units 12:52 18:48 01:12 WBC (3.8-10.6) k/uL Neutrophils # (1.3-7.7) k/uL APTT 50.6 H (22.0-30.0) sec D-Dimer (<0.60) mg/L FEU Sodium (137-145) mmol/L Chloride (98-107) mmol/L BUN (7-17) mg/dL Glucose (74-99) mg/dL POC Glucose (mg/dL) 185 H 149 H (75-99) mg/dL Hemoglobin A1c (4.0-6.0) % AST (14-36) U/L C-Reactive Protein (<10.0) mg/L Total Protein (6.3-8.2) g/dL Albumin (3.5-5.0) g/dL TSH (0.465-4.680) mIU/L 02/28/21 02/28/21 02/28/21 Range/Units 03:17 03:17 03:17 WBC 11.1 H (3.8-10.6) k/uL Neutrophils # 9.5 H (1.3-7.7) k/uL APTT (22.0-30.0) sec D-Dimer 0.86 H (<0.60) mg/L FEU Sodium 132 L (137-145) mmol/L Chloride 95 L (98-107) mmol/L BUN 23 H (7-17) mg/dL Glucose 150 H (74-99) mg/dL POC Glucose (mg/dL) (75-99) mg/dL Hemoglobin A1c (4.0-6.0) % AST 70 H (14-36) U/L C-Reactive Protein 74.7 H (<10.0) mg/L Total Protein 6.1 L (6.3-8.2) g/dL Albumin 3.2 L (3.5-5.0) g/dL TSH 0.279 L (0.465-4.680) mIU/L Microbiology - Last 24 Hours (Table) 02/25/21 23:10 Blood Culture - Preliminary Blood No Growth after 48 hours
[2021-02-28] MEDS: clonazePAM 1 MG TAB PO PRN ×2 (11:04→20:33)
--- NOTE | 2021-02-28 11:27 | P.PN ---
Subjective Progress Note Date: 02/28/21 Principal diagnosis: CoVID 19 pneumonia This is a 75-year-old female with history of multiple medical problems including COPD, type 2 diabetes, hypertension, coronary artery disease and previous [place] in 2013, previous stenting to RCA, history of left breast cancer and previous lum pectomy, bipolar disorder, patient presented to the ER with 3 weeks history of not feeling well. Patient stated that she felt sick for the last 3 weeks, complaining of generalized weakness, cough, cough is nonproductive, and shortness of breath. Patient was also having intermittent episodes of mental status change and confusion, in the ER she was noted to be febrile with a temp of 101.4, chest x-ray showed bilateral interstitial infiltrates, her sodium was noted to be a bit low at 127, her C-reactive protein was high, LDH was high, and her treating for granados virus/PCR was positive patient was admitted, placed on 15 L high flow via a nonrebreather mask, and I was asked to see her on consul tation. Patient was seen on the regular medical floor, and she was noted to have extremely low saturations in the high 70s and low 80s hence I recommended placing the patient on BiPAP. Patient is out of the window for remdesivir, however considering her O2 requirement, we will likely recommend starting the patient on actemra, and on the coated 19 cocktail. If the patient does not improve with BiPAP, May have to seriously consider transfer the patient to the ICU. The patient is seen today 02/27/2021 in follow-up in the intensive care unit. She did undergo being transferred down here yesterday. Blood gases on 100% FiO2 had revealed a PaO2 of 45, pCO2 35, pH 7.51. Continue with low saturations. She is currently on BiPAP 14/7 and 100% FiO2. She had also developed atrial fibrillation with a rapid ventricular response. She is on amiodarone at 0.5 mg/m. Heparin drip. 0.9 normal saline at 80 MLS per hour. She did receive Actemra. White count 6.0. Hemoglobin 14.3. Lymphocytes 0.8. D-dimer 1.11. Sodium 129. Potassium 3.9. Creatinine 0.66. LDH 1426. C-reactive protein 201. He remains on Symbicort, albuterol, IV Solu-Medrol. Vitamin supplements. The patient is seen today 02/28/2021 in follow-up in the intensive care unit. She is currently resting comfortably in bed. She remains on BiPAP 14/7 and 100% FiO2 to maintain O2 saturations at 90%. Fluids are at KVO. She did receive tocilizumab, convalescent plasma. Chest x-ray continues to show diffuse bilateral airspace disease. White count 11.1. Hemoglobin 13.2. D-dimer 0.86. Sodium 132. Potassium 3.8. Creatinine 0.74. C-reactive protein 74.7. She remains on Solu-Medrol. Anticoagulated with Eliquis. She is continued on vitamin supplements, Symbicort, albuterol. Objective - Vital Signs Vital signs: Vital Signs Temp 97.5 F L 02/28/21 08:00 Pulse 66 02/28/21 11:00 Resp 19 02/28/21 11:00 BP 135/84 02/28/21 10:00 Pulse Ox 87 L 02/28/21 11:00 Intake & Output 02/27/21 02/28/21 02/28/21 18:59 06:59 18:59 Intake Total 880 553 20 Output Total 1020 440 40 Balance -140 113 -20 Intake: IV 480 240 20 Sodium Chloride 0.9% 1, 480 240 20 000 ml @ 20 mls/hr IV . Q24H [facility] Rx#:[id number] Intake, IV Titration 0 Amount Heparin Sod,Pork in 0.45% 0 NaCl 25,000 unit In 0.45 % NaCl 1 250ml.bag @ 12 UNITS/KG/HR 10.104 mls/hr IV .Q24H [facility] Rx#: [id number] Oral 400 Blood Product 313 Ffp Convalescent Plasma 313 Cpd Unit [id number] Output: Urine 1020 440 40 Other: Voiding Method Indwelling Catheter Indwelling Catheter - Exam GENERAL EXAM: Alert, pleasant 75-year-old female patient, on BiPAP 14/7 and 100% FiO2, and mild john distress. HEAD: Normocephalic. EYES: Normal reaction of pupils, equal size. NOSE: Clear with pink turbinates. THROAT: No erythema or exudates. NECK: No masses, no JVD. CHEST: No chest wall deformity. LUNGS: Equal air entry with crackles in the bilateral posterior bases. CVS: S1 and S2 normal with no audible murmur, regular rhythm. ABDOMEN: No hepatosplenomegaly, normal bowel sounds, no guarding or rigidity. SPINE: No scoliosis or deformity SKIN: No rashes CENTRAL NERVOUS SYSTEM: No focal deficits, tone is normal in all 4 extremities. EXTREMITIES: There is no peripheral edema. No clubbing, no cyanosis. Per ipheral pulses are intact. - Labs CBC & Chem 7: 02/28/21 03:17 02/28/21 03:17 Labs: Abnormal Lab Results - Last 24 Hours (Table) 02/27/21 02/27/21 02/27/21 Range/Units 03:34 03:34 11:31 WBC (3.8-10.6) k/uL Neutrophils # (1.3-7.7) k/uL APTT (22.0-30.0) sec D-Dimer (<0.60) mg/L FEU Sodium (137-145) mmol/L Chloride (98-107) mmol/L BUN (7-17) mg/dL Glucose (74-99) mg/dL POC Glucose (mg/dL) 243 H (75-99) mg/dL Hemoglobin A1c 7.0 H (4.0-6.0) % AST (14-36) U/L C-Reactive Protein (<10.0) mg/L Total Protein (6.3-8.2) g/dL Albumin (3.5-5.0) g/dL TSH 0.160 L (0.465-4.680) mIU/L 02/27/21 02/27/21 02/28/21 Range/Units 12:52 18:48 01:12 WBC (3.8-10.6) k/uL Neutrophils # (1.3-7.7) k/uL APTT 50.6 H (22.0-30.0) sec D-Dimer (<0.60) mg/L FEU Sodium (137-145) mmol/L Chloride (98-107) mmol/L BUN (7-17) mg/dL Glucose (74-99) mg/dL POC Glucose (mg/dL) 185 H 149 H (75-99) mg/dL Hemoglobin A1c (4.0-6.0) % AST (14-36) U/L C-Reactive Protein (<10.0) mg/L Total Protein (6.3-8.2) g/dL Albumin (3.5-5.0) g/dL TSH (0.465-4.680) mIU/L 02/28/21 02/28/21 02/28/21 Range/Units 03:17 03:17 03:17 WBC 11.1 H (3.8-10.6) k/uL Neutrophils # 9.5 H (1.3-7.7) k/uL APTT (22.0-30.0) sec D-Dimer 0.86 H (<0.60) mg/L FEU Sodium 132 L (137-145) mmol/L Chloride 95 L (98-107) mmol/L BUN 23 H (7-17) mg/dL Glucose 150 H (74-99) mg/dL POC Glucose (mg/dL) (75-99) mg/dL Hemoglobin A1c (4.0-6.0) % AST 70 H (14-36) U/L C-Reactive Protein 74.7 H (<10.0) mg/L Total Protein 6.1 L (6.3-8.2) g/dL Albumin 3.2 L (3.5-5.0) g/dL TSH 0.279 L (0.465-4.680) mIU/L Microbiology - Last 24 Hours (Table) 02/25/21 23:10 Blood Culture - Preliminary Blood No Growth after 48 hours Assessment and Plan Assessment: 1 Acute hypoxic respiratory failure secondary to acute CoVID 19 pneumonitis. Received tocilizumab, convalescent plasma 2 Mild transaminitis secondary to CoVID 19 3 Elevated inflammatory markers secondary to above 4 Atrial fibrillation with rapid ventricular response. Currently on amiodarone and Eliquis. 5 History of COPD 6 Coronary artery disease 7 History of breast cancer with previous lumpectomy 8 Gastroesophageal reflux disease 9 History of bipolar disorder 10 History of hypertension Plan: The patient was seen and evaluated by Dr. Chiang She did receive tocilizumab, convalescent plasma Continue Solu-Medrol, vitamin supplements Anticoagulated with Eliquis Titrate down the FiO2 as tolerated We'll continue to follow and make further recommendations based on her clinical status I, the cosigning physician, performed a history & physical examination of the patient. Lungs sounds with crackles in the bilateral posterior bases. Maintaining good O2 saturations in the 90s on 100% FiO2 with BiPAP 14/7. I discussed the assessment and plan of care with my nurse practitioner, Kelsey Simon. I attest to the above note as dictated by her.
[2021-02-28] MEDS: OFLOXACIN 0.3% OPHTH DROPS 5 ML BOTTLE BOTH EYES SCH ×4 (11:29→20:34)
[2021-02-28] MEDS: prednisoLONE ACETATE 1% OPHTH DROPS 5 ML BTL BOTH EYES SCH ×4 (11:29→20:34)
[2021-02-28 11:36] LABS: Glucose,Whole Blood 176 mg/dL (75-99)
--- NOTE | 2021-02-28 13:01 | P.PN ---
Subjective Progress Note Date: 02/28/21 HISTORY OF PRESENT ILLNESS This is a 75-year-old female patient of Dr. Gagnon and Dr. KENIA Pereira with past medical history of COPD, diabetes mellitus type 2, hypertension and hypertensive cardiovascular disease, hyperlipidemia, coronary artery disease with prior [place] in 2013 with PCI to the RCA, gastroesophageal reflux disease, hiatal hernia, left breast cancer status post lumpectomy, bipolar disorder, remote history of tobacco use. Echocardiogram in May 2020 revealed EF of 55- 60%, mild concentric left ventricular hypertrophy, trace mitral regurgitation, mild tricuspid regurgitation. She had a heart catheterization in May [address] Pereira which revealed widely patent RCA. LAD with minor irregularities. Diagonal is 40-50% ostial disease as it comes off the LAD. Circumflex with no significant disease. Recommendations at that time was for medical management. Patient has history of feeling sick for about 3 weeks with shortness of breath and cough. She does not have home oxygen. She apparently was brought into the emergency center due to altered mental status. She was found to be febrile with a temperature 101.4, heart rate 84, blood pressure 130/73 and pulse ox 88%. CBC was unremarkable. INR 0.9. Lactic acid 2.0. Blood sugar 119. Sodium 127, potassium 3.9, chloride 89, CO2 28, BUN 14 and creatinine 0.82. Magnesium 2.4. Total bilirubin 0.8, AST 92, ALT 37. C-reactive protein 970. ProBNP 752. Coronavirus PCR detected. EKG was a sinus rhythm with no acute changes with heart rate of 73. Chest x-ray revealed moderate pulmonary interstitial pneumonia new compared to old exam. No suspected heart failure. No definite pleural effusion. Patient is status post 1/2 L of IV fluid and admitted to the cardiac stepdown unit, pulmonary medicine and infectious disease consult in place 02/27: Patient developed A. fib with RVR overnight and was started on heparin drip, Cardizem drip and amiodarone drip, cardiology consult and transferred to the intensive care unit. She is currently on BiPAP. Echocardiogram has been obtained and report is pending. She is now rhythm with controlled rate. Patient's CODE STATUS has been changed to full code with no intubation. The patient has been afebrile, heart rate 64, blood pressure 111/65, pulse ox is 88% on BiPAP. CBC is unremarkable except for leukocytosis at 0.8. INR is 1.11. Sodium 129, potassium 3.9, chloride 94, CO2 22, BUN 60 and creatinine 0.66. Blood sugar 222 Levemir 10 units daily has been added. Calcium is 8.1, total bilirubin 0.7, AST 95, ALT 35, phosphatase 83. LDH 1426. C-reactive protein 201.5. Blood cultures no growth at 24 hours. Chest x-ray reveals slight wor sening of bilateral airspace disease, right greater than left. Patient has been seen by cardiology and Cardizem drip has been discontinued. Continue amiodarone drip and IV heparin. Prescription has been sent to pharmacy for a request to check coverage. Patient has received 2 doses of Tocilizumab. She is status post IV Lasix 20 mg as morning. 02/28: patient remains in intensive care unit on BiPAP with pulse ox of 88%. 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 She did have some bradycardia overnight in the 40s and 50s and cardiologyhas discontinued Coreg. Patient is continued on oral amiodarone and eliquis.repeat chest x-ray reveals stable diffuse increased lung markings within the mid to lower lung jolley bilaterally compatible with atypical pneumonia.WBC is 11.1, hemoglobin 13.2. D-dimer 0.86. Sodium 132, potassium 3.8, chloride 95, CO2 30, BUN 23 and creatinine 0.74. B lood sugars running between 149 and 185. Total bilirubin 0.8, AST 70, ALT 33, alkaline phosphatase 78. C-reactive protein 74.7. TSH 0.279. Pulmonary medicine has ordered convalescent plasma therapy which patient received last evening and patient is anxious about and is afraid she will have a reaction. She currently denies having any itching or rash. Last evening, lorazepam as needed was added. REVIEW OF SYSTEMS Constitutional: No fever, no chills, no night sweats. No weight change. Reports weakness, Reports fatigue Reports lethargy. Reports daytime sleepiness. EENT: No headache. No blurred vision or double vision, no loss of vision. No dizziness. No nasal drainage or congestion. No epistaxis. No sore throat. Lungs: Reports shortness of breath, Reports cough, no sputum production. No wheezing. Cardiovascular: No chest pain, no lower extremity edema. No palpitations. No paroxysmal nocturnal dyspnea. No orthopnea. No lightheadedness or dizziness. No syncopal episodes. Abdominal: No abdominal pain. No nausea, vomiting. No diarrhea. No const ipation. No bloody or tarry stools. No loss of appetite. Genitourinary: No dysuria, increased frequency, urgency. No urinary retention. Musculoskeletal: No myalgias. Reports muscle weakness, Reports gait dysfunction, no frequent falls. No back pain. No neck pain. Integumentary: No wounds, no lesions. No rash or pruritus. Neurologic: No aphasia. No facial droop. No change in mentation. No head injury. No headache. No paralysis. No paresthesia. Psychiatric: No depression. reports anxiety. Endocrine: No abnormal blood sugars. PHYSICAL EXAMINATION Gen: This is a 75-year-old female. She is resting in ICU bed and appears comfortable at rest while on BiPAPr. HEENT: Head is atraumatic, normocephalic. Pupils equal, round. Sclerae is anicteric. NECK: Supple. No JVD. No lymphadenopathy. No thyromegaly. LUNGS: Diminished bilaterally. No intercostal retractions. HEART: Regular rate and rhythm. Systolic murmur. 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 ABDOMEN: Soft. Bowel sounds are present. No masses. No tenderness. EXTREMITIES: No pedal edema. No calf tenderness. Dorsalis pedis +2 bilaterally. NEUROLOGICAL: Patient is awake, alert and oriented x3. Cranial nerves 2 through 12 are grossly intact. ASSESSMENT AND PLAN 1. Metabolic encephalopathy secondary to sepsis and COVID19 pneumonia, hyponatremia. 2. Acute hypoxic respiratory failure secondary to combination of COPD exacerbation, Covid 19 pneumonia. Patient is currently on oxygen nonrebreather. Consult with pulmonary medicine and infectious disease. Patient started on Symbicort twice daily, albuterol inhaler 4 times daily as needed, Lovenox 40 mg subcu daily, Solu-Medrol 60 mg IV every 6 hours, zinc, vitamin C, vitamin D. Patient is status post 2 doses of Tocilizumab and status post IV Lasix for fluid overload secondary to fluid resuscitation, status post convalescent plasma transfusion without reaction. 3. Diabetes mellitus type 2. Hold metformin. Patient started on NovoLog scale before meals and at bedtime. Levemir 10 units daily added. 4. Hyponatremia, improved. Patient is status post IV fluids, continue to monitor. Hold Lasix 40 mg daily. 5. Mild elevation in liver function tests, monitor. 6. Elevated inflammatory markers secondary to Covid. 7. Hypertension, hypertensive cardiovascular disease. Hold Coreg for bradyc ardia. Hold lisinopril 2.5 mg daily and hold Aldactone 12.5 mg daily. 8. Hyperlipidemia. Continue atorvastatin 40 mg at bedtime. 9. Coronary artery disease. Continue Nitrostat, atorvastatin, Coreg. 10. Gastroesophageal reflux disease, GI prophylaxis. Continue Prevacid. 11. History of left breast cancer status post lumpectomy. Continue Femara 2.5 mg daily. 12. Bipolar disorder. Continue Cymbalta 60 mg daily, Neurontin 300 mg twice daily, Zyprexa 2.5 mg at bedtime, clonazepam 1 mg twice daily as needed. 13. New onset Atrial fibrillation with RVR, currently in SR. Hold Cereg for bradycardia. Continue Amiodarone PO, Eliquis. 14. DVT prophylaxis. Eliquis. DISCHARGE PLAN To be determined. PT and OT consults. Impression and plan of care have been directed as dictated by the signing physician. Teresa Rios nurse practitioner acting as scribe for signing physician. Objective - Vital Signs Vital signs: Vital Signs Temp 97.5 F L 02/28/21 08:00 Pulse 66 02/28/21 08:00 Resp 20 02/28/21 08:00 BP 130/79 02/28/21 08:00 Pulse Ox 88 L 02/28/21 08:00 Intake & Output 02/27/21 02/28/21 02/28/21 18:59 06:59 18:59 Intake Total 880 553 20 Output Total 1020 440 40 Balance -140 113 -20 Intake: IV 480 240 20 Sodium Chloride 0.9% 1, 480 240 20 000 ml @ 20 mls/hr IV . Q24H [facility] Rx#:[id number] Intake, IV Titration 0 Amount Heparin Sod,Pork in 0.45% 0 NaCl 25,000 unit In 0.45 % NaCl 1 250ml.bag @ 12 UNITS/KG/HR 10.104 mls/hr IV .Q24H [facility] Rx#: [id number] Oral 400 Blood Product 313 Ffp Convalescent Plasma 313 Cpd Unit [id number] Output: Urine 1020 440 40 Other: Voiding Method Indwelling Catheter Indwelling Catheter - Labs CBC & Chem 7: 02/28/21 03:17 02/28/21 03:17 Labs: Abnormal Lab Results - Last 24 Hours (Table) 02/27/21 02/27/21 02/27/21 Range/Units 03:34 03:34 11:31 WBC (3.8-10.6) k/uL Neutrophils # (1.3-7.7) k/uL APTT (22.0-30.0) sec D-Dimer (<0.60) mg/L FEU Sodium (137-145) mmol/L Chloride (98-107) mmol/L BUN (7-17) mg/dL Glucose (74-99) mg/dL POC Glucose (mg/dL) 243 H (75-99) mg/dL Hemoglobin A1c 7.0 H (4.0-6.0) % AST (14-36) U/L C-Reactive Protein (<10.0) mg/L Total Protein (6.3-8.2) g/dL Albumin (3.5-5.0) g/dL TSH 0.160 L (0.465-4.680) mIU/L 02/27/21 02/27/21 02/28/21 Range/Units 12:52 18:48 01:12 WBC (3.8-10.6) k/uL Neutrophils # (1.3-7.7) k/uL APTT 50.6 H (22.0-30.0) sec D-Dimer (<0.60) mg/L FEU Sodium (137-145) mmol/L Chloride (98-107) mmol/L BUN (7-17) mg/dL Glucose (74-99) mg/dL POC Glucose (mg/dL) 185 H 149 H (75-99) mg/dL Hemoglobin A1c (4.0-6.0) % AST (14-36) U/L C-Reactive Protein (<10.0) mg/L Total Protein (6.3-8.2) g/dL Albumin (3.5-5.0) g/dL TSH (0.465-4.680) mIU/L 02/28/21 02/28/21 02/28/21 Range/Units 03:17 03:17 03:17 WBC 11.1 H (3.8-10.6) k/uL Neutrophils # 9.5 H (1.3-7.7) k/uL APTT (22.0-30.0) sec D-Dimer 0.86 H (<0.60) mg/L FEU Sodium 132 L (137-145) mmol/L Chloride 95 L (98-107) mmol/L BUN 23 H (7-17) mg/dL Glucose 150 H (74-99) mg/dL POC Glucose (mg/dL) (75-99) mg/dL Hemoglobin A1c (4.0-6.0) % AST 70 H (14-36) U/L C-Reactive Protein 74.7 H (<10.0) mg/L Total Protein 6.1 L (6.3-8.2) g/dL Albumin 3.2 L (3.5-5.0) g/dL TSH 0.279 L (0.465-4.680) mIU/L Microbiology - Last 24 Hours (Table) 02/25/21 23:10 Blood Culture - Preliminary Blood No Growth after 48 hours
[2021-02-28 17:25] LABS: Glucose,Whole Blood 143 mg/dL (75-99)
[2021-02-28] MEDS: SODIUM CHLORIDE 0.9% 1,000 ML IV SCH (17:42)
[2021-02-28] MEDS: ATORVASTATIN 40 MG TAB PO SCH (20:32)
[2021-02-28] MEDS: MONTELUKAST 10 MG TAB PO SCH (20:33)
[2021-02-28] MEDS: traZODone HCL 50 MG TAB PO SCH (20:33)
[2021-02-28] MEDS: OLANZapine 2.5 MG TAB PO SCH (20:33)
[2021-02-28] MEDS: MELATONIN 5 MG TABLET PO SCH (20:33)
[2021-02-28] MEDS: LATANOPROST 0.005% OPHTH DROPS 2.5 ML BTL BOTH EYES SCH (22:58)
[2021-02-28 23:03] LABS: Glucose,Whole Blood 172 mg/dL (75-99)
--- NOTE | 2021-02-28 23:06 | PN ---
PROGRESS NOTE DATE OF SERVICE: 02/28/2021. REASON FOR FOLLOW UP: COVID-19 pneumonia. INTERVAL HISTORY: Patient is currently afebrile. The patient remains to be BiPAP dependent. O2 sats are still marginal. Denies any chest pain. She did have a cough. No sputum. No abdominal pain. No diarrhea. EXAMINATION: Her blood pressure is 125/77 with a pulse of 74, temperature 98.4. She is 95% on BiPAP. General description is an elderly female lying in bed in no distress. Respiratory system: Unlabored breathing, decreased intensity of breath sounds. No wheeze. HEART: S1, S2. Regular rate and rhythm. Abdomen soft, no tenderness. LABORATORY DATA: Hemoglobin 13.1, white count 11.1 BUN of 23, creatinine 0.74, CRP 74.7. Blood culture has been negative. DIAGNOSTIC IMPRESSION AND PLAN: Patient with acute COVID-19 pneumonia with acute respiratory failure, BiPAP dependent. The patient is currently on Eliquis, Solu-Medrol and zinc, ascorbic acid along with respiratory support. Continue supportive care. MMODL / IJN: [id number] /
[2021-03-01 05:33] LABS: Glucose,Whole Blood 154 mg/dL (75-99)
[2021-03-01] MEDS: INSULIN ASPART (NovoLOG) 100 UNIT/ML VIAL SQ SCH ×3 (05:44→18:31)
[2021-03-01] MEDS: methylPREDNISolone SOD SUCCI 125 MG/2 ML VIAL IV SCH ×3 (05:45→18:26)
[2021-03-01 06:08] LABS: Basophils % (A) 0 %; Eosinophils % (A) 0 %; HCT 40.1 % (34.0-46.0); HGB 13.8 gm/dL (11.4-16.0); Lymphocytes # (A) 0.7 k/uL (1.0-4.8); Lymphocytes % (A) 5 %; MCH 32.6 pg (25.0-35.0); MCHC 34.3 g/dL (31.0-37.0); MCV 94.8 fL (80.0-100.0); Mean Platelet Volume 9.3; Monocytes # (A) 0.7 k/uL (0-1.0); Monocytes % (A) 5 %; Neutrophils # (A) 13.2 k/uL (1.3-7.7); Neutrophils % (A) 89 %; Platelet Count 274 k/uL (150-450); RBC 4.23 m/uL (3.80-5.40); RDW 13.9 % (11.5-15.5); WBC 14.9 k/uL (3.8-10.6)
[2021-03-01] MEDS: PANTOPRAZOLE 40 MG/10 ML VIAL IVP SCH (06:39)
[2021-03-01] MEDS: INSULIN DETEMIR (LEVEMIR) 100 UNIT/ML SYR SQ SCH (06:39)
--- NOTE | 2021-03-01 07:15 | XR ---
EXAMINATION TYPE: XR chest 1V portable DATE OF EXAM: 03/01/2021 COMPARISON: 02/28/2021 INDICATION: Pneumonia TECHNIQUE: Single frontal view of the chest is obtained. FINDINGS: The heart size is normal. The pulmonary vasculature is normal. Patchy diffuse infiltrates present bilaterally. There may be some improvement at the lung bases. IMPRESSION: 1. Slight improvement of diffuse increased lung markings bilaterally
[2021-03-01] MEDS: SYMBICORT 160-4.5 MCG INHALER INHALATION SCH ×2 (07:37→20:31)
[2021-03-01] MEDS: ALBUTEROL HFA INHALER INHALATION PRN ×4 (07:37→20:31)
[2021-03-01] MEDS: DULoxetine HCL 60 MG CAPSULE.DR PO SCH ×2 (08:41→20:38)
[2021-03-01] MEDS: APIXABAN 5 MG TAB PO SCH ×2 (08:41→20:38)
[2021-03-01] MEDS: GABAPENTIN 300 MG CAP PO SCH ×2 (08:41→20:38)
[2021-03-01] MEDS: ASCORBIC ACID 500 MG TAB PO SCH (08:41)
[2021-03-01] MEDS: AMIODARONE 200 MG TAB PO SCH ×2 (08:41→20:38)
[2021-03-01] MEDS: CHOLECALCIFEROL 25 MCG (1000 IU) TABLET PO SCH (08:41)
[2021-03-01] MEDS: prednisoLONE ACETATE 1% OPHTH DROPS 5 ML BTL BOTH EYES SCH ×4 (08:42→20:40)
[2021-03-01] MEDS: LETROZOLE 2.5 MG TAB PO SCH (08:42)
[2021-03-01] MEDS: ZINC SULFATE 220 MG CAP PO SCH (08:43)
[2021-03-01] MEDS: OFLOXACIN 0.3% OPHTH DROPS 5 ML BOTTLE BOTH EYES SCH ×4 (09:28→20:39)
[2021-03-01] MEDS: clonazePAM 1 MG TAB PO PRN ×2 (09:49→21:18)
[2021-03-01 09:57] LABS: ALT 31 U/L (4-34); AST 57 U/L (14-36); African American GFR (CKD) >90 (>60 ml/min/1.73 sqM); Albumin 3.1 g/dL (3.5-5.0); Alkaline Phosphatase 80 U/L (38-126); Anion Gap 6 mmol/L; Blood Urea Nitrogen 29 mg/dL (7-17); Calcium 8.5 mg/dL (8.4-10.2); Carbon Dioxide 30 mmol/L (22-30); Chloride 99 mmol/L (98-107); Glucose 156 mg/dL (74-99); Non-African American GFR(CKD) 84 (>60 ml/min/1.73 sqM); Potassium 4.1 mmol/L (3.5-5.1); Sodium 135 mmol/L (137-145)
--- NOTE | 2021-03-01 11:20 | PN ---
PROGRESS NOTE Maame is a 75-year-old patient who is admitted to ICU with COVID pneumonia and respiratory failure. Cardiology has been consulted because of atrial fibrillation. This morning, patient remains in sinus rhythm. She is currently on amiodarone 200 b.i.d. and Eliquis 5 mg b.i.d. Physical exam is limited secondary to COVID. On exam, her heart rate is 67 beats per minute. Afebrile. Blood pressure is 140/62. Respiratory rate is 16. O2 saturation is 90% on 100% BiPAP. LABS: Labs today show that the hemoglobin is 13.8, white cell count is 14.9, platelet count is 274. Her potassium was 3.8 yesterday with a creatinine of 0.74. AST is slightly elevated. ALT is within normal limits. ASSESSMENT: 1. COVID infection with COVID pneumonia. 2. Persistent atrial fibrillation, currently in sinus rhythm. PLAN: Continue the amiodarone and the Eliquis. MMODL / IJN: [id number] /
[2021-03-01 11:57] LABS: Glucose,Whole Blood 148 mg/dL (75-99)
--- NOTE | 2021-03-01 12:10 | P.PN ---
Subjective Progress Note Date: 03/01/21 Principal diagnosis: CoVID 19 pneumonia This is a 75-year-old female with history of multiple medical problems including COPD, type 2 diabetes, hypertension, coronary artery disease and previous NM in 2013, previous stenting to RCA, history of left breast cancer and previous lum pectomy, bipolar disorder, patient presented to the ER with 3 weeks history of not feeling well. Patient stated that she felt sick for the last 3 weeks, complaining of generalized weakness, cough, cough is nonproductive, and shortness of breath. Patient was also having intermittent episodes of mental status change and confusion, in the ER she was noted to be febrile with a temp of 101.4, chest x-ray showed bilateral interstitial infiltrates, her sodium was noted to be a bit low at 127, her C-reactive protein was high, LDH was high, and her treating for granados virus/PCR was positive patient was admitted, placed on 15 L high flow via a nonrebreather mask, and I was asked to see her on consul tation. Patient was seen on the regular medical floor, and she was noted to have extremely low saturations in the high 70s and low 80s hence I recommended placing the patient on BiPAP. Patient is out of the window for remdesivir, however considering her O2 requirement, we will likely recommend starting the patient on actemra, and on the coated 19 cocktail. If the patient does not improve with BiPAP, May have to seriously consider transfer the patient to the ICU. The patient is seen today 02/27/2021 in follow-up in the intensive care unit. She did undergo being transferred down here yesterday. Blood gases on 100% FiO2 had revealed a PaO2 of 45, pCO2 35, pH 7.51. Continue with low saturations. She is currently on BiPAP 14/7 and 100% FiO2. She had also developed atrial fibrillation with a rapid ventricular response. She is on amiodarone at 0.5 mg/m. Heparin drip. 0.9 normal saline at 80 MLS per hour. She did receive Actemra. White count 6.0. Hemoglobin 14.3. Lymphocytes 0.8. D-dimer 1.11. Sodium 129. Potassium 3.9. Creatinine 0.66. LDH 1426. C-reactive protein 201. He remains on Symbicort, albuterol, IV Solu-Medrol. Vitamin supplements. The patient is seen today 02/28/2021 in follow-up in the intensive care unit. She is currently resting comfortably in bed. She remains on BiPAP 14/7 and 100% FiO2 to maintain O2 saturations at 90%. Fluids are at KVO. She did receive tocilizumab, convalescent plasma. Chest x-ray continues to show diffuse bilateral airspace disease. White count 11.1. Hemoglobin 13.2. D-dimer 0.86. Sodium 132. Potassium 3.8. Creatinine 0.74. C-reactive protein 74.7. She remains on Solu-Medrol. Anticoagulated with Eliquis. She is continued on vitamin supplements, Symbicort, albuterol. Patient is seen today 03/01/2021 in follow-up in the intensive care unit. She is currently resting fairly comfortably in bed. Awake and alert in no acute distress. She is still mostly BiPAP dependent currently 14/7 and 100% FiO2 to maintain O2 saturations in the high 80s low 90s. She dropped to 75% while off the BiPAP briefly for medications. She did receive tocilizumab and convalescent plasma. Chest x-ray continues to show patchy bilateral infiltrates. Currently in sinus rhythm. She is anticoagulated with Eliquis. Receiving IV solu Medrol, bronchodilators, vitamin supplements. Objective - Vital Signs Vital signs: Vital Signs Temp 97.5 F L 03/01/21 08:00 Pulse 69 03/01/21 11:00 Resp 21 03/01/21 11:00 BP 143/72 03/01/21 11:00 Pulse Ox 85 L 03/01/21 11:00 Intake & Output 02/28/21 03/01/21 03/01/21 18:59 06:59 18:59 Intake Total 260 220 180 Output Total 481 490 175 Balance -221 -270 5 Intake: IV 260 220 80 Sodium Chloride 0.9% 1, 260 220 80 000 ml @ 20 mls/hr IV . Q24H [facility] Rx#:[id number] Oral 100 Output: Urine 481 490 175 Other: Voiding Method Indwelling Catheter Indwelling Catheter Indwelling Catheter - Exam GENERAL EXAM: Alert, pleasant 75-year-old female patient, on BiPAP 14/7 and 100% FiO2, and mild john distress. HEAD: Normocephalic. EYES: Normal reaction of pupils, equal size. NOSE: Clear with pink turbinates. THROAT: No erythema or exudates. NECK: No masses, no JVD. CHEST: No chest wall deformity. LUNGS: Equal air entry with crackles in the bilateral posterior bases. CVS: S1 and S2 normal with no audible murmur, regular rhythm. ABDOMEN: No hepatosplenomegaly, normal bowel sounds, no guarding or rigidity. SPINE: No scoliosis or deformity SKIN: No rashes CENTRAL NERVOUS SYSTEM: No focal deficits, tone is normal in all 4 extremities. EXTREMITIES: There is no peripheral edema. No clubbing, no cyanosis. Pe ripheral pulses are intact. - Labs CBC & Chem 7: 03/01/21 04:51 03/01/21 09:24 Labs: Abnormal Lab Results - Last 24 Hours (Table) 02/28/21 02/28/21 03/01/21 Range/Units 17:23 23:01 04:51 WBC 14.9 H (3.8-10.6) k/uL Neutrophils # 13.2 H (1.3-7.7) k/uL Lymphocytes # 0.7 L (1.0-4.8) k/uL Sodium (137-145) mmol/L BUN (7-17) mg/dL Glucose (74-99) mg/dL POC Glucose (mg/dL) 143 H 172 H (75-99) mg/dL AST (14-36) U/L Total Protein (6.3-8.2) g/dL Albumin (3.5-5.0) g/dL 03/01/21 03/01/21 03/01/21 Range/Units 05:31 09:24 11:55 WBC (3.8-10.6) k/uL Neutrophils # (1.3-7.7) k/uL Lymphocytes # (1.0-4.8) k/uL Sodium 135 L (137-145) mmol/L BUN 29 H (7-17) mg/dL Glucose 156 H (74-99) mg/dL POC Glucose (mg/dL) 154 H 148 H (75-99) mg/dL AST 57 H (14-36) U/L Total Protein 6.0 L (6.3-8.2) g/dL Albumin 3.1 L (3.5-5.0) g/dL Microbiology - Last 24 Hours (Table) 02/25/21 23:10 Blood Culture - Preliminary Blood No Growth after 72 hours Assessment and Plan Assessment: 1 Acute hypoxic respiratory failure secondary to acute CoVID 19 pneumonitis. Received tocilizumab, convalescent plasma 2 Mild transaminitis secondary to CoVID 19 3 Elevated inflammatory markers secondary to above 4 Atrial fibrillation with rapid ventricular response. Currently on amiodarone and Eliquis. 5 History of COPD 6 Coronary artery disease 7 History of breast cancer with previous lumpectomy 8 Gastroesophageal reflux disease 9 History of bipolar disorder 10 History of hypertension Plan: The patient was seen and evaluated by Dr. Chiang Asked x-ray and labs reviewed Continue Solu-Medrol, vitamin supplements Anticoagulated with Eliquis Titrate down the FiO2 as tolerated We'll continue to follow and make further recommendations based on her clinical status I, the cosigning physician, performed a history & physical examination of the patient. Lungs sounds with crackles in the bilateral posterior bases. Maintaining good O2 saturations in the 90s on 100% FiO2 with BiPAP 14/7. I discussed the assessment and plan of care with my nurse practitioner, Kelsey Simon. I attest to the above note as dictated by her.
--- NOTE | 2021-03-01 16:28 | P.PN ---
Subjective Progress Note Date: 03/01/21 HISTORY OF PRESENT ILLNESS This is a 75-year-old female patient of Dr. Gagnon and Dr. KENIA Pereira with past medical history of COPD, diabetes mellitus type 2, hypertension and hypertensive cardiovascular disease, hyperlipidemia, coronary artery disease with prior UT in 2013 with PCI to the RCA, gastroesophageal reflux disease, hiatal hernia, left breast cancer status post lumpectomy, bipolar disorder, remote history of tobacco use. Echocardiogram in May 2020 revealed EF of 55- 60%, mild concentric left ventricular hypertrophy, trace mitral regurgitation, mild tricuspid regurgitation. She had a heart catheterization in May [address] Pereira which revealed widely patent RCA. LAD with minor irregularities. Diagonal is 40-50% ostial disease as it comes off the LAD. Circumflex with no significant disease. Recommendations at that time was for medical management. Patient has history of feeling sick for about 3 weeks with shortness of breath and cough. She does not have home oxygen. She apparently was brought into the emergency center due to altered mental status. She was found to be febrile with a temperature 101.4, heart rate 84, blood pressure 130/73 and pulse ox 88%. CBC was unremarkable. INR 0.9. Lactic acid 2.0. Blood sugar 119. Sodium 127, potassium 3.9, chloride 89, CO2 28, BUN 14 and creatinine 0.82. Magnesium 2.4. Total bilirubin 0.8, AST 92, ALT 37. C-reactive protein 970. ProBNP 752. Coronavirus PCR detected. EKG was a sinus rhythm with no acute changes with heart rate of 73. Chest x-ray revealed moderate pulmonary interstitial pneumonia new compared to old exam. No suspected heart failure. No definite pleural effusion. Patient is status post 1/2 L of IV fluid and admitted to the cardiac stepdown unit, pulmonary medicine and infectious disease consult in place 02/27: Patient developed A. fib with RVR overnight and was started on heparin drip, Cardizem drip and amiodarone drip, cardiology consult and transferred to the intensive care unit. She is currently on BiPAP. Echocardiogram has been obtained and report is pending. She is now rhythm with controlled rate. Patient's CODE STATUS has been changed to full code with no intubation. The patient has been afebrile, heart rate 64, blood pressure 111/65, pulse ox is 88% on BiPAP. CBC is unremarkable except for leukocytosis at 0.8. INR is 1.11. Sodium 129, potassium 3.9, chloride 94, CO2 22, BUN 60 and creatinine 0.66. Blood sugar 222 Levemir 10 units daily has been added. Calcium is 8.1, total bilirubin 0.7, AST 95, ALT 35, phosphatase 83. LDH 1426. C-reactive protein 201.5. Blood cultures no growth at 24 hours. Chest x-ray reveals slight wor sening of bilateral airspace disease, right greater than left. Patient has been seen by cardiology and Cardizem drip has been discontinued. Continue amiodarone drip and IV heparin. Prescription has been sent to pharmacy for a request to check coverage. Patient has received 2 doses of Tocilizumab. She is status post IV Lasix 20 mg as morning. 02/28: patient remains in intensive care unit on BiPAP with pulse ox of 88%. pvc monitor has been sinus rhythm in the 60s. She did have some bradycardia overnight in the 40s and 50s and cardiologyhas discontinued Coreg. Patient is continued on oral amiodarone and eliquis.repeat chest x-ray reveals stable diffuse increased lung markings within the mid to lower lung jolley bilaterally compatible with atypical pneumonia. WBC is 11.1, hemoglobin 13.2. D-dimer 0.86. Sodium 132, potassium 3.8, chloride 95, CO2 30, BUN 23 and creatinine 0.74. Blood sugars running between 149 and 185. Total bilirubin 0.8, AST 70, ALT 33, alkaline phosphatase 78. C-reactive protein 74.7. TSH 0.279. Pulmonary medicine has ordered convalescent plasma therapy which patient received last evening and patient is anxious about and is afraid she will have a reaction. She currently denies having any itching or rash. Last evening, lorazepam as needed was added. 03/01: Patient remains in the intensive care unit on BiPAP pulse ox 87 and 92%. Patient appears to be comfortable. Her pulse ox does drop and she is off the BiPAP even briefly. FiO2 is 100%. Patient is status post ocilizumab and convalescent plasma. She has been afebrile, heart rate 69, blood pressure 143/72. WBC 14.9, hemoglobin 13.8, platelet count 274. Lymphocytes 0.7. Sodium 135 otherwise electrolytes are normal, BUN 29 creatinine 0.72. Blood sugars running between 154 at 172. AST 57 otherwise liver function tests are normal. Blood culture no growth at 72 hours. Chest x-ray reveals slight improvement of diffuse increased lung markings bilaterally. Yesterday, Cymbalta increased frequency to twice daily. REVIEW OF SYSTEMS Constitutional: No fever, no chills, no night sweats. No weight change. Reports weakness, Reports fatigue Reports lethargy. Reports daytime sleepiness. EENT: No headache. No blurred vision or double vision, no loss of vision. No dizziness. No nasal drainage or congestion. No epistaxis. No sore throat. Lungs: Reports shortness of breath, Reports cough, no sputum production. No wheezing. Cardiovascular: No chest pain, no lower extremity edema. No palpitations. No paroxysmal nocturnal dyspnea. No orthopnea. No lightheadedness or dizziness. No syncopal episodes. Abdominal: No abdominal pain. No nausea, vomiting. No diarrhea. No constipation. No bloody or tarry stools. No loss of appetite. Genitourinary: No dysuria, increased frequency, urgency. No urinary retention. Musculoskeletal: No myalgias. Reports muscle weakness, Reports gait dysfunction, no frequent falls. No back pain. No neck pain. Integumentary: No wounds, no lesions. No rash or pruritus. Neurologic: No aphasia. No facial droop. No change in mentation. No head injury. No headache. No paralysis. No paresthesia. Psychiatric: No depression. reports anxiety. Endocrine: Mildly abnormal blood sugars. PHYSICAL EXAMINATION Gen: This is a 75-year-old female. She is resting in ICU bed and a ppears comfortable at rest while on BiPAPr. HEENT: Head is atraumatic, normocephalic. Pupils equal, round. Sclerae is anicteric. NECK: Supple. No JVD. No lymphadenopathy. No thyromegaly. LUNGS: Diminished bilaterally. No intercostal retractions. HEART: Regular rate and rhythm. Systolic murmur. pvc monitor is sinus rhythm. ABDOMEN: Soft. Bowel sounds are present. No masses. No tenderness. EXTREMITIES: No pedal edema. No calf tenderness. Dorsalis pedis +2 bilaterally. NEUROLOGICAL: Patient is awake, alert and oriented x3. Cranial nerves 2 through 12 are grossly intact. ASSESSMENT AND PLAN 1. Metabolic encephalopathy secondary to sepsis and COVID19 pneumonia, hyponatremia. 2. Acute hypoxic respiratory failure secondary to combination of COPD exacerbat ion, Covid 19 pneumonia. Patient is currently on oxygen nonrebreather. Consult with pulmonary medicine and infectious disease. Patient started on Symbicort twice daily, albuterol inhaler 4 times daily as needed, Lovenox 40 mg subcu daily, Solu-Medrol 60 mg IV every 6 hours, zinc, vitamin C, vitamin D. Patient is status post 2 doses of Tocilizumab and status post IV Lasix for fluid overload secondary to fluid resuscitation, status post convalescent plasma transfusion. 3. Diabetes mellitus type 2. Hold metformin. Patient started on NovoLog scale before meals and at bedtime. Levemir 10 units daily added. 4. Hyponatremia, improved. Patient is status post IV fluids, continue to monitor. Hold Lasix 40 mg daily. 5. Mild elevation in liver function tests, monitor. 6. Elevated inflammatory markers secondary to Covid. 7. Hypertension, hypertensive cardiovascular disease. Hold Coreg for bradycardia. Hold lisinopril 2.5 mg daily and hold Aldactone 12.5 mg daily. 8. Hyperlipidemia. Continue atorvastatin 40 mg at bedtime. 9. Coronary artery disease. Continue Nitrostat, atorvastatin, Coreg. 10. Gastroesophageal reflux disease, GI prophylaxis. Continue Prevacid. 11. History of left breast cancer status post lumpectomy. Continue Femara 2.5 mg daily. 12. Bipolar disorder. Continue Cymbalta 60 mg increased frequency to twice daily, Neurontin 300 mg twice daily, Zyprexa 2.5 mg at bedtime, clonazepam 1 mg twice daily as needed. 13. New onset Atrial fibrillation with RVR, currently in SR. Hold Cereg for bradycardia. Continue Amiodarone PO, Eliquis. 14. DVT prophylaxis. Eliquis. DISCHARGE PLAN To be determined. PT and OT consults. Impression and plan of care have been directed as dictated by the signing physician. Teresa Rios nurse practitioner acting as scribe for signing physician. Objective - Vital Signs Vital signs: Vital Signs Temp 97.9 F 03/01/21 12:00 Pulse 81 03/01/21 13:00 Resp 20 03/01/21 13:00 BP 116/52 03/01/21 13:00 Pulse Ox 91 L 03/01/21 13:00 Intake & Output 02/28/21 03/01/21 03/01/21 18:59 06:59 18:59 Intake Total 260 220 220 Output Total 481 490 285 Balance -221 -270 -65 Intake: IV 260 220 120 Sodium Chloride 0.9% 1, 260 220 120 000 ml @ 20 mls/hr IV . Q24H [facility] Rx#:[id number] Oral 100 Output: Urine 481 490 285 Other: Voiding Method Indwelling Catheter Indwelling Catheter Indwelling Catheter - Labs CBC & Chem 7: 03/01/21 04:51 03/01/21 09:24 Labs: Abnormal Lab Results - Last 24 Hours (Table) 02/28/21 02/28/21 03/01/21 Range/Units 17:23 23:01 04:51 WBC 14.9 H (3.8-10.6) k/uL Neutrophils # 13.2 H (1.3-7.7) k/uL Lymphocytes # 0.7 L (1.0-4.8) k/uL Sodium (137-145) mmol/L BUN (7-17) mg/dL Glucose (74-99) mg/dL POC Glucose (mg/dL) 143 H 172 H (75-99) mg/dL AST (14-36) U/L Total Protein (6.3-8.2) g/dL Albumin (3.5-5.0) g/dL 03/01/21 03/01/21 03/01/21 Range/Units 05:31 09:24 11:55 WBC (3.8-10.6) k/uL Neutrophils # (1.3-7.7) k/uL Lymphocytes # (1.0-4.8) k/uL Sodium 135 L (137-145) mmol/L BUN 29 H (7-17) mg/dL Glucose 156 H (74-99) mg/dL POC Glucose (mg/dL) 154 H 148 H (75-99) mg/dL AST 57 H (14-36) U/L Total Protein 6.0 L (6.3-8.2) g/dL Albumin 3.1 L (3.5-5.0) g/dL Microbiology - Last 24 Hours (Table) 02/25/21 23:10 Blood Culture - Preliminary Blood No Growth after 72 hours
[2021-03-01 18:02] LABS: Glucose,Whole Blood 260 mg/dL (75-99)
[2021-03-01] MEDS: SODIUM CHLORIDE 0.9% 1,000 ML IV SCH (18:28)
[2021-03-01] MEDS: ATORVASTATIN 40 MG TAB PO SCH (20:38)
[2021-03-01] MEDS: MELATONIN 5 MG TABLET PO SCH (20:38)
[2021-03-01] MEDS: MONTELUKAST 10 MG TAB PO SCH (20:38)
[2021-03-01] MEDS: traZODone HCL 50 MG TAB PO SCH (20:39)
[2021-03-01] MEDS: OLANZapine 2.5 MG TAB PO SCH (20:39)
[2021-03-01] MEDS: LATANOPROST 0.005% OPHTH DROPS 2.5 ML BTL BOTH EYES SCH (20:39)
--- NOTE | 2021-03-01 23:04 | PN ---
PROGRESS NOTE DATE OF SERVICE: 03/01/2021 REASON FOR FOLLOWUP: COVID-19 pneumonia. RECENT HISTORY: The patient is currently afebrile. The patient remains to be BiPAP dependent on 100% BiPAP. The patient is hemodynamically stable, not on pressor support. Patient denies any chest pain. She did have some cough. No sputum production. No abdominal pain. No diarrhea has been reported. PHYSICAL EXAMINATION: Blood pressure 131/60 with a pulse of 76. Temperature is 98.1, she is 88% on 100% FIO2. General description is an elderly female lying in bed in no distress. Respiratory system: Unlabored breathing, decreased breath sounds in the bases. No wheeze. HEART: S1, S2. Regular rate and rhythm. Abdomen soft, no tenderness. LABS: Hemoglobin is 13.8, hematocrit 14.9, BUN of 29, creatinine 0.72. Blood culture has been negative. DIAGNOSTIC IMPRESSION AND PLAN: Patient with acute respiratory failure, multifactorial in this patient who did have a component of COVID-19 pneumonia. Chest x-ray did show slight improvement this morning. The patient is currently covered with Eliremi, Solu-Medrol, to continue along with respiratory support. Monitor clinical course closely. MMODL / IJN: [id number] /
[2021-03-02 00:05] LABS: Glucose,Whole Blood 268 mg/dL (75-99)
[2021-03-02] MEDS: INSULIN ASPART (NovoLOG) 100 UNIT/ML VIAL SQ SCH ×4 (00:13→18:05)
[2021-03-02] MEDS: methylPREDNISolone SOD SUCCI 125 MG/2 ML VIAL IV SCH ×4 (00:15→17:11)
[2021-03-02 06:16] LABS: Glucose,Whole Blood 134 mg/dL (75-99)
[2021-03-02] MEDS: ALBUTEROL HFA INHALER INHALATION PRN ×4 (07:59→19:30)
[2021-03-02] MEDS: SYMBICORT 160-4.5 MCG INHALER INHALATION SCH ×2 (07:59→19:30)
[2021-03-02] MEDS: ASCORBIC ACID 500 MG TAB PO SCH (08:30)
[2021-03-02] MEDS: INSULIN DETEMIR (LEVEMIR) 100 UNIT/ML SYR SQ SCH (08:30)
[2021-03-02] MEDS: CHOLECALCIFEROL 25 MCG (1000 IU) TABLET PO SCH (08:30)
[2021-03-02] MEDS: prednisoLONE ACETATE 1% OPHTH DROPS 5 ML BTL BOTH EYES SCH ×4 (08:31→21:59)
[2021-03-02] MEDS: LETROZOLE 2.5 MG TAB PO SCH (08:31)
[2021-03-02] MEDS: AMIODARONE 200 MG TAB PO SCH ×2 (08:31→20:03)
[2021-03-02] MEDS: DULoxetine HCL 60 MG CAPSULE.DR PO SCH ×2 (08:31→20:03)
[2021-03-02] MEDS: GABAPENTIN 300 MG CAP PO SCH ×2 (08:31→20:03)
[2021-03-02] MEDS: APIXABAN 5 MG TAB PO SCH ×2 (08:31→20:03)
[2021-03-02] MEDS: ZINC SULFATE 220 MG CAP PO SCH (08:31)
[2021-03-02] MEDS: PANTOPRAZOLE 40 MG/10 ML VIAL IVP SCH (08:31)
--- NOTE | 2021-03-02 09:55 | PN ---
PROGRESS NOTE A 75-year-old lady that is admitted to hospital with COVID pneumonia, hypoxia and respiratory failure. She is in the intensive care unit. Remains in sinus rhythm. The patient has known coronary artery disease and had encephalopathy. On exam, heart rate is 67 beats per minute. Blood pressure is 146/80. Respiratory rate is 18. This is a limited physical exam secondary to COVID. Patient is currently on amiodarone 200 b.i.d., Eliquis 5 b.i.d., Lipitor 40 daily, insulin. ASSESSMENT: 1. Paroxysmal atrial fibrillation. 2. Respiratory failure secondary to COVID pneumonia. 3. History of coronary artery disease. PLAN: I will continue the Eliquis and amiodarone. MMODL / IJN: [id number] /
[2021-03-02] MEDS: OFLOXACIN 0.3% OPHTH DROPS 5 ML BOTTLE BOTH EYES SCH ×4 (11:31→21:59)
[2021-03-02 11:59] LABS: Glucose,Whole Blood 162 mg/dL (75-99)
[2021-03-02] MEDS ORDERED: LIDOCAINE 1% INJ 10MG/ML (20 ML MDV) ONE (12:50)
--- NOTE | 2021-03-02 13:14 | P.PN ---
Subjective Progress Note Date: 03/02/21 Principal diagnosis: CoVID 19 pneumonia This is a 75-year-old female with history of multiple medical problems including COPD, type 2 diabetes, hypertension, coronary artery disease and previous [place] in 2013, previous stenting to RCA, history of left breast cancer and previous lum pectomy, bipolar disorder, patient presented to the ER with 3 weeks history of not feeling well. Patient stated that she felt sick for the last 3 weeks, complaining of generalized weakness, cough, cough is nonproductive, and shortness of breath. Patient was also having intermittent episodes of mental status change and confusion, in the ER she was noted to be febrile with a temp of 101.4, chest x-ray showed bilateral interstitial infiltrates, her sodium was noted to be a bit low at 127, her C-reactive protein was high, LDH was high, and her treating for granados virus/PCR was positive patient was admitted, placed on 15 L high flow via a nonrebreather mask, and I was asked to see her on consul tation. Patient was seen on the regular medical floor, and she was noted to have extremely low saturations in the high 70s and low 80s hence I recommended placing the patient on BiPAP. Patient is out of the window for remdesivir, however considering her O2 requirement, we will likely recommend starting the patient on actemra, and on the coated 19 cocktail. If the patient does not improve with BiPAP, May have to seriously consider transfer the patient to the ICU. The patient is seen today 02/27/2021 in follow-up in the intensive care unit. She did undergo being transferred down here yesterday. Blood gases on 100% FiO2 had revealed a PaO2 of 45, pCO2 35, pH 7.51. Continue with low saturations. She is currently on BiPAP 14/7 and 100% FiO2. She had also developed atrial fibrillation with a rapid ventricular response. She is on amiodarone at 0.5 mg/m. Heparin drip. 0.9 normal saline at 80 MLS per hour. She did receive Actemra. White count 6.0. Hemoglobin 14.3. Lymphocytes 0.8. D-dimer 1.11. Sodium 129. Potassium 3.9. Creatinine 0.66. LDH 1426. C-reactive protein 201. He remains on Symbicort, albuterol, IV Solu-Medrol. Vitamin supplements. The patient is seen today 02/28/2021 in follow-up in the intensive care unit. She is currently resting comfortably in bed. She remains on BiPAP 14/7 and 100% FiO2 to maintain O2 saturations at 90%. Fluids are at KVO. She did receive tocilizumab, convalescent plasma. Chest x-ray continues to show diffuse bilateral airspace disease. White count 11.1. Hemoglobin 13.2. D-dimer 0.86. Sodium 132. Potassium 3.8. Creatinine 0.74. C-reactive protein 74.7. She remains on Solu-Medrol. Anticoagulated with Eliquis. She is continued on vitamin supplements, Symbicort, albuterol. Patient is seen today 03/01/2021 in follow-up in the intensive care unit. She is currently resting fairly comfortably in bed. Awake and alert in no acute distress. She is still mostly BiPAP dependent currently 14/7 and 100% FiO2 to maintain O2 saturations in the high 80s low 90s. She dropped to 75% while off the BiPAP briefly for medications. She did receive tocilizumab and convalescent plasma. Chest x-ray continues to show patchy bilateral infiltrates. Currently in sinus rhythm. She is anticoagulated with Eliquis. Receiving IV solu Medrol, bronchodilators, vitamin supplements. The patient is seen today 03/02/2021 in follow-up in the intensive care unit. She remains on BiPAP 14/7 and 100% FiO2. Not tolerating any time off the BiPAP without significant desaturations. Poor oral intake. She did receive Actemra, and convalescent plasma. She remains on anticoagulated in the form of Eliquis. IV Solu-Medrol 60 every 6 hours. Vitamin supplements. Objective - Vital Signs Vital signs: Vital Signs Temp 97.7 F 03/02/21 08:00 Pulse 78 03/02/21 11:00 Resp 25 H 03/02/21 11:00 BP 148/70 03/02/21 11:00 Pulse Ox 87 L 03/02/21 11:00 Intake & Output 03/01/21 03/02/21 03/02/21 18:59 06:59 18:59 Intake Total 590 240 280 Output Total 525 595 110 Balance 65 -355 170 Intake: IV 240 240 40 Sodium Chloride 0.9% 1, 240 240 40 000 ml @ 20 mls/hr IV . Q24H [facility] Rx#:[id number] Oral 350 240 Output: Urine 525 595 110 Other: Voiding Method Indwelling Catheter Indwelling Catheter - Exam GENERAL EXAM: Alert, pleasant 75-year-old female patient, on BiPAP 14/7 and 100% FiO2, and mild john distress. HEAD: Normocephalic. EYES: Normal reaction of pupils, equal size. NOSE: Clear with pink turbinates. THROAT: No erythema or exudates. NECK: No masses, no JVD. CHEST: No chest wall deformity. LUNGS: Equal air entry with crackles in the bilateral posterior bases. CVS: S1 and S2 normal with no audible murmur, regular rhythm. ABDOMEN: No hepatosplenomegaly, normal bowel sounds, no guarding or rigidity. SPINE: No scoliosis or deformity SKIN: No rashes CENTRAL NERVOUS SYSTEM: No focal deficits, tone is normal in all 4 extremities. EXTREMITIES: There is no peripheral edema. No clubbing, no cyanosis. Peripheral pulses are intact. - Labs CBC & Chem 7: 03/01/21 04:51 03/01/21 09:24 Labs: Abnormal Lab Results - Last 24 Hours (Table) 03/01/21 03/02/21 03/02/21 Range/Units 18:00 00:04 06:15 POC Glucose (mg/dL) 260 H 268 H 134 H (75-99) mg/dL 03/02/21 Range/Units 11:58 POC Glucose (mg/dL) 162 H (75-99) mg/dL Microbiology - Last 24 Hours (Table) 02/25/21 23:10 Blood Culture - Preliminary Blood No Growth after 96 hours Assessment and Plan Assessment: 1 Acute hypoxic respiratory failure secondary to acute CoVID 19 pneumonitis. Received tocilizumab, convalescent plasma 2 Mild transaminitis secondary to CoVID 19 3 Elevated inflammatory markers secondary to above 4 Atrial fibrillation with rapid ventricular response. Currently on amiodarone and Eliquis. 5 History of COPD 6 Coronary artery disease 7 History of breast cancer with previous lumpectomy 8 Gastroesophageal reflux disease 9 History of bipolar disorder 10 History of hypertension Plan: The patient was seen and evaluated by Dr. Chiang We'll had a PICC line placed for TPN for nutritional support Continue Solu-Medrol, vitamin supplements Anticoagulated with Eliquis Titrate down the FiO2 as tolerated We'll continue to follow and make further recommendations based on her clinical status I, the cosigning physician, performed a history & physical examination of the patient. Lungs sounds with crackles in the bilateral posterior bases. Maintaining good O2 saturations in the 90s on 100% FiO2 with BiPAP 14/7. I discussed the assessment and plan of care with my nurse practitioner, Kelsey Simon. I attest to the above note as dictated by her.
[2021-03-02] MEDS ORDERED: LIDOCAINE 1% INJ 10MG/ML (20 ML MDV) SQ ONE (13:55)
--- NOTE | 2021-03-02 14:06 | P.PN ---
Subjective Progress Note Date: 03/02/21 HISTORY OF PRESENT ILLNESS This is a 75-year-old female patient of Dr. Gagnon and Dr. KENIA Pereira with past medical history of COPD, diabetes mellitus type 2, hypertension and hypertensive cardiovascular disease, hyperlipidemia, coronary artery disease with prior [place] in 2013 with PCI to the RCA, gastroesophageal reflux disease, hiatal hernia, left breast cancer status post lumpectomy, bipolar disorder, remote history of tobacco use. Echocardiogram in May 2020 revealed EF of 55- 60%, mild concentric left ventricular hypertrophy, trace mitral regurgitation, mild tricuspid regurgitation. She had a heart catheterization in May [address] Pereira which revealed widely patent RCA. LAD with minor irregularities. Diagonal is 40-50% ostial disease as it comes off the LAD. Circumflex with no significant disease. Recommendations at that time was for medical management. Patient has history of feeling sick for about 3 weeks with shortness of breath and cough. She does not have home oxygen. She apparently was brought into the emergency center due to altered mental status. She was found to be febrile with a temperature 101.4, heart rate 84, blood pressure 130/73 and pulse ox 88%. CBC was unremarkable. INR 0.9. Lactic acid 2.0. Blood sugar 119. Sodium 127, potassium 3.9, chloride 89, CO2 28, BUN 14 and creatinine 0.82. Magnesium 2.4. Total bilirubin 0.8, AST 92, ALT 37. C-reactive protein 970. ProBNP 752. Coronavirus PCR detected. EKG was a sinus rhythm with no acute changes with heart rate of 73. Chest x-ray revealed moderate pulmonary interstitial pneumonia new compared to old exam. No suspected heart failure. No definite pleural effusion. Patient is status post 1/2 L of IV fluid and admitted to the cardiac stepdown unit, pulmonary medicine and infectious disease consult in place 02/27: Patient developed A. fib with RVR overnight and was started on heparin drip, Cardizem drip and amiodarone drip, cardiology consult and transferred to the intensive care unit. She is currently on BiPAP. Echocardiogram has been obtained and report is pending. She is now rhythm with controlled rate. Patient's CODE STATUS has been changed to full code with no intubation. The patient has been afebrile, heart rate 64, blood pressure 111/65, pulse ox is 88% on BiPAP. CBC is unremarkable except for leukocytosis at 0.8. INR is 1.11. Sodium 129, potassium 3.9, chloride 94, CO2 22, BUN 60 and creatinine 0.66. Blood sugar 222 Levemir 10 units daily has been added. Calcium is 8.1, total bilirubin 0.7, AST 95, ALT 35, phosphatase 83. LDH 1426. C-reactive protein 201.5. Blood cultures no growth at 24 hours. Chest x-ray reveals slight wor sening of bilateral airspace disease, right greater than left. Patient has been seen by cardiology and Cardizem drip has been discontinued. Continue amiodarone drip and IV heparin. Prescription has been sent to pharmacy for a request to check coverage. Patient has received 2 doses of Tocilizumab. She is status post IV Lasix 20 mg as morning. 02/28: patient remains in intensive care unit on BiPAP with pulse ox of 88%. awake overnight monitor has been sinus rhythm in the 60s. She did have some bradycardia overnight in the 40s and 50s and cardiologyhas discontinued Coreg. Patient is continued on oral amiodarone and eliquis.repeat chest x-ray reveals stable diffuse increased lung markings within the mid to lower lung jolley bilaterally compatible with atypical pneumonia. WBC is 11.1, hemoglobin 13.2. D-dimer 0.86. Sodium 132, potassium 3.8, chloride 95, CO2 30, BUN 23 and creatinine 0.74. Blood sugars running between 149 and 185. Total bilirubin 0.8, AST 70, ALT 33, alkaline phosphatase 78. C-reactive protein 74.7. TSH 0.279. Pulmonary medicine has ordered convalescent plasma therapy which patient received last evening and patient is anxious about and is afraid she will have a reaction. She currently denies having any itching or rash. Last evening, lorazepam as needed was added. 03/01: Patient remains in the intensive care unit on BiPAP pulse ox 87 and 92%. Patient appears to be comfortable. Her pulse ox does drop and she is off the BiPAP even briefly. FiO2 is 100%. Patient is status post ocilizumab and convalescent plasma. She has been afebrile, heart rate 69, blood pressure 143/72. WBC 14.9, hemoglobin 13.8, platelet count 274. Lymphocytes 0.7. Sodium 135 otherwise electrolytes are normal, BUN 29 creatinine 0.72. Blood sugars running between 154 at 172. AST 57 otherwise liver function tests are normal. Blood culture no growth at 72 hours. Chest x-ray reveals slight improvement of diffuse increased lung markings bilaterally. Yesterday, Cymbalta increased frequency to twice daily. 03/02: Patient remains in the intensive care unit on BiPAP. Patient states that she is comfortable at rest. She's been afebrile, heart rate 73, blood pressure 152/91, pulse ox 85% of her percent BiPAP. Blood sugars running between 134 and 268. Blood cultures showing no growth at 96 hours. Patient is continued on IV Solu-Medrol and vitamin supplements. PICC line has been ordered for TPN. REVIEW OF SYSTEMS Constitutional: No fever, no chills, no night sweats. No weight change. Reports weakness, Reports fatigue Reports lethargy. Reports daytime sleepiness. EENT: No headache. No blurred vision or double vision, no loss of vision. No dizziness. No nasal drainage or congestion. No epistaxis. No sore throat. Lungs: Reports shortness of breath stable at rest, Reports cough, no sputum production. No wheezing. Cardiovascular: No chest pain, no lower extremity edema. No palpitations. No paroxysmal nocturnal dyspnea. No orthopnea. No lightheadedness or dizziness. No syncopal episodes. Abdominal: No abdominal pain. No nausea, vomiting. No diarrhea. No constipation. No bloody or tarry stools. No loss of appetite. Genitourinary: No dysuria, increased frequency, urgency. No urinary retention. Musculoskeletal: No myalgias. Reports muscle weakness, Reports gait dysfunction, no frequent falls. No back pain. No neck pain. Integumentary: No wounds, no lesions. No rash or pruritus. Neurologic: No aphasia. No facial droop. No change in mentation. No head injury. No headache. No paralysis. No paresthesia. Psychiatric: No depression. reports anxiety. Endocrine: Mildly abnormal blood sugars. PHYSICAL EXAMINATION Gen: This is a 75-year-old female. She is resting in ICU bed and appears comfortable at rest while on BiPAP. HEENT: Head is atraumatic, normocephalic. Pupils equal, round. Sclerae is anicteric. NECK: Supple. No JVD. No lymphadenopathy. No thyromegaly. LUNGS: Diminished bilaterally. No intercostal retractions. HEART: Regular rate and rhythm. Systolic murmur. awake overnight monitor is sinus rhythm. ABDOMEN: Soft. Bowel sounds are present. No masses. No tenderness. EXTREMITIES: No pedal edema. No calf tenderness. Dorsalis pedis +2 bilaterally. NEUROLOGICAL: Patient is awake, alert and oriented x3. Cranial nerves 2 through 12 are grossly intact. ASSESSMENT AND PLAN 1. Metabolic encephalopathy secondary to sepsis and COVID19 pneumonia, hyponatremia. 2. Acute hypoxic respiratory failure secondary to combination of COPD exacerbation, Covid 19 pneumonia. Patient is currently on oxygen BiPAP. Consult with pulmonary medicine and infectious disease. Patient started on Symbicort twice daily, albuterol inhaler 4 times daily as needed, eliquis, Solu- Medrol 60 mg IV every 6 hours, zinc, vitamin C, vitamin D. Patient is status post 2 doses of Tocilizumab and status post IV Lasix for fluid overload secondary to fluid resuscitation, status post convalescent plasma transfusion. PICC line has been ordered for TPN. 3. Diabetes mellitus type 2. Hold metformin. Patient started on NovoLog scale before meals and at bedtime and continue Levemir 10 units daily. 4. Hyponatremia, improved. Patient is status post IV fluids, continue to monitor. Hold Lasix 40 mg daily. 5. Mild elevation in liver function tests, monitor. 6. Elevated inflammatory markers secondary to Covid. 7. Hypertension, hypertensive cardiovascular disease. Hold Coreg for bradycardia. Hold lisinopril 2.5 mg daily and hold Aldactone 12.5 mg daily. 8. Hyperlipidemia. Continue atorvastatin 40 mg at bedtime. 9. Coronary artery disease. Continue Nitrostat, atorvastatin, Coreg. 10. Gastroesophageal reflux disease, GI prophylaxis. Continue Prevacid. 11. History of left breast cancer status post lumpectomy. Continue Femara 2.5 mg daily. 12. Bipolar disorder. Continue Cymbalta 60 mg increased frequency to twice daily, Neurontin 300 mg twice daily, Zyprexa 2.5 mg at bedtime, clonazepam 1 mg twice daily as needed. 13. New onset Atrial fibrillation with RVR, currently in SR. Hold Cereg for bradycardia. Continue Amiodarone PO 200 mg twice daily, Eliquis. 14. DVT prophylaxis. Eliquis. DISCHARGE PLAN To be determined. PT and OT consults. Impression and plan of care have been directed as dictated by the signing physician. Teresa Rios nurse practitioner acting as scribe for signing ph ysician. Objective - Vital Signs Vital signs: Vital Signs Temp 97.7 F 03/02/21 08:00 Pulse 73 03/02/21 09:00 Resp 23 03/02/21 09:00 BP 152/91 03/02/21 09:00 Pulse Ox 87 L 03/02/21 09:00 Intake & Output 03/01/21 03/02/21 03/02/21 18:59 06:59 18:59 Intake Total 590 240 280 Output Total 525 595 110 Balance 65 -355 170 Intake: IV 240 240 40 Sodium Chloride 0.9% 1, 240 240 40 000 ml @ 20 mls/hr IV . Q24H [facility] Rx#:[id number] Oral 350 240 Output: Urine 525 595 110 Other: Voiding Method Indwelling Catheter Indwelling Catheter - Labs CBC & Chem 7: 03/01/21 04:51 03/01/21 09:24 Labs: Abnormal Lab Results - Last 24 Hours (Table) 03/01/21 03/01/21 03/02/21 Range/Units 11:55 18:00 00:04 POC Glucose (mg/dL) 148 H 260 H 268 H (75-99) mg/dL 03/02/21 Range/Units 06:15 POC Glucose (mg/dL) 134 H (75-99) mg/dL Microbiology - Last 24 Hours (Table) 02/25/21 23:10 Blood Culture - Preliminary Blood No Growth after 96 hours
--- NOTE | 2021-03-02 14:27 | XR ---
EXAMINATION TYPE: XR chest 1V confirm line [facility] DATE OF EXAM: 03/02/2021 COMPARISON: 03/01/2021 INDICATION: Line placement TECHNIQUE: Single frontal view of the chest is obtained. FINDINGS: The heart size is normal. The pulmonary vasculature is normal. Patchy bilateral mid and lower lung field infiltrates are present findings are stable from comparison . There is interval placement of a left-sided PICC line with the tip in the region of the distal superi or vena cava right atrial junction. IMPRESSION: 1. Placement of a PICC line with the tip at the superior vena cava right atrial junction. 2. Bilateral patchy infiltrates in the mid and lower lung jolley, stable.
--- NOTE | 2021-03-02 15:31 | IR ---
EXAMINATION TYPE: IR cvc insert >=5 years DATE OF EXAM: 03/02/2021 COMPARISON: NONE HISTORY: Covid pneumonia, needs long-term intravenous access for total parenteral nutrition FINDINGS: Maximal barrier technique was utilized. Hand hygiene obtained with soap and water and alco hol-based hand rub. The skin overlying the left basilic vein was localized with ultrasound and noted to be compressible and patent by ultrasound. An ultrasound image was obtained and submitted on talya lopez's chart. Sterile technique utilized with the ultrasound machine. The skin overlying was prepped an d draped and Lidocaine used for local anesthesia. A skin heri was made with a scalpel. Access was g ained to the vein under direct ultrasound guidance with a 21-gauge needle and a 0.018 inch wire was a dvanced. Access site was dilated with a peel-away sheath and the catheter tailored to length. Lana ter advanced centrally and a post procedure chest x-ray verified placement the tip at the cavoatrial junction. Catheter was fixed to the skin and a sterile dressing placed. Hemostasis achieved and the catheter was aspirated and flushed with sterile saline. The patient remained in stable condition. IMPRESSION: STATUS POST ULTRASOUND GUIDED PICC LINE PLACEMENT, READY FOR USE. THIS PROCEDURE WAS PER FORMED BY THE UNDERSIGNED.
[2021-03-02 16:08] VITALS: BMI 29.5
[2021-03-02] MEDS: SODIUM CHLORIDE 0.9% 1,000 ML IV SCH (16:27)
[2021-03-02 17:17] LABS: Glucose,Whole Blood 145 mg/dL (75-99)
--- NOTE | 2021-03-02 17:25 | PN ---
PROGRESS NOTE DATE OF SERVICE: 03/02/2021 REASON FOR FOLLOWUP: COVID-19 pneumonia. INTERVAL HISTORY: The patient is currently afebrile. The patient remains on BiPAP, saturating over 89%. The patient is complaining of feeling tired and weak. Denies having any chest pain. She did have some cough but not bringing up any sputum. No abdominal pain or diarrhea. PHYSICAL EXAMINATION: Blood pressure 141/74, pulse 62, temperature 99.6. She is 89% on 100% BiPAP. General description is an elderly female up in the bed in no distress. RESPIRATORY SYSTEM: Unlabored breathing with decreased intensity of breath sounds. No wheeze. HEART: S1, S2. Regular rate and rhythm. ABDOMEN: Soft. No tenderness. LABS: Hemoglobin 13.8, white count 14.9, BUN of 29, creatinine 0.72. Electrolytes have been normal. Blood culture negative. DIAGNOSTIC IMPRESSION AND PLAN: Patient with acute respiratory failure which is multifactorial in this patient who has underlying COVID-19 infection. The patient is currently on Eliquis, Solu-Medrol, zinc, ascorbic acid; to continue and continue with supportive care. MMODL / IJN: [id number] /
[2021-03-02 18:36] LABS: African American GFR (CKD) >90 (>60 ml/min/1.73 sqM); Anion Gap 8 mmol/L; Blood Urea Nitrogen 29 mg/dL (7-17); Calcium 8.6 mg/dL (8.4-10.2); Carbon Dioxide 28 mmol/L (22-30); Chloride 99 mmol/L (98-107); Glucose 218 mg/dL (74-99); Magnesium 2.4 mg/dL (1.6-2.3); Non-African American GFR(CKD) 86 (>60 ml/min/1.73 sqM); Phosphorus 3.7 mg/dL (2.5-4.5); Potassium 4.2 mmol/L (3.5-5.1); Sodium 135 mmol/L (137-145)
[2021-03-02 19:04] LABS: Triglycerides 283 mg/dL (<150)
[2021-03-02 19:38] LABS: LD Isoenzymes 1 16 % (19-38); LD Isoenzymes 2 33 % (30-43); LD Isoenzymes 3 28 % (16-26); LD Isoenzymes 4 14 % (3-12); LD Isoenzymes 5 9 % (3-14); Lactacte Dehydrogenase(LD) ISO 461 U/L (120-250)
[2021-03-02 19:38] LABS: LD Isoenzymes 1 16 % (19-38); LD Isoenzymes 2 29 % (30-43); LD Isoenzymes 3 27 % (16-26); LD Isoenzymes 4 16 % (3-12); LD Isoenzymes 5 12 % (3-14); Lactacte Dehydrogenase(LD) ISO 463 U/L (120-250)
[2021-03-02] MEDS: MONTELUKAST 10 MG TAB PO SCH (20:03)
[2021-03-02] MEDS: MELATONIN 5 MG TABLET PO SCH (20:03)
[2021-03-02] MEDS: ATORVASTATIN 40 MG TAB PO SCH (20:03)
[2021-03-02] MEDS: traZODone HCL 50 MG TAB PO SCH (20:04)
[2021-03-02] MEDS: OLANZapine 2.5 MG TAB PO SCH (20:04)
[2021-03-02 20:31] LABS: Glucose,Whole Blood 211 mg/dL (75-99)
[2021-03-02] MEDS: LATANOPROST 0.005% OPHTH DROPS 2.5 ML BTL BOTH EYES SCH (20:32)
[2021-03-02] MEDS ORDERED: MVI, ADULT NO.4 WITH VIT K 10 ML, TRACE (CONC-1ML/DOSE) 1 ML, SODIUM CHLORIDE 4MEQ/ML V... IV SCH ×7 (21:00)
[2021-03-02] MEDS ORDERED: FAT EMULSION 20% 250 ML in EMPTY BAG 1 BAG IV SCH (21:00)
[2021-03-02] MEDS: clonazePAM 1 MG TAB PO PRN ×2 (22:01→22:04)
[2021-03-03 00:16] LABS: Glucose,Whole Blood 219 mg/dL (75-99)
[2021-03-03] MEDS: INSULIN ASPART (NovoLOG) 100 UNIT/ML VIAL SQ SCH (00:22)
[2021-03-03] MEDS: methylPREDNISolone SOD SUCCI 125 MG/2 ML VIAL IV SCH (00:23)
[2021-03-03 01:43] VITALS: TEMP 98.4
[2021-03-03] MEDS ORDERED: LORazepam 2 MG/ML INJ IV STA (03:54)
[2021-03-03] MEDS ORDERED: FUROSEMIDE 10 MG/ML 4 ML VIAL IV STA (04:17)
[2021-03-03] MEDS ORDERED: FUROSEMIDE 10 MG/ML 4 ML VIAL ONE (04:19)
[2021-03-03 04:29] LABS: Glucose,Whole Blood 426 mg/dL (75-99)
[2021-03-03 05:11] VITALS: BP 122/75; PULSE 114; RESP 25
[2021-03-03 05:16] LABS: Ionized Calcium 4.8 mg/dL (4.5-5.3)
[2021-03-03 05:32] LABS: Potassium 4.9 mmol/L (3.5-5.1)
[2021-03-03 05:34] LABS: C Reactive Protein 21.3 mg/L (<10.0); Calcium 8.8 mg/dL (8.4-10.2); Magnesium 2.6 mg/dL (1.6-2.3); Phosphorus 7.1 mg/dL (2.5-4.5)
[2021-03-03] MEDS ORDERED: EPINEPHrine 10 ML SYRINGE (0.1 MG/ML) ONE (05:58)
--- NOTE | 2021-03-03 06:34 | P.EN ---
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 she had a cardiopulmonary arrest with PEA. COde blue activated, and CPR initiated following ACLS protocol, multiple rounds of epi were given, no shock delivered as patient was in PEA. code lasted for about 17 minutes. no intubation done, per DNI instructions earlier during this hospital course. patient did not achieve ROSC and . family notified primary paged , await call back
[2021-03-03] MEDS ORDERED: MVI, ADULT NO.4 WITH VIT K 10 ML, TRACE (CONC-1ML/DOSE) 1 ML, SODIUM CHLORIDE 4MEQ/ML V... IV SCH ×12 (08:00→21:00)
[2021-03-03] MEDS ORDERED: [UNRECOGNIZED DRUG - NUTRITION] IV SCH ×5 (22:00)
--- NOTE | 2021-03-05 12:52 | P.DS ---
Providers Date of admission: 02/26/21 00:24 Expected date of discharge: 03/05/21 Attending physician: Lázaro Gagnon Consults: 02/26/21 00:25 Consult Physician Routine Consulting Provider: Jean-Paul Edge Consult Reason/Comments: covidHypoxia, ICU managment Do you want consulting provider notified?: Yes Consult Physician Routine Consulting Provider: Panchito Joel Consult Reason/Comments: covid Do you want consulting provider notified?: Yes 02/26/21 17:45 Consult Physician Routine Consulting Provider: Kwan Avalos Consult Reason/Comments: A-Fib RVR Do you want consulting provider notified?: Yes Primary care physician: [facility] Course: HISTORY OF PRESENT ILLNESS This is a 75-year-old female patient of Dr. Gagnon and Dr. KENIA Pereira with past medical history of COPD, diabetes mellitus type 2, hypertension and hypertensive cardiovascular disease, hyperlipidemia, coronary artery disease with prior SD in 2013 with PCI to the RCA, gastroesophageal reflux disease, hiatal hernia, left breast cancer status post lumpectomy, bipolar disorder, remote history of tobacco use. Echocardiogram in May 2020 revealed EF of 55-60 %, mild concentric left ventricular hypertrophy, trace mitral regurgitation, mild tricuspid regurgitation. She had a heart catheterization in May [address] Pereira which revealed widely patent RCA. LAD with minor irregularities. Diagonal is 40-50% ostial disease as it comes off the LAD. Circumflex with no significant disease. Recommendations at that time was for medical management. Patient has history of feeling sick for about 3 weeks with shortness of breath and cough. She does not have home oxygen. She apparently was brought into the emergency center due to altered mental status. She was found to be febrile with a temperature 101.4, heart rate 84, blood pressure 130/73 and pulse ox 88%. CBC was unremarkable. INR 0.9. Lactic acid 2.0. Blood sugar 119. Sodium 127, potassium 3.9, chloride 89, CO2 28, BUN 14 and creatinine 0.82. Magnesium 2.4. Total bilirubin 0.8, AST 92, ALT 37. C-reactive protein 970. ProBNP 752. Coronavirus PCR detected. EKG was a sinus rhythm with no acute changes with heart rate of 73. Chest x-ray revealed moderate pulmonary interstitial pneumonia new compared to old exam. No suspected heart failure. No definite pleural effusion. Patient is status post 1/2 L of IV fluid and admitted to the cardiac stepdown unit, pulmonary medicine and infectious disease consult in place 02/27: Patient developed A. fib with RVR overnight and was started on heparin drip, Cardizem drip and amiodarone drip, cardiology consult and transferred to the intensive care unit. She is currently on BiPAP. Echocardiogram has been obtained and report is pending. She is now rhythm with controlled rate. Patient's CODE STATUS has been changed to full code with no intubation. The patient has been afebrile, heart rate 64, blood pressure 111/65, pulse ox is 88% on BiPAP. CBC is unremarkable except for leukocytosis at 0.8. INR is 1.11. Sodium 129, potassium 3.9, chloride 94, CO2 22, BUN 60 and creatinine 0.66. Blood sugar 222 Levemir 10 units daily has been added. Calcium is 8.1, total bilirubin 0.7, AST 95, ALT 35, phosphatase 83. LDH 1426. C-reactive protein 201.5. Blood cultures no growth at 24 hours. Chest x-ray reveals slight worsening of bilateral airspace disease, right greater than left. Patient has been seen by cardiology and Cardizem drip has been discontinued. Continue amiodarone drip and IV heparin. Prescription has been sent to pharmacy for a request to check coverage. Patient has received 2 doses of Tocilizumab. She is status post IV Lasix 20 mg as morning. 02/28: patient remains in intensive care unit on BiPAP with pulse ox of 88%. 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 She did have some bradycardia overnight in the 40s and 50s and cardiologyhas discontinued Coreg. Patient is continued on oral amiodarone and eliquis.repeat chest x-ray reveals stable diffuse increased lung markings within the mid to lower lung jolley bilaterally compatible with atypical pneumonia. WBC is 11.1, hemoglobin 13.2. D-dimer 0.86. Sodium 132, potassium 3.8, chloride 95, CO2 30, BUN 23 and creatinine 0.74. Blood sugars running between 149 and 185. Total bilirubin 0.8, AST 70, ALT 33, alkaline phosphatase 78. C-reactive protein 74.7. TSH 0.279. Pulmonary medicine has ordered convalescent plasma therapy which patient received last evening and patient is anxious about and is afraid she will have a reaction. Jovita gu currently denies having any itching or rash. Last evening, lorazepam as needed was added. 03/01: Patient remains in the intensive care unit on BiPAP pulse ox 87 and 92%. Patient appears to be comfortable. Her pulse ox does drop and she is off the BiPAP even briefly. FiO2 is 100%. Patient is status post ocilizumab and convalescent plasma. She has been afebrile, heart rate 69, blood pressure 143/72. WBC 14.9, hemoglobin 13.8, platelet count 274. Lymphocytes 0.7. Sodium 135 otherwise electrolytes are normal, BUN 29 creatinine 0.72. Blood sugars running between 154 at 172. AST 57 otherwise liver function tests are normal. Blood culture no growth at 72 hours. Chest x-ray reveals slight improvement of diffuse increased lung markings bilaterally. Yesterday, Cymbalta increased frequency to twice daily. 03/02: Patient remains in the intensive care unit on BiPAP. Patient states that she is comfortable at rest. She's been afebrile, heart rate 73, blood pressure 152/91, pulse ox 85% of her percent BiPAP. Blood sugars running between 134 and 268. Blood cultures showing no growth at 96 hours. Patient is continued on IV Solu-Medrol and vitamin supplements. PICC line has been ordered for TPN. 03/03: CODE ELZBIETA was called on patient and she during that event. Please see nursing documentation for details. ASSESSMENT AND PLAN 1. Metabolic encephalopathy secondary to sepsis and COVID19 pneumonia, hyponatremia. 2. Acute hypoxic respiratory failure secondary to combination of COPD exacerbation, Covid 19 pneumonia. 3. Diabetes mellitus type 2. 4. Hyponatremia, improved. 5. Mild elevation in liver function tests, monitor. 6. Elevated inflammatory markers secondary to Covid. 7. Hypertension, hypertensive cardiovascular disease. 8. Hyperlipidemia. 9. Coronary artery disease. 10. Gastroesophageal reflux disease. 11. History of left breast cancer status post lumpectomy. 12. Bipolar disorder. 13. New onset Atrial fibrillation with RVR, currently in SR. 14. Cardiopulmonary arrest. Impression and plan of care have been directed as dictated by the signing physician. Teresa Rios nurse practitioner acting as scribe for signing physician. Patient Condition at Discharge: Serious Plan - Discharge Summary New Discharge Prescriptions: New Apixaban [Eliquis] 5 mg PO BID #60 tab No Action Ipratropium/Albuterol Sulfate [Combivent Respimat Inhaler] 1 puff INHALATION RT-QID DULoxetine HCL [Cymbalta] 60 mg PO DAILY Gabapentin [Neurontin] 300 mg PO BID metFORMIN HCL [Glucophage] 500 mg PO DAILY lisinopriL [Zestril] 2.5 mg PO DAILY Furosemide [Lasix] 40 mg PO DAILY carvediloL [Coreg] 3.125 mg PO BID Spironolactone [Aldactone] 12.5 mg PO DAILY Lansoprazole [Prevacid] 30 mg PO DAILY Latanoprost Ophth [Xalatan 0.005%] 1 drops BOTH EYES HS clonazePAM [KlonoPIN] 1 mg PO BID PRN PRN Reason: Anxiety Atorvastatin Calcium [Lipitor] 40 mg PO HS Letrozole [Femara] 2.5 mg PO DAILY Nitroglycerin Sl Tabs [Nitrostat] 0.4 mg SUBLINGUAL Q5M PRN PRN Reason: Chest Pain Montelukast Sodium [Singulair] 10 mg PO HS Fluticasone Propionate 110 Mcg [Flovent 110 Mcg Inhaler (Mhu)] 1 puff INHALATION RT-QID prednisoLONE ACETATE 1% OPHTH [Pred Forte 1%] 1 drop OPHTHALMIC QID OLANZapine [ZyPREXA] 2.5 mg PO HS Ofloxacin 0.3% Otic Soln [Floxin 0.3% Otic Soln] 1 drop OPHTHALMIC QID traZODone HCL 150 mg PO HS Discharge Medication List DULoxetine HCL [Cymbalta] 60 mg PO DAILY 10/04/14 [History] Gabapentin [Neurontin] 300 mg PO BID 10/04/14 [History] Ipratropium/Albuterol Sulfate [Combivent Respimat Inhaler] 1 puff INHALATION RT- QID 10/04/14 [History] Furosemide [Lasix] 40 mg PO DAILY 10/31/15 [History] Lansoprazole [Prevacid] 30 mg PO DAILY 10/31/15 [History] Latanoprost Ophth [Xalatan 0.005%] 1 drops BOTH EYES HS 10/31/15 [History] Spironolactone [Aldactone] 12.5 mg PO DAILY 10/31/15 [History] carvediloL [Coreg] 3.125 mg PO BID 10/31/15 [History] lisinopriL [Zestril] 2.5 mg PO DAILY 10/31/15 [History] metFORMIN HCL [Glucophage] 500 mg PO DAILY 10/31/15 [History] Atorvastatin Calcium [Lipitor] 40 mg PO HS 04/03/17 [History] clonazePAM [KlonoPIN] 1 mg PO BID PRN 04/03/17 [History] Letrozole [Femara] 2.5 mg PO DAILY 09/15/18 [History] Montelukast Sodium [Singulair] 10 mg PO HS 08/28/19 [History] Nitroglycerin Sl Tabs [Nitrostat] 0.4 mg SUBLINGUAL Q5M PRN 08/28/19 [History] Fluticasone Propionate 110 Mcg [Flovent 110 Mcg Inhaler (Mhu)] 1 puff INHALATION RT-QID 06/08/20 [History] OLANZapine [ZyPREXA] 2.5 mg PO HS 02/26/21 [History] Ofloxacin 0.3% Otic Soln [Floxin 0.3% Otic Soln] 1 drop OPHTHALMIC QID 02/26/21 [History] prednisoLONE ACETATE 1% OPHTH [Pred Forte 1%] 1 drop OPHTHALMIC QID 02/26/21 [History] traZODone HCL 150 mg PO HS 02/26/21 [History] Apixaban [Eliquis] 5 mg PO BID #60 tab 02/27/21 [Rx] Follow up Appointment(s)/Referral(s): Lázaro Gagnon MD [Primary Care Provider] - 1-2 days Discharge Disposition: - Preliminary Cause of Preliminary Cause of : cute hypoxic respiratory fx 2 to COVID pneumonia, COPD exac
== END 2021-03-03 09:35 | disposition expired | DRG 871 ==
LOC: EC 22:41 → 3SCARD 02-26 00:24 → 2SICU 02-26 20:37
PROVIDERS: ADMIT Internal Medicine Geriatric Medicine; ATTEND Internal Medicine Geriatric Medicine
PROC: XW033H5 Introduction of Tocilizumab into Peripheral Vein, Percutaneous Approach, New Technology Group 5 (ICD-10-PCS; principal; 2021-02-26)
PROC: 5A09557 Assistance with Respiratory Ventilation, Greater than 96 Consecutive Hours, Continuous Positive Airway Pressure (ICD-10-PCS; 2021-02-26)
PROC: XW13325 Transfusion of Convalescent Plasma (Nonautologous) into Peripheral Vein, Percutaneous Approach, New Technology Group 5 (ICD-10-PCS; 2021-02-27)
PROC: 02HV33Z Insertion of Infusion Device into Superior Vena Cava, Percutaneous Approach (ICD-10-PCS; 2021-03-02)
PROC: 05HC33Z Insertion of Infusion Device into Left Basilic Vein, Percutaneous Approach (ICD-10-PCS; 2021-03-02)
PROC: 3E0436Z Introduction of Nutritional Substance into Central Vein, Percutaneous Approach (ICD-10-PCS; 2021-03-02)
PROC: 5A12012 Performance of Cardiac Output, Single, Manual (ICD-10-PCS; 2021-03-03)
DX: A41.89 Other specified sepsis (principal); U07.1 COVID-19; J12.82 Pneumonia due to coronavirus disease 2019; G93.41 Metabolic encephalopathy; J96.01 Acute respiratory failure with hypoxia; J44.1 Chronic obstructive pulmonary disease with (acute) exacerbation; J44.0 Chronic obstructive pulmonary disease with (acute) lower respiratory infection; E87.1 Hypo-osmolality and hyponatremia; F31.9 Bipolar disorder, unspecified; R65.20 Severe sepsis without septic shock; E11.9 Type 2 diabetes mellitus without complications; I46.8 Cardiac arrest due to other underlying condition; I48.0 Paroxysmal atrial fibrillation; E86.1 Hypovolemia; D72.810 Lymphocytopenia; E87.70 Fluid overload, unspecified; I11.9 Hypertensive heart disease without heart failure; I07.1 Rheumatic tricuspid insufficiency; E78.5 Hyperlipidemia, unspecified; R74.01 Elevation of levels of liver transaminase levels; K44.9 Diaphragmatic hernia without obstruction or gangrene; R00.1 Bradycardia, unspecified; I25.2 Old myocardial infarction; K21.9 Gastro-esophageal reflux disease without esophagitis; I25.10 Atherosclerotic heart disease of native coronary artery without angina pectoris; M19.90 Unspecified osteoarthritis, unspecified site; E66.9 Obesity, unspecified; Z68.29 Body mass index [BMI] 29.0-29.9, adult; Z79.811 Long term (current) use of aromatase inhibitors; Z79.84 Long term (current) use of oral hypoglycemic drugs; Z79.899 Other long term (current) drug therapy; Z85.3 Personal history of malignant neoplasm of breast; Z90.49 Acquired absence of other specified parts of digestive tract; Z90.89 Acquired absence of other organs; Z87.39 Personal history of other diseases of the musculoskeletal system and connective tissue; Z87.19 Personal history of other diseases of the digestive system; Z95.5 Presence of coronary angioplasty implant and graft; Z85.828 Personal history of other malignant neoplasm of skin; Z87.891 Personal history of nicotine dependence; Z90.12 Acquired absence of left breast and nipple; Z98.890 Other specified postprocedural states; Z71.3 Dietary counseling and surveillance; Z88.1 Allergy status to other antibiotic agents; Z88.0 Allergy status to penicillin; Z88.8 Allergy status to other drugs, medicaments and biological substances; Z80.7 Family history of other malignant neoplasms of lymphoid, hematopoietic and related tissues; Z81.8 Family history of other mental and behavioral disorders; Z82.0 Family history of epilepsy and other diseases of the nervous system
CPT/HCPCS: 36415; 36573; 36600; 71045; 80048; 80053; 82330; 82805; 83036; 83605; 83615; 83625; 83735; 83880; 84100; 84145; 84439; 84443; 84478; 85025; 85379; 85610; 85730; 86140; 86850; 86900; 86901; 87040; 87635; 93005; 93306; 94640; 94660; 99285